=== PATIENT | female | born 1950 | race Caucasian/White ===

== ENCOUNTER 2016-08-25 09:05 | Inpatient (IN) | payer MEDICARE, OTHER ==
--- NOTE | 2016-08-25 09:22 | ED ---
General Adult HPI - General Stated complaint: alter mental status Time Seen by Provider: 08/25/16 09:05 Source: RN notes reviewed - History of Present Illness Initial comments: This is a 66-year-old female who was brought in to us from the adult foster care facility according to EMS the workers at the facility stated she has been altered since Tuesday but today she was a little more altered and was refusing to cooperate even to change her underwear. Patient refuses to take a shower and they decided that she was altered enough that she needed to be evaluated in the emergency department. According to staff she normally alert and oriented person place and day of the week. Today she is not answering any of those questions accurately and does not appear to even understand the questions. There's been no history of any trauma. There's been no history of any fever. No history of any difficulty breathing. No nausea vomiting or diarrhea that they know of. No other history is available this time patient is unable to give me any history and there is no one came with the patient. - Related Data Home Medications Medication Instructions Recorded Confirmed OXcarbazepine [Trileptal] 600 mg PO HS 06/15/15 08/25/16 Docusate [Colace] 100 mg PO HS PRN 02/27/16 08/25/16 Ergocalciferol [Vitamin D2] 50,000 unit PO MO 02/27/16 08/25/16 Loratadine [Claritin] 10 mg PO DAILY 02/27/16 08/25/16 Lurasidone HCl [Latuda] 60 mg PO DAILY 02/27/16 08/25/16 Potassium Chloride [Klor-Con] 20 meq PO DAILY 02/27/16 08/25/16 Simvastatin [Zocor] 40 mg PO HS 02/27/16 08/25/16 Spironolactone [Aldactone] 25 mg PO DAILY 02/27/16 08/25/16 Trihexyphenidyl HCl [Artane] 5 mg PO HS 02/27/16 08/25/16 Ibuprofen [Ibuprofen] 400 mg PO TID 08/25/16 08/25/16 Allergies Allergy/AdvReac Type Severity Reaction Status Date / Time haloperidol [From Haldol] Allergy Unknown Verified 02/27/16 12:43 haloperidol lactate Allergy Unknown Verified 02/27/16 12:43 [From Haldol] Iodinated Contrast Media - Allergy Unknown Verified 02/27/16 12:43 Oral and [Iodinated Contrast Media - IV Dye] piperacillin sodium Allergy Unknown Verified 02/27/16 12:43 [From Zosyn] tazobactam sodium Allergy Unknown Verified 02/27/16 12:43 [From Zosyn] Review of Systems ROS Statement: Those systems with pertinent positive or pertinent negative responses have been documented in the HPI. ROS Other: All systems not noted in ROS Statement are negative. Past Medical History Past Medical History: Heart Failure, CVA/TIA, Dementia, GI Bleed, Hypertension Additional Past Medical History / Comment(s): Edema, Cellulitis History of Any Multi-Drug Resistant Organisms: MRSA Date of last positivie culture/infection: 2008 MDRO Source:: leg Past Surgical History: Appendectomy, Cholecystectomy, Hysterectomy, Orthopedic Surgery, Tonsillectomy Past Anesthesia/Blood Transfusion Reactions: No Reported Reaction Past Psychological History: Anxiety, Bipolar, Depression, Panic Disorder Smoking Status: Never smoker Past Alcohol Use History: None Reported Past Drug Use History: None Reported - Past Family History Mother Family Medical History: Unable to Obtain Father Family Medical History: Unable to Obtain General Exam - General Exam Comments Initial Comments: GENERAL: Patient is well-developed and well-nourished. Patient is nontoxic and well- hydrated and is in no acute distress. ENT: Neck is soft and supple. No significant lymphadenopathy is noted. Oropharynx is clear. Moist mucous membranes. Neck has full range of motion without eliciting any pain. EYES: The sclera were anicteric and conjunctiva were pink and moist. Extraocular movements were intact and pupils were equal round and reactive to light. Eyelids were unremarkable. PULMONARY: Unlabored respirations. Good breath sounds bilaterally. No audible rales rhonchi or wheezing was noted. CARDIOVASCULAR: Patient is tachycardic at 110 beats a minute ABDOMEN: Soft and nontender with normal bowel sounds. No palpable organomegaly was noted. There is no palpable pulsatile mass. SKIN: Skin is clear with no lesions or rashes and otherwise unremarkable. NEUROLOGIC: Patient is alert patient and she is not oriented and she is not answering any questions she does occasionally speaking but not making any sense. MUSCULOSKELETAL: Normal extremities with adequate strength and full range of motion. No lower extremity swelling or edema. No calf tenderness. LYMPHATICS: No significant lymphadenopathy is noted PSYCHIATRIC: Unable to assess secondary to altered mental status Course Vital Signs 08/25/16 08/25/16 09:09 10:36 Temperature 97.1 F L Pulse Rate 108 H 105 H Respiratory 14 18 Rate Blood Pressure 173/101 171/99 O2 Sat by Pulse 97 Oximetry Medical Decision Making - Medical Decision Making EKG shows sinus tachycardia at 103 bpm NH interval is 176 QRS is 78 QT interval 320 QTC is 419. Patient's EKG shows no ST segment elevation or depression or T wave abnormalities are noted Patient's chest x-ray shows no acute abnormality. Patient's computed tomography scan of the brain shows no acute abnormality. Spoke with Dr. Dr. Steele and Dr. Steele wanted the patient admitted for stroke and he would evaluate the patient on the floor. - Lab Data Result diagrams: 08/25/16 09:26 08/25/16 09:26 Lab Results 08/25/16 08/25/16 08/25/16 Range/Units 09:22 09:26 09:26 WBC 11.0 H (3.8-10.6) k/uL RBC 4.34 (3.80-5.40) m/uL Hgb 13.2 (11.4-16.0) gm/dL Hct 39.2 (34.0-46.0) % MCV 90.3 (80.0-100.0) fL MCH 30.4 (25.0-35.0) pg MCHC 33.6 (31.0-37.0) g/dL RDW 13.4 (11.5-15.5) % Plt Count 369 (150-450) k/uL Neutrophils % 73 % Lymphocytes % 20 % Monocytes % 5 % Eosinophils % 1 % Basophils % 0 % Neutrophils # 8.0 H (1.3-7.7) k/uL Lymphocytes # 2.2 (1.0-4.8) k/uL Monocytes # 0.5 (0-1.0) k/uL Eosinophils # 0.1 (0-0.7) k/uL Basophils # 0.0 (0-0.2) k/uL PT (9.0-12.0) sec INR (<1.1) APTT (22.0-30.0) sec Sodium (137-145) mmol/L Potassium (3.5-5.1) mmol/L Chloride (98-107) mmol/L Carbon Dioxide (22-30) mmol/L Anion Gap mmol/L BUN (7-17) mg/dL Creatinine (0.52-1.04) mg/dL Est GFR (MDRD) Af Amer (>60 ml/min/1.73 sqM) Est GFR (MDRD) Non-Af (>60 ml/min/1.73 sqM) Glucose (74-99) mg/dL POC Glucose (mg/dL) (75-99) mg/dL POC Glu Timber Sizer Operator ID Calcium (8.4-10.2) mg/dL Total Bilirubin (0.2-1.3) mg/dL AST (14-36) U/L ALT (9-52) U/L Alkaline Phosphatase (38-126) U/L Total Creatine Kinase 106 (30-135) U/L CK-MB (CK-2) 0.7 (0.0-2.4) ng/mL CK-MB (CK-2) Rel Index 0.7 Troponin I 0.021 (0.000-0.034) ng/mL Total Protein (6.3-8.2) g/dL Albumin (3.5-5.0) g/dL Urine Color Yellow Urine Appearance Clear (Clear) Urine pH 7.0 (5.0-8.0) Ur Specific Lav[place] 1.017 (1.001-1.035) Urine Protein Trace H (Negative) Urine Glucose (UA) Negative (Negative) Urine Ketones Negative (Negative) Urine Blood Negative (Negative) Urine Nitrate Negative (Negative) Urine Bilirubin Negative (Negative) Urine Urobilinogen <2.0 (<2.0) mg/dL Ur Leukocyte Esterase Negative (Negative) Urine Opiates Screen Not Detected (NotDetected) Ur Oxycodone Screen Not Detected (NotDetected) Urine Methadone Screen Not Detected (NotDetected) Ur Propoxyphene Screen Not Detected (NotDetected) Ur Barbiturates Screen Not Detected (NotDetected) U Tricyclic Antidepress Not Detected (NotDetected) Ur Phencyclidine Scrn Not Detected (NotDetected) Ur Amphetamines Screen Not Detected (NotDetected) U Methamphetamines Scrn Not Detected (NotDetected) U Benzodiazepines Scrn Not Detected (NotDetected) Urine Cocaine Screen Not Detected (NotDetected) U Marijuana (THC) Screen Not Detected (NotDetected) 08/25/16 08/25/16 08/25/16 Range/Units 09:26 09:26 09:29 WBC (3.8-10.6) k/uL RBC (3.80-5.40) m/uL Hgb (11.4-16.0) gm/dL Hct (34.0-46.0) % MCV (80.0-100.0) fL MCH (25.0-35.0) pg MCHC (31.0-37.0) g/dL RDW (11.5-15.5) % Plt Count (150-450) k/uL Neutrophils % % Lymphocytes % % Monocytes % % Eosinophils % % Basophils % % Neutrophils # (1.3-7.7) k/uL Lymphocytes # (1.0-4.8) k/uL Monocytes # (0-1.0) k/uL Eosinophils # (0-0.7) k/uL Basophils # (0-0.2) k/uL PT 11.5 (9.0-12.0) sec INR 1.2 (<1.1) APTT 22.5 (22.0-30.0) sec Sodium 149 H (137-145) mmol/L Potassium 4.5 (3.5-5.1) mmol/L Chloride 114 H (98-107) mmol/L Carbon Dioxide 18 L (22-30) mmol/L Anion Gap 17 mmol/L BUN 28 H (7-17) mg/dL Creatinine 1.13 H (0.52-1.04) mg/dL Est GFR (MDRD) Af Amer 58 (>60 ml/min/1.73 sqM) Est GFR (MDRD) Non-Af 48 (>60 ml/min/1.73 sqM) Glucose 115 H (74-99) mg/dL POC Glucose (mg/dL) 125 H (75-99) mg/dL POC Glu Timber Sizer Operator ID Linette Cespedes Calcium 10.2 (8.4-10.2) mg/dL Total Bilirubin 0.4 (0.2-1.3) mg/dL AST 22 (14-36) U/L ALT 31 (9-52) U/L Alkaline Phosphatase 175 H (38-126) U/L Total Creatine Kinase (30-135) U/L CK-MB (CK-2) (0.0-2.4) ng/mL CK-MB (CK-2) Rel Index Troponin I (0.000-0.034) ng/mL Total Protein 7.6 (6.3-8.2) g/dL Albumin 4.4 (3.5-5.0) g/dL Urine Color Urine Appearance (Clear) Urine pH (5.0-8.0) Ur Specific Lavelle (1.001-1.035) Urine Protein (Negative) Urine Glucose (UA) (Negative) Urine Ketones (Negative) Urine Blood (Negative) Urine Nitrate (Negative) Urine Bilirubin (Negative) Urine Urobilinogen (<2.0) mg/dL Ur Leukocyte Esterase (Negative) Urine Opiates Screen (NotDetected) Ur Oxycodone Screen (NotDetected) Urine Methadone Screen (NotDetected) Ur Propoxyphene Screen (NotDetected) Ur Barbiturates Screen (NotDetected) U Tricyclic Antidepress (NotDetected) Ur Phencyclidine Scrn (NotDetected) Ur Amphetamines Screen (NotDetected) U Methamphetamines Scrn (NotDetected) U Benzodiazepines Scrn (NotDetected) Urine Cocaine Screen (NotDetected) U Marijuana (THC) Screen (NotDetected) Disposition Clinical Impression: Altered mental status, CVA (cerebral vascular accident) Disposition: ADMITTED IP TO THIS [facility] Time of Disposition: 11:35
[2016-08-25 09:31] LABS: Glucose,Whole Blood 125 mg/dL (75-99)
[2016-08-25 09:41] LABS: Appearance,Urine Clear (Clear); Bilirubin,Urine Negative (Negative); Glucose,Urine (UA) Negative (Negative); Ketones,Urine Negative (Negative); Leukocyte Esterase,Urine Negative (Negative); Nitrite,Urine Negative (Negative); Protein,Urine Trace (Negative); Specific Gravity,Urine 1.017 (1.001-1.035); UA Billing (MACRO vs. MICRO) CHEM; Urobilinogen,Urine <2.0 mg/dL (<2.0)
--- NOTE | 2016-08-25 10:17 | CT ---
EXAMINATION TYPE: CT brain wo con DATE OF EXAM: 08/25/2016 10:10 AM COMPARISON: 02/27/2016 INDICATION: alter mental changes DLP: 1054.2 mGycm, Automated exposure control for dose reduction was used. CONTRAST: None CT of the brain is performed utilizing 3 mm thick sections through the posterior fossa and 3 mm thick sections through the remaining calvarium. Study is performed within 24 hours of arrival to the hosp ital. No abnormal hyperdensity is present to suggest an acute intracranial hemorrhage. No mass lesion is evident. No acute infarcts are evident. There is an old infarct of the inferior and medial portion of the righ t frontal lobe. This was present on February 2016. Extraocular affect is evident on the lateral ventric le. Some mari-infarct ischemic type changes appear to be present which are chronic. No acute abnormal ity is evident. Ventricles and sulci are appropriate for the patient age. Paranasal sinuses and mastoid air cells within the [id number] are clear. IMPRESSIONS: 1. Old inferior medial right frontal lobe infarct. 2. No acute intracranial abnormality.
[2016-08-25 10:24] LABS: Basophils % (A) 0 %; CH 30.7; CHCM 34.2; Calcium 10.2 mg/dL (8.4-10.2); Eosinophils # (A) 0.1 k/uL (0-0.7); Eosinophils % (A) 1 %; HCT 39.2 % (34.0-46.0); HDW 2.44; HGB 13.2 gm/dL (11.4-16.0); Luc # (Auto) 0.11; Luc % (Auto) 1; Lymphocytes # (A) 2.2 k/uL (1.0-4.8); Lymphocytes % (A) 20 %; MCH 30.4 pg (25.0-35.0); MCHC 33.6 g/dL (31.0-37.0); MCV 90.3 fL (80.0-100.0); Mean Platelet Volume 7.6; Monocytes # (A) 0.5 k/uL (0-1.0); Monocytes % (A) 5 %; Neutrophils % (A) 73 %; Potassium 4.5 mmol/L (3.5-5.1); RBC 4.34 m/uL (3.80-5.40); RDW 13.4 % (11.5-15.5); Total Bilirubin 0.4 mg/dL (0.2-1.3); Total Protein 7.6 g/dL (6.3-8.2); WBC (Perox) 11.01
[2016-08-25 10:28] LABS: INR 1.2 (<1.1); Partial Thromboplastin Time 22.5 sec (22.0-30.0); Prothrombin Time 11.5 sec (9.0-12.0)
--- NOTE | 2016-08-25 10:29 | XR ---
EXAMINATION TYPE: XR chest 2V DATE OF EXAM: 08/25/2016 10:20 AM COMPARISON: Chest x-ray June 15, 2015 HISTORY: Confusion and altered mental status TECHNIQUE: Frontal and lateral views of the chest are obtained. FINDINGS: There is no focal air space opacity, pleural effusion, or pneumothorax seen. The cardiac silhouette size is stable and upper limits of normal. Left ventricular dilatation is suspected on lat eral view. There is multilevel spurring in the spine redemonstrated. IMPRESSION: No acute pulmonary process.
[2016-08-25 10:51] LABS: Creatine Kinase MB 0.7 ng/mL (0.0-2.4); Troponin I 0.021 ng/mL (0.000-0.034)
[2016-08-25] MEDS ORDERED: SODIUM CHLORIDE 0.9% 1,000 ML IV ONE (11:06)
[2016-08-25] MEDS: IBUPROFEN 400 MG TAB PO SCH ×2 (15:35→21:26)
--- NOTE | 2016-08-25 16:19 | US ---
EXAMINATION TYPE: US carotid duplex BILAT DATE OF EXAM: 08/25/2016 2:40 PM COMPARISON: NONE CLINICAL HISTORY: Stenosis, altered mental status. EXAM MEASUREMENTS: RIGHT: Peak Systolic Velocity (PSV) cm/sec ----- Right CCA: 54.7 ----- Right ICA: 61.4 ----- Right ECA: 77.2 ICA/CCA ratio: 1.1 RIGHT: End Diastole cm/sec ----- Right CCA: 16.3 ----- Right ICA: 23.0 ----- Right ECA: 11.5 LEFT: Peak Systolic Velocity (PSV) cm/sec ----- Left CCA: 67.7 ----- Left ICA: 105.6 ----- Left ECA: 66.1 ICA/CCA ratio: 1.6 LEFT: End Diastole cm/sec ----- Left CCA: 22.2 ----- Left ICA: 31.8 ----- Left ECA: 16.2 VERTEBRALS (direction of flow): Right Vertebral: Antegrade Left Vertebral: Antegrade TECHNOLOGIST IMPRESSION: Technically difficult study due to poor patient cooperation, no evident ceasar que or significant velocity increases Grayscale, color Doppler, spectral Doppler imaging performed of the carotid arteries. IMPRESSION: No hemodynamic significant stenosis of the proximal internal carotid arteries bilaterall y by Doppler criteria, and indirect measurement of carotid stenosis
[2016-08-25] MEDS: TRIHEXYPHENIDYL 2 MG TAB PO SCH (20:05)
[2016-08-25] MEDS: OXcarbazepine 300 MG TAB PO SCH (20:05)
[2016-08-25] MEDS: ATORVASTATIN 20 MG TAB PO SCH (20:05)
[2016-08-25] MEDS: ASPIRIN 81 MG CHEW PO SCH (20:12)
[2016-08-25] MEDS ORDERED: DOCUSATE 100 MG CAP PO PRN (21:00)
--- NOTE | 2016-08-25 22:40 | CONS ---
DATE OF CONSULTATION: 08/25/2016. CHIEF COMPLAINT: Altered mental status. HISTORY OF PRESENT ILLNESS: The patient is a pleasant 66-year-old female who is being evaluated by the neurology service per the request of Dr. Steele for altered mental status. The patient resides in a foster care facility and was transferred to [facility] emergency room due to altered mental status. The patient has multiple psychiatric disorders but over the past 2 to 3 days, she has been more confused than usual and had been more combative than usual. In the emergency room, a CT scan of the brain was done, which showed no acute abnormalities. There was evidence of an old right frontal lobe stroke. The patient reports a history of a stroke. In reviewing her home medications, she is not on any antiplatelet medications. A carotid Doppler was done, which showed no hemodynamically significant stenosis. Her comprehensive metabolic profile showed hypernatremia at 149 and renal insufficiency with a BUN of 28 and creatinine of 1.13. Her cardiac enzymes, urinalysis and urine drug screens were normal. Her CBC showed mild leukocytosis at 11.0 and was otherwise normal. At the time of my evaluation, she is resting in her bed and appears to be in no acute distress. She is oriented x3 but has some difficulties with expressing her speech. She denies any lateralizing numbness or weakness. PAST MEDICAL HISTORY: Heart failure, stroke, dementia, hypertension, history of GI bleed, bipolar disorder, panic disorder, depression, anxiety disorder, history of appendectomy, cholecystectomy, hysterectomy, orthopedic surgeries, and tonsillectomy. SOCIAL HISTORY: She denies any tobacco, alcohol or drug use. FAMILY HISTORY: Noncontributory. HOME MEDICATIONS: Reviewed in the chart. ALLERGIES: HALDOL, IV DYE, ZOSYN, IODINE. REVIEW OF SYSTEMS: Per history of present illness and otherwise negative. PHYSICAL EXAM: Vital signs show a temperature of 97.0, pulse 84, respirations 18, blood pressure 160/92. GENERAL APPEARANCE: The patient is a mildly obese female who appears to be in no acute distress. HEENT: Normocephalic, atraumatic, no facial asymmetry is seen. Neck is supple with no masses felt. CARDIOVASCULAR: Regular rate and rhythm. ABDOMEN: Nontender, nondistended. Extremities showed edema in bilateral lower extremities with no clubbing seen. NEUROLOGICAL EXAM: The patient is awake, and oriented x3. Language testing showed expressive aphasia. She follows commands appropriately. No obvious lateralizing weakness is seen, but generalized weakness is noticed with 5-/5 in the upper extremities and 4+/5 in the lower extremities. Sensory exam was normal to light touch in all 4 extremities. No facial asymmetry is noticed on cranial nerve testing. IMPRESSION: 1. Altered mental status, improving. 2. Acute metabolic encephalopathy. 3. Acute renal insufficiency. 4. Dehydration. 5. History of ischemic stroke. 6. Multiple psychiatric disorders. RECOMMENDATIONS: The patient's altered mental status is likely due to her acute renal insufficiency. She has been started on IV hydration. She is oriented x3 at the time of my evaluation. Language testing did show evidence of expressive aphasia, likely due to frontal lobe stroke which is old. Her exact baseline is not known. The patient should be on platelet therapy. I will start her on aspirin 81 mg daily. An EEG has been ordered. I will consult physical therapy to evaluate and treat for her generalized weakness. Psychiatry has been consulted for her multiple psychiatric disorders. Continue the rest of your current work-up and management. I will continue to follow with you. Further recommendations to follow. Thank you for allowing me to participate in the care of your patient. If you have any questions, please feel free to contact me.
--- NOTE | 2016-08-25 23:40 | HP ---
DATE OF ADMISSION: 08/25/2016 PRESENTING COMPLAINT: Decreased responsiveness. HISTORY OF PRESENTING COMPLAINT: This is a 66-year-old patient of Visiting Physician Dr. Andujar whose chronic stable medical conditions include bipolar disorder with psychosis, stroke with some residual left-sided weakness, neurogenic bladder, diverticulosis, venostasis. Per previous documentation, patient also has selective mutism. Patient was brought in today, as she was noted to be talking less. When I try to speak to the patient, she is able to speak a few words and then she howls. She keeps lisping; she keeps sticking out her tongue and runs it over her lips. I do not see any focal symptoms during the interview process. She is not really able to give me much of a history. Review of systems really cannot be done. Patient not able to give much of a history. PAST MEDICAL HISTORY: 1. Bipolar with psychosis. 2. Stroke with some residual left-sided weakness. 3. Hypertension. 4. Neurogenic bladder. 5. Diverticulosis. 6. Irritable bowel syndrome. 7. Hiatal hernia. 8. Venostasis. PAST SURGICAL HISTORY: 1. Adenoidectomy. 2. Appendectomy. 3. Cholecystectomy. 4. Hernia repair. 5. Hysterectomy. 6. Left foot toe with screw. 7. Left foot bunionectomy. 8. Liver biopsy. 9. Right inguinal hernia repair. SOCIAL HISTORY: Resident of [facility]. Uses a walker. No smoking. No alcohol. FAMILY HISTORY: Patient cannot tell. HOME MEDICATIONS: 1. Vitamin D2, 50,000 units p.o. on Mondays. 2. Artane 5 mg p.o. at bedtime. 3. Aldactone 25 mg daily. 4. Zocor 40 mg at bedtime. 5. Potassium 20 mEq daily. 6. Trileptal 600 mg p.o. at bedtime. 7. Latuda 60 mg daily. 8. Claritin 10 mg p.o. daily. 9. Ibuprofen 400 mg p.o. t.i.d. 10. Colace 100 mg p.o. at bedtime. ALLERGIES: 1. HALDOL. 2. IV CONTRAST DYE. 3. ZOSYN. On examination, temperature 97.1, pulse 97, respiration 18, blood pressure 154/107, pulse ox 97% on room air. GENERAL APPEARANCE: Well built; BMI of 34.5. Lying in bed, awake. EYES: Pupils equal. Conjunctivae normal. HEENT: External appearance of nose and ears normal. Oral cavity normal. NECK: JVD not raised. Mass not palpable. RESPIRATORY: Effort normal. LUNGS: Clear. CARDIOVASCULAR: First and second sounds normal. No edema. ABDOMEN: Soft, non-tender. Liver and spleen not palpable. LYMPHATIC: No lymph node palpable in the neck or axillae. PSYCHIATRY: Unable to assess. NEUROLOGICAL: Patient is sticking her tongue out and just moves it across the lips and then seems to occasionally stretch her arms out. Does not lose any consciousness. INVESTIGATIONS: White count 11, hemoglobin 13.2. Sodium 149. BUN 28, creatinine 1.13. ASSESSMENT: 1. Possible tardive dyskinesia; could be a side effect of antipsychotic medications in the setting of dehydration. 2. Hypernatremia from free water deficit, probably from decreased oral intake. Patient's sodium is 149. 3. Metabolic acidosis. Patient's bicarb has dropped. 4. Bipolar disorder with element of psychosis. 5. Essential hypertension. 6. Chronic neurogenic bladder. 7. Irritable bowel syndrome. 8. Hiatal hernia. 9. History of selective mutism. PLAN: Will hydrate the patient. Definitely hold off the Aldactone. Will get a psychiatric opinion. I do not see any real focal symptoms at this point. This appears to be more of a psychiatric issue or side effects thereof. Neuro checks will remain in place. Will get opinion from Psychiatry first and then go from there.
[2016-08-26] MEDS ORDERED: SPIRONOLACTONE 25 MG TAB PO SCH (09:00)
[2016-08-26] MEDS ORDERED: LORATADINE 10 MG TAB PO SCH (09:00)
[2016-08-26] MEDS: ASPIRIN 81 MG CHEW PO SCH (12:09)
[2016-08-26] MEDS: IBUPROFEN 400 MG TAB PO SCH ×3 (12:09→21:54)
[2016-08-26] MEDS: LURASIDONE 40 MG TAB PO SCH (12:09)
[2016-08-26] MEDS: POTASSIUM CHLORIDE ER 20 MEQ TAB.ER PO SCH (12:10)
--- NOTE | 2016-08-26 15:30 | PN ---
DATE OF SERVICE 08/27/2016 PRESENTING COMPLAINT: Decreased responsiveness. INTERVAL HISTORY: This is a patient who presents which could be a side effect of antipsychotic medication and also dehydration. Neurology had seen the patient, no further real work-up. Awaiting input from Psychiatry. Patient dose attempt to speak words and then holds off, getting hydrated. Review of systems very difficult to do. Current medications are noted. On examination, temperature 99.2, pulse 80, respirations 18, blood pressure 155/105, pulse of 98% on room air. GENERAL APPEARANCE: Lying in bed, awake. EYES: Pupils equal, conjunctivae normal. NECK: JVD not raised. Mass not palpable. Respiratory effort normal. Lungs are clear. CARDIOVASCULAR: First and second sounds normal. No edema. ABDOMEN: Soft, nontender. PSYCHIATRY: Patient does say a few words here and there. NEUROLOGICAL: No focal weakness. INVESTIGATIONS: No blood work from today. ASSESSMENT: 1. Possible/questionable tardive dyskinesia, ( ) psychotic medication, setting of dehydration. Will await for the input from Psychiatry. 2. Hypernatremia from free water deficit from decreased oral intake. 3. Metabolic acidosis. 4. Bipolar disorder, element of psychosis. 5. Essential hypertension. 6. Chronic neurogenic bladder. 7. Irritable bowel syndrome. 8. Hiatal hernia. 9. History of selective mutism. 10. Essential hypertension, uncontrolled. PLAN: At this point, will start the patient on Lopressor 25 twice a day. Repeat labs in the morning. Hold off the Aldactone. Give some IV fluids. Also DC the Claritin.
[2016-08-26] MEDS: SODIUM CHLORIDE 0.9% 1,000 ML IV SCH (16:15)
[2016-08-26] MEDS: ENOXAPARIN 40 MG/0.4 ML SYRINGE SQ SCH (17:22)
--- NOTE | 2016-08-26 19:59 | CONS ---
DATE OF CONSULTATION: 08/26/2016 REASON FOR CONSULTATION: Patient has extensive psychiatric history. Please evaluate. As the patient is a very poor historian and confused, most of the history was taken from the medical record. Also, I did contact the [employer] [facility] and I talked with her about patient condition. HISTORY OF PRESENT ILLNESS: The patient is 66-year-old female who has been staying in the same fpc for the last couple of years and she has a guardian. Her name is Catherine. Patient was admitted to the hospital for altered mental status. The patient was seen by neurologist to rule out any stroke, also including EEG. According to fpc staff, the patient has been getting more confused, not talking, more combative than usual for the last couple of days. Even she started to refuse her oral psychotropic medication. She refused to take a shower or let anyone to help her to change her diaper. I discussed her case with the nursing staff here on the medical unit and she told me that the patient has been refusing all her medication. I tried to interview the patient. It seems that she is very confused and she has been having difficulty to express herself. In the emergency room, the CT scan of the brain showed no acute intracranial hemorrhage. It does show there is old right frontal lobe stroke. Also, the carotid Doppler was done which showed no significant stenosis. Her lab workup showed that her sodium is high at 149, BUN 28, creatinine 1.13. Her cardiac enzymes and urinalysis were normal. PAST PSYCHIATRIC HISTORY: There is extensive psychiatric history. Her last admission was in our unit, the mental health unit, and she was on involuntary admission. It was August 29, [address] Lakhwinder Armstrong. She was admitted to the mental unit, as she was experiencing bizarre behavior, walking in the street with bare feet without any winter coat, knocking on the neighbor's door. Prior to 2014, she was also at [facility] in May 2012. Her diagnosis is between schizoaffective disorder versus bipolar disorder, most recent manic. The old records show that the patient was seen at [facility] by Dr. Moreau. She used to be on Abilify Maintena once a month. Her current psychotropic medication is Latuda 60 mg daily and Trileptal 600 twice a day. PAST MEDICAL HISTORY: History of heart failure, stroke, dementia, hypertension, gastroesophageal tract bleeding, status post hysterectomy, appendectomy and cholecystectomy. Also there is history of dementia; however, I could not verify this, as the patient was severely psychotic and selective mute. ALLERGIES: HALDOL, IODINE AND IVP DYE AND ZOSYN. Her home medications includin. Vitamin D2. 2. Artane 5 mg at bedtime. 3. Latuda 60 mg in the morning. 4. Aldactone 25 daily. 5. Zocor 40 mg at bedtime. 6. Potassium 20 mEq. 7. Trileptal 600 mg twice a day. 8. Claritin. 9. Ibuprofen. 10. Colace. SUBSTANCE ABUSE HISTORY: From the record, it seems that the patient did have history of alcohol and marijuana use. BRIEF SOCIAL HISTORY: Patient was once, ended by divorce and she has 3 grownup sons. Currently she has a guardian and she is living in foster home or fpc for the last couple of years. MENTAL STATUS EXAMINATION: Patient is a disheveled, female, overweight. Patient is uncooperative. She has definite expressive aphasia, avoiding eye contact. She did make several statements very bizarre in nature. She is only oriented to person. Speech is very disorganized, a lot of halting and blocking. Patient was not able to participate in complete mental status examination due to her psychotic condition and her cognitive functions are impacted by her psychiatric symptoms. IMPRESSION: 1. Patient had delirium reaction due to increased BUN and creatinine, metabolic. 2. Bipolar disorder, mixed with psychotic features versus schizoaffective disorder. 3. Rule out major neurocognitive disorder with delusion. PLAN: Treat the dehydration and when the patient is medically cleared, patient has to be petitioned and she will be transferred to the mental health unit on involuntary basis to stabilize her medication.
[2016-08-26] MEDS: TRIHEXYPHENIDYL 2 MG TAB PO SCH (21:54)
[2016-08-26] MEDS: OXcarbazepine 300 MG TAB PO SCH (21:54)
[2016-08-26] MEDS: ATORVASTATIN 20 MG TAB PO SCH (21:54)
[2016-08-27] MEDS: SODIUM CHLORIDE 0.9% 1,000 ML IV SCH ×3 (06:17→20:47)
[2016-08-27] MEDS: POTASSIUM CHLORIDE ER 20 MEQ TAB.ER PO SCH (09:43)
[2016-08-27] MEDS: LURASIDONE 40 MG TAB PO SCH (09:43)
[2016-08-27] MEDS: ENOXAPARIN 40 MG/0.4 ML SYRINGE SQ SCH (09:43)
[2016-08-27] MEDS: ASPIRIN 81 MG CHEW PO SCH (09:43)
[2016-08-27] MEDS: IBUPROFEN 400 MG TAB PO SCH ×3 (09:43→20:48)
[2016-08-27] MEDS ORDERED: cloNIDine 0.2 MG/24HR PATCH 1 PATCH PATCH TRANSDERM SCH (16:15)
[2016-08-27] MEDS: OXcarbazepine 300 MG TAB PO SCH (20:47)
[2016-08-27] MEDS: TRIHEXYPHENIDYL 2 MG TAB PO SCH (20:47)
[2016-08-27] MEDS: ATORVASTATIN 20 MG TAB PO SCH (20:47)
[2016-08-27 21:07] VITALS: BP 189/116; PULSE 98; RESP 16; TEMP 98
--- NOTE | 2016-08-27 21:42 | PN ---
CORRECTION: Patient's document dictated on 08/26/2016 at 14:36, transcribed on 08/26/2016 at 15:29, the correct date of service should be 08/26/2016 and not 08/27/2016 as dictated.
--- NOTE | 2016-08-27 21:49 | DS ---
DATE OF ADMISSION: 08/25/2016 DATE OF DISCHARGE: FINAL DIAGNOSIS(ES): 1. Possible acute delirium, multifactorial, present on admission. 2. Hyponatremia from free water deficit from decreased oral intake, present at admission. 3. Metabolic acidosis. 4. Bipolar disorder element of psychosis. 5. Essential hypertension. 6. Chronic neurogenic bladder. 7. Irritable bowel syndrome. 8. Hiatal hernia. 9. History of selective mutism. 10. Essential hypertension, uncontrolled from not taking medication. HOSPITAL COURSE: The patient has a rather extensive psych history, presented with altered mental status. Seen by psychiatry. The patient stopped taking her medications and refusing treatment for blood pressure. Did put the patient on blood pressure patch. Earlier today seen by Dr. Blanc from psychiatry. On examination the patient does talk much and not taking her medications. DISCHARGE MEDICATIONS: 1. Trileptal 600 mg p.o. q.h.s. 2. Vitamin D2, 50,000 units on Tuesday. 3. Latuda 60 mg p.o. daily. 4. Potassium 20 mEq p.o. daily. 5. Zocor 40 mg p.o. q.h.s. 6. Artane 5 mg, 3 q.h.s. 7. Ibuprofen 400 mg p.o. t.i.d. 8. Aspirin 81 mg daily. 9. Note, the patient not taking her medication. DISPOSITION: [facility] at [facility]. The patient has a ( ) petition and certification. Accepting physician: Dr. Blanc psychiatrist, [facility]. On examination. CARDIOVASCULAR: First and seconds normal. Lungs are clear. PSYCH: Patient does not answer much questions.
== END 2016-08-27 21:48 | DRG 91 ==
LOC: EC 09:05 → 6SEL 11:38 → 5MS5E 08-27 02:11
PROVIDERS: ADMIT Hospitalist; ATTEND Hospitalist
DX: G24.01 Drug induced subacute dyskinesia (principal); G93.41 Metabolic encephalopathy; E87.0 Hyperosmolality and hypernatremia; E87.2 Acidosis; F31.60 Bipolar disorder, current episode mixed, unspecified; R47.01 Aphasia; I69.354 Hemiplegia and hemiparesis following cerebral infarction affecting left non-dominant side; E86.0 Dehydration; I50.9 Heart failure, unspecified; I11.9 Hypertensive heart disease without heart failure; F41.9 Anxiety disorder, unspecified; T46.5X6A Underdosing of other antihypertensive drugs, initial encounter; F03.90 Unspecified dementia, unspecified severity, without behavioral disturbance, psychotic disturbance, mood disturbance, and anxiety; N28.9 Disorder of kidney and ureter, unspecified; F41.0 Panic disorder [episodic paroxysmal anxiety]; R41.0 Disorientation, unspecified; R29.702 NIHSS score 2; D72.829 Elevated white blood cell count, unspecified; I87.8 Other specified disorders of veins; R00.0 Tachycardia, unspecified; N31.9 Neuromuscular dysfunction of bladder, unspecified; K57.90 Diverticulosis of intestine, part unspecified, without perforation or abscess without bleeding; K58.9 Irritable bowel syndrome, unspecified; K44.9 Diaphragmatic hernia without obstruction or gangrene; Z88.8 Allergy status to other drugs, medicaments and biological substances; Z86.14 Personal history of Methicillin resistant Staphylococcus aureus infection; Z86.19 Personal history of other infectious and parasitic diseases; Z16.24 Resistance to multiple antibiotics; Z90.710 Acquired absence of both cervix and uterus; Z90.49 Acquired absence of other specified parts of digestive tract; Z87.19 Personal history of other diseases of the digestive system; Z88.1 Allergy status to other antibiotic agents; Z91.041 Radiographic dye allergy status; Z91.128 Patient's intentional underdosing of medication regimen for other reason; Z79.1 Long term (current) use of non-steroidal anti-inflammatories (NSAID); Z79.899 Other long term (current) drug therapy
CPT/HCPCS: 36415; 70450; 71020; 80053; 80306; 81003; 82550; 82553; 84484; 85025; 85610; 85730; 93005; 93880; 96360; 99285

== ENCOUNTER 2016-08-27 21:54 | Inpatient (IN) | payer MEDICARE, MEDICAID ==
[2016-08-27 23:30] VITALS: TEMP 97.6
[2016-08-27] MEDS ORDERED: MAGNESIUM HYDROXIDE 2,400 MG/10 ML CUP PO PRN (23:39)
[2016-08-27] MEDS ORDERED: ACETAMINOPHEN TAB 325 MG TAB PO PRN (23:39)
[2016-08-27] MEDS ORDERED: MAG HYDROX/AL HYDROX/SIMETH 30 ML CUP PO PRN (23:39)
[2016-08-27] MEDS ORDERED: DOCUSATE 100 MG CAP PO PRN (23:49)
[2016-08-27] MEDS ORDERED: LORazepam 1 MG TAB PO PRN (23:50)
[2016-08-27] MEDS ORDERED: LORazepam 2 MG/ML SYRINGE IM PRN (23:51)
[2016-08-28] MEDS ORDERED: WATER FOR INJECTION, STERILE 10 ML IV ONE (08:36)
[2016-08-28] MEDS: ZIPRASIDONE 20 MG VIAL IM PRN (08:38)
[2016-08-28] MEDS ORDERED: POTASSIUM CHLORIDE ER 20 MEQ TAB.ER PO SCH (09:00)
[2016-08-28] MEDS ORDERED: ASPIRIN 81 MG CHEW PO SCH (09:00)
[2016-08-28] MEDS ORDERED: LORATADINE 10 MG TAB PO SCH (09:00)
[2016-08-28] MEDS ORDERED: SPIRONOLACTONE 25 MG TAB PO SCH (09:00)
[2016-08-28] MEDS: LURASIDONE 40 MG TAB PO SCH (09:05)
--- NOTE | 2016-08-28 11:45 | P.HP ---
Psychiatric H&P - . H&P Date: 08/28/16 History & Physical: Allergies Allergy/AdvReac Type Severity Reaction Status Date / Time haloperidol [From Haldol] Allergy Unknown Verified 02/27/16 12:43 haloperidol lactate Allergy Unknown Verified 02/27/16 12:43 [From Haldol] Iodinated Contrast Media - Allergy Unknown Verified 02/27/16 12:43 Oral and [Iodinated Contrast Media - IV Dye] piperacillin sodium Allergy Unknown Verified 02/27/16 12:43 [From Zosyn] tazobactam sodium Allergy Unknown Verified 02/27/16 12:43 [From Zosyn] Vital Signs Temp 97.6 F 08/27/16 23:27 Pulse 141 H 08/28/16 07:12 Resp 20 08/28/16 07:12 BP 140/83 08/28/16 07:12 Pulse Ox Intake & Output 08/27/16 08/28/16 08/28/16 18:59 06:59 18:59 Weight 82 kg 08/28/16 11:28 IDENTIFYING DATA: 66-year-old female patient HPI: Patient admitted to the inpatient psychiatric unit as a transfer from the medical floor. She was admitted to the medical floor per history regarding concerns of altered mental status. She was found to have hypernatremia and there were concerns of dehydration. Petition done by social work staff relaying "patient is disoriented, unable to care for self. She is not able to speak or understand need for mental health treatment. Patient would benefit from inpatient psychiatric treatment." When asked patient what brought her to the hospital she does not really respond appropriately and repeat some things that I say. When asked again she states "I have been on vacation." She goes on to relay during the session "it's been switched around." When asked regarding this she relays "I'm not sure." She also makes reference to "I'm at the wrong end." In reference to meeting with her again tomorrow she states "if you burst my bubble tomorrow." She does not really give any significant history at this time and does not respond to most questions. Per nursing staff she did receive an IM Geodon earlier today. PAST PSYCHIATRIC HISTORY: Per chart history has a history of diagnosis of bipolar disorder with psychosis. Per chart history she doesn't a history of several inpatient psychiatric admissions, it appears the last one was in June 2015. She has been in [facility] treatment in the past. She has been on injectable medication the past. Some previous medications per chart history include Artane, Navane, Abilify including injectable, Trileptal, Restoril, Navane. She is currently on Latuda 60 mg daily and Trileptal 600 mg at bedtime. She is also on Artane 5 mg at bedtime. Patient does not respond when asked about current outpatient treatment. PMH: Per chart history history of osteoarthritis, hypertension, coronary artery disease, congestive heart failure, stroke and obesity. Patient does not respond when asked about medical problems. ALLERGIES: Haldol and Zosyn MEDICATIONS: Tylenol when necessary, Maalox when necessary, Lipitor, Colace when necessary, vitamin D2, Claritin, Ativan when necessary, latuda, milk of magnesia when necessary, Trileptal, k-dur, aldactone, Artane, Geodon when necessary CHEMICAL DEPENDENCY HISTORY: None known, does not respond FAMILY PSYCHIATRIC HISTORY: None known FAMILY CHEMICAL DEPENDENCY HISTORY: not Known at this time SOCIAL HISTORY: She does not respond when asked about living situation. Per history she has been admitted and [facility] home. Per previous psychiatric H&P she has a court appointed legal guardian. Per history she has 3 sons. MENTAL STATUS EXAM: She is seen in the library seated in a wheelchair. She has her eyes closed during much of the exam and has poor eye contact. Regarding her mood she says "it's not a normal day.". When asked about thoughts of harm to self or others she does not respond. Her speech is somewhat minimal. When asked about hallucinations she does not respond. Her thought processes show some disorganization. She does not show any significant level of agitation. Mental status exam shows some limitations due to patient not responding to several questions. Insight is very limited. Judgment is impaired. STRENGTHS/WEAKNESSES: Strengths-she is in a living setting with assistance. Weaknesses-concerns history of difficulties of medication compliance, medical issues INTELLECTUAL FUNCTIONING: Below average IMPRESSIONS: AXIS I : History of bipolar disorder with psychosis versus schizoaffective disorder, bipolar type. Recent delirium/altered mental status AXIS II: Deferred AXIS III: Hypercholesterolemia, history of CVA, CHF, CAD, hypertension, osteoarthritis, hypernatremia, elevated BUN and creatinine AXIS IV: Medical, chronic mental illness AXIS V: 21 PLAN: Patient is admitted to the inpatient psychiatric unit at [facility] on an involuntary basis. Repeat laboratory workup will be done on the patient including electrolytes and kidney functions. She'll be placed on SP 15 minute precautions. We will have medical follow-up. She will be maintained on Latuda and Trileptal as current as well as Artane and we will monitor her compliance. We'll monitor for any medication side effects. We will look into any possible support systems. We will be addressing discharge disposition. We' ll continue to cover this patient for Dr. Starr through the weekend. Estimated length of stay 5-7 days. Prognosis is guarded.
[2016-08-28] MEDS ORDERED: cloNIDine 0.2 MG/24HR PATCH 1 PATCH PATCH TRANSDERM SCH (18:45)
[2016-08-28] MEDS ORDERED: ATORVASTATIN 20 MG TAB PO SCH (21:00)
[2016-08-28] MEDS: OXcarbazepine 300 MG TAB PO SCH (21:26)
[2016-08-28] MEDS: TRIHEXYPHENIDYL 2 MG TAB PO SCH (21:27)
--- NOTE | 2016-08-29 08:12 | CONS ---
DATE OF CONSULTATION: 08/28/2016 REASON FOR CONSULTATION: Medical management requested by Dr. Flores. CONSULTATION: This is a 66-year-old patient who follows with Visiting Physician, Dr. Andujar, whose chronic stable medical conditions include left-sided weakness from a prior stroke, neurogenic bladder, diverticulosis, venostasis. Patient also has selective mutism. Patient was admitted to the medical floor with decreased talking and patient went to the extent of not taking any medication, not eating at all; hence, was transferred to the psychiatry unit. [place] to be ( ) psychosis. The patient is sitting up in a chair watching TV, talking to staff, but not taking any medications and not eating any food. REVIEW OF SYSTEMS: Patient will not give any history. PAST MEDICAL HISTORY: Bipolar with psychosis, stroke with residual left-sided weakness, hypertension, neurogenic bladder, diverticulosis, irritable bowel syndrome, hiatal hernia, venostasis. PAST SURGICAL HISTORY: Adenoidectomy, appendectomy, cholecystectomy, hernia repair, hysterectomy, left foot bunionectomy, liver biopsy, right inguinal hernia repair. SOCIAL HISTORY: Resident of [facility], uses a walker, no smoking or alcohol. FAMILY HISTORY: Patient will not tell. Current medications are reviewed as in the computer chart. ALLERGIES: HALDOL, IV CONTRAST DYE, ZOSYN. On examination, temperature 97.6, pulse 70, respirations 16, blood pressure 167/100, pulse ox 100% on room air. GENERAL APPEARANCE: Sitting up on a chair, resisting some examination. EYES: Pupils equal. Conjunctivae normal. NECK: JVD not raised. Mass not palpable. RESPIRATORY: Effort normal. LUNGS: Clear. CARDIOVASCULAR: First and second sounds normal. No edema. ABDOMEN: Soft, nontender. Liver and spleen not palpable. PSYCHIATRY: Patient keeps talking to staff, does not make much sense. NEUROLOGICAL: Patient is moving all the limbs. Sitting up in a chair. INVESTIGATIONS: Blood work from 08/25/2016 was sodium 149, BUN 28, creatinine 1.13. ASSESSMENT: 1. Bipolar disorder with psychosis worsening. 2. Hypernatremia from free water deficit. Patient not taking anything by mouth. 3. Essential hypertension. 4. Chronic neurogenic bladder. 5. Irritable bowel syndrome. 6. Hiatal hernia. 7. History of selective mutism. PLAN: For now, will discontinue patient's Claritin. Patient is getting Geodon per Psychiatry. Will also hold off the Aldactone for right now as she is not eating and the potassium and give the patient Catapres patch. Thank you Dr. Flores. Will follow.
[2016-08-29 09:51] LABS: Potassium 4.6 mmol/L (3.5-5.1)
[2016-08-29 10:20] VITALS: BP 122/74; PULSE 116; RESP 16
[2016-08-29] MEDS: LURASIDONE 40 MG TAB PO SCH (10:36)
--- NOTE | 2016-08-29 12:18 | P.PN ---
Progress Note - Text Interval history: Patient is seen seated in a wheelchair in the library today. She has breakfast in front of her. She has minimal speech during this interview. Mental status exam: She is fully alert. She has minimal speech during this interview. She says several times during the session "you picked up..." And then she stops talking. She does finish more of the sentence towards the end of the evaluation but it is difficult to understand what she says. She does not answer questions regarding her name, place or date. She does not show any significant agitation. She does not make any reference to thoughts of harm to self or others. Plan: We'll maintain current psychotropic medication regimen. Continue to monitor her ongoing response and monitor for any medication side effects. Dr. Starr to initiate care this patient starting tomorrow.
[2016-08-29] MEDS ORDERED: ZIPRASIDONE 20 MG VIAL IM ONE (18:44)
[2016-08-29] MEDS ORDERED: WATER FOR INJECTION, STERILE 10 ML IV ONE (18:44)
[2016-08-29] MEDS: ZIPRASIDONE 20 MG VIAL IM PRN (18:49)
[2016-08-29] MEDS: TRIHEXYPHENIDYL 2 MG TAB PO SCH (20:09)
[2016-08-29] MEDS: OXcarbazepine 300 MG TAB PO SCH (20:09)
[2016-08-29 22:03] LABS: Glucose,Whole Blood 181 mg/dL (75-99)
--- NOTE | 2016-08-30 12:11 | PN ---
DATE OF SERVICE: 08/29/2016 PRESENTING COMPLAINT: Psychosis. INTERVAL HISTORY: This is a patient who has severe psychosis, hardly eating, drinking and not taking his medications. Did take some medications last night, barely eating. Sitting up in a chair at present with the nurse. Review of systems really patient will not talk. On examination, respirations 14, blood pressure 140/83. GENERAL APPEARANCE: Sitting up in a chair, psychotic. LUNGS: The lungs are clear. CARDIOVASCULAR: First and second heart sounds. ABDOMEN: Soft, nontender. PSYCHIATRY: Patient says don't touch me or I tried to feed the patient, she will not eat any food. INVESTIGATIONS: Sodium 150, BUN 43, creatinine 2.10. ASSESSMENT: 1. Bipolar disorder with severe psychosis, worsening. 2. Hypernatremia from free water deficit, not taking anything by mouth. 3. Acute renal failure from dehydration that is prerenal. 4. Essential hypertension. 5. Chronic neurogenic bladder. 6. Irritable bowel syndrome. 7. Hiatal hernia. PLAN: Patient will need aggressive psychiatric treatment to get her psychosis better so we can improve her oral intake. She could get IV fluids but until we get the patient to take oral intake, there is going to be a problem. I told the nurse to get a hold of the covering psychiatrist and see what other medicines we can give her.
[2016-08-30] MEDS ORDERED: ERGOCALCIFEROL 50,000 UNIT CAP PO SCH (23:41)
--- NOTE | 2016-11-09 09:59 | DS ---
DATE OF ADMISSION: 08/27/2016 DATE OF DISCHARGE: 08/29/2016 BRIEF SUMMARY OF ADMISSION: This is a 66-year-old female patient admitted to the inpatient psychiatric unit as a transfer from the medical floor, where she was admitted regarding concerns of altered mental status. She was found to have hypernatremia and there were concerns of dehydration. She was admitted on a petition by Social Work staff related to the patient being disoriented, unable to care for herself, as well as not understanding need for mental health treatment. COURSE IN THE HOSPITAL: After the initial psychiatric assessment, the impressions were history of bipolar disorder with psychosis versus schizoaffective disorder, bipolar type as well as recent delirium/altered mental status. The patient was placed on SP-15 minute precautions. Medical followup was ordered for consultation. She was maintained on Latuda and Trileptal as well as Artane and her medication compliance was monitored. She was seen in cross-coverage per Dr. Starr. During the initial psychiatric evaluation, she has her eyes closed during much of the exam, and had poor eye contact. She did not respond to questions about thoughts of harm to self or others. Her speech was somewhat minimal. Her thought processes show some disorganization. She did not show any significant level of agitation. On followup exam on 08/29/2016, she was fully alert and had minimal speech during the interview. She did not show any significant agitation. She did not answer questions regarding her name, place or date. She was seen in medical followup. There was concern with her hardly eating or drinking. On 08/30/2016 per nursing notes, the patient was on unresponsive. A-team was called. No blood pressure was able to be obtained. Several attempts to obtain IV was made, which required multiple people and anesthesia was called to start the IV. Patient was then responsive and order was obtained to transfer patient to ICU. Per nurse noting, ICU nurse was able to get blood pressure at 70/40 with some more fluids, patient was becoming more responsive. She was transferred from the psychiatric unit to the ICU for further medical stabilization. DISCHARGE IMPRESSION: History of bipolar disorder with psychosis versus schizoaffective disorder, bipolar type, recent delirium/altered mental status. PLAN: Patient being discharge from the mental health unit to intensive care unit for further medical stabilization. Would anticipate psychiatric consult and follow up on the ICU/medical floor.
== END 2016-08-29 23:20 | disposition short-term general hospital (02) | DRG 885 ==
LOC: 3MHU 21:55
PROVIDERS: ADMIT Psychiatry & Neurology Psychiatry; ATTEND Psychiatry & Neurology Psychiatry
DX: F29 Unspecified psychosis not due to a substance or known physiological condition (principal); N17.9 Acute kidney failure, unspecified; E87.0 Hyperosmolality and hypernatremia; I50.9 Heart failure, unspecified; R47.01 Aphasia; I69.354 Hemiplegia and hemiparesis following cerebral infarction affecting left non-dominant side; F31.9 Bipolar disorder, unspecified; I10 Essential (primary) hypertension; I25.10 Atherosclerotic heart disease of native coronary artery without angina pectoris; N31.9 Neuromuscular dysfunction of bladder, unspecified; E78.00 Pure hypercholesterolemia, unspecified; E86.0 Dehydration; I87.8 Other specified disorders of veins; M19.90 Unspecified osteoarthritis, unspecified site; K57.90 Diverticulosis of intestine, part unspecified, without perforation or abscess without bleeding; K58.9 Irritable bowel syndrome, unspecified; K44.9 Diaphragmatic hernia without obstruction or gangrene; Z88.8 Allergy status to other drugs, medicaments and biological substances; Z88.1 Allergy status to other antibiotic agents; Z91.041 Radiographic dye allergy status; Z90.710 Acquired absence of both cervix and uterus; Z90.49 Acquired absence of other specified parts of digestive tract
CPT/HCPCS: 80048; 80051; 80299; 82565; 84520; 85025; 87324

== ENCOUNTER 2016-08-29 23:39 | Inpatient (IN) | payer MEDICARE, OTHER ==
[~2016-08-29 23:39] MED LIST: SODIUM CHLORIDE 0.9% 2,000 ML IV ONE
[2016-08-30] MEDS ORDERED: ZIPRASIDONE 20 MG VIAL IM PRN (01:15)
[2016-08-30] MEDS ORDERED: LORazepam 1 MG TAB PO PRN (01:15)
[2016-08-30] MEDS ORDERED: MAGNESIUM HYDROXIDE 2,400 MG/10 ML CUP PO PRN (01:15)
[2016-08-30] MEDS ORDERED: MAG HYDROX/AL HYDROX/SIMETH 30 ML CUP PO PRN (01:15)
[2016-08-30] MEDS ORDERED: cloNIDine 0.2 MG/24HR PATCH 1 PATCH PATCH TRANSDERM SCH (01:15)
[2016-08-30] MEDS ORDERED: LORazepam 2 MG/ML SYRINGE IM PRN (01:15)
[2016-08-30] MEDS ORDERED: NALOXONE 0.4 MG/ML 1 ML VIAL IV PRN (01:26)
[2016-08-30] MEDS ORDERED: ACETAMINOPHEN TAB 325 MG TAB PO PRN (01:26)
[2016-08-30] MEDS ORDERED: Magnesium Replacement Protocol 1 EACH MISC MISCELLANE PRN (01:30)
[2016-08-30] MEDS: SODIUM CHLORIDE 0.9% 1,000 ML IV SCH ×2 (01:30→11:42)
[2016-08-30] MEDS ORDERED: Phosphorus Replacement Protoco 1 EACH MISC MISCELLANE PRN (01:30)
[2016-08-30] MEDS ORDERED: Potassium Replacement Protocol 1 EACH MISC MISCELLANE PRN (01:30)
[2016-08-30 02:39] VITALS: BMI 28.3
[2016-08-30 04:51] LABS: Basophils % (A) 0 %; CH 30.1; CHCM 31.4; Eosinophils # (A) 0.1 k/uL (0-0.7); Eosinophils % (A) 1 %; HCT 37.5 % (34.0-46.0); HDW 2.54; HGB 11.7 gm/dL (11.4-16.0); Luc # (Auto) 0.18; Luc % (Auto) 1; Lymphocytes # (A) 1.7 k/uL (1.0-4.8); Lymphocytes % (A) 12 %; Mean Platelet Volume 7.1; Monocytes # (A) 0.6 k/uL (0-1.0); Monocytes % (A) 4 %; Neutrophils # (A) 12.2 k/uL (1.3-7.7); Neutrophils % (A) 82 %; RBC 3.89 m/uL (3.80-5.40); RDW 13.7 % (11.5-15.5); WBC 14.8 k/uL (3.8-10.6); WBC (Perox) 15.11
[2016-08-30 04:52] LABS: MCV 96.5 fL (80.0-100.0)
[2016-08-30 05:02] LABS: Potassium 4.1 mmol/L (3.5-5.1)
[2016-08-30 07:36] LABS: Glucose,Whole Blood 85 mg/dL (75-99)
[2016-08-30] MEDS ORDERED: ERGOCALCIFEROL 50,000 UNIT CAP PO SCH (09:00)
[2016-08-30] MEDS ORDERED: LURASIDONE 40 MG TAB PO SCH ×2 (09:00→13:15)
[2016-08-30] MEDS: PANTOPRAZOLE 40 MG/10 ML VIAL IV SCH (09:18)
[2016-08-30] MEDS: HEPARIN SODIUM,PORCINE 5,000 UNIT/ML 1 ML VIAL SQ SCH ×3 (10:02→23:43)
[2016-08-30 10:32] LABS: Glucose,Whole Blood 163 mg/dL (75-99)
[2016-08-30] MEDS ORDERED: DEXTROSE 5% IN WATER 1,000 ML IV ONE (11:34)
[2016-08-30 11:35] LABS: Appearance,Urine Cloudy (Clear); Bacteria,Urine Many /hpf; Bilirubin,Urine Negative (Negative); Glucose,Urine (UA) Negative (Negative); Ketones,Urine Trace (Negative); Leukocyte Esterase,Urine Moderate (Negative); Nitrite,Urine Positive (Negative); PH, Urine 5.5 (5.0-8.0); Particle Count 29402; Protein,Urine 1+ (Negative); RBC,Urine 14 /hpf (0-5); Specific Gravity,Urine 1.021 (1.001-1.035); UA Billing (MACRO vs. MICRO) MICRO; Urobilinogen,Urine <2.0 mg/dL (<2.0); WBC,Urine 13 /hpf (0-5)
[2016-08-30] MEDS: cloNIDine 0.2 MG/24HR PATCH 1 PATCH PATCH TRANSDERM SCH (11:42)
[2016-08-30] MEDS: CEFUROXIME 250 MG TAB PO SCH ×2 (14:00→20:04)
[2016-08-30] MEDS: LURASIDONE 40 MG TAB PO SCH (17:05)
--- NOTE | 2016-08-30 18:22 | P.CNPUL ---
History of Present Illness Consult date: 08/30/16 Chief complaint: Altered mentation History of present illness: 66-year-old female patient with known history of schizophrenia/bipolar disorder who came in with symptoms of psychosis. Appearance the patient was hardly eating and drinking in and she was not taking any of her medications. She was admitted to the psychiatric unit and following that she was transferred to the intensive care unit above in recommendations of Dr. avila on that the patient was having some intravascular volume depletion and her sodium level was going up. She was apparently a free water deficit. She had developed an acute kidney injury from dehydration/prerenal azotemia. The patient got transferred to the intensive care unit and this morning I switched her to D5 water infusion in regards to her hyponatremia. She is hard to communicate with as the patient is still quite psychotic. No much information Provided from her. She is not in respiratory distress. No fever. No chills. No hemodynamic instability at this point. She is producing adequate amount of urine output. Her labs today showed a sodium of 147, she has an anion gap of 12 with a bicarb level of 17, her renal function is improving creatinine is down to 1.6 Review of Systems ROS unobtainable: due to mental status 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, neurogenic bladder, CHF, cardiomyopathy, lower GI bleed, diverticular disease, IBS, hiatal hernia, esophageal ulcer, poor circulation, venous stasis, bilateral lower leg cellulitis in past, sinus problems, UTIs, back pain, anemia as a teenager History of Any Multi-Drug Resistant Organisms: MRSA Date of last positivie culture/infection: 2008 MDRO Source:: leg Past Surgical History: Adenoidectomy, Appendectomy, Cholecystectomy, Hernia Repair, Hysterectomy, Orthopedic Surgery, Tonsillectomy Additional Past Surgical History / Comment(s): L foot toe with screw, L foot bunionectomy, liver bx, EGD/colonoscopy and benign polypectomy, R inguinal hernia repair, D&C, laparoscopic surgery (?). Past Anesthesia/Blood Transfusion Reactions: No Reported Reaction Past Psychological History: Anxiety, Bipolar, Depression, Panic Disorder, Schizophrenia Additional Psychological History / Comment(s): Pt resides at [facility]. She ambulates with a walker. Smoking Status: Never smoker Past Alcohol Use History: None Reported Past Drug Use History: None Reported - Past Family History Mother Family Medical History: No Reported History Additional Family Medical History / Comment(s): Pt states her mother was healthy. Father Family Medical History: No Reported History Additional Family Medical History / Comment(s): Pt states her father was healthy Medications and Allergies Home Medications Medication Instructions Recorded Confirmed Type OXcarbazepine [Trileptal] 600 mg PO HS 06/15/15 08/30/16 History Ergocalciferol [Vitamin D2 50,000 unit PO MO 02/27/16 08/30/16 History (DRISDOL)] Lurasidone HCl [Latuda] 60 mg PO DAILY 02/27/16 08/30/16 History Potassium Chloride [Klor-Con] 20 meq PO DAILY 02/27/16 08/30/16 History Simvastatin [Zocor] 40 mg PO HS 02/27/16 08/30/16 History Trihexyphenidyl HCl [Artane] 5 mg PO HS 02/27/16 08/30/16 History Ibuprofen 400 mg PO TID 08/25/16 08/30/16 History Allergies Allergy/AdvReac Type Severity Reaction Status Date / Time haloperidol [From Haldol] Allergy Unknown Verified 02/27/16 12:43 haloperidol lactate Allergy Unknown Verified 02/27/16 12:43 [From Haldol] Iodinated Contrast Media - Allergy Unknown Verified 02/27/16 12:43 Oral and [Iodinated Contrast Media - IV Dye] piperacillin sodium Allergy Unknown Verified 02/27/16 12:43 [From Zosyn] tazobactam sodium Allergy Unknown Verified 02/27/16 12:43 [From Zosyn] Physical Exam Vitals: Vital Signs Temp Pulse Resp BP Pulse Ox 08/30/16 17:00 73 16 132/70 99 08/30/16 16:00 97.7 F 80 16 138/63 100 08/30/16 15:00 70 16 124/64 98 08/30/16 14:00 75 17 114/60 99 08/30/16 13:00 74 18 114/65 99 08/30/16 12:00 97.7 F 78 18 119/64 97 08/30/16 11:00 80 22 134/65 100 08/30/16 10:00 79 15 108/60 100 08/30/16 09:00 73 16 134/62 100 08/30/16 08:00 97.7 F 71 16 132/57 100 08/30/16 07:00 84 20 135/67 100 08/30/16 06:00 87 19 124/63 100 08/30/16 05:00 93 33 H 120/63 100 08/30/16 04:00 98.1 F 74 18 116/47 97 08/30/16 03:00 102 H 21 144/65 100 08/30/16 02:00 102 H 19 97/47 100 08/30/16 01:00 67 14 97/47 100 08/30/16 00:00 98.2 F 72 16 134/61 98 08/29/16 23:41 85 42 H 134/61 100 Intake and Output 08/30/16 08/30/16 08/30/16 06:59 14:59 22:59 Intake Total 2500 1475 775 Output Total 383 224 100 Balance 2117 1251 675 Intake: Intake, IV Titration 2500 1325 375 Amount Dextrose 5% in Water 1, 375 375 000 ml @ 125 mls/hr IV . Q8H ONE Rx#:[id number] Sodium Chloride 0.9% 1, 2500 450 000 ml @ 100 mls/hr IV . Q10H MONTEZ Rx#:[id number] Sodium Chloride 0.9% 2, 500 000 ml @ 999 mls/hr IV . Q2H1M ONE Rx#:[id number] Oral 150 100 Tube Feeding 300 Output: Urine 383 224 100 Other: Voiding Method Indwelling Catheter Indwelling Catheter Indwelling Catheter # Bowel Movements 1 Weight 82 kg 77.3 kg Patient Weight 08/31/16 06:59 Weight 77.3 kg The patient appeared well nourished and normally developed. Vital signs as documented. Head exam is unremarkable. No scleral icterus or corneal arcus noted. Neck is without jugular venous distension, thyromegaly, or carotid bruits. Carotid upstrokes are brisk bilaterally. Lungs are clear to auscultation and percussion. Cardiac exam reveals the PMI to be normally sized and situated. Rhythm is regular. First and second heart sounds normal. No murmurs, rubs or gallops. Abdominal exam reveals normal bowel sounds, no masses , no organomegaly and no aortic enlargement. Extremities are nonedematous and both femoral and pedal pulses are normal. Results - Laboratory Findings CBC and BMP: 08/30/16 04:36 08/30/16 04:36 Abnormal lab findings: Abnormal Labs 08/29/16 08/30/16 08/30/16 23:40 04:36 04:36 WBC 14.8 H Neutrophils # 12.2 H Sodium 147 H Chloride 118 H Carbon Dioxide 17 L BUN 48 H Creatinine 1.60 H Glucose 108 H POC Glucose (mg/dL) 163 H Urine Appearance Urine Protein Urine Ketones Urine Blood Urine Nitrate Ur Leukocyte Esterase Urine RBC Urine WBC Urine Bacteria 08/30/16 11:05 WBC Neutrophils # Sodium Chloride Carbon Dioxide BUN Creatinine Glucose POC Glucose (mg/dL) Urine Appearance Cloudy H Urine Protein 1+ H Urine Ketones Trace H Urine Blood Small H Urine Nitrate Positive H Ur Leukocyte Esterase Moderate H Urine RBC 14 H Urine WBC 13 H Urine Bacteria Many H - Diagnostic Findings Chest x-ray: image reviewed Assessment and Plan Plan: Impression 1 altered mental status, essentially psychiatric and the patient was initially admitted to the psych unit. Following that, the patient had a neuro workup including a CAT scan of the brain, EEG and carotid Dopplers of the findings are essentially benign. 2 hyperchloremic hypernatremia with elevation and the BUN/creatinine and intravascular volume depletion, mainly due to decreased oral intake 3 old inferior medial right frontal lobe infarct 4 bipolar disorder with psychosis versus schizoaffective disorder 5 recent delirium with change in mental status 6 coronary artery disease 7 hypertension 8 CHF 9 hyperlipidemia 10 GE reflux Plan Monitor electrolytes. Give the patient D5 water infusion today to 1 25 mL an hour. Monitor urine output. Monitor the sodium and chloride levels. Monitor mental status. Appreciate input from neurology and psychiatry. Rest of the medication were reviewed. No other changes from my standpoint. The patient will be kept in ICU until she is adequately resuscitated. Following that, she may get a clearance to go back to psychiatry.
[2016-08-30] MEDS ORDERED: OXcarbazepine 300 MG TAB PO SCH (21:00)
--- NOTE | 2016-08-30 22:02 | HP ---
DATE OF ADMISSION: 08/29/2016 PRESENTING COMPLAINT: Poor oral intake. HISTORY OF PRESENTING COMPLAINT: This is a 66-year-old patient who follows with Visiting Physician Dr. Andujar whose chronic stable medical conditions include left-sided weakness from prior stroke, neurogenic bladder, diverticulosis, venostasis, selective mutism, psychosis. The patient initially was admitted to the medical service with decreased oral intake from psychosis, not taking any medications, was transferred down to the psych unit, then she refused to eat. Did get some doses of Geodon. Then I was concerned about her getting dehydrated and ordered labs. Patient's sodium came back at 152. Patient is back in renal failure from dehydration. Nursing called me; they are not comfortable managing her on the floor, and she was quite ( ) nursing input; hence I decided to move the patient to ICU for close supervision. Patient is ordered fluid boluses. In the morning actually patient felt a bit better; did actually tolerate some diet, per Nursing. REVIEW OF SYSTEMS: Patient does not give much history. PAST MEDICAL HISTORY: 1. Bipolar with psychosis. 2. Stroke with residual left-sided weakness. 3. Hypertension. 4. Neurogenic bladder. 5. Diverticulosis. 6. Irritable bowel syndrome. 7. Hiatal hernia. 8. Venostasis. PAST SURGICAL HISTORY: 1. Adenoidectomy. 2. Appendectomy. 3. Cholecystectomy. 4. Hernia repair. 5. Hysterectomy. 6. Left foot bunionectomy. 7. Liver biopsy. 8. Right inguinal hernia repair. SOCIAL HISTORY: Lives at [facility]. Uses a walker at baseline. No smoking or alcohol. FAMILY HISTORY: Patient cannot tell. Current medications include: 1. Protonix. 2. Trileptal 600 mg at bedtime. 3. Milk of Magnesia p.r.n. 4. Latuda 40 mg b.i.d. 5. Ativan p.r.n. 6. Vitamin D2 50,000 units on Mondays. 7. Catapres patch 0.2 mg every 7 days. ALLERGIES: 1. HALDOL. 2. IV CONTRAST. 3. ZOSYN. On examination, temperature 97.7, pulse 71, respiration 16, blood pressure 130/57, pulse ox 100% on room air. GENERAL APPEARANCE: Lying in bed, comfortable but vigilant-appearing. EYES: Pupils equal. Conjunctiva normal. HEENT: Oral cavity with dry mucous membrane. NECK: JVD not raised. Mass not palpable. RESPIRATORY: Effort normal. LUNGS: Fair air entry. CARDIOVASCULAR: First and second sounds normal. No edema. ABDOMEN: Soft, non-tender. Liver and spleen not palpable. PSYCHIATRY: When I walked in patient was not talking, then patient started talking about numbers and fidgeting about. NEUROLOGICAL: Pupils equal. No facial droop. Moving all 4 limbs. INVESTIGATIONS: White count 14.8. Patient's labs from yesterday showed a white count of 11, sodium up to 150, BUN 43 and creatinine ( ), up from 28 and 1.13 from 4 days ago. ASSESSMENT: 1. Acute renal failure, prerenal, from poor oral intake. 2. Hypernatremia from free water deficit. 3. Hyperchloremia from same. 4. Bipolar disorder with severe psychosis affecting oral intake. 5. Chronic left-sided weakness from prior stroke. 6. Essential hypertension. 7. Neurogenic bladder. 8. Diverticulosis. 9. Irritable bowel syndrome. 10. Hiatal hernia. PLAN: At this point patient's psych medicines are continued. Dr. Flores was consulted. The patient was given fluid boluses and then fluid will be ( ) 25 mL/hour. Diet to be encouraged. Will repeat labs in the morning. Patient's UA also came back positive. Will put the patient on Ceftin.
[2016-08-31] MEDS ORDERED: amLODIPine 5 MG TAB PO STA (03:45)
[2016-08-31] MEDS: cloNIDine 0.2 MG/24HR PATCH 1 PATCH PATCH TRANSDERM SCH (03:48)
[2016-08-31 04:18] VITALS: TEMP 98.3
[2016-08-31 04:30] LABS: Basophils # (A) 0.1 k/uL (0-0.2); Basophils % (A) 1 %; CH 30.4; CHCM 31.6; Eosinophils # (A) 0.3 k/uL (0-0.7); Eosinophils % (A) 3 %; HDW 2.68; Luc # (Auto) 0.16; Luc % (Auto) 2; Lymphocytes # (A) 1.8 k/uL (1.0-4.8); Lymphocytes % (A) 17 %; MCH 31.5 pg (25.0-35.0); MCHC 32.4 g/dL (31.0-37.0); MCV 97.2 fL (80.0-100.0); Mean Platelet Volume 8.9; Monocytes # (A) 0.4 k/uL (0-1.0); Monocytes % (A) 4 %; Neutrophils % (A) 74 %; RDW 13.5 % (11.5-15.5); WBC 10.8 k/uL (3.8-10.6); WBC (Perox) 10.28
[2016-08-31 04:38] LABS: Anion Gap 9 mmol/L; Blood Urea Nitrogen 21 mg/dL (7-17); Carbon Dioxide 18 mmol/L (22-30); Chloride 114 mmol/L (98-107); Glucose 120 mg/dL (74-99); Magnesium 1.6 mg/dL (1.6-2.3); Non-African American GFR(MDRD) 55 (>60 ml/min/1.73 sqM); Phosphorous 2.5 mg/dL (2.5-4.5); Sodium 141 mmol/L (137-145)
[2016-08-31] MEDS: MAGNESIUM SULFATE-D5W PMX 1 GM in DEXTROSE/WATER 1 100ML.BAG IVPB SCH ×2 (05:37→06:46)
[2016-08-31] MEDS: HEPARIN SODIUM,PORCINE 5,000 UNIT/ML 1 ML VIAL SQ SCH ×2 (08:20→15:46)
[2016-08-31] MEDS: CEFUROXIME 250 MG TAB PO SCH (08:21)
[2016-08-31] MEDS: PANTOPRAZOLE 40 MG/10 ML VIAL IV SCH (08:21)
[2016-08-31] MEDS: LURASIDONE 40 MG TAB PO SCH (08:21)
[2016-08-31] MEDS ORDERED: amLODIPine 5 MG TAB PO SCH (09:00)
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
[2016-08-31 15:43] VITALS: BP 119/88; PULSE 102; RESP 11
--- NOTE | 2016-08-31 16:08 | P.PN ---
Progress Note - Text Patient was seen for psychiatric follow-up ; Patient was able to remember that I saw her yesterday for consultation ,has been compliant with oral medications ,she was eating her lunch with her RN assistance,still labile and easy agitated but easy to redirect Her custodialmanager home improvement "Terence" called to check on patient status but her public guardian :Catherine " refused to give us consent to discuss case with "TERENCE "who is aware of patient basic function level Patient has deferral meeting with her collections attorney tomorrow PLAN: Continue antibiotic for UTI ,I will add low dose of Trileptal in AM ,if medically cleared transfer to Mental health unit for further stabilization
--- NOTE | 2016-08-31 16:46 | P.PN ---
Subjective This is a 66-year-old female patient with known history of schizophrenia/ bipolar disorder who came in with symptoms of psychosis. Apparently the patient was hardly eating and drinking in and she was not taking any of her medications. She was admitted to the psychiatric unit and following that she was transferred to the intensive care unit above in recommendations of Dr. Steele on that the patient was having some intravascular volume depletion and her sodium level was going up. She was apparently a free water deficit. She had developed an acute kidney injury from dehydration/prerenal azotemia. The patient got transferred to the intensive care unit and this morning I switched her to D5 water infusion in regards to her hyponatremia. She is hard to communicate with as the patient is still quite psychotic. No much information Provided from her. She is not in respiratory distress. No fever. No chills. No hemodynamic instability at this point. She is producing adequate amount of urine output. Her labs today showed a sodium of 147, she has an anion gap of 12 with a bicarb level of 17, her renal function is improving creatinine is down to 1.6. The patient is seen again today 08/31/2016 in follow-up. She is awake and alert in no acute distress. She is more responsive and cooperative today. Her sodium has improved following the D5W infusion. Currently at 141. Her renal function has improved. Current creatinine 1.01. She has been initiated on Ceftin for a urinary tract infection and gram-negative bacilli. He is maintaining good O2 saturation in the upper 90s on room air. She's been afebrile. Objective - Vital Signs Vital signs: Vital Signs Temp 98.3 F 08/31/16 04:00 Pulse 102 H 08/31/16 15:00 Resp 11 L 08/31/16 15:44 BP 119/88 08/31/16 15:00 Pulse Ox 98 08/31/16 15:00 Intake & Output 08/30/16 08/31/16 08/31/16 18:59 06:59 18:59 Intake Total 5151 1475 725 Output Total 521 6300 5259 Balance 8252 -779 -4747 Weight 77.3 kg 89.7 kg Intake: Intake, IV Titration 3595 4675 725 Amount Dextrose 5% in Water 1, 875 1375 625 000 ml @ 125 mls/hr IV . Q8H [facility] Rx#:[id number] Magnesium Sulfate-D5w Pmx 100 100 1 gm In Dextrose/Water 1 100ml.bag @ 100 mls/hr IVPB Q1H [facility] Rx#: [id number] Sodium Chloride 0.9% 1, 450 000 ml @ 100 mls/hr IV . Q10H [facility] Rx#:[id number] Sodium Chloride 0.9% 2, 500 000 ml @ 999 mls/hr IV . Q2H1M [facility] Rx#:[id number] Oral 250 Tube Feeding 300 Output: Urine 524 2300 3525 Other: Voiding Method Indwelling Catheter Indwelling Catheter Indwelling Catheter # Voids 1 - Exam The patient appeared well nourished and normally developed. Vital signs as documented. Head exam is unremarkable. No scleral icterus or corneal arcus noted. Neck is without jugular venous distension, thyromegaly, or carotid bruits. Carotid upstrokes are brisk bilaterally. Lungs are clear to auscultation and percussion. Cardiac exam reveals the PMI to be normally sized and situated. Rhythm is regular. First and second heart sounds normal. No murmurs, rubs or gallops. Abdominal exam reveals normal bowel sounds, no masses , no organomegaly and no aortic enlargement. Extremities are nonedematous and both femoral and pedal pulses are normal. - Labs CBC & Chem 7: 08/31/16 04:02 08/31/16 04:02 Labs: Abnormal Lab Results - Last 24 Hours (Table) 08/31/16 08/31/16 Range/Units 04:02 04:02 WBC 10.8 H (3.8-10.6) k/uL Plt Count 139 L (150-450) k/uL Neutrophils # 8.0 H (1.3-7.7) k/uL Chloride 114 H (98-107) mmol/L Carbon Dioxide 18 L (22-30) mmol/L BUN 21 H (7-17) mg/dL Glucose 120 H (74-99) mg/dL Microbiology - Last 24 Hours (Table) 08/30/16 11:05 Urine Culture - Preliminary Urine,Catheterized Gram Neg Bacilli Assessment and Plan Plan: Impression 1 altered mental status, essentially psychiatric and the patient was initially admitted to the psych unit. Following that, the patient had a neuro workup including a CAT scan of the brain, EEG and carotid Dopplers of the findings are essentially benign. 2 hyperchloremic hypernatremia with elevation and the BUN/creatinine and intravascular volume depletion, mainly due to decreased oral intake 3 old inferior medial right frontal lobe infarct 4 bipolar disorder with psychosis versus schizoaffective disorder 5 recent delirium with change in mental status 6 coronary artery disease 7 hypertension 8 CHF 9 hyperlipidemia 10 GE reflux Plan: The patient was seen and evaluated by Dr. Bradford. The patient is stable from the pulmonary and critical care standpoint. She could be transferred to the mental health unit once cleared by psychiatry and medical services. She is being treated for her urinary tract infection. There is no other major medical issues currently.
[2016-08-31] MEDS ORDERED: OXcarbazepine 300 MG TAB PO SCH (21:00)
[2016-09-01] MEDS ORDERED: PANTOPRAZOLE 40 MG TABLET PO SCH (07:30)
--- NOTE | 2016-09-01 21:36 | DS ---
DATE OF ADMISSION: 08/29/2016 DATE OF DISCHARGE: 08/31/2016 FINAL DIAGNOSIS(ES): 1. Acute renal failure, prerenal, from poor oral intake. 2. Hypernatremia from free water deficit. 3. Hyperkalemia from above. 4. Bipolar disorder with severe psychosis affecting oral intake. 5. Possible delirium. 6. Chronic left-sided weakness from prior stroke. 7. Essential hypertension. 8. Neurogenic bladder. 9. Diverticulosis. 10. Irritable bowel syndrome. 11. Hiatal hernia. HOSPITAL COURSE: This patient was transferred from the psych unit. The patient was refusing to take any food or medication. Went into renal failure, BUN and creatinine jumped up to 48 and 1.6. Sodium had gone up to 152. Patient put on IV fluids. Patient's creatinine normalized, sodium did come down to 141. The patient started taking her medications. It is felt patient has significant underlying psychosis. CONSULTATIONS: Dr. Bradford from critical care, Dr. Blanc from psychiatric. The patient ( ) sent back to psychiatry unit for further management. Current medications: 1. Trileptal 600 mg q.h.s. 2. Vitamin D2, 50,000 units p.o. Tuesday. 3. Zocor 40 mg q.h.s. 4. Ibuprofen 400 mg p.o. t.i.d. 5. Aspirin 81 mg daily. 6. Ceftin 250 mg p.o. b.i.d. total of 4 tablets. 7. Ativan 1 mg p.o. q.8 p.r.n. 8. Latuda 40 mg b.i.d. 9. Maalox 30 mL q.4 p.r.n. 10. Milk of magnesia p.r.n. 11. Protonix 40 mg with breakfast. 12. Norvasc 5 mg p.o. daily. 13. Catapres 0.2 mg patch every 7 days. 14. It may be noted that patient's ibuprofen was not being used because of renal failure. Patient is tolerating a diet, taking her medication as per the nursing. DISPOSITION: [address] Blanc. On examination, lungs are clear. CARDIOVASCULAR: First and second seconds normal. Patient still appears to rather psychotic.
== END 2016-08-31 18:11 | DRG 683 ==
LOC: 6ICU 23:39
PROVIDERS: ADMIT Hospitalist; ATTEND Hospitalist
DX: N17.9 Acute kidney failure, unspecified (principal); E87.0 Hyperosmolality and hypernatremia; I42.9 Cardiomyopathy, unspecified; I69.354 Hemiplegia and hemiparesis following cerebral infarction affecting left non-dominant side; N39.0 Urinary tract infection, site not specified; E87.8 Other disorders of electrolyte and fluid balance, not elsewhere classified; F03.90 Unspecified dementia, unspecified severity, without behavioral disturbance, psychotic disturbance, mood disturbance, and anxiety; E78.5 Hyperlipidemia, unspecified; E86.0 Dehydration; E87.5 Hyperkalemia; F41.0 Panic disorder [episodic paroxysmal anxiety]; I10 Essential (primary) hypertension; I25.10 Atherosclerotic heart disease of native coronary artery without angina pectoris; I50.9 Heart failure, unspecified; I87.8 Other specified disorders of veins; K21.9 Gastro-esophageal reflux disease without esophagitis; K44.9 Diaphragmatic hernia without obstruction or gangrene; K57.90 Diverticulosis of intestine, part unspecified, without perforation or abscess without bleeding; K58.9 Irritable bowel syndrome, unspecified; N31.9 Neuromuscular dysfunction of bladder, unspecified; F41.9 Anxiety disorder, unspecified; F94.0 Selective mutism; F31.9 Bipolar disorder, unspecified; F29 Unspecified psychosis not due to a substance or known physiological condition; Z79.899 Other long term (current) drug therapy; Z88.0 Allergy status to penicillin; Z88.8 Allergy status to other drugs, medicaments and biological substances; Z91.041 Radiographic dye allergy status; Z86.14 Personal history of Methicillin resistant Staphylococcus aureus infection
CPT/HCPCS: 80048; 81001; 83735; 84100; 85025; 87077; 87086; 87186

== ENCOUNTER 2016-08-31 17:10 | Inpatient (IN) | payer MEDICARE, MEDICAID ==
[2016-08-31] MEDS ORDERED: ZIPRASIDONE 20 MG VIAL IM PRN (18:02)
[2016-08-31] MEDS ORDERED: ACETAMINOPHEN TAB 325 MG TAB PO PRN (18:02)
[2016-08-31] MEDS ORDERED: MAG HYDROX/AL HYDROX/SIMETH 30 ML CUP PO PRN (18:02)
[2016-08-31] MEDS ORDERED: MAGNESIUM HYDROXIDE 2,400 MG/10 ML CUP PO PRN (18:02)
[2016-08-31] MEDS ORDERED: LORazepam 1 MG TAB PO PRN (18:40)
[2016-08-31] MEDS ORDERED: OXcarbazepine 300 MG TAB PO SCH (21:00)
[2016-08-31] MEDS ORDERED: CEFUROXIME 250 MG TAB PO SCH (21:00)
[2016-08-31] MEDS ORDERED: ATORVASTATIN 20 MG TAB PO SCH (21:00)
[2016-08-31] MEDS ORDERED: IBUPROFEN 400 MG TAB PO SCH (22:00)
[2016-09-01] MEDS ORDERED: PANTOPRAZOLE 40 MG TABLET PO SCH (07:30)
[2016-09-01] MEDS ORDERED: LURASIDONE 40 MG TAB PO SCH ×2 (07:30→17:30)
[2016-09-01] MEDS ORDERED: ZIPRASIDONE 20 MG VIAL IM PRN (07:47)
[2016-09-01] MEDS ORDERED: ACETAMINOPHEN TAB 325 MG TAB PO PRN (07:47)
[2016-09-01] MEDS ORDERED: MAGNESIUM HYDROXIDE 2,400 MG/10 ML CUP PO PRN (07:47)
[2016-09-01] MEDS ORDERED: MAG HYDROX/AL HYDROX/SIMETH 30 ML CUP PO PRN (07:47)
[2016-09-01] MEDS ORDERED: LORazepam 2 MG/ML SYRINGE IM PRN (07:53)
[2016-09-01] MEDS ORDERED: amLODIPine 5 MG TAB PO SCH (09:00)
[2016-09-01] MEDS ORDERED: ASPIRIN 81 MG CHEW PO SCH (09:00)
[2016-09-01] MEDS: CEFUROXIME 250 MG TAB PO SCH ×2 (09:06→20:26)
[2016-09-01] MEDS: ASPIRIN 81 MG CHEW PO SCH (09:06)
[2016-09-01] MEDS: amLODIPine 5 MG TAB PO SCH (09:06)
[2016-09-01] MEDS: IBUPROFEN 400 MG TAB PO SCH ×3 (09:08→20:27)
[2016-09-01] MEDS ORDERED: LORazepam 2 MG/ML SYRINGE IM STA (10:21)
[2016-09-01 11:09] VITALS: BMI 30.7
[2016-09-01 11:58] LABS: Anion Gap 16 mmol/L; Blood Urea Nitrogen 14 mg/dL (7-17); Carbon Dioxide 20 mmol/L (22-30); Chloride 110 mmol/L (98-107); Non-African American GFR(MDRD) 55 (>60 ml/min/1.73 sqM); Potassium 3.7 mmol/L (3.5-5.1); Sodium 146 mmol/L (137-145)
--- NOTE | 2016-09-01 11:59 | HP ---
DATE OF ADMISSION: DATE OF SERVICE: 09/01/2016 Patient is known to me as I saw her in consultation service at least twice over the last week. HISTORY OF PRESENT ILLNESS: Patient is 66, white female who has been living in a care home or [facility] home for the last couple of years. Patient has a guardian, her name is Catherine. She has been refusing drinking or eating, getting easily agitated. Please refer to complete history and physical examination by Dr. Flores. As the patient is selective mute, refusing to answer most of my questions. She was sitting in her recliner, holding a stuffed animal, most of the history has been taken from my previous consultation and from the medical record. Patient was here on the mental health unit just for 48 hours and she was transferred back to the ICU due to poor oral intake and accurate delirious reaction due to urinary tract infection. Patient was started on antibiotic and she was able to take her oral medication when she was in the ICU; however, since she was transferred back to our mental health unit, patient has been very resistant to drink or eat. She was able to take her psychotropic medication last night, but this morning she is very resistant to any intake. According to the care home staff, the patient has been getting more confused and more agitated for a couple of day prior to her first admission, August 25, even she did start being more combative than usual for the last couple of days prior to her first admission. She was refusing to take a shower or let anyone to help her to change her diaper. MEDICAL HISTORY: 1. History of cerebrovascular accident, stroke with left-sided weakness. 2. Hypertension. 3. Neurogenic bladder and irritable bowel syndrome, diverticulosis. 4. Dementia. 5. Recently was diagonal with urinary tract infection and she started antibiotic. The CT of the brain shows that the infarction or the stroke was on the right frontal lobe affecting her speech. Regarding her past psychiatric history, she has extensive psychiatric history with multiple admissions on our mental health unit. Her last admission prior to this weekend, it was August 2014. Since then, she has been seen at [facility] and her current psychotropic medication was includin. Latuda 60 mg daily. 2. Trileptal 600 mg at bedtime. From the old record, it seems that the patient was on Abilify Maintena once a month due to her poor compliance with medication. PREVIOUS DIAGNOSES: Schizoaffective disorder, bipolar type, dementia with delusion and behavior problem. Regarding substance abuse history: There is past history of alcohol and marijuana use. BRIEF SOCIAL HISTORY: Patient was once, ended by divorce and she has 3 grownup sons. Currently, she has a guardian and she has been living [facility] for the last couple of years. MENTAL STATUS EXAMINATION: Patient is disheveled, female, overweight, long dark hair, unkempt, avoiding eye contact. She has expressive aphasia, only oriented to the person. Speech is very disorganized, refusing to answer any other question. Not able to participate in complete mental status examination due to her psychotic condition. Weakness, poor compliance with oral intake, declining in her cognitive function in addition to multiple medical problems. STRENGTHS: Patient has been in the same care home for a couple of years and it seems that the caregiver is very supportive to her. DIAGNOSES: 1. Schizoaffective disorder, manic episode versus major neurocognitive disorder with delusion and behavior disturbance. 2. Urinary tract infection. She started on antibiotics 2 days ago. 3. Poor intake. 4. Multiple medical problems. PLAN: Patient was readmitted to the mental health unit on involuntary basis. I will restart her back on her psychotropic medication, but I increased the Latuda to 120 mg daily. If the patient is noncompliant with oral medication, I will consider to give her long-acting injection. She did okay on Abilify Maintena in the past. Will request a routine followup medically as the patient has multiple medical problems and decrease her oral intake. It might trigger more dehydration and delirious reaction. Patient is meeting her district attorney for deferral meeting today. Will monitor the patient for safety and will order blood work-up on daily basis. Prognosis is very poor.
[2016-09-01 12:04] LABS: Basophils % (A) 0 %; CH 31.1; CHCM 33.6; Eosinophils # (A) 0.1 k/uL (0-0.7); Eosinophils % (A) 1 %; HCT 36.6 % (34.0-46.0); HDW 2.74; HGB 12.2 gm/dL (11.4-16.0); Luc # (Auto) 0.22; Luc % (Auto) 2; Lymphocytes # (A) 2.3 k/uL (1.0-4.8); Lymphocytes % (A) 23 %; MCH 31.1 pg (25.0-35.0); MCHC 33.3 g/dL (31.0-37.0); MCV 93.3 fL (80.0-100.0); Mean Platelet Volume 7.9; Monocytes # (A) 0.6 k/uL (0-1.0); Monocytes % (A) 6 %; Neutrophils # (A) 6.9 k/uL (1.3-7.7); Neutrophils % (A) 67 %; RBC 3.93 m/uL (3.80-5.40); RDW 13.7 % (11.5-15.5); WBC 10.2 k/uL (3.8-10.6); WBC (Perox) 9.68
[2016-09-01] MEDS: LURASIDONE 40 MG TAB PO SCH (16:07)
[2016-09-01] MEDS: ATORVASTATIN 20 MG TAB PO SCH (20:26)
[2016-09-01] MEDS: OXcarbazepine 300 MG TAB PO SCH (20:27)
[2016-09-01] MEDS: LORazepam 1 MG TAB PO PRN (21:14)
--- NOTE | 2016-09-01 22:18 | CONS ---
DATE OF CONSULTATION: 09/01/2016 REASON FOR CONSULTATION: Medical management requested Dr. Jimenez. CONSULTATION: This is a 66-year-old patient who follows with Visiting Physician Dr. Andujar. Patient's chronic stable medical conditions include left-sided weakness from prior stroke, neurogenic bladder, diverticulosis, venostasis, selective mutism, psychosis. Patient has been back and forth from the psych unit and medical unit, not eating, drinking; also not taking her medication sometimes, with acute renal failure, hypernatremia. Patient was given Geodon and then patient started eating and drinking better; started taking her medication, and she was discharged back to the psych unit. Here today patient is sitting in a chair, and actually when I walked in she said, "Dr. Cedric Castro," and she started smiling. She did actually eat better. She received Ativan earlier today and took her medications. REVIEW OF SYSTEMS: Patient is limited in what she can give as a history. PAST MEDICAL HISTORY: 1. Bipolar with psychosis. 2. Stroke with residual left-sided weakness. 3. Hypertension. 4. Neurogenic bladder. 5. Diverticulosis. 6. Irritable bowel syndrome. 7. Hiatal hernia. 8. Venostasis. PAST SURGICAL HISTORY: 1. Adenoidectomy. 2. Appendectomy. 3. Cholecystectomy. 4. Hernia repair. 5. Hysterectomy. 6. Left foot bunionectomy. 7. Liver biopsy. 8. Right inguinal hernia repair. SOCIAL HISTORY: Lives at [facility]. Uses a walker at baseline. No smoking or alcohol. FAMILY HISTORY: She could not tell. ALLERGIES: 1. HALDOL. 2. IV CONTRAST DYE. 3. ZOSYN. Current medications include: 1. Norvasc 5 mg a day. 2. Aspirin 81 mg a day. 3. Lipitor 20 mg at bedtime. 4. Ceftin 250 mg b.i.d. 5. Catapres 0.2 mg patch. 6. Vitamin D2. 7. Ativan 1 mg q.8 p.r.n. 8. Latuda 120 mg daily. 9. Trileptal 600 mg at bedtime. 10. Protonix 40 mg with breakfast. 11. Geodon 20 mg IM b.i.d. p.r.n. On examination, temperature 97.8, pulse 130, respiration 15, blood pressure 140/85, pulse ox 99% on room air. GENERAL APPEARANCE: Sitting up. Much more congenial. Happy, smiling. EYES: Pupils equal. Conjunctivae normal. NECK: JVD not raised. Mass not palpable. RESPIRATORY: Effort normal. LUNGS: Fair air entry. CARDIOVASCULAR: First and second sounds normal. No edema. ABDOMEN: Soft, nontender. Liver and spleen not palpable. PSYCHIATRY: Answering questions a bit more. Not pushing us away. Not refusing. INVESTIGATIONS: White count 10.2, hemoglobin 12.2. Sodium 146, potassium 3.7. BUN and creatinine are normal. ASSESSMENT: 1. Acute renal failure, prerenal, from poor oral intake, now improving. 2. Hypernatremia from free water deficit, improved. 3. Chronic left-sided weakness from prior stroke. 4. Essential hypertension. 5. Neurogenic bladder. 6. Diverticulosis. 7. Irritable bowel syndrome. 8. Hiatal hernia. 9. Schizoaffective disorder, manic episode, versus major neurocognitive disorder with delusion and behavioral disturbance per Psychiatry. PLAN: Continue current medication and treatment plan. Patient is to complete another 24 hours of antibiotics, then will be done. Thank you, Dr. Jimenez.
[2016-09-02] MEDS: ASPIRIN 81 MG CHEW PO SCH (09:11)
[2016-09-02] MEDS: CEFUROXIME 250 MG TAB PO SCH ×2 (09:11→20:29)
[2016-09-02] MEDS: amLODIPine 5 MG TAB PO SCH (09:12)
[2016-09-02] MEDS: IBUPROFEN 400 MG TAB PO SCH ×3 (09:12→20:30)
[2016-09-02] MEDS: PANTOPRAZOLE 40 MG TABLET PO SCH (09:12)
[2016-09-02] MEDS: LORazepam 1 MG TAB PO PRN (09:45)
--- NOTE | 2016-09-02 14:53 | P.PN ---
Progress Note - Text Interval history: The patient was on wheelchair ,eating her breakfast. She reports having some difficulty with sleep "BECAUSE THEY ARE FEEDING ME A LOT". She reports complying with oral medications and her intake is improving. Patient was able to recall that she saw DR MATHIAS this morning for consultation Met with patient ,public guardian ,SW and our Director to discuss patient illness,treatment options and post plan discharge Mental status exam: The patient was alert and cooperative ,today speech is more spontaneous, smiling at times ,denies any suicidal or homicidal ideation, no evidence for psychosis or candida ,concrete thinking ,insight is improving ,no aggressive or combative behavior Plan: The patient will continue on the same medication regime ,I will add Ativan as scheduled. Will consult physical therapy The patient has a court hearing scheduled for Tuesday. She requires continued hospitalization till court We will monitor him for safety and provide reality orientation when possible
[2016-09-02] MEDS: LORazepam 0.5 MG TAB PO SCH ×2 (16:26→20:30)
[2016-09-02] MEDS: LURASIDONE 40 MG TAB PO SCH (16:26)
[2016-09-02] MEDS: ATORVASTATIN 20 MG TAB PO SCH (20:29)
[2016-09-02] MEDS: OXcarbazepine 300 MG TAB PO SCH (20:30)
[2016-09-03] MEDS: PANTOPRAZOLE 40 MG TABLET PO SCH (10:01)
[2016-09-03] MEDS: amLODIPine 5 MG TAB PO SCH (10:01)
[2016-09-03] MEDS: LORazepam 0.5 MG TAB PO SCH ×3 (10:01→21:49)
[2016-09-03] MEDS: CEFUROXIME 250 MG TAB PO SCH ×2 (10:01→21:49)
[2016-09-03] MEDS: IBUPROFEN 400 MG TAB PO SCH ×3 (10:01→21:49)
[2016-09-03] MEDS: ASPIRIN 81 MG CHEW PO SCH (10:01)
--- NOTE | 2016-09-03 12:57 | P.PN ---
Progress Note - Text Interval history: The patient was on wheelchair ,eating her breakfast. Patient is animated ,smiling ,reports feeling tires saying :I THINK MY MEDICATION MAKING ME TIRED", slept 5-6 hours ,minimal participation in groups as she is feeling drowzy Physical therapy consult is pending Discussed in treatment team post discharge plan ,likely after her court hearing VITALS:WNL Mental status exam: The patient was alert and cooperative ,today speech is more spontaneous, smiling at times ,denies any suicidal or homicidal ideation, no evidence for psychosis or candida ,concrete thinking ,insight is improving ,no aggressive or combative behavior Plan: The patient will continue on the same medication regime ,encourage patient to ambulate with the walker. waiting for physical therapy recommendation .The patient has a court hearing scheduled for Tuesday. She requires continued hospitalization till court We will monitor her for safety
[2016-09-03] MEDS: LURASIDONE 80 MG TAB PO SCH (16:30)
[2016-09-03] MEDS: ATORVASTATIN 20 MG TAB PO SCH (21:49)
[2016-09-03] MEDS: OXcarbazepine 300 MG TAB PO SCH (21:49)
[2016-09-04] MEDS: PANTOPRAZOLE 40 MG TABLET PO SCH (08:14)
[2016-09-04] MEDS: CEFUROXIME 250 MG TAB PO SCH ×2 (08:15→20:56)
[2016-09-04] MEDS: ASPIRIN 81 MG CHEW PO SCH (08:15)
[2016-09-04] MEDS: amLODIPine 5 MG TAB PO SCH (08:15)
[2016-09-04] MEDS: IBUPROFEN 400 MG TAB PO SCH ×3 (08:16→22:26)
[2016-09-04] MEDS: LORazepam 0.5 MG TAB PO SCH (08:17)
--- NOTE | 2016-09-04 10:57 | P.PN ---
Progress Note - Text Interval history: The patient was laying in her bed after she had her breakfast ,. she reports feeling tired , fatigued and I Just want to sleep all day ,maybe my medications are strong" ,denies any depressive symptoms,no psychosis PER NURSING STAFF: Patient is compliant with medications ,good oral intake ,no combative behavior , not able to participate in groups as she is sedated and drowzy Mental status exam: The patient was alert and cooperative ,today speech is more spontaneous, smiling at times ,denies any suicidal or homicidal ideation, no evidence for psychosis or candida ,concrete thinking ,insight is improving ,no aggressive or combative behavior Plan: I will discontinue regular Ativan to minimize sedation ,will continue on the rest of medication regime The patient has a court hearing scheduled for Tuesday. She requires continued hospitalization till court We will monitor him for safety and provide reality orientation when possible
[2016-09-04] MEDS: LURASIDONE 80 MG TAB PO SCH (17:25)
[2016-09-04] MEDS: OXcarbazepine 300 MG TAB PO SCH (20:56)
[2016-09-04] MEDS: ATORVASTATIN 20 MG TAB PO SCH (20:56)
[2016-09-05] MEDS: CEFUROXIME 250 MG TAB PO SCH ×2 (07:37→21:46)
[2016-09-05] MEDS: PANTOPRAZOLE 40 MG TABLET PO SCH (07:38)
[2016-09-05] MEDS: ASPIRIN 81 MG CHEW PO SCH (07:38)
[2016-09-05] MEDS: IBUPROFEN 400 MG TAB PO SCH ×3 (07:38→21:46)
[2016-09-05] MEDS: amLODIPine 5 MG TAB PO SCH (07:38)
--- NOTE | 2016-09-05 12:56 | P.PN ---
Progress Note - Text Interval history: The patient was laying in her bed after she had her breakfast ,. she reports feeling tired and "HAD TERRIBLE NIGHT" related to other patients behavior"Yelling and screaming" ,denies any depressive symptoms,no psychosis PER NURSING STAFF: Patient is compliant with medications ,good oral intake ,no combative behavior , able to walk with walker once this morning Mental status exam: The patient was alert and cooperative ,today speech is more spontaneous, smiling at times ,denies any suicidal or homicidal ideation, no evidence for psychosis or candida ,concrete thinking ,insight is improving ,no aggressive or combative behavior Plan: ,will continue same medication regime ,encourage patient to ambulate with her walker The patient has a court hearing scheduled for Tuesday. She requires continued hospitalization till court We will monitor him for safety and provide reality orientation when possible
[2016-09-05] MEDS: LURASIDONE 80 MG TAB PO SCH (15:36)
[2016-09-05] MEDS: ATORVASTATIN 20 MG TAB PO SCH (21:46)
[2016-09-05] MEDS: DOCUSATE 100 MG CAP PO SCH (21:46)
[2016-09-05] MEDS: OXcarbazepine 300 MG TAB PO SCH (21:46)
[2016-09-06] MEDS ORDERED: cloNIDine 0.2 MG/24HR PATCH 1 PATCH PATCH TRANSDERM SCH ×2 (09:00)
[2016-09-06] MEDS ORDERED: ERGOCALCIFEROL 50,000 UNIT CAP PO SCH (09:00)
--- NOTE | 2016-09-06 09:08 | P.PN ---
Progress Note - Text Interval history: The patient was laying in her bed ,,she stated that she had "Bad dream last night ,I was dying ,it is terrifying" ,was given reassurance , she talked about her past education and inability to retain information since she had the stroke, talked about "GOING BACK TO COLLEGE BUT I KNOW IT IS IMPOSSIBLE I AM NOT SMART BEFORE" , denies any depressive symptoms,no psychosis ,less sedated since stopping scheduled Ativan PER NURSING STAFF: Patient is compliant with medications ,good oral intake ,no combative behavior , able to ambulate with walker Mental status exam: The patient was alert and cooperative ,today speech is more spontaneous, smiling at times ,denies any suicidal or homicidal ideation, no evidence for psychosis or candida ,concrete thinking ,insight is improving ,no aggressive or combative behavior Plan: ,will continue same medication regime ,encourage patient to ambulate more with her walker The patient has a court hearing scheduled for Tuesday. She requires continued hospitalization till court We will monitor him for safety and provide reality orientation when possible
[2016-09-06] MEDS: IBUPROFEN 400 MG TAB PO SCH ×4 (09:10→21:19)
[2016-09-06] MEDS: ASPIRIN 81 MG CHEW PO SCH (09:10)
[2016-09-06] MEDS: amLODIPine 5 MG TAB PO SCH (09:10)
[2016-09-06] MEDS: PANTOPRAZOLE 40 MG TABLET PO SCH (09:10)
[2016-09-06] MEDS: DOCUSATE 100 MG CAP PO SCH ×4 (09:11→21:19)
[2016-09-06] MEDS: CEFUROXIME 250 MG TAB PO SCH ×2 (09:11→21:19)
[2016-09-06] MEDS: ERGOCALCIFEROL 50,000 UNIT CAP PO SCH ×2 (12:34→13:54)
[2016-09-06] MEDS: LURASIDONE 80 MG TAB PO SCH (15:43)
[2016-09-06] MEDS: ATORVASTATIN 20 MG TAB PO SCH (21:19)
[2016-09-06] MEDS: OXcarbazepine 300 MG TAB PO SCH (21:19)
[2016-09-07 06:46] VITALS: TEMP 98.5
[2016-09-07] MEDS: IBUPROFEN 400 MG TAB PO SCH (08:59)
[2016-09-07] MEDS: CEFUROXIME 250 MG TAB PO SCH (08:59)
[2016-09-07] MEDS: PANTOPRAZOLE 40 MG TABLET PO SCH (09:01)
[2016-09-07] MEDS: amLODIPine 5 MG TAB PO SCH (09:01)
[2016-09-07] MEDS: ASPIRIN 81 MG CHEW PO SCH (09:01)
[2016-09-07] MEDS: DOCUSATE 100 MG CAP PO SCH ×2 (09:01→09:10)
[2016-09-07 09:11] VITALS: BP 118/78; PULSE 95; RESP 20
--- NOTE | 2016-09-08 08:15 | DS ---
DATE OF ADMISSION: 08/31/2016 DATE OF DISCHARGE: 09/07/2016 Patient was readmitted to the mental health unit on August 31 and discharged on September 07. CONSULT PHYSICIAN: Routine. CONSULTING PROVIDER: Dr. Gregor Steele. CONSULT REASON: Medical management. Do you want consulting provider notified? He already has been notified. DISCHARGE DIAGNOSES: 1. Schizoaffective disorder in early remission with medication. 2. 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 3. Multiple medical problem with recent diagnosis with urinary tract infection. BRIEF SUMMARY OF THE ADMISSION NOTE: Patient was transferred to the mental health unit from the intensive care unit after being treated for urinary tract infection. Please review my initial history and physical examination dictated on September 01 for complete history. SUMMARY OF THE HOSPITAL COURSE: The patient was admitted to the mental health unit on petition and clinical certificate. Patient was very confused, disoriented, delusional, uncooperative with care provided so I did pursue involuntary admission and she was started on regular dose of Ativan as she was selective mute and catatonic 0.5 three times a day around the clock. In addition, I restarted her on Latuda and her Trileptal. I did start the same dose of Trileptal 600 at bedtime. Latuda was increased to 80 mg at bedtime. Patient started getting more cooperative. Compliant with all of the medication. Also compliant with her intake. She has some expressive aphasia, but she is very pleasant and friendly. We had meeting with her public guardian to discuss postdischarge plan. Patient was able to walk with a walker just prior to her discharge and she was able to tolerate medication without having any side effect. MENTAL STATUS EXAMINATION: At the time of the discharge, patient was sitting on her wheelchair very calm, friendly. She gave good eye contact. Hygiene and grooming are much better. Speech is not spontaneous but coherent. Thought process is tangential. She is reporting no homicidal or suicidal ideation, intent or plan. She does not feel hopeless or helpless. She stated that she is missing "the old Kaitlin that she was very functioning prior to her stroke", but she denied any feeling of hopeless or helpless. She denied any psychotic feature. There is no evidence of hypomania or candida. Insight and judgment improved. PLAN: Patient will be discharged today after the court hearing as I did request combined treatment between hospitalization and outpatient treatment. Patient will continue with [facility] for counseling and for medication management. Patient was given one-month supply for Latuda 80 mg at bedtime and Trileptal 600 at bedtime. I did discontinue Ativan at least 2 or 3 days prior to her discharge as she was getting more drowsy and sedated. Patient was able to function better without any benzodiazepine. There is no verbal or physical aggression observed. Patient's condition at the time of the discharge, stable.
== END 2016-09-07 16:17 | disposition home or self-care (01) | DRG 885 ==
LOC: 3MHU 18:22
PROVIDERS: ADMIT Psychiatry & Neurology Psychiatry; ATTEND Psychiatry & Neurology Psychiatry
DX: F25.0 Schizoaffective disorder, bipolar type (principal); N17.9 Acute kidney failure, unspecified; E87.0 Hyperosmolality and hypernatremia; F03.90 Unspecified dementia, unspecified severity, without behavioral disturbance, psychotic disturbance, mood disturbance, and anxiety; I69.354 Hemiplegia and hemiparesis following cerebral infarction affecting left non-dominant side; F03.91 Unspecified dementia, unspecified severity, with behavioral disturbance; F05 Delirium due to known physiological condition; N39.0 Urinary tract infection, site not specified; I69.919 Unspecified symptoms and signs involving cognitive functions following unspecified cerebrovascular disease; F94.0 Selective mutism; I10 Essential (primary) hypertension; K44.9 Diaphragmatic hernia without obstruction or gangrene; K57.90 Diverticulosis of intestine, part unspecified, without perforation or abscess without bleeding; K58.9 Irritable bowel syndrome, unspecified; N31.9 Neuromuscular dysfunction of bladder, unspecified
CPT/HCPCS: 80051; 82565; 84520; 85025

== ENCOUNTER 2016-09-25 08:32 | Emergency (ER) | payer MEDICARE, OTHER ==
[2016-09-25 08:45] VITALS: TEMP 99
[2016-09-25] MEDS ORDERED: SODIUM CHLORIDE 0.9% 1,000 ML IV ONE (08:54)
--- NOTE | 2016-09-25 08:57 | ED ---
General Adult HPI - General Chief complaint: Psychiatric Symptoms Stated complaint: Confusion Time Seen by Provider: 09/25/16 08:46 Source: patient, EMS, RN notes reviewed Mode of arrival: EMS Limitations: altered mental status - History of Present Illness Initial comments: Patient is a pleasant 66-year-old female presenting to the emergency department with concerns for change in mental status. Patient reportedly is not taking her medications. Patient reportedly is not eating or drinking well. Patient is unable to specify any complaints and is a poor historian. Patient does not answer questions appropriately. - Related Data Home Medications Medication Instructions Recorded Confirmed Ergocalciferol [Vitamin D2 50,000 unit PO MO 02/27/16 09/25/16 (DRISDOL)] Simvastatin [Zocor] 40 mg PO HS 02/27/16 09/25/16 Ibuprofen 400 mg PO TID 08/25/16 09/25/16 Previous Rx's Medication Instructions Recorded Aspirin 81 mg PO DAILY chew 08/27/16 Mag Hydrox/Al Hydrox/Simeth 30 ml PO Q4HR PRN #0 cup 08/31/16 [Maalox] Magnesium Hydroxide [Milk of 2,400 mg PO DAILY PRN #0 ml 08/31/16 Magnesia Concentrate] Pantoprazole [Protonix] 40 mg PO AC-BRKFST tablet. 08/31/16 amLODIPine [Norvasc] 5 mg PO DAILY tab 08/31/16 cloNIDine 0.2 MG/24HR PATCH 1 patch TRANSDERM Q7D patch 08/31/16 [Catapres-TTS] Lurasidone [Latuda] 80 mg PO 1700 30 Days 09/07/16 OXcarbazepine [Trileptal] 600 mg PO HS 30 Days 09/07/16 Allergies Allergy/AdvReac Type Severity Reaction Status Date / Time haloperidol [From Haldol] Allergy Unknown Verified 09/25/16 08:44 haloperidol lactate Allergy Unknown Verified 09/25/16 08:44 [From Haldol] Iodinated Contrast Media - Allergy Unknown Verified 09/25/16 08:44 Oral and [Iodinated Contrast Media - IV Dye] piperacillin sodium Allergy Unknown Verified 09/25/16 08:44 [From Zosyn] tazobactam sodium Allergy Unknown Verified 09/25/16 08:44 [From Zosyn] Review of Systems ROS Statement: Those systems with pertinent positive or pertinent negative responses have been documented in the HPI. ROS Other: All systems not noted in ROS Statement are negative. Constitutional: Denies: fever Eyes: Denies: eye pain ENT: Denies: ear pain Respiratory: Denies: cough Cardiovascular: Denies: chest pain Gastrointestinal: Denies: abdominal pain Genitourinary: Denies: dysuria Musculoskeletal: Denies: back pain Skin: Denies: rash Neurological: Denies: weakness Psychiatric: Denies: anxiety 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, neurogenic bladder, CHF, cardiomyopathy, lower GI bleed, diverticular disease, IBS, hiatal hernia, esophageal ulcer, poor circulation, venous stasis, bilateral lower leg cellulitis in past, sinus problems, UTIs, back pain, anemia as a teenager History of Any Multi-Drug Resistant Organisms: MRSA Date of last positivie culture/infection: 2008 MDRO Source:: leg Past Surgical History: Adenoidectomy, Appendectomy, Cholecystectomy, Hernia Repair, Hysterectomy, Orthopedic Surgery, Tonsillectomy Additional Past Surgical History / Comment(s): L foot toe with screw, L foot bunionectomy, liver bx, EGD/colonoscopy and benign polypectomy, R inguinal hernia repair, D&C, laparoscopic surgery (?). Past Anesthesia/Blood Transfusion Reactions: No Reported Reaction Past Psychological History: Anxiety, Bipolar, Depression, Panic Disorder, Schizophrenia Additional Psychological History / Comment(s): Pt resides at [facility]. She ambulates with a walker. Smoking Status: Never smoker Past Alcohol Use History: Unable to Obtain Past Drug Use History: Unable to Obtain - Past Family History Mother Family Medical History: No Reported History Additional Family Medical History / Comment(s): Pt states her mother was healthy. Father Family Medical History: No Reported History Additional Family Medical History / Comment(s): Pt states her father was healthy General Exam Limitations: altered mental status General appearance: alert, in no apparent distress Head exam: Present: atraumatic Eye exam: Present: normal appearance, PERRL ENT exam: Present: normal oropharynx Neck exam: Present: normal inspection Respiratory exam: Present: normal lung sounds bilaterally Cardiovascular Exam: Present: regular rate, normal rhythm GI/Abdominal exam: Present: soft. Absent: distended, tenderness Extremities exam: Present: normal inspection Neurological exam: Present: alert, altered. Absent: motor sensory deficit Expanded Motor strength exam: RUE: 5, LUE: 5, RLE: 5, LLE: 5 Psychiatric exam: Present: normal affect, normal mood Skin exam: Absent: rash Course Vital Signs 09/25/16 09/25/16 09/25/16 08:39 09:54 10:54 Temperature 99.0 F Pulse Rate 96 76 68 Respiratory 18 18 20 Rate Blood Pressure 133/77 135/97 141/82 O2 Sat by Pulse 99 98 98 Oximetry EKG Findings - EKG Comments: EKG Findings:: Normal sinus rhythm at 75. Normal intervals. Left axis. LVH criteria. No acute ST change. Medical Decision Making - Medical Decision Making Patient reevaluated and resting comfortably in bed. Patient is alert and oriented 3. Patient is agreeable to take her medications and drink. Patient was seen by mental health services who recommends discharge and will follow up with patient and help with further care at her residence. - Lab Data Result diagrams: 09/25/16 09:06 09/25/16 09:06 Lab Results 09/25/16 09/25/16 09/25/16 Range/Units 08:50 09:06 09:06 WBC 7.4 (3.8-10.6) k/uL RBC 4.29 (3.80-5.40) m/uL Hgb 13.1 (11.4-16.0) gm/dL Hct 40.0 (34.0-46.0) % MCV 93.2 (80.0-100.0) fL MCH 30.5 (25.0-35.0) pg MCHC 32.7 (31.0-37.0) g/dL RDW 13.6 (11.5-15.5) % Plt Count 266 (150-450) k/uL Neutrophils % 70 % Lymphocytes % 21 % Monocytes % 5 % Eosinophils % 3 % Basophils % 1 % Neutrophils # 5.2 (1.3-7.7) k/uL Lymphocytes # 1.6 (1.0-4.8) k/uL Monocytes # 0.3 (0-1.0) k/uL Eosinophils # 0.2 (0-0.7) k/uL Basophils # 0.0 (0-0.2) k/uL PT 11.2 (9.0-12.0) sec INR 1.1 (<1.1) APTT 22.0 (22.0-30.0) sec Sodium (137-145) mmol/L Potassium (3.5-5.1) mmol/L Chloride (98-107) mmol/L Carbon Dioxide (22-30) mmol/L Anion Gap mmol/L BUN (7-17) mg/dL Creatinine (0.52-1.04) mg/dL Est GFR (MDRD) Af Amer (>60 ml/min/1.73 sqM) Est GFR (MDRD) Non-Af (>60 ml/min/1.73 sqM) Glucose (74-99) mg/dL POC Glucose (mg/dL) (75-99) mg/dL POC Glu State Attorney ID Calcium (8.4-10.2) mg/dL Total Bilirubin (0.2-1.3) mg/dL AST (14-36) U/L ALT (9-52) U/L Alkaline Phosphatase (38-126) U/L Total Creatine Kinase (30-135) U/L CK-MB (CK-2) (0.0-2.4) ng/mL CK-MB (CK-2) Rel Index Troponin I (0.000-0.034) ng/mL Total Protein (6.3-8.2) g/dL Albumin (3.5-5.0) g/dL Urine Color Yellow Urine Appearance Cloudy H (Clear) Urine pH 6.0 (5.0-8.0) Ur Specific [place] 1.023 (1.001-1.035) Urine Protein 1+ H (Negative) Urine Glucose (UA) Negative (Negative) Urine Ketones Trace H (Negative) Urine Blood Negative (Negative) Urine Nitrite Negative (Negative) Urine Bilirubin 1+ H (Negative) Urine Urobilinogen 3.0 (<2.0) mg/dL Ur Leukocyte Esterase Negative (Negative) Urine RBC 3 (0-5) /hpf Urine WBC 4 (0-5) /hpf Ur Squamous Epith Cells 1 (0-4) /hpf Urine Bacteria Rare H (None) /hpf Hyaline Casts 16 H (0-2) /lpf Urine Mucus Many H (None) /hpf Urine Opiates Screen Not Detected (NotDetected) Ur Oxycodone Screen Not Detected (NotDetected) Urine Methadone Screen Not Detected (NotDetected) Ur Propoxyphene Screen Not Detected (NotDetected) Ur Barbiturates Screen Not Detected (NotDetected) U Tricyclic Antidepress Not Detected (NotDetected) Ur Phencyclidine Scrn Not Detected (NotDetected) Ur Amphetamines Screen Not Detected (NotDetected) U Methamphetamines Scrn Not Detected (NotDetected) U Benzodiazepines Scrn Not Detected (NotDetected) Urine Cocaine Screen Not Detected (NotDetected) U Marijuana (THC) Screen Not Detected (NotDetected) Serum Alcohol mg/dL 09/25/16 09/25/16 09/25/16 Range/Units 09:06 09:06 09:15 WBC (3.8-10.6) k/uL RBC (3.80-5.40) m/uL Hgb (11.4-16.0) gm/dL Hct (34.0-46.0) % MCV (80.0-100.0) fL MCH (25.0-35.0) pg MCHC (31.0-37.0) g/dL RDW (11.5-15.5) % Plt Count (150-450) k/uL Neutrophils % % Lymphocytes % % Monocytes % % Eosinophils % % Basophils % % Neutrophils # (1.3-7.7) k/uL Lymphocytes # (1.0-4.8) k/uL Monocytes # (0-1.0) k/uL Eosinophils # (0-0.7) k/uL Basophils # (0-0.2) k/uL PT (9.0-12.0) sec INR (<1.1) APTT (22.0-30.0) sec Sodium 144 (137-145) mmol/L Potassium 4.5 (3.5-5.1) mmol/L Chloride 111 H (98-107) mmol/L Carbon Dioxide 21 L (22-30) mmol/L Anion Gap 12 mmol/L BUN 26 H (7-17) mg/dL Creatinine 1.00 (0.52-1.04) mg/dL Est GFR (MDRD) Af Amer >60 (>60 ml/min/1.73 sqM) Est GFR (MDRD) Non-Af 55 (>60 ml/min/1.73 sqM) Glucose 102 H (74-99) mg/dL POC Glucose (mg/dL) 96 (75-99) mg/dL POC Glu State Attorney ID Gianluca Crystal Calcium 9.7 (8.4-10.2) mg/dL Total Bilirubin 0.5 (0.2-1.3) mg/dL AST 16 (14-36) U/L ALT 30 (9-52) U/L Alkaline Phosphatase 172 H (38-126) U/L Total Creatine Kinase 21 L (30-135) U/L CK-MB (CK-2) <0.2 (0.0-2.4) ng/mL CK-MB (CK-2) Rel Index Troponin I <0.012 (0.000-0.034) ng/mL Total Protein 6.8 (6.3-8.2) g/dL Albumin 3.9 (3.5-5.0) g/dL Urine Color Urine Appearance (Clear) Urine pH (5.0-8.0) Ur Specific [place] (1.001-1.035) Urine Protein (Negative) Urine Glucose (UA) (Negative) Urine Ketones (Negative) Urine Blood (Negative) Urine Nitrite (Negative) Urine Bilirubin (Negative) Urine Urobilinogen (<2.0) mg/dL Ur Leukocyte Esterase (Negative) Urine RBC (0-5) /hpf Urine WBC (0-5) /hpf Ur Squamous Epith Cells (0-4) /hpf Urine Bacteria (None) /hpf Hyaline Casts (0-2) /lpf Urine Mucus (None) /hpf Urine Opiates Screen (NotDetected) Ur Oxycodone Screen (NotDetected) Urine Methadone Screen (NotDetected) Ur Propoxyphene Screen (NotDetected) Ur Barbiturates Screen (NotDetected) U Tricyclic Antidepress (NotDetected) Ur Phencyclidine Scrn (NotDetected) Ur Amphetamines Screen (NotDetected) U Methamphetamines Scrn (NotDetected) U Benzodiazepines Scrn (NotDetected) Urine Cocaine Screen (NotDetected) U Marijuana (THC) Screen (NotDetected) Serum Alcohol <10 mg/dL - Radiology Data Radiology results: image reviewed (Chest x-ray shows no acute process. Computed tomography scan of the brain shows old infarct. No acute process.) Disposition Clinical Impression: Bipolar affective disorder Disposition: HOME SELF-CARE Condition: Stable Instructions: Bipolar Disorder (ED), Altered Mental Status (ED) Additional Instructions: Please follow-up with your doctor in the beginning of the week. Return for not eating, not taking medications, thoughts of harming yourself or others, worsening symptoms or other concerns. Referrals: None,Stated [Primary Care Provider] - 1-2 days Rhea Whyte MD [STAFF PHYSICIAN] - 1-2 days Chidi Flores DO [Doctor of Osteopathic Medicine] - 1-2 days
[2016-09-25 09:16] LABS: Glucose,Whole Blood 96 mg/dL (75-99)
[2016-09-25 09:22] LABS: Appearance,Urine Cloudy (Clear); Bacteria,Urine Rare /hpf; Bilirubin,Urine 1+ (Negative); Glucose,Urine (UA) Negative (Negative); Ketones,Urine Trace (Negative); Leukocyte Esterase,Urine Negative (Negative); Mucus,Urine Many /hpf; Nitrite,Urine Negative (Negative); Particle Count 17014; Protein,Urine 1+ (Negative); RBC,Urine 3 /hpf (0-5); Specific Gravity,Urine 1.023 (1.001-1.035); Squamous Epithelial Cell,Urine 1 /hpf (0-4); UA Billing (MACRO vs. MICRO) MICRO; WBC,Urine 4 /hpf (0-5)
[2016-09-25 09:36] LABS: Basophils % (A) 1 %; CH 30.7; CHCM 33.1; Eosinophils # (A) 0.2 k/uL (0-0.7); Eosinophils % (A) 3 %; HGB 13.1 gm/dL (11.4-16.0); Luc # (Auto) 0.11; Luc % (Auto) 2; Lymphocytes # (A) 1.6 k/uL (1.0-4.8); Lymphocytes % (A) 21 %; MCH 30.5 pg (25.0-35.0); MCHC 32.7 g/dL (31.0-37.0); MCV 93.2 fL (80.0-100.0); Mean Platelet Volume 6.7; Monocytes # (A) 0.3 k/uL (0-1.0); Monocytes % (A) 5 %; Neutrophils # (A) 5.2 k/uL (1.3-7.7); Neutrophils % (A) 70 %; RBC 4.29 m/uL (3.80-5.40); RDW 13.6 % (11.5-15.5); WBC 7.4 k/uL (3.8-10.6); WBC (Perox) 8.02
[2016-09-25 09:44] LABS: INR 1.1 (<1.1); Prothrombin Time 11.2 sec (9.0-12.0)
[2016-09-25 09:48] LABS: ALT 30 U/L (9-52); AST 16 U/L (14-36); Alcohol <10 mg/dL; Alkaline Phosphatase 172 U/L (38-126); Anion Gap 12 mmol/L; Blood Urea Nitrogen 26 mg/dL (7-17); Calcium 9.7 mg/dL (8.4-10.2); Carbon Dioxide 21 mmol/L (22-30); Chloride 111 mmol/L (98-107); Glucose 102 mg/dL (74-99); Non-African American GFR(MDRD) 55 (>60 ml/min/1.73 sqM); Potassium 4.5 mmol/L (3.5-5.1); Sodium 144 mmol/L (137-145); Total Bilirubin 0.5 mg/dL (0.2-1.3); Total Protein 6.8 g/dL (6.3-8.2)
[2016-09-25 09:59] LABS: Creatine Kinase 21 U/L (30-135)
[2016-09-25 10:12] LABS: Creatine Kinase MB <0.2 ng/mL (0.0-2.4); Troponin I <0.012 ng/mL (0.000-0.034)
--- NOTE | 2016-09-25 10:23 | XR ---
EXAMINATION TYPE: XR chest 2V DATE OF EXAM: 09/25/2016 9:44 AM COMPARISON: Chest x-ray August 25, 2016. HISTORY: Altered mental status and weakness. TECHNIQUE: Frontal and lateral views of the chest are obtained. FINDINGS: There is no focal air space opacity, pleural effusion, or pneumothorax seen. The cardiac silhouette size is stable and within normal limits. Left ventricular dilatation is once again suspect ed on lateral view. Multilevel spurring in thoracic spine is redemonstrated. Degenerative changes in both shoulders are again seen. Cholecystectomy clips are noted on lateral view. IMPRESSION: No acute cardiopulmonary process. No significant change from prior.
--- NOTE | 2016-09-25 10:24 | CT ---
EXAMINATION TYPE: CT brain wo con DATE OF EXAM: 09/25/2016 9:38 AM COMPARISON: CT brain August 25, 2016 HISTORY: Confusion CT DLP: 1126.50 mGycm. Automated Exposure Control for Dose Reduction was Utilized. TECHNIQUE: CT scan of the head is performed without contrast. FINDINGS: There is no acute intracranial hemorrhage or midline shift identified. There is mild vent ricular and sulcal prominence redemonstrated. Old area of encephalomalacia medial right frontal lobe is redemonstrated. Hyperostosis frontalis is again seen. The globes are intact and the visualized sin uses are clear. IMPRESSION: No acute intracranial hemorrhage or midline shift is seen. There is mild age-related cer ebral atrophy with old right frontal lobe infarct redemonstrated. No significant change from prior.
[2016-09-25 14:50] VITALS: RESP 18
[2016-09-25 14:51] VITALS: BP 150/86; PULSE 84
== END 2016-09-25 15:37 | disposition home or self-care (01) ==
LOC: EC 08:32
DX: F31.9 Bipolar disorder, unspecified (principal); F03.90 Unspecified dementia, unspecified severity, without behavioral disturbance, psychotic disturbance, mood disturbance, and anxiety; F20.9 Schizophrenia, unspecified; F41.0 Panic disorder [episodic paroxysmal anxiety]; I50.9 Heart failure, unspecified; Z79.899 Other long term (current) drug therapy; Z88.8 Allergy status to other drugs, medicaments and biological substances; Z88.1 Allergy status to other antibiotic agents; Z91.041 Radiographic dye allergy status
CPT/HCPCS: 36415; 70450; 71020; 80053; 80306; 80320; 81001; 82550; 82553; 84484; 85025; 85610; 85730; 93005; 96360; 96361; 99285

== ENCOUNTER 2016-09-30 12:03 | Inpatient (IN) | payer MEDICARE, MEDICAID ==
--- NOTE | 2016-09-30 12:34 | ED ---
Psych HPI - General Chief Complaint: Psychiatric Symptoms Stated Complaint: Mental Health change Time Seen by Provider: 09/30/16 12:03 Source: patient, EMS, RN notes reviewed, old records reviewed Mode of arrival: EMS - History of Present Illness Initial Comments: This is a 66-year-old female with a previous history of psychiatric disorders who is brought in for evaluation for failure to thrive. She barely has been refusing to eat or drink or take her medications for past several days. She was found in bed soaked in her own urine. She did apparently recently have a UTI and did have symptoms similar to this with the urinary tract infection. She voices no complaints herself. There are no reports of trauma fevers chills nausea vomiting sweats or other symptoms MD Complaint: other - Related Data Home Medications Medication Instructions Recorded Confirmed Ergocalciferol [Vitamin D2 50,000 unit PO MO 02/27/16 09/30/16 (DRISDOL)] Simvastatin [Zocor] 40 mg PO DAILY@0800 02/27/16 09/30/16 Ibuprofen 400 mg PO TID-W/MEALS PRN 08/25/16 09/30/16 Loratadine [Claritin] 10 mg PO DAILY 09/25/16 09/30/16 Lurasidone [Latuda] 80 mg PO DAILY@1700 09/25/16 09/30/16 OXcarbazepine [Trileptal] 600 mg PO HS 09/25/16 09/30/16 Potassium Chloride ER [K-Dur 20] 20 meq PO DAILY@0800 09/25/16 09/30/16 Spironolactone [Aldactone] 25 mg PO DAILY 09/25/16 09/30/16 Allergies Allergy/AdvReac Type Severity Reaction Status Date / Time haloperidol [From Haldol] Allergy Unknown Verified 09/30/16 12:20 haloperidol lactate Allergy Unknown Verified 09/30/16 12:20 [From Haldol] Iodinated Contrast Media - Allergy Unknown Verified 09/30/16 12:20 Oral and [Iodinated Contrast Media - IV Dye] piperacillin sodium Allergy Unknown Verified 09/30/16 12:20 [From Zosyn] tazobactam sodium Allergy Unknown Verified 09/30/16 12:20 [From Zosyn] Review of Systems ROS Statement: Those systems with pertinent positive or pertinent negative responses have been documented in the HPI. ROS Other: All systems not noted in ROS Statement are negative. 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, neurogenic bladder, CHF, cardiomyopathy, lower GI bleed, diverticular disease, IBS, hiatal hernia, esophageal ulcer, poor circulation, venous stasis, bilateral lower leg cellulitis in past, sinus problems, UTIs, back pain, anemia as a teenager History of Any Multi-Drug Resistant Organisms: MRSA Date of last positivie culture/infection: 2008 MDRO Source:: leg Past Surgical History: Adenoidectomy, Appendectomy, Cholecystectomy, Hernia Repair, Hysterectomy, Orthopedic Surgery, Tonsillectomy Additional Past Surgical History / Comment(s): L foot toe with screw, L foot bunionectomy, liver bx, EGD/colonoscopy and benign polypectomy, R inguinal hernia repair, D&C, laparoscopic surgery (?). Past Anesthesia/Blood Transfusion Reactions: No Reported Reaction Past Psychological History: Anxiety, Bipolar, Depression, Panic Disorder, Schizophrenia Additional Psychological History / Comment(s): Pt resides at [facility]. She ambulates with a walker. Smoking Status: Never smoker Past Alcohol Use History: Unable to Obtain Past Drug Use History: Unable to Obtain - Past Family History Mother Family Medical History: No Reported History Additional Family Medical History / Comment(s): Pt states her mother was healthy. Father Family Medical History: No Reported History Additional Family Medical History / Comment(s): Pt states her father was healthy General Exam - General Exam Comments Initial Comments: Is a well-developed well-nourished but somewhat lethargic female Limitations: no limitations General appearance: alert, in no apparent distress, lethargic Head exam: Present: atraumatic, normocephalic, normal inspection Eye exam: Present: normal appearance, PERRL, EOMI. Absent: scleral icterus, conjunctival injection, periorbital swelling ENT exam: Present: mucous membranes dry Neck exam: Present: normal inspection. Absent: tenderness, meningismus, lymphadenopathy Respiratory exam: Present: normal lung sounds bilaterally. Absent: respiratory distress, wheezes, rales, rhonchi, stridor Cardiovascular Exam: Present: regular rate, normal rhythm, normal heart sounds. Absent: systolic murmur, diastolic murmur, rubs, gallop, clicks GI/Abdominal exam: Present: soft, normal bowel sounds. Absent: distended, tenderness, guarding, rebound, rigid Extremities exam: Present: normal inspection, full ROM, normal capillary refill. Absent: tenderness, pedal edema, joint swelling, calf tenderness Back exam: Present: normal inspection Neurological exam: Present: alert, oriented X3, CN II-XII intact Psychiatric exam: Present: flat affect Skin exam: Present: warm, dry, intact, normal color. Absent: rash Course Vital Signs 09/30/16 09/30/16 12:16 13:32 Temperature 97.4 F L Pulse Rate 95 90 Respiratory 16 18 Rate Blood Pressure 163/80 141/90 O2 Sat by Pulse 97 98 Oximetry Medical Decision Making - Medical Decision Making The patient was medically cleared and was evaluated by psychiatric service she will be admitted for inpatient treatment - Lab Data Result diagrams: 09/30/16 12:50 09/30/16 12:50 Lab Results 09/30/16 09/30/16 09/30/16 Range/Units 12:50 12:50 12:50 WBC 8.4 (3.8-10.6) k/uL RBC 4.44 (3.80-5.40) m/uL Hgb 13.7 (11.4-16.0) gm/dL Hct 41.1 (34.0-46.0) % MCV 92.6 (80.0-100.0) fL MCH 30.9 (25.0-35.0) pg MCHC 33.4 (31.0-37.0) g/dL RDW 13.6 (11.5-15.5) % Plt Count 260 (150-450) k/uL Neutrophils % 62 % Lymphocytes % 27 % Monocytes % 6 % Eosinophils % 3 % Basophils % 1 % Neutrophils # 5.2 (1.3-7.7) k/uL Lymphocytes # 2.3 (1.0-4.8) k/uL Monocytes # 0.5 (0-1.0) k/uL Eosinophils # 0.2 (0-0.7) k/uL Basophils # 0.0 (0-0.2) k/uL Sodium 144 (137-145) mmol/L Potassium 5.2 H (3.5-5.1) mmol/L Chloride 110 H (98-107) mmol/L Carbon Dioxide 23 (22-30) mmol/L Anion Gap 11 mmol/L BUN 21 H (7-17) mg/dL Creatinine 0.95 (0.52-1.04) mg/dL Est GFR (MDRD) Af Amer >60 (>60 ml/min/1.73 sqM) Est GFR (MDRD) Non-Af 59 (>60 ml/min/1.73 sqM) Glucose 93 (74-99) mg/dL Calcium 10.0 (8.4-10.2) mg/dL Magnesium 1.8 (1.6-2.3) mg/dL Total Bilirubin 0.7 (0.2-1.3) mg/dL AST 22 (14-36) U/L ALT 25 (9-52) U/L Alkaline Phosphatase 177 H (38-126) U/L Total Creatine Kinase 33 (30-135) U/L CK-MB (CK-2) <0.2 (0.0-2.4) ng/mL CK-MB (CK-2) Rel Index Troponin I <0.012 (0.000-0.034) ng/mL Total Protein 7.3 (6.3-8.2) g/dL Albumin 4.2 (3.5-5.0) g/dL Amylase 47 (30-110) U/L Urine Color Urine Appearance (Clear) Urine pH (5.0-8.0) Ur Specific [place] (1.001-1.035) Urine Protein (Negative) Urine Glucose (UA) (Negative) Urine Ketones (Negative) Urine Blood (Negative) Urine Nitrite (Negative) Urine Bilirubin (Negative) Urine Urobilinogen (<2.0) mg/dL Ur Leukocyte Esterase (Negative) Urine Opiates Screen (NotDetected) Ur Oxycodone Screen (NotDetected) Urine Methadone Screen (NotDetected) Ur Propoxyphene Screen (NotDetected) Ur Barbiturates Screen (NotDetected) U Tricyclic Antidepress (NotDetected) Ur Phencyclidine Scrn (NotDetected) Ur Amphetamines Screen (NotDetected) U Methamphetamines Scrn (NotDetected) U Benzodiazepines Scrn (NotDetected) Urine Cocaine Screen (NotDetected) U Marijuana (THC) Screen (NotDetected) Serum Alcohol <10 mg/dL 09/30/16 Range/Units 12:50 WBC (3.8-10.6) k/uL RBC (3.80-5.40) m/uL Hgb (11.4-16.0) gm/dL Hct (34.0-46.0) % MCV (80.0-100.0) fL MCH (25.0-35.0) pg MCHC (31.0-37.0) g/dL RDW (11.5-15.5) % Plt Count (150-450) k/uL Neutrophils % % Lymphocytes % % Monocytes % % Eosinophils % % Basophils % % Neutrophils # (1.3-7.7) k/uL Lymphocytes # (1.0-4.8) k/uL Monocytes # (0-1.0) k/uL Eosinophils # (0-0.7) k/uL Basophils # (0-0.2) k/uL Sodium (137-145) mmol/L Potassium (3.5-5.1) mmol/L Chloride (98-107) mmol/L Carbon Dioxide (22-30) mmol/L Anion Gap mmol/L BUN (7-17) mg/dL Creatinine (0.52-1.04) mg/dL Est GFR (MDRD) Af Amer (>60 ml/min/1.73 sqM) Est GFR (MDRD) Non-Af (>60 ml/min/1.73 sqM) Glucose (74-99) mg/dL Calcium (8.4-10.2) mg/dL Magnesium (1.6-2.3) mg/dL Total Bilirubin (0.2-1.3) mg/dL AST (14-36) U/L ALT (9-52) U/L Alkaline Phosphatase (38-126) U/L Total Creatine Kinase (30-135) U/L CK-MB (CK-2) (0.0-2.4) ng/mL CK-MB (CK-2) Rel Index Troponin I (0.000-0.034) ng/mL Total Protein (6.3-8.2) g/dL Albumin (3.5-5.0) g/dL Amylase (30-110) U/L Urine Color Yellow Urine Appearance Clear (Clear) Urine pH 6.0 (5.0-8.0) Ur Specific [place] 1.019 (1.001-1.035) Urine Protein Trace H (Negative) Urine Glucose (UA) Negative (Negative) Urine Ketones Negative (Negative) Urine Blood Negative (Negative) Urine Nitrite Negative (Negative) Urine Bilirubin Negative (Negative) Urine Urobilinogen <2.0 (<2.0) mg/dL Ur Leukocyte Esterase Negative (Negative) Urine Opiates Screen Not Detected (NotDetected) Ur Oxycodone Screen Not Detected (NotDetected) Urine Methadone Screen Not Detected (NotDetected) Ur Propoxyphene Screen Not Detected (NotDetected) Ur Barbiturates Screen Not Detected (NotDetected) U Tricyclic Antidepress Not Detected (NotDetected) Ur Phencyclidine Scrn Not Detected (NotDetected) Ur Amphetamines Screen Not Detected (NotDetected) U Methamphetamines Scrn Not Detected (NotDetected) U Benzodiazepines Scrn Not Detected (NotDetected) Urine Cocaine Screen Not Detected (NotDetected) U Marijuana (THC) Screen Not Detected (NotDetected) Serum Alcohol mg/dL - EKG Data -: EKG Interpreted by Mt EKG shows normal: sinus rhythm (Sinus rhythm rate of 84 NV interval 146 QRS duration 70 QT/QTC 362/427 evidence of LVH nonspecific ST configuration.) - Radiology Data Radiology results: report reviewed, image reviewed (I did review the x-ray report no acute findings.) Disposition Clinical Impression: Acute psychosis, Dehydration Disposition: TRANSFER TO PSYCH HOSP/UNIT Condition: Stable
[2016-09-30 13:17] LABS: Basophils % (A) 1 %; CH 31.1; CHCM 33.8; Eosinophils # (A) 0.2 k/uL (0-0.7); Eosinophils % (A) 3 %; HCT 41.1 % (34.0-46.0); HDW 2.62; HGB 13.7 gm/dL (11.4-16.0); Luc # (Auto) 0.21; Luc % (Auto) 3; Lymphocytes # (A) 2.3 k/uL (1.0-4.8); Lymphocytes % (A) 27 %; MCH 30.9 pg (25.0-35.0); MCHC 33.4 g/dL (31.0-37.0); MCV 92.6 fL (80.0-100.0); Mean Platelet Volume 7.8; Monocytes # (A) 0.5 k/uL (0-1.0); Monocytes % (A) 6 %; Neutrophils # (A) 5.2 k/uL (1.3-7.7); Neutrophils % (A) 62 %; RBC 4.44 m/uL (3.80-5.40); RDW 13.6 % (11.5-15.5); WBC 8.4 k/uL (3.8-10.6); WBC (Perox) 8.73
[2016-09-30 13:19] LABS: Appearance,Urine Clear (Clear); Bilirubin,Urine Negative (Negative); Glucose,Urine (UA) Negative (Negative); Ketones,Urine Negative (Negative); Leukocyte Esterase,Urine Negative (Negative); Nitrite,Urine Negative (Negative); Protein,Urine Trace (Negative); Specific Gravity,Urine 1.019 (1.001-1.035); UA Billing (MACRO vs. MICRO) CHEM; Urobilinogen,Urine <2.0 mg/dL (<2.0)
[2016-09-30 13:26] LABS: ALT 25 U/L (9-52); AST 22 U/L (14-36); Alcohol <10 mg/dL; Alkaline Phosphatase 177 U/L (38-126); Amylase 47 U/L (30-110); Anion Gap 11 mmol/L; Blood Urea Nitrogen 21 mg/dL (7-17); Carbon Dioxide 23 mmol/L (22-30); Chloride 110 mmol/L (98-107); Glucose 93 mg/dL (74-99); Magnesium 1.8 mg/dL (1.6-2.3); Non-African American GFR(MDRD) 59 (>60 ml/min/1.73 sqM); Sodium 144 mmol/L (137-145); Total Bilirubin 0.7 mg/dL (0.2-1.3); Total Protein 7.3 g/dL (6.3-8.2)
[2016-09-30 13:27] LABS: Potassium 5.2 mmol/L (3.5-5.1)
--- NOTE | 2016-09-30 13:34 | XR ---
EXAMINATION TYPE: XR chest 2V DATE OF EXAM: 09/30/2016 1:29 PM HISTORY: cough. REFERENCE: Previous study dated 09/25/2016. FINDINGS: The heart is mildly enlarged. The lungs are clear. Pleural spaces are clear. 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 IMPRESSION: 1. MILD CARDIOMEGALY. 2. FORESTIER'S DISEASE.
[2016-09-30 13:41] LABS: Creatine Kinase 33 U/L (30-135)
[2016-09-30 13:52] LABS: Creatine Kinase MB <0.2 ng/mL (0.0-2.4); Troponin I <0.012 ng/mL (0.000-0.034)
[2016-09-30] MEDS ORDERED: SODIUM CHLORIDE 0.9% 1,000 ML IV STA (14:03)
[2016-09-30] MEDS ORDERED: ACETAMINOPHEN TAB 325 MG TAB PO PRN (19:44)
[2016-09-30] MEDS ORDERED: MAG HYDROX/AL HYDROX/SIMETH 30 ML CUP PO PRN (19:44)
[2016-09-30] MEDS ORDERED: LORazepam 2 MG/ML SYRINGE IM PRN (19:48)
[2016-09-30] MEDS ORDERED: LORazepam 1 MG TAB PO PRN (19:48)
[2016-09-30] MEDS ORDERED: IBUPROFEN 400 MG TAB PO PRN (19:50)
[2016-09-30] MEDS: OXcarbazepine 300 MG TAB PO SCH (20:50)
[2016-09-30] MEDS: LORATADINE 10 MG TAB PO SCH (20:50)
[2016-10-01] MEDS: LORATADINE 10 MG TAB PO SCH (09:28)
[2016-10-01] MEDS: SPIRONOLACTONE 25 MG TAB PO SCH (09:28)
[2016-10-01] MEDS: ATORVASTATIN 20 MG TAB PO SCH (09:28)
--- NOTE | 2016-10-01 14:32 | HP ---
DATE OF ADMISSION: 09/30/2016 IDENTIFYING DATA: Patient is 66, female who has been living in the same [place] [facility] for the last 5 years. Patient has public guardian. She was recently under my care on August 28 and was discharged after she went to the court on September 07, 2016. Patient is on court order for treatment. Patient stated that she does not know why she is back in inpatient unit, According to her "I have been taking my medication." Patient was able to recall me. She stated, "I think I'm dying. I don't function well. These are not my eyes and they are not my ears." I did review the record from the [facility]. Patient was seen by Dr. Moreau on September 14 at that time he was concerned about her weight loss as she lost 40 pounds over a couple of months and indicated that this weight loss needs to be followed for cancer like diagnosis particularly the possibility of colorectal cancer. When I did ask the patient why she has been hesitant to follow up for diagnostic tests she said, "It doesn't matter. I'm dying." Patient ruminating about her health and her inability to function. She denied any suicidal or homicide ideation. She denied having any pain, discomfort or weakness. She denied that she has been having problem sleeping at night. She described her appetite as "It's good when the food is good." She looked paranoid and suspicious at times with loose association. She was very somatic preoccupied. When I did ask her if she has been eating okay in the [place] [facility], she said, "It depends". Patient then stated, "I don't want to talk to you anymore and she stopped answering most of the questions. Patient looks less psychotic previous admission. PAST PSYCHIATRIC HISTORY: Patient has had several inpatient psychiatric hospitalization and the most recent was under my care in August 28 until September 07. She was discharged on Latuda 80 mg and Trileptal 600 mg at bedtime. Patient was recently seen by Dr. Moreau on September 14 and according to his last note patient did not verbalize any delusional thinking, but he was very concerned about the profound weight loss. Psychotropic medications she tried in the past: Abilify Maintena injection, ( ), Artane, Restoril. PAST MEDICAL HISTORY: Positive for history of CVA and transit ischemic attack, history of hypertension, gastrointestinal bleeding, neurogenic bladder, cardiomyopathy, history of recurrent urinary tract infection, history of esophageal ulcer. PAST SURGICAL HISTORY: Status post appendicectomy, cholecystectomy, hernia repair, orthopedic surgery, hysterectomy. ALLERGIES: HALDOL, ZOSYN AND IV IODINE. Home medications: Vitamin D 2, Zocor 40 mg daily, ibuprofen 400 three times a day p.r.n., Claritin 10 mg daily, Latuda 80 mg, Trileptal 600 at bedtime, Aldactone 25 mg daily, potassium chloride. VITAL SIGNS: Temperature 98.1, pulse 86, respiration 18, blood pressure 131/75. LAB WORK-UP: White blood cells and red blood cells are within normal limits. Sodium normal. Potassium slightly increased at 5.2 and chloride slightly high at 110. BUN is slightly high at 21; however, creatinine is normal. Calcium and magnesium normal. Alkaline phosphatase slightly high, 177. TSH normal. Urinalysis is negative for leukocyte esterase. There are just traces of protein. However, it is negative. Urine drug screen is negative. CHEMICAL DEPENDENCY HISTORY: Unknown. Patient does not respond. FAMILY PSYCHIATRY HISTORY: Not known at this time. SOCIAL HISTORY: Patient is a , female, who has been living in the same [place] [facility] for the last 5 years. She is having a public guardian. She has 3 grownup children. MENTAL STATUS EXAMINATION: Patient was seen in the library. She was sitting in her wheelchair. Regarding her stated mood she said, "I am dying." She avoided eye contact. Patient was very disorganized. She denied having auditory or visual hallucination. She denied any suicidal or homicide ideation. She was alert, oriented to person and place, and time, but she could not tell me the exact date, but she was aware it is September 2016. She has a lot of somatic delusion and she does believe that she is dying. At times she does make some statement very bizarre. There is underlying paranoia, suspicious feeling. Her insight and judgment are limited. STRENGTH AND WEAKNESS: Strengths: Patient has outpatient [facility] supports. Also she is structured setting. Weaknesses: Multiple medical problems in addition to her psychiatric symptoms. DIAGNOSES: 1. Bipolar disorder most recent episode depressed with psychotic features. 2. Multiple medical problems and especially 40 pound weight loss over the last couple of months and also issue of medication compliance. PLAN: Patient was admitted to the inpatient psychiatric unit. She is on court order for treatment. She will be placed on 15 minute precaution. Will order medical consultation especially regarding this significant weight loss. I will maintain her on Latuda and Trileptal and monitor her compliance with medication. Also will monitor any medication side effect. highway maintenance crew worker to contact [facility] to address discharge disposition. Estimated length of stay 5 to 7 days. Prognosis is guarded.
[2016-10-01] MEDS ORDERED: LURASIDONE 80 MG TAB PO SCH (17:00)
[2016-10-01] MEDS: OXcarbazepine 300 MG TAB PO SCH (21:24)
[2016-10-02] MEDS: LORATADINE 10 MG TAB PO SCH (09:46)
[2016-10-02] MEDS: ATORVASTATIN 20 MG TAB PO SCH (09:46)
[2016-10-02] MEDS: SPIRONOLACTONE 25 MG TAB PO SCH (09:46)
--- NOTE | 2016-10-02 13:29 | CONS ---
DATE OF CONSULTATION: 10/02/2016. REASON FOR CONSULTATION: Medical management requested by Dr. Jimenez. [facility] to 4 [facility]; hence, patient work flow was disrupted and delay, hence this patient could not be seen earlier and seen by me this morning. The [facility] patient not really eating or drinking for three or four days and there was also decreased urine output. Patient has multiple admissions to the hospital and the psychiatry unit, has a diagnosis of bipolar disorder, depressed with psychosis. Patient's other chronic stable medical conditions include hypertension, irritable bowel syndrome, selective mutism, hypertension, stroke with some left-sided weakness, diverticulosis, venostasis. Patient really does not talk much, does state my name and when I talked about food, she says Oh don't trick me into having food. The patient really reserved over what she will say. Really difficult to get a history. Sitting up in a wheelchair. Otherwise appears to be comfortable. REVIEW OF SYSTEMS: CONSTITUTIONAL: Tired. HEENT: None. RESPIRATORY: None. CARDIOVASCULAR: None. GASTROINTESTINAL: None. GENITOURINARY: Urinary frequency sometimes. Dermatological: None. HEMATOLOGICAL: None. LYMPHATIC: None. PSYCHIATRY: As above. NEUROLOGICAL: None. Past medical history of bipolar disorder, depressed with psychosis, hypertension, neurogenic bladder, hiatal hernia, irritable bowel syndrome. Selective mutism, hypertension, stroke with left side weakness, diverticulosis, venostasis, congestive heart failure with cardiomyopathy, esophageal ulcer and back pain. PAST SURGICAL HISTORY: Adenoidectomy, appendectomy, cholecystectomy, hernia repair. Hysterectomy, orthopedic surgery, tonsillectomy, left foot toe with screws, left foot bunionectomy, liver biopsy, EGD, colonoscopy, benign polypectomy, right inguinal hernia repair and D&C. SOCIAL HISTORY: The patient lives at [facility]. Uses a walker. No smoking. No alcohol. No history of drug abuse. FAMILY HISTORY: Patient states her mother is healthy. HOME MEDICATIONS: 1. Aldactone 25 mg a day. 2. Zocor 40 mg a day. 3. Potassium 20 meq a day. 4. Trileptal 600 mg q.h.s. 5. Latuda 80 mg daily at 5:00 p.m. 6. Claritin 10 mg a day. 7. Ibuprofen 400 mg p.o. t.i.d. p.r.n. with meals. 8. Vitamin D2, 50,000 units p.o. Tuesday. ALLERGIES TO HALDOL, IV CONTRAST DYE AND ZOSYN. On examination vital signs on presentation: Temperature 97.4, pulse 95 respiration 16, blood pressure 160/80, pulse ox 97% on room air. Repeat blood pressure 130/75. GENERAL APPEARANCE: weight of 80.4 kg, BMI of 20.6, sitting up in a chair, comfortable. EYES: Pupils equal. Conjunctivae normal. HEENT: Oral cavity some dry mucus and some missing teeth. NECK: JVD not raised. Mass not palpable. RESPIRATORY: Effort normal. LUNGS: Fair air entry. CARDIOVASCULAR: First and second sounds normal. No edema. ABDOMEN: Soft, nontender. Liver and spleen not palpable. LYMPHATIC: No lymph node palpable in neck or axillae. PSYCHIATRY: The patient says a few words and not really able to carry on a full conversation. INVESTIGATIONS: White count 8.4, hemoglobin 13.7, platelets of 216. Potassium 5.2. BUN 21, creatinine 0.95. Serum alcohol less than 10. ASSESSMENT: 1. Essential hypertension. 2. Chronic neurogenic bladder. 3. Irritable bowel syndrome. 4. Essential hypertension. 5. Left-sided mild weakness from old stroke. 6. Diverticulosis. 7. Chronic venous stasis. 8. Decreased oral intake, possibly a manifestation of psychosis. 9. Clinically dehydrated. BUN elevated. PLAN: Patient's home medications will be resumed. Patient Claritin will be discontinued. Given decreased oral intake, we will also cut back on Aldactone to 12.5 mg a day. Given patient's no teeth, we will try softer food and some finger foods. Patient does apparently does like shakes. We will try that but at this point, it does seem more of a psychiatry issue why she is not eating. Thank you, Dr. Jimenez.
--- NOTE | 2016-10-02 14:04 | P.PN ---
Subjective Principal diagnosis: Interval history: The patient is found in library on her wheel chair ,evasive , guarded ,paranoia ,reports poor appetite and "I AM NOT MYSELF "when I asked her to elaborate ,she said "I CAN NOT TALK TO YOU ,YOU ARE NOT DR BONILLA",patient is loosing train of thoughts ,lot of somatic delusion Was seen by DR Steele this morning :he decreased Aldactone ,does feel that her decrease in intake due to psychosis Mental status exam: The patient is alert she seated calmly in a wheel-chair Hygiene and grooming are adequate. Speech is non spontaneous ,halting , blocking ,denies any hallucination but seems responding to internal stimuli , denies any suicidal or homicidal ideation , insight is very limited PLAN:increase Latuda ,continue monitor her thought process and her intake Objective - Vital Signs Vital signs: Vital Signs Temp 98.0 F 10/02/16 06:27 Pulse 71 10/02/16 06:27 Resp 18 10/02/16 06:27 BP 162/88 10/02/16 06:27 Pulse Ox 98 10/02/16 06:27 - Labs CBC & Chem 7: 09/30/16 12:50 09/30/16 12:50
[2016-10-02] MEDS ORDERED: LURASIDONE 80 MG TAB PO SCH (21:00)
[2016-10-02] MEDS: LURASIDONE 40 MG TAB PO SCH (21:16)
[2016-10-02] MEDS: OXcarbazepine 300 MG TAB PO SCH (21:17)
[2016-10-03] MEDS: ATORVASTATIN 20 MG TAB PO SCH (09:51)
[2016-10-03] MEDS: SPIRONOLACTONE 25 MG TAB PO SCH (09:51)
--- NOTE | 2016-10-03 15:47 | P.PN ---
Progress Note - Text Interval history: The patient is found in library on her wheel chair ,evasive , guarded ,paranoia ,bizarre delusion "I DO NOT HAVE BODY ,THIS IS NOT MINE", still refusing to eat ,did not eat lunch ,participating in groups but withdrawn and disorganized PER NURSING STAFF:slept 5 hours ,no aggressive behavior Mental status exam: The patient is alert she seated calmly in a wheel-chair , unkept Speech is non spontaneous ,halting ,blocking ,denies any hallucination but seems responding to internal stimuli ,denies any suicidal or homicidal ideation , insight and judgment impaired PLAN:Continue Latuda ,continue monitor her thought process and her intake ,will consult energy crop farmer
[2016-10-03] MEDS: OXcarbazepine 300 MG TAB PO SCH (20:17)
[2016-10-03] MEDS: LURASIDONE 40 MG TAB PO SCH (20:17)
[2016-10-04] MEDS: ATORVASTATIN 20 MG TAB PO SCH (09:59)
[2016-10-04] MEDS: SPIRONOLACTONE 25 MG TAB PO SCH (09:59)
[2016-10-04] MEDS: ERGOCALCIFEROL 50,000 UNIT CAP PO SCH (09:59)
--- NOTE | 2016-10-04 10:09 | P.PN ---
Progress Note - Text Interval history: The patient was laying in her bed ,still paranoia ,suspicious ,guarded saying "WHY YOU ARE ASKING ME ALL THESE QUESTIONS ,I TOLD YOU IT IS NOT ME ,IT IS SOMEONE ELSE BODY" She states she did not feel comfortable eating . Sleep has been stable. ,isolating herself ,minimal interaction with staff,was seen by relocation services specialist yesterday who recommended supplement ,patient refused morning breakfast but had her supplement . Mental status exam: The patient is female she is dressed in hospital gown she has a disheveled appearance. Eye contact is appropriate speech is non spontaneous ,halting and blocking ,focused on paranoid ,somatic and persecutory thinking. She denies any suicidal or homicidal ideation ,denies any hallucination Patient is still resistant to eat her meal ,. Insight and judgment impaired. She demonstrates no verbal or physical aggressiveness. She is oriented to person place and date. Affect remains quite bland. Plan: Will add low dose of Trilafon ,continue Latuda and Trileptal same , monitor her calorie intake ,encourage groups participation and taking care of his ADLs
[2016-10-04] MEDS: LURASIDONE 40 MG TAB PO SCH (19:59)
[2016-10-04] MEDS: OXcarbazepine 300 MG TAB PO SCH (20:00)
[2016-10-05] MEDS: SPIRONOLACTONE 25 MG TAB PO SCH (08:18)
[2016-10-05] MEDS: ATORVASTATIN 20 MG TAB PO SCH (08:18)
[2016-10-05] MEDS ORDERED: PERPHENAZINE 4 MG TAB PO SCH (09:00)
--- NOTE | 2016-10-05 09:40 | P.PN ---
Progress Note - Text Interval history: The patient was laying in her bed ,dressed in hospital gown , she kept saying "I DO NOT FEEL GOOD ",patient has been refusing food ,taking her supplement ,has been laying in bed for last 36 hours ,just up to have her supplement ,patient seems declining physically and mentally VITALS :stable PER NURSING STAFF :patient slept 6 hours ,was incontinent of urine ,compliant with medication ,no participation in milieu Mental status exam: The patient is female she is dressed in hospital gown she has a disheveled appearance. Eye contact is appropriate speech is non spontaneous ,halting and blocking ,refused to elaborate about "Why she is not feeling good",she denies any hallucination ,endorses paranoia and suspicious feeling She denies any suicidal or homicidal ideation ,denies any hallucination Patient is still resistant to eat her meal ,. Insight and judgment impaired. She demonstrates no verbal or physical aggressiveness. . Affect remains quite bland. Plan:1) Discontinue Trileptal to minimize sedation ,discontinue Trilafon ,add low dose of Prozac ,lab.ordered ,monitor her intake and encourage patient to be up and able to take care of her ADL
[2016-10-05 10:03] LABS: Basophils % (A) 1 %; CH 31.2; CHCM 33.8; Eosinophils # (A) 0.2 k/uL (0-0.7); Eosinophils % (A) 3 %; HCT 39.2 % (34.0-46.0); HDW 2.62; Luc # (Auto) 0.18; Luc % (Auto) 3; Lymphocytes % (A) 27 %; MCH 30.6 pg (25.0-35.0); MCV 92.7 fL (80.0-100.0); Mean Platelet Volume 7.7; Monocytes # (A) 0.3 k/uL (0-1.0); Monocytes % (A) 4 %; Neutrophils # (A) 4.7 k/uL (1.3-7.7); Neutrophils % (A) 64 %; RBC 4.23 m/uL (3.80-5.40); RDW 13.5 % (11.5-15.5); WBC 7.4 k/uL (3.8-10.6)
[2016-10-05 10:06] LABS: ALT 20 U/L (9-52); AST 15 U/L (14-36); Alkaline Phosphatase 156 U/L (38-126); Anion Gap 12 mmol/L; Bilirubin, Delta 0.3 mg/dL (0.0-0.2); Blood Urea Nitrogen 24 mg/dL (7-17); Carbon Dioxide 22 mmol/L (22-30); Chloride 110 mmol/L (98-107); Non-African American GFR(MDRD) >60 (>60 ml/min/1.73 sqM); Potassium 4.2 mmol/L (3.5-5.1); Sodium 144 mmol/L (137-145); Total Bilirubin 0.4 mg/dL (0.2-1.3); Total Protein 6.8 g/dL (6.3-8.2)
[2016-10-05] MEDS: LURASIDONE 40 MG TAB PO SCH (21:10)
[2016-10-06] MEDS ORDERED: FLUoxetine HCL 10 MG CAP PO SCH (09:00)
[2016-10-06] MEDS: ATORVASTATIN 20 MG TAB PO SCH (09:25)
[2016-10-06] MEDS: SPIRONOLACTONE 25 MG TAB PO SCH (09:25)
--- NOTE | 2016-10-06 12:40 | P.PN ---
Subjective Interval history: The patient is found in lounge on her wheel chair and did agree to follow-me to office ,she is less guarded ,more cooperative ,stated that she does not like to take Prozac because "I HEARD LOT OF BAD THINGS ABOUT IT",still refusing meals but having her supplement,does require lot of encouragement to get out of her bed and participate in milieu PER NURSING STAFF:RN was able to motivate her to shower this morning and to dress up Patient slept 6 hours last night but was incontinent Discussed in team treatment the possibility of higher level of care placement when she is stable for discharge LABS:I reviewed result :BUN :high ,creat.WNL Mental status exam: The patient is alert she seated calmly in a wheel-chair , grooming and hygiene is better Speech is non spontaneous ,coherent ,limited in productivity,denies any hallucination ,endorses lot of somatic delusion , denies any suicidal or homicidal ideation , insight and judgment impaired PLAN: Discontinue Prozac ,start Lexapro ,continue 120 mg LATUDA HS ,UA as patient has incontinent for last couple of nights,encourage participation in milieu Objective - Vital Signs Vital signs: Vital Signs Temp 98.1 F 10/06/16 04:56 Pulse 89 10/06/16 04:56 Resp 18 10/06/16 04:56 BP 141/86 10/06/16 04:56 Pulse Ox 98 10/02/16 06:27 Intake & Output 10/05/16 10/06/16 10/06/16 18:59 06:59 18:59 Weight 80.5 kg - Labs CBC & Chem 7: 10/05/16 09:22 10/05/16 09:22
[2016-10-06] MEDS: LURASIDONE 40 MG TAB PO SCH (20:29)
[2016-10-07] MEDS: ATORVASTATIN 20 MG TAB PO SCH (09:35)
[2016-10-07] MEDS: ESCITALOPRAM 10 MG TAB PO SCH (09:36)
[2016-10-07] MEDS: SPIRONOLACTONE 25 MG TAB PO SCH (09:36)
--- NOTE | 2016-10-07 14:12 | P.PN ---
Progress Note - Text Interval history: The patient was in library on her wheelchair ,she kept saying "I DO NOT FEEL GOOD ",patient has been refusing food ,taking her supplement , has lot of somatic complains,limited interaction with staff and other patient VITALS :stable PER NURSING STAFF :patient slept 6 hours ,was incontinent of urine ,compliant with medication ,participating in groups with lot of encouragement Mental status exam: The patient is female she is dressed in her clothing Eye contact is appropriate speech is non spontaneous ,halting and blocking ,she denies any hallucination ,endorses paranoia ,somatic delusion and suspicious feeling She denies any suicidal or homicidal ideation ,Patient is still resistant to eat her meal ,. Insight and judgment impaired. She demonstrates no verbal or physical aggressiveness. . Affect remains quite bland. Plan:1) Continue current medication ,UA to rule out UTI ,encourage groups participation
[2016-10-07] MEDS: LURASIDONE 40 MG TAB PO SCH (20:29)
[2016-10-07 23:12] LABS: Appearance,Urine Cloudy (Clear); Bilirubin,Urine Negative (Negative); Glucose,Urine (UA) Negative (Negative); Ketones,Urine Trace (Negative); Leukocyte Esterase,Urine Large (Negative); Mucus,Urine Moderate /hpf; Nitrite,Urine Negative (Negative); Particle Count 7148; Protein,Urine 1+ (Negative); RBC,Urine 4 /hpf (0-5); Specific Gravity,Urine 1.029 (1.001-1.035); Squamous Epithelial Cell,Urine 6 /hpf (0-4); UA Billing (MACRO vs. MICRO) MICRO; WBC,Urine 50 /hpf (0-5)
[2016-10-08] MEDS: ESCITALOPRAM 10 MG TAB PO SCH (09:13)
[2016-10-08] MEDS: ATORVASTATIN 20 MG TAB PO SCH (09:15)
[2016-10-08] MEDS: SPIRONOLACTONE 25 MG TAB PO SCH (09:15)
[2016-10-08 10:26] LABS: Anion Gap 14 mmol/L; Blood Urea Nitrogen 24 mg/dL (7-17); Calcium 9.7 mg/dL (8.4-10.2); Carbon Dioxide 20 mmol/L (22-30); Chloride 108 mmol/L (98-107); Glucose 98 mg/dL (74-99); Non-African American GFR(MDRD) >60 (>60 ml/min/1.73 sqM); Potassium 4.4 mmol/L (3.5-5.1); Sodium 142 mmol/L (137-145)
--- NOTE | 2016-10-08 12:39 | P.PN ---
Subjective Interval history: The patient was in library on her wheelchair ,she is selective mute as she refused to answer most of my questions but was talking with [facility] liaison and RN ,she is refusing to eat ,even today she is refusing her supplement ,has been going to groups but does not participate ,withdrawn and isolating herself LABS:UA :+ UTI ,reconsult medical chief technician PER NURSING STAFF:patient refused her morning medication ,weight has been the same since admission,continue current medications ,encourage participation in milieu Mental status exam: The patient is female she is dressed in hospital gown ,was on her wheelchair in library,avoiding eyes contact ,selective mute , not answering most of question,,. Insight and judgment impaired. She demonstrates no verbal or physical aggressiveness. . Affect remains quite bland. Plan:1)Medical management of her UTI ,monitor her intake and weight Objective - Vital Signs Vital signs: Vital Signs Temp 98.4 F 10/08/16 06:12 Pulse 78 10/08/16 06:12 Resp 16 10/08/16 06:12 BP 134/74 10/08/16 06:12 Pulse Ox 98 10/02/16 06:27 Intake & Output 10/07/16 10/08/16 10/08/16 18:59 06:59 18:59 Intake Total 38 Output Total 100 Balance -62 Weight 80.513 kg Intake: Oral 38 Output: Urine 100 Other: # Voids 1 - Labs CBC & Chem 7: 10/05/16 09:22 10/08/16 09:16 Labs: Abnormal Lab Results - Last 24 Hours (Table) 10/07/16 10/08/16 Range/Units 21:45 09:16 Chloride 108 H (98-107) mmol/L Carbon Dioxide 20 L (22-30) mmol/L BUN 24 H (7-17) mg/dL Urine Appearance Cloudy H (Clear) Urine Protein 1+ H (Negative) Urine Ketones Trace H (Negative) Ur Leukocyte Esterase Large H (Negative) Urine WBC 50 H (0-5) /hpf Ur Squamous Epith Cells 6 H (0-4) /hpf Urine Mucus Moderate H (None) /hpf
[2016-10-08] MEDS: CIPROFLOXACIN HCL 250 MG TAB PO SCH ×2 (20:27→22:48)
[2016-10-08] MEDS: LURASIDONE 40 MG TAB PO SCH ×2 (20:27→22:48)
--- NOTE | 2016-10-09 06:38 | PN ---
DATE OF SERVICE: 10/08/2016 PRESENTING COMPLAINT: This is a patient with strong psychiatric disorder, being followed by Dr. Jimenez in the psych unit was called down to see ( ) UA. INTERVAL HISTORY: This is a patient with schizophrenia, ( ), still not eating. I was called to look at a UA but patient cannot tell me about symptoms ( ) why don't you just go away and leave me alone. REVIEW OF SYSTEMS: Difficult to obtain. Current medications are reviewed and include Lexapro and Latuda. On examination, temperature 98.4, pulse 78, respirations 16, blood pressure 130/74, pulse ox 98% on room air three days ago. GENERAL APPEARANCE: Sitting up in a chair, comfortable. EYES: Pupils equal. Conjunctivae normal. NECK: JVD unable to assess. Mass not palpable. RESPIRATORY: Effort normal. Lungs fair air entry. CARDIOVASCULAR: First and second sounds normal. No edema. ABDOMEN: Soft, nontender. Liver and spleen not palpable. PSYCHIATRY: The said a few words and told me to go away though she allowed me to examine her. INVESTIGATIONS: BUN 24.0, creatinine 0.85. UA positive for leukocyte esterase. ASSESSMENT: 1. Possible urinary tract infection. 2. Essential hypertension. 3. Chronic neurogenic bladder. 4. ( ). 5. Essential hypertension. 6. Diverticulosis. 7. Chronic venous stasis. 8. Decreased oral intake probably manifestation of psychosis. 9. Selective mutism. PLAN: At this point from a medical standpoint, we will give ciprofloxacin, total of 6 doses for UTI and hope the patient gets better from a psychiatric standpoint and she did increase her oral intake.
[2016-10-09] MEDS: SPIRONOLACTONE 25 MG TAB PO SCH (10:03)
[2016-10-09] MEDS: ESCITALOPRAM 10 MG TAB PO SCH (10:03)
[2016-10-09] MEDS: ATORVASTATIN 20 MG TAB PO SCH (10:03)
[2016-10-09] MEDS: CIPROFLOXACIN HCL 250 MG TAB PO SCH ×2 (10:03→20:36)
[2016-10-09] MEDS ORDERED: LORazepam 2 MG/ML SYRINGE IM STA (13:15)
--- NOTE | 2016-10-09 17:28 | P.PN ---
Progress Note - Text SUBJECTIVE: I reviewed the medical record, discussed the treatment and treatment plan with nursing staff and attempted to interview Ms. Cabrera. She was sitting in a wheelchair in the hallway. She made eye contact and acknowledge my presence. However, she refused to speak. She responded to questions by nodding or shaking her head. Nursing reported that she has eaten or drank fluids since yesterday afternoon. She is refusing all psychotropic medications. She is refusing to communicate with nursing. OBJECTIVE: She presented as a pale appearing elderly woman who was sitting comfortably in a wheelchair. She made eye contact and appeared to attend to the interview. She had no distinguishing features or prominent physical abnormalities. She had a flat facial expression. She was alert and oriented to person. She had marked psychomotor retardation but no abnormal involuntary movements. She was selectively mute. Her affect was flat and unreactive. She did not appear to responding to internal stimuli. ASSESSMENT: She has a history of bipolar disorder and presented with signs and symptoms of a depressive episode. 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 PLAN: Inpatient hospitalization due to severity of depression and catatonia. Encourage compliance with prescribed medications, meals and/or fluids. Monitor hydration status. Lorazepam 2 mg IM for treatment catatonia. Encourage participation in therapeutic groups and activities as tolerated. Evaluate clinical status response to treatment daily basis.
[2016-10-09] MEDS: LURASIDONE 40 MG TAB PO SCH (20:36)
--- NOTE | 2016-10-10 08:38 | P.PN ---
Progress Note - Text SUBJECTIVE: I reviewed the medical record and attempted to interview Ms. Cabrera. She was laying in bed and would not get up to the interview. She stated that she feels tired. Her response to my question about problems or concerns was "I don't know you. I don't feel comfortable talking to you." After the 2 mg of lorazepam yesterday she became less withdrawn. Nursing reported that she ate dinner, drank fluids and sat with other patients in the lounge. She took the prescribed Latuda yesterday evening but declined most other medications during the day. OBJECTIVE: She presented as a pale appearing elderly woman who laying out her back in her bed.. She made eye contact and appeared to attend to the interview. She had no distinguishing features or prominent physical abnormalities. She had a flat facial expression. She was alert and oriented to person. She had marked psychomotor retardation but no abnormal involuntary movements. Her speech was not spontaneous and had decreased rate, rhythm and volume. Her affect was flat and unreactive. She did not appear to responding to internal stimuli. ASSESSMENT: The catatonia temporarily soft with the IM dose of lorazepam. She remains profoundly depressed and withdrawn. She continues to refuse post meals and most of her prescribed medications. PLAN: Inpatient hospitalization due to severity of depression and catatonia. Encourage compliance with prescribed medications, meals and/or fluids. Monitor hydration status. Encourage participation in therapeutic groups and activities as tolerated. Evaluate clinical status response to treatment daily basis.
[2016-10-10] MEDS: ESCITALOPRAM 10 MG TAB PO SCH ×2 (09:56→14:57)
[2016-10-10] MEDS: CIPROFLOXACIN HCL 250 MG TAB PO SCH ×3 (09:56→22:26)
[2016-10-10] MEDS: ATORVASTATIN 20 MG TAB PO SCH ×2 (09:56→14:57)
[2016-10-10] MEDS: SPIRONOLACTONE 25 MG TAB PO SCH ×2 (09:57→10:05)
[2016-10-10] MEDS: MAGNESIUM HYDROXIDE 2,400 MG/10 ML CUP PO PRN (09:57)
[2016-10-10] MEDS: LURASIDONE 40 MG TAB PO SCH (22:26)
[2016-10-11] MEDS: ATORVASTATIN 20 MG TAB PO SCH (11:21)
[2016-10-11] MEDS: ERGOCALCIFEROL 50,000 UNIT CAP PO SCH (11:21)
[2016-10-11] MEDS: CIPROFLOXACIN HCL 250 MG TAB PO SCH (11:21)
[2016-10-11] MEDS: SPIRONOLACTONE 25 MG TAB PO SCH (11:22)
[2016-10-11] MEDS: ESCITALOPRAM 10 MG TAB PO SCH (11:22)
--- NOTE | 2016-10-11 13:39 | P.PN ---
Progress Note - Text INTERVAL HISTORY:Patient was on wheel chair in [facility] [place] ,combing her hair.. she reports being tired ,non consistent with oral medication ,she received IM Ativan at 6 AM today as her blood Pressure was high and she refused oral antihypertensive med,patient has been more compliant since she had Ativan ,took her Lexapro ,ate 25% of her breakfast , she became less withdrawn. She did participate in morning groups and sat with other patients in the [facility] [place] Nursing reported that she refused her Latuda last night and most of evening meds VITALS:Temp:99,Pulse :105,Resp:20,BP:135/63 MENTAL STATUS She presented as a pale appearing elderly woman who was sitting on her wheel chair She made eye contact and appeared to attend to the interview. She had no distinguishing features or prominent physical abnormalities. She had a flat facial expression. She was alert and oriented to person. She had marked psychomotor retardation but no abnormal involuntary movements. Her speech was not spontaneous and had decreased rate, rhythm and volume. Her affect was flat and unreactive. She did not appear to responding to internal stimuli. PLAN: Increase Lexapro ,start Ativan as scheduled to target her catatonic behavior ,continue Cipro for UTI ,decrease Latuda to 80 mg HS. Encourage compliance with prescribed medications, meals and/or fluids. Monitor hydration status. Encourage participation in therapeutic groups and activities as tolerated. Evaluate clinical status response to treatment daily basis.
--- NOTE | 2016-10-11 16:31 | XR ---
EXAMINATION TYPE: XR wrist complete LT, XR hand complete LT DATE OF EXAM: 10/11/2016 4:19 PM CLINICAL HISTORY: Pain and swelling. TECHNIQUE: Frontal, lateral and oblique images of the left hand and wrist are obtained. Fourth left wrist was acquired. COMPARISON: None FINDINGS: There is no acute fracture/dislocation evident in the left wrist. Osseous structures are d emineralized. There is narrowing at the radiocarpal joint. There is mild to moderate narrowing and s purring at base of first metacarpal. There is calcification of the triangular fibrocartilage. Mild di ffuse subcutaneous edema or swelling is felt present. Images of left hand show demineralization without acute fracture or dislocation. The joint spaces are preserved. Overlying soft tissue is unremarkable. IMPRESSION: There is no acute fracture or dislocation in the left hand or wrist. Demineralization an d degenerative changes are noted as detailed above.
[2016-10-11] MEDS: LORazepam 0.5 MG TAB PO SCH ×2 (17:04→22:02)
--- NOTE | 2016-10-11 20:22 | US ---
EXAMINATION TYPE: US venous doppler duplex UE LT DATE OF EXAM: 10/11/2016 8:01 PM COMPARISON: NONE CLINICAL HISTORY: L Wrist and Hand swollen, painful, unable to bend. SIDE PERFORMED: Left Left Arm: Negative for DVT IMPRESSION: Normal exam. No evidence of deep venous thrombosis in the left arm.
[2016-10-11] MEDS ORDERED: LORazepam 0.5 MG TAB PO SCH (21:00)
[2016-10-11] MEDS ORDERED: CEPHALEXIN 500 MG CAP PO SCH (22:00)
[2016-10-11] MEDS: LURASIDONE 80 MG TAB PO SCH (22:02)
--- NOTE | 2016-10-12 09:00 | PN ---
I was asked to see the patient because of patient's left wrist swelling and some redness in that area. Although the patient was not ( ) for cellulitis in that area. I obtained an x-ray which showed osteoarthritic changes and patient is unable to flex her fingers, part of which is probably related to her psychiatric issues. Anyways, we will obtain Doppler of that area as well as did not show any DVT or superficial thrombus. The patient is already on ibuprofen, which needs to be continued. The patient also appears to have asymptomatic UTI. The patient already received antibiotics for that. No further ( ) is necessary at this point of time. I do not believe patient will need any antibiotics either. Current medications were reviewed. PHYSICAL EXAMINATION: VITAL SIGNS: Temperature 99.0, pulse of 105, respiratory rate of 20, blood pressure 135/63. Because of elevated heart rate, I ordered an EKG. Will review the EKG later. ASSESSMENT AND PLAN: 1. Left wrist swelling and unable to flex the fingers, probably related to severe osteoarthritis. Patient is already on ibuprofen. Recommend to continue that. No additional medications are necessary at this point of time. Rule out deep venous thrombosis. 2. Tachycardia, probably related to pain. Continue to monitor. Will obtain an EKG. 3. Asymptomatic bacteriuria. Will continue to follow the patient on an as-needed basis only.
--- NOTE | 2016-10-12 10:51 | P.PN ---
Progress Note - Text INTERVAL HISTORY:Patient was laying in bed , she reports being tired and did not eat breakfast ,she reports sleeping problem "WAS NOT RESTFULL SLEEP",, patient is not catatonic as couple of days ago but seems more tired and sedated Reviewed reconsult regarding swollen of left hand :X ray and Doppler :normal MENTAL STATUS She presented as a pale appearing elderly woman who looked lethargic She made eye contact and appeared to attend to the interview. She had no distinguishing features or prominent physical abnormalities. She had a flat facial expression. She was alert and oriented to person. She had marked psychomotor retardation but no abnormal involuntary movements. Her speech was not spontaneous and had decreased rate, rhythm and volume. Her affect was flat and unreactive. She did not appear to responding to internal stimuli. PLAN:Discontinue scheduled Ativan to minimize sedation ,continue Lexapro and Latuda. Encourage participation in therapeutic groups and activities as tolerated. Evaluate clinical status response to treatment daily basis.
[2016-10-12] MEDS: ESCITALOPRAM 20 MG TAB PO SCH (10:54)
[2016-10-12] MEDS: ATORVASTATIN 20 MG TAB PO SCH (10:54)
[2016-10-12] MEDS: SPIRONOLACTONE 25 MG TAB PO SCH (10:55)
[2016-10-12 12:20] LABS: Potassium 3.9 mmol/L (3.5-5.1)
[2016-10-12 12:24] LABS: Basophils % (A) 0 %; CHCM 34.7; Eosinophils # (A) 0.1 k/uL (0-0.7); Eosinophils % (A) 1 %; HCT 34.5 % (34.0-46.0); HDW 2.67; HGB 11.9 gm/dL (11.4-16.0); Luc # (Auto) 0.15; Luc % (Auto) 2; Lymphocytes # (A) 2.2 k/uL (1.0-4.8); Lymphocytes % (A) 22 %; MCH 31.1 pg (25.0-35.0); MCHC 34.6 g/dL (31.0-37.0); MCV 89.9 fL (80.0-100.0); Mean Platelet Volume 7.3; Monocytes # (A) 0.6 k/uL (0-1.0); Monocytes % (A) 5 %; Neutrophils # (A) 7.2 k/uL (1.3-7.7); Neutrophils % (A) 70 %; RBC 3.84 m/uL (3.80-5.40); RDW 13.4 % (11.5-15.5); WBC 10.2 k/uL (3.8-10.6); WBC (Perox) 10.95
[2016-10-12] MEDS: LORazepam 0.5 MG TAB PO SCH (13:00)
[2016-10-12] MEDS: CIPROFLOXACIN HCL 500 MG TAB PO SCH ×3 (13:01→22:03)
[2016-10-12] MEDS: LURASIDONE 80 MG TAB PO SCH (22:03)
[2016-10-13] MEDS ORDERED: LORazepam 1 MG TAB PO STA (08:32)
--- NOTE | 2016-10-13 08:47 | P.PN ---
Subjective INTERVAL HISTORY:Patient was laying in bed and refused to follow me to interview room she reports being tired as she stated that she was up all night ,,patient kept saying "LOT OF THINGS GOING ON",when I asked her to elaborate , she replied "I do not know ,I do not want to talk to you now" PER NURSING STAFF:patient did not eat breakfast or lunch and refused supplement ,had 25% of dinner meal but 100% dinner supplement .Patient took her night medication but refused Cipro We reconsulted general supervisor :she recommended adding appetite stimulant to increase her meal intake to 65% MENTAL STATUS She presented as a pale appearing elderly woman who looked lethargic She is avoiding eyes contact She had no distinguishing features or prominent physical abnormalities. She had a flat facial expression. She was alert and oriented to person. She had marked psychomotor retardation but no abnormal involuntary movements. Her speech was not spontaneous and had decreased rate, rhythm and volume. Her affect was flat and unreactive. She did not appear to responding to internal stimuli. PLAN:Continue Lexapro and Latuda ,add Remeron to imrove her appetite , Encourage participation in therapeutic groups and activities as tolerated. Evaluate clinical status response to treatment daily basis. Objective - Vital Signs Vital signs: Vital Signs Temp 98.7 F 10/13/16 06:44 Pulse 89 10/13/16 06:44 Resp 12 10/13/16 06:44 BP 136/73 10/13/16 06:44 Pulse Ox 98 10/02/16 06:27 Intake & Output 10/12/16 10/13/16 10/13/16 18:59 06:59 18:59 Weight 80.513 kg - Labs CBC & Chem 7: 10/12/16 11:36 10/12/16 11:36 Labs: Abnormal Lab Results - Last 24 Hours (Table) 10/12/16 Range/Units 11:36 BUN 20 H (7-17) mg/dL
[2016-10-13] MEDS: SPIRONOLACTONE 25 MG TAB PO SCH (10:32)
[2016-10-13] MEDS: CIPROFLOXACIN HCL 500 MG TAB PO SCH ×2 (10:32→20:25)
[2016-10-13] MEDS: ESCITALOPRAM 20 MG TAB PO SCH (10:32)
[2016-10-13] MEDS: ATORVASTATIN 20 MG TAB PO SCH (10:33)
[2016-10-13] MEDS: LURASIDONE 80 MG TAB PO SCH (20:25)
[2016-10-13] MEDS: MIRTAZAPINE 15 MG TAB PO SCH (20:26)
[2016-10-14] MEDS: ESCITALOPRAM 20 MG TAB PO SCH (09:06)
[2016-10-14] MEDS: SPIRONOLACTONE 25 MG TAB PO SCH (09:06)
[2016-10-14] MEDS: CIPROFLOXACIN HCL 500 MG TAB PO SCH ×3 (09:06→21:42)
[2016-10-14] MEDS: ATORVASTATIN 20 MG TAB PO SCH (09:07)
[2016-10-14] MEDS: LORazepam 1 MG TAB PO STA ×2 (13:14→13:30)
--- NOTE | 2016-10-14 13:30 | P.PN ---
Progress Note - Text INTERVAL HISTORY:Patient was on wheel chair in library . she reports that she was able to sleep better with Remeron ,still refusing meals ,had 25% of dinner , compliant with oral medications and supplement ,did not eat her breakfast this AM ,participating in some groups but minimal interaction ,today patient was less catatonic ,she reports feeling helpless ,no interest in any activities , passive suicidal ideation "I do not care about anything", no motivation in treatment or taking active role to get better WEIGHT ON 10/13 :79.197 KG Today Vitals:stable MENTAL STATUS She presented as a pale appearing elderly woman who was sitting on her wheel chair She made eye contact and appeared to attend to the interview. She had no distinguishing features or prominent physical abnormalities. She had a flat facial expression. She was alert and oriented to person. She had marked psychomotor retardation but no abnormal involuntary movements. Her speech was not spontaneous and had decreased rate, rhythm and volume. Her affect was flat and unreactive. She did not appear to responding to internal stimuli. PLAN: Continue current medications:Lexapro ,Latuda and Remeron ,Ativan PRN Encourage participation in therapeutic groups and activities as tolerated. Evaluate clinical status response to treatment daily basis.
[2016-10-14] MEDS: LURASIDONE 80 MG TAB PO SCH ×2 (20:33→21:43)
[2016-10-14] MEDS: MIRTAZAPINE 15 MG TAB PO SCH ×2 (20:33→21:43)
[2016-10-15] MEDS: SPIRONOLACTONE 25 MG TAB PO SCH (09:43)
[2016-10-15] MEDS: ESCITALOPRAM 20 MG TAB PO SCH (09:43)
[2016-10-15] MEDS: CIPROFLOXACIN HCL 500 MG TAB PO SCH ×2 (09:43→21:40)
[2016-10-15] MEDS: ATORVASTATIN 20 MG TAB PO SCH (09:43)
--- NOTE | 2016-10-15 10:58 | P.PN ---
Progress Note - Text INTERVAL HISTORY:Patient was on wheel chair in library . ,less catatonic as she received 1mg Ativan at 9 AM ,she stated that she is feeling "The same ,not doing well ",refused to elaborate about this,was ,compliant with morning oral medications and supplement but refused last night night medication and refused dinner including her supplement,participating in some groups but minimal interaction , ,no interest in any activities ,isolating herself ,no interaction with staff or other patients, no motivation in treatment or taking active role to get better WEIGHT ON 10/13 :79.197 KG Today Vitals:stable MENTAL STATUS She presented as a pale appearing elderly woman who was sitting on her wheel chair . She is wearing her own clothing She is avoiding eyes contact but appeared to attend to the interview. She had no distinguishing features or prominent physical abnormalities. She was alert and oriented to person. She had marked psychomotor retardation but no abnormal involuntary movements. Her speech was not spontaneous and had decreased rate, rhythm and volume. Her affect was flat and unreactive. She did not appear to responding to internal stimuli. PLAN: Change Ativan to shedule dose to decrease catatonia ,continue Cipro for UTI Continue current medications:Lexapro ,Latuda and Remeron , Encourage participation in therapeutic groups and activities as tolerated. Evaluate clinical status response to treatment daily basis.
[2016-10-15] MEDS: LORazepam 0.5 MG TAB PO SCH ×2 (16:41→21:46)
[2016-10-15] MEDS: MIRTAZAPINE 15 MG TAB PO SCH (21:40)
[2016-10-15] MEDS: LURASIDONE 80 MG TAB PO SCH (21:40)
[2016-10-16] MEDS: ATORVASTATIN 20 MG TAB PO SCH (09:37)
[2016-10-16] MEDS: SPIRONOLACTONE 25 MG TAB PO SCH (09:37)
[2016-10-16] MEDS: CIPROFLOXACIN HCL 500 MG TAB PO SCH ×2 (09:37→21:38)
[2016-10-16] MEDS: ESCITALOPRAM 20 MG TAB PO SCH (09:38)
[2016-10-16] MEDS: LORazepam 0.5 MG TAB PO SCH ×3 (09:39→21:38)
--- NOTE | 2016-10-16 18:45 | P.PN ---
Progress Note - Text Date of service: 10/16/2016 Chief complaint: "I'm not doing well today" Subjective: The patient has been seeing today as follow-up, chart reviewed, case discussed with the treatment team. The patient was not fully cooperative with assessment , very superficial answering questions, guarded and evasive. "I don't know you, I don't want to talk to". The patient states she still feels depressed but denies suicidal thoughts. She denies paranoid ideation but was very guarded. The patient denies any auditory or visual hallucinations. She reports it has poor sleep but refused to have any adjustment of her medication. "I don't want you to change anything" Review of other systems: Patient denies any physical symptoms besides what has been mentioned above. No problems was presenting no chest pain reported today. Objective: Vitals has been reviewed. Mental status examination; Appearance: The patient appears older than his stated age, partially disheveled , was no specific features. Gait/posture: Patient was in a wheelchair, Normal arm was swinging: No abnormal movements. Attitude and behavior: Not engaged, not cooperative, poor eye contact. Motor activity: Decreased psychomotor activity Speech: Soft low tone, not pressured Mood: Depressed Affect: Blunted Thought form: Guarded, paranoid but coherent. Thought content: Paranoid, denies suicidal thoughts, denies homicidal thoughts, denies intentions or plans. Perception: Denies any auditory or visual hallucinations Attention: No impairment. Patient was able to repeat serial 7. Orientation: Patient patient was fully oriented to time place person and situation. Insight: Patient has limited insight about his psychiatric disorder. Judgment: Patient has limited judgment about his psychiatric treatment. Assessment: Bipolar disorder type I most recent episode depression, with psychotic features Plan: Continue current management. Continue encouraging patient for more engagement in treatment.
[2016-10-16] MEDS: MIRTAZAPINE 15 MG TAB PO SCH (21:38)
[2016-10-16] MEDS: LURASIDONE 80 MG TAB PO SCH (21:38)
[2016-10-17] MEDS: ATORVASTATIN 20 MG TAB PO SCH (09:48)
[2016-10-17] MEDS: SPIRONOLACTONE 25 MG TAB PO SCH (09:48)
[2016-10-17] MEDS: CIPROFLOXACIN HCL 500 MG TAB PO SCH ×2 (09:48→20:44)
[2016-10-17] MEDS: LORazepam 0.5 MG TAB PO SCH ×3 (09:48→20:44)
[2016-10-17] MEDS: ESCITALOPRAM 20 MG TAB PO SCH (09:48)
--- NOTE | 2016-10-17 16:21 | P.PN ---
Progress Note - Text Date of service: 10/17/2016 Chief complaint: "I'm not doing well today" Subjective: The patient has been seen today as follow-up, chart reviewed, case discussed with the treatment team. The patient was more cooperative today. Even she denies any delusions, but she presented paranoid and guarded. Patient continued to refuse any adjustment of her medication even she reports today still has sleeping problem. Patient continued to feel depressed but denies suicidal thoughts. The patient denies any auditory or visual hallucinations. Patient denies any manic symptoms, denies suicidal or homicidal ideation, intention or plan. "You cannot help me, I don't know you" Review of other systems: Patient denies any physical symptoms besides what has been mentioned above. No breathing problems, no chest pain reported today. Objective: Vitals has been reviewed. Mental status examination; Appearance: The patient appears older than his stated age, partially disheveled , was no specific features. Gait/posture: Patient was in a wheelchair, Normal arm was swinging: No abnormal movements. Attitude and behavior: Not engaged, not cooperative, poor eye contact. Motor activity: Decreased psychomotor activity Speech: Soft low tone, not pressured Mood: Depressed Affect: Blunted Thought form: Guarded, paranoid but coherent. Thought content: Paranoid, denies suicidal thoughts, denies homicidal thoughts, denies intentions or plans. Perception: Denies any auditory or visual hallucinations Attention: No impairment. Patient was able to repeat serial 7. Orientation: Patient patient was fully oriented to time place person and situation. Insight: Patient has limited insight about his psychiatric disorder. Judgment: Patient has limited judgment about his psychiatric treatment. Assessment: Bipolar disorder type I most recent episode depression, with psychotic features Plan: Continue current management. Continue Lexapro 20 mg daily for depression Continued Latuda as a mood stabilizer and for psychotic symptoms Continue Ativan for catatonic symptoms Continue Remeron at bedtime for depression and insomnia Continue encouraging patient for more engagement in treatment.
[2016-10-17] MEDS: LURASIDONE 80 MG TAB PO SCH (20:44)
[2016-10-17] MEDS: MIRTAZAPINE 15 MG TAB PO SCH (20:44)
[2016-10-18] MEDS: LORazepam 0.5 MG TAB PO SCH ×3 (10:11→22:12)
[2016-10-18] MEDS: ERGOCALCIFEROL 50,000 UNIT CAP PO SCH (10:11)
[2016-10-18] MEDS: ATORVASTATIN 20 MG TAB PO SCH (10:12)
[2016-10-18] MEDS: CIPROFLOXACIN HCL 500 MG TAB PO SCH ×2 (10:12→22:04)
[2016-10-18] MEDS: ESCITALOPRAM 20 MG TAB PO SCH (10:12)
[2016-10-18] MEDS: SPIRONOLACTONE 25 MG TAB PO SCH (10:24)
--- NOTE | 2016-10-18 15:10 | P.PN ---
Progress Note - Text SUBJECTIVE: I reviewed the medical record, attempted to interview Ms. Cabrera and discussed her treatment and treatment plan during team meeting. She would not get out of bed for the interview. She gave single word answers to questions. When I asked her if she had "given up" she replied "I don't not talk about about it" and asked me to leave the room. OBJECTIVE: She presented as a thin, pale-appearing 66-year-old female who is laying comfortably in bed. She made intermittent eye contact. She appeared to attend to the exam. She had no distinguishing features or prominent physical abnormalities. She had a flat facial expression. She had marked psychomotor retardation. Her speech was not spontaneous. Her affect was depressed and unreactive. She did not answer questions about suicidality or homicidality. She would not answer questions about hopelessness, helplessness or worthlessness. She did not express phobias, ideas reference or paranoid ideation. Her thinking appeared concrete. She did not appear to be responding to internal stimuli. She needs close nursing supervision to attend to her ADLs and to eat her meals. She has been eating about 50% of most meals. ASSESSMENT: She is an elderly woman who has history of bipolar disorder. She presented with symptoms of depression and episodes of catatonia that he responded to at the prosecutor of lorazepam. She continues to have prominent symptoms of depression and appears hopeless and helpless. PLAN: Continue inpatient hospitalization due to the severity of the depression. Continue Lexapro 20 mg daily, lorazepam 0.5 mg 3 times a day, Latuda 80 mg at bedtime and Remeron 15 mg at bedtime. Continue medications for her chronic medical illnesses including Lipitor 20 mg daily, Aldactone 12.5 mg daily and Motrin 40 mg by mouth 3 times a day with meals when necessary per pain. Consider augmentation with lithium or a referral for ECT. Continue close supervision of compliance with meals and ADLs. Continue suicide precautions with 15 minute checks. Encourage participation in therapeutic groups and activities as tolerated. Evaluate clinical status response to treatment on a daily basis.
[2016-10-18] MEDS: MIRTAZAPINE 15 MG TAB PO SCH (22:04)
[2016-10-18] MEDS: LURASIDONE 80 MG TAB PO SCH (22:04)
[2016-10-19] MEDS: ATORVASTATIN 20 MG TAB PO SCH (09:44)
[2016-10-19] MEDS: SPIRONOLACTONE 25 MG TAB PO SCH (09:44)
[2016-10-19] MEDS: CIPROFLOXACIN HCL 500 MG TAB PO SCH ×2 (09:44→22:07)
[2016-10-19] MEDS: ESCITALOPRAM 20 MG TAB PO SCH (09:45)
[2016-10-19] MEDS: LORazepam 0.5 MG TAB PO SCH ×3 (09:46→22:07)
--- NOTE | 2016-10-19 15:29 | P.PN ---
Progress Note - Text SUBJECTIVE: I reviewed the medical record, attempted to interview Ms. Cabrera and discussed her treatment and treatment plan during team meeting. She told me that she did not want to speak with me because she doesn't know me. I asked her why she didn't eat yesterday and she told me she doesn't have an appetite. OBJECTIVE: She presented as a thin, pale-appearing 66-year-old female who is laying comfortably in bed. She made intermittent eye contact. She appeared to attend to the exam. She had no distinguishing features or prominent physical abnormalities. She had a flat facial expression. She had marked psychomotor retardation. Her speech was not spontaneous. Her affect was depressed and unreactive. She did not answer questions about suicidality or homicidality. She would not answer questions about hopelessness, helplessness or worthlessness. She did not express phobias, ideas reference or paranoid ideation. Her thinking appeared concrete. She did not appear to be responding to internal stimuli. She needs close nursing supervision to attend to her ADLs and to eat her meals. She did not eat yesterday but drank her Ensure. ASSESSMENT: She is an elderly woman who has history of bipolar disorder. She presented with symptoms of depression and episodes of catatonia that he responded to at the prosecutor of lorazepam. She continues to have prominent symptoms of depression and appears hopeless and helpless. PLAN: Continue inpatient hospitalization due to the severity of the depression. Continue Lexapro 20 mg daily, lorazepam 0.5 mg 3 times a day, Latuda 80 mg at bedtime and Remeron 15 mg at bedtime. Begin a trial of lithium 3 mg by mouth twice a day and titrated according to clinical response and tolerance. Continue medications for her chronic medical illnesses including Lipitor 20 mg daily, Aldactone 12.5 mg daily and Motrin 40 mg by mouth 3 times a day with meals when necessary per pain. Consider a referral for ECT. Continue close supervision of compliance with meals and ADLs. Continue suicide precautions with 15 minute checks. Encourage participation in therapeutic groups and activities as tolerated. Evaluate clinical status response to treatment on a daily basis.
[2016-10-19] MEDS: MIRTAZAPINE 15 MG TAB PO SCH (22:07)
[2016-10-19] MEDS: LITHIUM CARBONATE 300 MG CAP PO SCH (22:07)
[2016-10-19] MEDS: LURASIDONE 80 MG TAB PO SCH (22:07)
[2016-10-20] MEDS: CIPROFLOXACIN HCL 500 MG TAB PO SCH ×2 (08:48→21:18)
[2016-10-20] MEDS: ATORVASTATIN 20 MG TAB PO SCH (08:48)
[2016-10-20] MEDS: LITHIUM CARBONATE 300 MG CAP PO SCH ×2 (09:46→21:18)
[2016-10-20] MEDS: LORazepam 0.5 MG TAB PO SCH ×3 (09:46→21:18)
[2016-10-20] MEDS: SPIRONOLACTONE 25 MG TAB PO SCH (09:47)
[2016-10-20] MEDS: ESCITALOPRAM 20 MG TAB PO SCH (09:47)
--- NOTE | 2016-10-20 14:41 | P.PN ---
Progress Note - Text SUBJECTIVE: I reviewed the medical record, attempted to interview Ms. Cabrera and discussed her treatment and treatment plan during team meeting. I approached her in her room. She is laying comfortably in bed. She responded to questions with single word answers. I broached the subject of ECT and she replied "I will not have shock treatments." When I expressed concern about her not eating meals she applied "I'm not hungry." OBJECTIVE: She presented as a thin, pale-appearing 66-year-old female who was minimally cooperative with the interview. She made eye contact and appeared to attend to the exam. She had no distinguishing features or prominent physical abnormalities. She had a flat facial expression. She had marked psychomotor retardation. Her speech was not spontaneous. Her affect was depressed and unreactive. She did not answer questions about suicidality or homicidality. She would not answer questions about hopelessness, helplessness or worthlessness. She did not express phobias, ideas reference or paranoid ideation. Her thinking appeared concrete. She did not appear to be responding to internal stimuli. She needs close nursing supervision to attend to her ADLs and to eat her meals. She ate all of her breakfasts and lunches today. She refused the at bedtime snack. ASSESSMENT: She is an elderly woman who has history of bipolar disorder. She continues to have prominent symptoms of depression and appears hopeless and helpless. PLAN: Continue inpatient hospitalization due to the severity of the depression. Continue Lexapro 20 mg daily, lorazepam 0.5 mg 3 times a day, Latuda 80 mg at bedtime and Remeron 15 mg at bedtime. Continue lithium 3 mg by mouth twice a day and titrated according to clinical response and tolerance. [place] level . Continue discuss ECT. Continue medications for her chronic medical illnesses including Lipitor 20 mg daily, Aldactone 12.5 mg daily and Motrin 40 mg by mouth 3 times a day with meals when necessary per pain. Continue close supervision of compliance with meals and ADLs. Continue suicide precautions with 15 minute checks. Encourage participation in therapeutic groups and activities as tolerated. Evaluate clinical status response to treatment on a daily basis.
[2016-10-20] MEDS: MIRTAZAPINE 15 MG TAB PO SCH (21:18)
[2016-10-20] MEDS: LURASIDONE 80 MG TAB PO SCH (21:18)
[2016-10-21] MEDS: CIPROFLOXACIN HCL 500 MG TAB PO SCH ×2 (09:32→20:25)
[2016-10-21] MEDS: SPIRONOLACTONE 25 MG TAB PO SCH (09:32)
[2016-10-21] MEDS: ESCITALOPRAM 20 MG TAB PO SCH (09:32)
[2016-10-21] MEDS: LITHIUM CARBONATE 300 MG CAP PO SCH ×2 (09:32→20:25)
[2016-10-21] MEDS: ATORVASTATIN 20 MG TAB PO SCH (09:32)
[2016-10-21] MEDS: LORazepam 0.5 MG TAB PO SCH ×3 (09:32→20:25)
--- NOTE | 2016-10-21 12:25 | P.PN ---
Progress Note - Text SUBJECTIVE: I reviewed the medical record, attempted to interview Ms. Cabrera and discussed her treatment and treatment plan during team meeting. She was sitting in the day room after having attended the morning group therapy. In response to my question about how she was feeling she replied "I'm here." When I told her that I am happy to see her smiling she replied "I am not." She did not dismiss me until we talked about her diet. I expressed concern that she is not eating all of her meals. She replied that she is drinking the Ensure. After I replied that Ensure is not a substitute for meals she asked me to leave. OBJECTIVE: She presented as a thin, pale-appearing 66-year-old female who was minimally cooperative with the interview. She made eye contact and appeared to attend to the exam. She had no distinguishing features or prominent physical abnormalities. She had a flat facial expression. She had marked psychomotor retardation. Her speech was not spontaneous. Her affect was depressed but she appeared to have some emotional reactivity. She did not answer questions about suicidality or homicidality. She would not answer questions about hopelessness , helplessness or worthlessness. She did not express phobias, ideas reference or paranoid ideation. Her thinking appeared concrete. She did not appear to be responding to internal stimuli. She needs close nursing supervision to attend to her ADLs and to eat her meals. She ate breakfasts and lunch yesterday but refused at bedtime She refused the at bedtime snack. She needed maximum assistance by staff for breakfast yesterday and today. ASSESSMENT: She is an elderly woman who has history of bipolar disorder. She continues to have prominent symptoms of depression and appears hopeless and helpless. PLAN: Continue inpatient hospitalization due to the severity of the depression. Continue Lexapro 20 mg daily, lorazepam 0.5 mg 3 times a day, Latuda 80 mg at bedtime and Remeron 15 mg at bedtime. Continue lithium 3 mg by mouth twice a day and titrated according to clinical response and tolerance. [place] level . Continue to discuss ECT. Continue medications for her chronic medical illnesses including Lipitor 20 mg daily, Aldactone 12.5 mg daily and Motrin 40 mg by mouth 3 times a day with meals when necessary per pain. Continue close supervision of compliance with meals and ADLs. Continue suicide precautions with 15 minute checks. Encourage participation in therapeutic groups and activities as tolerated. Evaluate clinical status response to treatment on a daily basis.
[2016-10-21] MEDS: MIRTAZAPINE 15 MG TAB PO SCH (20:25)
[2016-10-21] MEDS: LURASIDONE 80 MG TAB PO SCH (20:25)
[2016-10-22] MEDS: ATORVASTATIN 20 MG TAB PO SCH (09:22)
[2016-10-22] MEDS: CIPROFLOXACIN HCL 500 MG TAB PO SCH ×2 (09:22→21:24)
[2016-10-22] MEDS: ESCITALOPRAM 20 MG TAB PO SCH (09:23)
[2016-10-22] MEDS: LITHIUM CARBONATE 300 MG CAP PO SCH ×2 (09:23→21:24)
[2016-10-22] MEDS: LORazepam 0.5 MG TAB PO SCH ×3 (09:23→21:25)
[2016-10-22] MEDS: SPIRONOLACTONE 25 MG TAB PO SCH (09:38)
--- NOTE | 2016-10-22 12:23 | P.PN ---
Progress Note - Text SUBJECTIVE: I reviewed the medical record, attempted to interview Ms. Cabrera and discussed her treatment and treatment plan during team meeting. She was laying comfortably in bed. She would not get up for the interview. She complained of feeling tired. She is not eating because she does not have an appetite. She again refused to consent to ECT. OBJECTIVE: She presented as a thin, pale-appearing 66-year-old female who was minimally cooperative with the interview. She made eye contact and appeared to attend to the exam. She had no distinguishing features or prominent physical abnormalities. She had a flat facial expression. She had marked psychomotor retardation. Her speech was not spontaneous. Her affect was depressed and not reactive. She did not answer questions about suicidality or homicidality. She would not answer questions about hopelessness, helplessness or worthlessness. She did not express phobias, ideas reference or paranoid ideation. Her thinking appeared concrete. She did not appear to be responding to internal stimuli. She needs close nursing supervision to attend to her ADLs and to eat her meals. She ate breakfasts and then her yesterday but refused the at bedtime snack. She needed maximum assistance by staff for breakfast yesterday and today. ASSESSMENT: She is an elderly woman who has history of bipolar disorder. She continues to have prominent symptoms of depression and appears hopeless and helpless. PLAN: Continue inpatient hospitalization due to the severity of the depression. Continue Lexapro 20 mg daily, lorazepam 0.5 mg 3 times a day, Latuda 80 mg at bedtime. Increase Remeron 30 mg at bedtime. Continue lithium 3 mg by mouth twice a day and titrated according to clinical response and tolerance. [place] level 10/24/16. Continue to discuss ECT. Continue medications for her chronic medical illnesses including Lipitor 20 mg daily, Aldactone 12.5 mg daily and Motrin 40 mg by mouth 3 times a day with meals when necessary per pain. Continue close supervision of compliance with meals and ADLs. Continue suicide precautions with 15 minute checks. Encourage participation in therapeutic groups and activities as tolerated. Evaluate clinical status response to treatment on a daily basis.
[2016-10-22] MEDS: MIRTAZAPINE 15 MG TAB PO SCH (21:24)
[2016-10-22] MEDS: LURASIDONE 80 MG TAB PO SCH (21:24)
[2016-10-23] MEDS: CIPROFLOXACIN HCL 500 MG TAB PO SCH ×2 (09:30→20:33)
[2016-10-23] MEDS: ATORVASTATIN 20 MG TAB PO SCH (09:30)
[2016-10-23] MEDS: SPIRONOLACTONE 25 MG TAB PO SCH (09:31)
[2016-10-23] MEDS: LORazepam 0.5 MG TAB PO SCH ×3 (09:32→20:33)
[2016-10-23] MEDS: LITHIUM CARBONATE 300 MG CAP PO SCH ×2 (09:34→20:33)
[2016-10-23] MEDS: ESCITALOPRAM 20 MG TAB PO SCH (09:34)
[2016-10-23] MEDS: MIRTAZAPINE 15 MG TAB PO SCH (20:33)
[2016-10-23] MEDS: LURASIDONE 80 MG TAB PO SCH (20:33)
--- NOTE | 2016-10-23 22:01 | P.PN ---
Progress Note - Text Interval history: Patient seen in cross coverage today for Dr. Starr. She is found in her room lying in bed. She reports that she feels tired. She seems to relay that she didn't sleep well last night and relays that she's not eating that well. Mental status exam: Patient is found in her room lying in bed she does awaken and relays that she feels tired. She does not show any agitation. Her answers are minimal. Her affect is restricted. She does not verbalize any thoughts of harm to self or others. Plan: Patient will be maintained on current medication regimen. We'll continue to monitor for any medication side effects and monitor her mood and for any agitation. We'll continue to cover this patient for Dr. Starr through the weekend.
[2016-10-24] MEDS: ESCITALOPRAM 20 MG TAB PO SCH (08:59)
[2016-10-24] MEDS: ATORVASTATIN 20 MG TAB PO SCH (08:59)
[2016-10-24] MEDS: CIPROFLOXACIN HCL 500 MG TAB PO SCH ×3 (08:59→20:42)
[2016-10-24] MEDS: LORazepam 0.5 MG TAB PO SCH ×3 (08:59→20:42)
[2016-10-24] MEDS: SPIRONOLACTONE 25 MG TAB PO SCH (08:59)
[2016-10-24] MEDS: LITHIUM CARBONATE 300 MG CAP PO SCH ×2 (08:59→20:41)
--- NOTE | 2016-10-24 16:15 | P.PN ---
Progress Note - Text Interval history: Patient is seen in cross coverage today for Dr. Starr. She reports that she feels tired. She seems to relay that she didn't sleep that well last night. She says she doesn't have much of an appetite. She does not voice any adverse psychotropic medication side effects. Mental status exam: She is alert and cooperative with the interview. She is found in her room lying in bed. She describes her mood is all right. She complains of feeling tired. She denies any thoughts of harm to self or others. She does not verbalize any hallucinations. She does not show any agitation. Her answers are somewhat brief. Plan: We'll maintain current psychotropic medication regimen. Monitor for any medication side effects and monitor her ongoing response. She is encouraged regarding eating. Dr. Starr to resume her care starting tomorrow.
[2016-10-24] MEDS: LURASIDONE 80 MG TAB PO SCH (20:41)
[2016-10-24] MEDS: MIRTAZAPINE 15 MG TAB PO SCH (20:41)
[2016-10-25] MEDS: ESCITALOPRAM 20 MG TAB PO SCH (09:47)
[2016-10-25] MEDS: ATORVASTATIN 20 MG TAB PO SCH (09:47)
[2016-10-25] MEDS: ERGOCALCIFEROL 50,000 UNIT CAP PO SCH (09:48)
[2016-10-25] MEDS: SPIRONOLACTONE 25 MG TAB PO SCH ×2 (09:48)
[2016-10-25] MEDS: LITHIUM CARBONATE 300 MG CAP PO SCH ×2 (09:48→20:28)
[2016-10-25] MEDS: LORazepam 0.5 MG TAB PO SCH ×3 (09:48→20:27)
[2016-10-25] MEDS: CIPROFLOXACIN HCL 500 MG TAB PO SCH ×2 (09:49→20:27)
--- NOTE | 2016-10-25 14:44 | P.PN ---
Progress Note - Text SUBJECTIVE: I reviewed the medical record, attempted to interview Ms. Cabrera and discussed her treatment and treatment plan during team meeting. She is laying comfortably in bed. Her answers to questions were brief often one or 2 words. She admitted to feeling helpless about her future but denied feeling persistently depressed. She would not answer questions about her ability to enjoy herself. She denied problems sleeping. OBJECTIVE: She presented as a thin, pale-appearing 66-year-old female who was minimally cooperative with the interview. She made eye contact and appeared to attend to the exam. She had no distinguishing features or prominent physical abnormalities. She had a blunted but bright expression. She had marked psychomotor retardation. Her speech was not spontaneous. Her affect was blunted but bright and she appeared to smile. She would not answer questions about thoughts of suicide or wishes. She would not answer questions about hopelessness, helplessness or worthlessness. She did not express phobias , ideas reference or paranoid ideation. Her thinking appeared concrete. She did not appear to be responding to internal stimuli. Li level from 10/24/2016 was 0.9 She needs close nursing supervision to attend to her ADLs and to eat her meals. She ate breakfasts and then her yesterday but refused the at bedtime snack. She continues to need maximum assistance by staff for breakfast yesterday and today. ASSESSMENT: She e appears less depressed but is still withdrawn PLAN: Continue inpatient hospitalization due to the severity of the depression. Continue Lexapro 20 mg daily, lorazepam 0.5 mg 3 times a day, Latuda 80 mg at bedtim, Remeron 30 mg at bedtime and lithium 3 mg by mouth twice a day. Continue to discuss ECT. Continue medications for her chronic medical illnesses including Lipitor 20 mg daily, Aldactone 12.5 mg daily and Motrin 40 mg by mouth 3 times a day with meals when necessary per pain. Continue close supervision of compliance with meals and ADLs. Continue suicide precautions with 15 minute checks. Encourage participation in therapeutic groups and activities as tolerated. Evaluate clinical status response to treatment on a daily basis.
[2016-10-25] MEDS: MIRTAZAPINE 15 MG TAB PO SCH (20:27)
[2016-10-25] MEDS: LURASIDONE 80 MG TAB PO SCH (20:27)
[2016-10-26] MEDS: ATORVASTATIN 20 MG TAB PO SCH (09:39)
[2016-10-26] MEDS: LORazepam 0.5 MG TAB PO SCH ×3 (09:39→21:19)
[2016-10-26] MEDS: CIPROFLOXACIN HCL 500 MG TAB PO SCH ×2 (09:40→21:17)
[2016-10-26] MEDS: ESCITALOPRAM 20 MG TAB PO SCH (09:40)
[2016-10-26] MEDS: SPIRONOLACTONE 25 MG TAB PO SCH (09:41)
[2016-10-26] MEDS: LITHIUM CARBONATE 300 MG CAP PO SCH ×2 (09:41→21:17)
[2016-10-26] MEDS: MAGNESIUM HYDROXIDE 2,400 MG/10 ML CUP PO PRN (13:20)
--- NOTE | 2016-10-26 13:33 | P.PN ---
Progress Note - Text SUBJECTIVE: I reviewed the medical record, interviewed Ms. Cabrera and discussed her treatment and treatment plan during team meeting. She was laying comfortably in bed. She was minimally cooperative with the interview. When I asked about her concerns she replied that she does not wish to talk about them. OBJECTIVE: She presented as a thin, pale-appearing 66-year-old female who was minimally cooperative with the interview. She made eye contact and appeared to attend to the exam. She had no distinguishing features or prominent physical abnormalities. She had a blunted facial expression. She had marked psychomotor retardation. Her speech was not spontaneous. Her affect was blunted. She did not respond to questions about suicidal thoughts or wishes. She did not express phobias, ideas reference or paranoid ideation. Her thinking appeared concrete. She did not appear to be responding to internal stimuli. She intended use needs close nursing supervision to attend to her ADLs and to eat her meals. She did not eat breakfast and ate 50% of dinner. She continues to need maximum assistance by staff for meals. ASSESSMENT: She appears less depressed but is still withdrawn and not caring for her ADLs or eating without close supervision PLAN: Continue inpatient hospitalization due to the severity of the depression. Continue Lexapro 20 mg daily, lorazepam 0.5 mg 3 times a day, Latuda 80 mg at bedtim, Remeron 30 mg at bedtime and lithium 3 mg by mouth twice a day. Continue to discuss ECT. Continue medications for her chronic medical illnesses including Lipitor 20 mg daily, Aldactone 12.5 mg daily and Motrin 40 mg by mouth 3 times a day with meals when necessary per pain. Continue close supervision of compliance with meals and ADLs. Discharge to an appropriate residential home. Continue suicide precautions with 15 minute checks. Encourage participation in therapeutic groups and activities as tolerated. Evaluate clinical status response to treatment on a daily basis.
[2016-10-26 14:55] VITALS: BMI 28.4
[2016-10-26] MEDS: MIRTAZAPINE 15 MG TAB PO SCH (21:17)
[2016-10-26] MEDS: LURASIDONE 80 MG TAB PO SCH (21:17)
[2016-10-27] MEDS: LORazepam 0.5 MG TAB PO SCH ×3 (09:09→21:04)
[2016-10-27] MEDS: ATORVASTATIN 20 MG TAB PO SCH (09:09)
[2016-10-27] MEDS: SPIRONOLACTONE 25 MG TAB PO SCH (09:09)
[2016-10-27] MEDS: LITHIUM CARBONATE 300 MG CAP PO SCH ×2 (09:09→20:49)
[2016-10-27] MEDS: ESCITALOPRAM 20 MG TAB PO SCH (09:09)
[2016-10-27] MEDS: MAGNESIUM HYDROXIDE 2,400 MG/10 ML CUP PO PRN (10:50)
--- NOTE | 2016-10-27 13:24 | P.PN ---
Progress Note - Text SUBJECTIVE: I reviewed the medical record, interviewed Ms. Cabrera and discussed her treatment and treatment plan during team meeting. As during prior interviews she was minimally cooperative with the interview. She alleged her only concern was "digestive problems" but refused to discuss the topic. She answered most questions with single words such as "yes" or "no". She continues to refuse to consider ECT. OBJECTIVE: She presented as a thin, pale-appearing 66-year-old female who was minimally cooperative with the interview. She made eye contact and appeared to attend to the exam. She had no distinguishing features or prominent physical abnormalities. She had a blunted facial expression. She had marked psychomotor retardation. Her speech was not spontaneous. Her affect was blunted. She did not respond to questions about suicidal thoughts or wishes. She did not express phobias, ideas reference or paranoid ideation. Her thinking appeared concrete. She did not appear to be responding to internal stimuli. She continues to need close nursing supervision to attend to her ADLs and to eat her meals. She did not eat breakfast, lunch or her at bedtime snack yesterday. She ate 75% of dinner. She drank the nutritional supplement for breakfast and lunch. ASSESSMENT: She appears less depressed but is still withdrawn and not caring for her ADLs or eating. PLAN: Continue inpatient hospitalization due to the severity of the depression. Continue Lexapro 20 mg daily, lorazepam 0.5 mg 3 times a day, Latuda 80 mg at bedtim, Remeron 30 mg at bedtime and lithium 3 mg by mouth twice a day. Continue to discuss ECT. Continue medications for her chronic medical illnesses including Lipitor 20 mg daily, Aldactone 12.5 mg daily and Motrin 40 mg by mouth 3 times a day with meals when necessary per pain. Continue close supervision of compliance with meals and ADLs. Discharge to an appropriate residential home. Continue suicide precautions with 15 minute checks. Encourage participation in therapeutic groups and activities as tolerated. Evaluate clinical status response to treatment on a daily basis.
[2016-10-27] MEDS: MAGNESIUM HYDROXIDE 2,400 MG/10 ML CUP PO SCH (15:52)
[2016-10-27] MEDS: LURASIDONE 80 MG TAB PO SCH (20:49)
[2016-10-27] MEDS: MIRTAZAPINE 15 MG TAB PO SCH (20:49)
[2016-10-28] MEDS: SPIRONOLACTONE 25 MG TAB PO SCH (09:19)
[2016-10-28] MEDS: LORazepam 0.5 MG TAB PO SCH ×3 (09:20→22:09)
[2016-10-28] MEDS: ATORVASTATIN 20 MG TAB PO SCH (09:20)
[2016-10-28] MEDS: ESCITALOPRAM 20 MG TAB PO SCH (09:20)
[2016-10-28] MEDS: LITHIUM CARBONATE 300 MG CAP PO SCH (09:24)
--- NOTE | 2016-10-28 13:53 | P.PN ---
Progress Note - Text SUBJECTIVE: I reviewed the medical record, interviewed Ms. Cabrera and discussed her treatment and treatment plan during team meeting. She refused to take lithium today. She let she had taken lithium in the past and it "does not work ". She does not remember our discussion about lithium or that her outpatient psychiatrist, Dr. Moreau, recommended lithium. She denied other problems or concerns. As during prior encounters she would not get out of bed and answer questions with short sentences her single words. OBJECTIVE: She presented as a thin, pale-appearing 66-year-old female who was minimally cooperative with the interview. She made eye contact and appeared to attend to the exam. She had no distinguishing features or prominent physical abnormalities. She had a blunted facial expression. She had marked psychomotor retardation. Her speech was not spontaneous. Her affect was blunted. She did not respond to questions about suicidal thoughts or wishes. She did not express phobias, ideas reference or paranoid ideation. Her thinking appeared concrete. She did not appear to be responding to internal stimuli. She continues to need close nursing supervision to attend to her ADLs and to eat her meals. She did not eat breakfast, lunch and 25 percent of dinner. She drank all of the nutritional supplement. Her weight yesterday was 82.1 kg ASSESSMENT: She has withdrawn, obstinate and not caring for her ADLs or eating. Her weight has been stable on a range of 80-82 kg PLAN: Continue inpatient hospitalization until we find appropriate placement. Continue Lexapro 20 mg daily, lorazepam 0.5 mg 3 times a day, Latuda 80 mg at bedtim, Remeron 30 mg at bedtime . Discontinue lithium. Continue medications for her chronic medical illnesses including Lipitor 20 mg daily, Aldactone 12.5 mg daily and Motrin 40 mg by mouth 3 times a day with meals when necessary per pain. Continue close supervision of compliance with meals and ADLs. Discharge to an appropriate residential home. Continue suicide precautions with 15 minute checks. Encourage participation in therapeutic groups and activities as tolerated. Evaluate clinical status response to treatment on a daily basis.
[2016-10-28] MEDS: LURASIDONE 80 MG TAB PO SCH (22:09)
[2016-10-28] MEDS: MIRTAZAPINE 15 MG TAB PO SCH (22:11)
[2016-10-29] MEDS: ATORVASTATIN 20 MG TAB PO SCH (10:00)
[2016-10-29] MEDS: ESCITALOPRAM 20 MG TAB PO SCH (10:00)
[2016-10-29] MEDS: LORazepam 0.5 MG TAB PO SCH ×3 (10:00→21:51)
[2016-10-29] MEDS: SPIRONOLACTONE 25 MG TAB PO SCH (10:00)
--- NOTE | 2016-10-29 13:37 | P.PN ---
Progress Note - Text SUBJECTIVE: I reviewed the medical record, interviewed Ms. Cabrera and discussed her treatment and treatment plan during team meeting. She was pleasant on approach but as in prior encounters provided little information. Her answers were brief. When I asked her to elaborate on her responses she gave such replies as "I don't want to talk about it", "I'm tired" or "I don't know you." OBJECTIVE: She presented as a thin, pale-appearing 66-year-old female who was minimally cooperative with the interview. She made eye contact and appeared to attend to the exam. She had no distinguishing features or prominent physical abnormalities. She had a blunted facial expression. She had marked psychomotor retardation. Her speech was not spontaneous. Her affect was blunted. She did not respond to questions about suicidal thoughts or wishes. She did not express phobias, ideas reference or paranoid ideation. Her thinking appeared concrete. She did not appear to be responding to internal stimuli. She continues to need close nursing supervision to attend to her ADLs and to eat her meals. She did not eat breakfast yesterday. She ate 25% of her lunch and 75% of her dinner. She drank the nutritional supplement for breakfast and lunch. ASSESSMENT: She has withdrawn, obstinate and not caring for her ADLs or eating. Her weight has been stable on a range of 80-82 kg PLAN: Continue inpatient hospitalization until we find appropriate placement. Continue Lexapro 20 mg daily, lorazepam 0.5 mg 3 times a day, Latuda 80 mg at bedtim, Remeron 30 mg at bedtime. Continue medications for her chronic medical illnesses including Lipitor 20 mg daily, Aldactone 12.5 mg daily and Motrin 40 mg by mouth 3 times a day with meals when necessary per pain. Continue close supervision of compliance with meals and ADLs. Continue suicide precautions with 15 minute checks. Encourage participation in therapeutic groups and activities as tolerated. Evaluate clinical status response to treatment on a daily basis.
[2016-10-29] MEDS: MIRTAZAPINE 15 MG TAB PO SCH (21:51)
[2016-10-29] MEDS: LURASIDONE 80 MG TAB PO SCH (21:53)
[2016-10-30] MEDS: SPIRONOLACTONE 25 MG TAB PO SCH (10:00)
[2016-10-30] MEDS: ATORVASTATIN 20 MG TAB PO SCH (10:00)
[2016-10-30] MEDS: ESCITALOPRAM 20 MG TAB PO SCH (10:00)
[2016-10-30] MEDS: LORazepam 0.5 MG TAB PO SCH ×3 (10:00→22:05)
[2016-10-30] MEDS: MAGNESIUM HYDROXIDE 2,400 MG/10 ML CUP PO SCH (16:09)
[2016-10-30] MEDS: LURASIDONE 80 MG TAB PO SCH (22:05)
[2016-10-30] MEDS: DOCUSATE 100 MG CAP PO SCH (22:05)
[2016-10-30] MEDS: MIRTAZAPINE 15 MG TAB PO SCH (22:05)
[2016-10-31] MEDS: ATORVASTATIN 20 MG TAB PO SCH (09:16)
[2016-10-31] MEDS: SPIRONOLACTONE 25 MG TAB PO SCH (09:16)
[2016-10-31] MEDS: DOCUSATE 100 MG CAP PO SCH ×2 (09:16→21:18)
[2016-10-31] MEDS: ESCITALOPRAM 20 MG TAB PO SCH (09:18)
[2016-10-31] MEDS: LORazepam 0.5 MG TAB PO SCH ×3 (09:18→21:18)
--- NOTE | 2016-10-31 10:22 | PN ---
DATE OF SERVICE: 10/30/2016 CHIEF COMPLAINT: The patient was admitted due to failure to thrive. She was refusing to eat and drink or take medications. She had been doing this for several days. She was found in bed soaked in her own urine. She had symptoms of urinary tract infection. INTERVAL HISTORY: Patient has been doing fair. She feels that she has been making some progress. She reports that she does not sleep well at night, though she acknowledges she naps on and off in the day. She is inconsistent with attending groups and misses more groups than she makes. She did attend group today, though she did not make too much effort to participate. She says that her mood has been fair. She has periods where she can be quite withdrawn and will just stay in her bed and avoid any contact with others. She has not had change in her general health. She appears to tolerate her psychotropic medications. She did not have any complaints today regarding her medications. Last evening her blood pressure was low and she was lethargic. Her Ativan and Remeron were held, though she received her Latuda. MENTAL STATUS: Patient gave fair eye contact. Psychomotor activity was slow. Speech was monotone. She answered questions appropriately. Her thoughts were clear. She was not spontaneous or interactive. Her affect was blunted. Her mood was quiet. She had a pleasant manner. She did not appear to be distressed. ASSESSMENT: I will continue the current diagnosis and treatment plan. We will continue to make efforts to engage the patient in individual and group therapeutic activities. We will continue psychotropic medications the same including Lexapro 20 mg a day, Latuda 80 mg a day, Remeron 30 mg a day and Ativan 0.5 mg 3 times a day. I reviewed potential side effects with the patient. We will continue to focus on stabilization and discharge planning.
[2016-10-31] MEDS: MIRTAZAPINE 15 MG TAB PO SCH (21:15)
[2016-10-31] MEDS: LURASIDONE 80 MG TAB PO SCH (21:17)
[2016-11-01 06:16] VITALS: RESP 16
--- NOTE | 2016-11-01 06:50 | PN ---
DATE OF SERVICE: 10/31/2016 CHIEF COMPLAINT: The patient was admitted due to failure to thrive. She was refusing to eat and drink or take medications. She had been doing this for several days. She was found in bed soaked in her own the urine. She had symptoms of urinary tract infection. INTERVAL HISTORY: Patient continues to do about the same. She does not attend groups. She is quite avoidant. She spends most of her time in bed. She will come out for meals. She does not interact with others. She slept well last night. She denies any problems or complaints. She has not had change in her general health. She tolerates her psychotropic medications. MENTAL STATUS: Patient was in her room lying down. She gave fair eye contact. Psychomotor activity was slow. Speech was monotone. She answered questions with one-word responses. She was not spontaneous or interactive. Her affect was flat. Her mood withdrawn. It was difficult to say if she was distressed. ASSESSMENT: I will continue the current diagnosis and treatment plan. Patient has not shown much change or improvement given that her psychotropic medications are fairly complicated with the combination of medicine she is on. I will defer changes in medicine to Dr. Starr. I will repeat a CBC and basic chem profile. I will order thyroid profile. We will continue to focus on stabilization.
[2016-11-01] MEDS: SPIRONOLACTONE 25 MG TAB PO SCH (08:43)
[2016-11-01] MEDS: ESCITALOPRAM 20 MG TAB PO SCH (08:44)
[2016-11-01] MEDS: DOCUSATE 100 MG CAP PO SCH ×2 (08:44→20:21)
[2016-11-01] MEDS: ATORVASTATIN 20 MG TAB PO SCH (08:44)
[2016-11-01] MEDS: LORazepam 0.5 MG TAB PO SCH ×3 (08:44→20:21)
[2016-11-01] MEDS: ERGOCALCIFEROL 50,000 UNIT CAP PO SCH (08:44)
[2016-11-01 10:36] LABS: Anion Gap 10 mmol/L; Blood Urea Nitrogen 18 mg/dL (7-17); Calcium 9.4 mg/dL (8.4-10.2); Carbon Dioxide 22 mmol/L (22-30); Chloride 109 mmol/L (98-107); Glucose 84 mg/dL (74-99); Non-African American GFR(MDRD) 50 (>60 ml/min/1.73 sqM); Potassium 4.7 mmol/L (3.5-5.1); Sodium 141 mmol/L (137-145)
[2016-11-01 10:50] LABS: Basophils # (A) 0.1 k/uL (0-0.2); Basophils % (A) 1 %; CH 30.8; Eosinophils # (A) 0.4 k/uL (0-0.7); Eosinophils % (A) 5 %; HDW 2.94; HGB 12.9 gm/dL (11.4-16.0); Luc # (Auto) 0.15; Luc % (Auto) 2; Lymphocytes # (A) 2.1 k/uL (1.0-4.8); Lymphocytes % (A) 26 %; MCV 91.4 fL (80.0-100.0); Mean Platelet Volume 7.1; Monocytes # (A) 0.4 k/uL (0-1.0); Monocytes % (A) 5 %; Neutrophils # (A) 4.9 k/uL (1.3-7.7); Neutrophils % (A) 62 %; RBC 4.05 m/uL (3.80-5.40); RDW 13.4 % (11.5-15.5); WBC (Perox) 8.41
--- NOTE | 2016-11-01 13:57 | P.PN ---
Progress Note - Text SUBJECTIVE: I reviewed the medical record, interviewed Ms. Cabrera and discussed her treatment and treatment plan during team meeting. She was pleasant on approach but as in prior encounters provided little information. Her answers were brief. She denied current problems or concerns. OBJECTIVE: She presented as a thin, pale-appearing 66-year-old female who was minimally cooperative with the interview. She made eye contact and appeared to attend to the exam. She had no distinguishing features or prominent physical abnormalities. She had a blunted facial expression. She had marked psychomotor retardation. Her speech was not spontaneous. Her affect was blunted. She did not respond to questions about suicidal thoughts or wishes. She did not express phobias, ideas reference or paranoid ideation. Her thinking appeared concrete. She did not appear to be responding to internal stimuli. She ate 100% of breakfast, 75% of lunch and 75% of dinner yesterday. A weight yesterday was 83.461 kg ASSESSMENT: She has withdrawn, obstinate and not caring for her ADLs or eating. She continues to need close nursing supervision to attend to her ADLs and to eat her meals. PLAN: Continue inpatient hospitalization until we find appropriate placement. Continue Lexapro 20 mg daily, lorazepam 0.5 mg 3 times a day, Latuda 80 mg at bedtim, Remeron 30 mg at bedtime. Continue medications for her chronic medical illnesses including Lipitor 20 mg daily, Aldactone 12.5 mg daily and Motrin 40 mg by mouth 3 times a day with meals when necessary per pain. Continue close supervision of compliance with meals and ADLs. Continue suicide precautions with 15 minute checks. Encourage participation in therapeutic groups and activities as tolerated. Evaluate clinical status response to treatment on a daily basis.
[2016-11-01] MEDS: MIRTAZAPINE 15 MG TAB PO SCH (20:21)
[2016-11-01] MEDS: LURASIDONE 80 MG TAB PO SCH (20:21)
[2016-11-01] MEDS: LACTULOSE 20 GM/30 ML CUP PO SCH (21:02)
[2016-11-02 06:39] VITALS: BP 112/77; PULSE 85; TEMP 99.1
[2016-11-02] MEDS: ATORVASTATIN 20 MG TAB PO SCH (09:47)
[2016-11-02] MEDS: DOCUSATE 100 MG CAP PO SCH (09:47)
[2016-11-02] MEDS: LACTULOSE 20 GM/30 ML CUP PO SCH ×2 (09:47→10:38)
[2016-11-02] MEDS: SPIRONOLACTONE 25 MG TAB PO SCH (09:49)
[2016-11-02] MEDS: LORazepam 0.5 MG TAB PO SCH (09:50)
[2016-11-02] MEDS: ESCITALOPRAM 20 MG TAB PO SCH (09:50)
--- NOTE | 2016-11-02 14:36 | P.DS ---
Providers Date of admission: 09/30/16 16:58 Attending physician: Driss Starr MD Consults: 10/01/16 10:18 Consult Physician Routine Consulting Provider: Gregor Steele Consult Reason/Comments: H&P Do you want consulting provider notified?: Already Contacted 10/08/16 02:41 Consult Physician Routine Consulting Provider: Gregor Steele Consult Reason/Comments: Abnormal UA, decreased oral intake Do you want consulting provider notified?: Yes, Notify in am Primary care physician: Stated None - Discharge Diagnosis(es) (1) Bipolar I disorder, most recent episode depressed with mood-congruent psychotic features Current Visit: Yes Status: Chronic Priority: High (2) Dehydration Current Visit: Yes Status: Acute Priority: Low (3) 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 She presented to unit involuntarily with a history of a 40 pound weight loss unrelated to an underlying medical condition. She was paranoid, suspicious and displayed loose associations. Please see full history dated 09/30/2016. We admitted her to the psychiatric unit initially under the care of Dr. Hernandez. We provided a biopsychosocial assessment. The hospice consultant completed the initial physical exam and medical history. The hospice consultant diagnosed essential hypertension, chronic neurogenic bladder, irritable bowel syndrome, left sided weakness secondary to a CVA, diverticulosis, chronic venous stasis, decreased oral intake and clinical dehydration. The hospice consultant recommended decreasing Aldactone to 12.5 mg per day. We continued most her outpatient medications including Latuda 80 mg at bedtime, Motrin 400 mg by mouth 3 times a day when necessary for pain, vitamin D 2-5000 units every 7 days and Lipitor 20 mg daily. She had periods of unresponsiveness consistent with an affective catatonia that responded to IM lorazepam. Because of the severity of her affective symptoms, failure to thrive and catatonic-like symptoms recommended ECT. We explained the indication and treatment but she would not give consent. We eventually prescribed lorazepam 0.5 mg 3 times a day for the catatonic symptoms. We prescribed mirtazapine 30 mg at bedtime with limited change in her depressive symptoms. She appeared less depressed with the addition of Lexapro 20 mg per day. We attempted to augment her antidepressant response with lithium 6 mg per day. Her overall mood appeared to improve then she refused to continue with lithium. She was unreasonable and alleged she would not take the medication because "lithium does not work." She required almost constant nursing supervision for her to complete her ADLs and to eat meals. She gained 3 kg during his hospital stay. She participated minimally in therapeutic groups and activities. She was isolative and obstinate during the hospital stay. Because of her overall poor functioning and failure to thrive we have recommended and [facility] concurred for placement in a specialized [facility] home. At the time of discharge she was compliant with prescribed medications and maybe eating between 50-75% of her meals. Patient Condition at Discharge: Stable Plan - Discharge Summary New Discharge Prescriptions: Docusate [Colace] 100 mg PO BID 30 Days Ergocalciferol [Vitamin D2 (DRISDOL)] 50,000 unit PO Q7D 30 Days Escitalopram [Lexapro] 20 mg PO DAILY 30 Days LORazepam [Ativan] 0.5 mg PO TID 30 Days Lactulose [Cephulac] 30 gm PO BID 30 Days Lurasidone [Latuda] 80 mg PO HS 30 Days Mirtazapine [Remeron] 30 mg PO HS 30 Days Simvastatin [Zocor] 40 mg PO DAILY@0800 30 Days Spironolactone [Aldactone] 12.5 mg PO DAILY 30 Days Discharge Medication List Ibuprofen 400 mg PO TID-W/MEALS PRN 08/25/16 [History] Docusate [Colace] 100 mg PO BID 30 Days 11/02/16 [Rx] Ergocalciferol [Vitamin D2 (DRISDOL)] 50,000 unit PO Q7D 30 Days 11/02/16 [Rx] Escitalopram [Lexapro] 20 mg PO DAILY 30 Days 11/02/16 [Rx] LORazepam [Ativan] 0.5 mg PO TID 30 Days 11/02/16 [Rx] Lactulose [Cephulac] 30 gm PO BID 30 Days 11/02/16 [Rx] Lurasidone [Latuda] 80 mg PO HS 30 Days 11/02/16 [Rx] Mirtazapine [Remeron] 30 mg PO HS 30 Days 11/02/16 [Rx] Simvastatin [Zocor] 40 mg PO DAILY@0800 30 Days 11/02/16 [Rx] Spironolactone [Aldactone] 12.5 mg PO DAILY 30 Days 11/02/16 [Rx] Follow up Appointment(s)/Referral(s): [facility] [Outside] - 11/03/16 1:30 pm (w/ Rog[facility]io Fuentes at [facility]) None,Stated [Primary Care Provider] - 1 Week Patient Instructions/Handouts: Depression (DC), Brief Psychotic Disorder (DC) Activity/Diet/Wound Care/Special Instructions: Take medications as prescribed. Notify the crisis line or your care provider if symptoms worsen. Crisis line no. . Regular diet. Activity as tolerated. Discharge Disposition: HOME SELF-CARE
== END 2016-11-02 14:40 | disposition home or self-care (01) | DRG 885 ==
LOC: EC 12:03 → 3MHU 16:58
PROVIDERS: ADMIT Psychiatry & Neurology Psychiatry; ATTEND Psychiatry & Neurology Psychiatry
DX: F31.5 Bipolar disorder, current episode depressed, severe, with psychotic features (principal); I11.0 Hypertensive heart disease with heart failure; F03.90 Unspecified dementia, unspecified severity, without behavioral disturbance, psychotic disturbance, mood disturbance, and anxiety; I50.9 Heart failure, unspecified; I42.9 Cardiomyopathy, unspecified; R45.851 Suicidal ideations; I69.354 Hemiplegia and hemiparesis following cerebral infarction affecting left non-dominant side; N39.0 Urinary tract infection, site not specified; F23 Brief psychotic disorder; N31.9 Neuromuscular dysfunction of bladder, unspecified; E86.0 Dehydration; R62.7 Adult failure to thrive; F94.0 Selective mutism; F41.9 Anxiety disorder, unspecified; F41.0 Panic disorder [episodic paroxysmal anxiety]; I69.319 Unspecified symptoms and signs involving cognitive functions following cerebral infarction; R00.0 Tachycardia, unspecified; M54.9 Dorsalgia, unspecified; R82.71 Bacteriuria; M19.032 Primary osteoarthritis, left wrist; R22.32 Localized swelling, mass and lump, left upper limb; G47.00 Insomnia, unspecified; R32 Unspecified urinary incontinence; K58.9 Irritable bowel syndrome, unspecified; K44.9 Diaphragmatic hernia without obstruction or gangrene; I87.8 Other specified disorders of veins; K08.109 Complete loss of teeth, unspecified cause, unspecified class; K57.90 Diverticulosis of intestine, part unspecified, without perforation or abscess without bleeding; R63.4 Abnormal weight loss; Z68.20 Body mass index [BMI] 20.0-20.9, adult; Z91.14 Patient's other noncompliance with medication regimen; Z91.19 Patient's noncompliance with other medical treatment and regimen; Z90.710 Acquired absence of both cervix and uterus; Z79.899 Other long term (current) drug therapy; Z87.440 Personal history of urinary (tract) infections; Z87.19 Personal history of other diseases of the digestive system; Z71.3 Dietary counseling and surveillance; Z88.8 Allergy status to other drugs, medicaments and biological substances; Z86.19 Personal history of other infectious and parasitic diseases; Z86.010 Personal history of colon polyps; Z88.1 Allergy status to other antibiotic agents; Z91.041 Radiographic dye allergy status; Z79.1 Long term (current) use of non-steroidal anti-inflammatories (NSAID); Z90.49 Acquired absence of other specified parts of digestive tract; Z86.14 Personal history of Methicillin resistant Staphylococcus aureus infection
CPT/HCPCS: 36415; 71020; 80048; 80051; 80053; 80076; 80178; 80183; 80306; 80320; 81001; 81003; 82150; 82550; 82553; 82565; 83735; 84439; 84443; 84481; 84484; 84520; 85025; 93005; 96360; 96361; 99285

== ENCOUNTER 2016-12-04 16:12 | Emergency (ER) | payer MEDICAID, MEDICARE ==
[2016-12-04 16:35] VITALS: RESP 18
--- NOTE | 2016-12-04 17:19 | XR ---
EXAMINATION TYPE: XR chest 2V DATE OF EXAM: 12/04/2016 COMPARISON: Prior chest x-ray 30 September 2016 HISTORY: Chest pain TECHNIQUE: Frontal and lateral views of the chest are obtained. FINDINGS: There is no focal air space opacity, pleural effusion, or pneumothorax seen. There are ov erlying cardiac leads. The cardiac silhouette size is within normal limits, rotation may accentuate t he appearance.. The osseous structures are intact. IMPRESSION: No acute cardiopulmonary process.
--- NOTE | 2016-12-04 17:55 | ED ---
General Adult HPI - General Chief complaint: Chest Pain Stated complaint: Chest Pain Time Seen by Provider: 12/04/16 16:24 Source: patient, EMS, RN notes reviewed, old records reviewed Mode of arrival: EMS Limitations: no limitations - History of Present Illness Initial comments: Chief complaint and history of present illness this is a 66-year-old female who reports while in her living quarters she had a discomfort to her left chest that lasted less than 2 seconds. No associated radiation. There was no associated sweats or nausea. She was sent here for evaluation. - Related Data Home Medications Medication Instructions Recorded Confirmed Acetaminophen Tab [Tylenol Tab] 325 mg PO TID PRN 12/04/16 12/04/16 Docusate [Colace] 200 mg PO DAILY 12/04/16 12/04/16 Ergocalciferol [Vitamin D2 50,000 unit PO MO 12/04/16 12/04/16 (DRISDOL)] Ibuprofen [Motrin] 400 mg PO TID PRN 12/04/16 12/04/16 LORazepam [Ativan] 0.5 mg PO DAILY PRN 12/04/16 12/04/16 LORazepam [Ativan] 0.5 mg PO TID@0800,1200,1600 12/04/16 12/04/16 Simvastatin [Zocor] 40 mg PO HS 12/04/16 12/04/16 Previous Rx's Medication Instructions Recorded Lurasidone [Latuda] 80 mg PO HS 30 Days 11/02/16 Allergies Allergy/AdvReac Type Severity Reaction Status Date / Time haloperidol [From Haldol] Allergy Unknown Verified 12/04/16 19:07 Iodinated Contrast Media - Allergy Unknown Verified 12/04/16 19:07 Oral and [Iodinated Contrast Media - IV Dye] piperacillin sodium Allergy Unknown Verified 12/04/16 19:07 [From Zosyn] tazobactam sodium Allergy Unknown Verified 12/04/16 19:07 [From Zosyn] Review of Systems ROS Statement: Those systems with pertinent positive or pertinent negative responses have been documented in the HPI. review of systems no complaint of headache or chest pain at this time no GI/ problems. Patient does have a long history of psychiatric problems.all systems are reviewed Past medical problems CHF TIA dementia GI bleed hypertension. The patient's surgeries include tonsils, adenoids, appendix, cholecystectomy, hernia repair, hysterectomy, orthopedic surgery including left foot toe. Family history noncontributory. Patient has ALLERGIES as listed on the chart. Currently nonsmoker nondrinking. ROS Other: All systems not noted in ROS Statement are negative. 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, neurogenic bladder, CHF, cardiomyopathy, lower GI bleed, diverticular disease, IBS, hiatal hernia, esophageal ulcer, poor circulation, venous stasis, bilateral lower leg cellulitis in past, sinus problems, UTIs, back pain, anemia as a teenager History of Any Multi-Drug Resistant Organisms: MRSA Date of last positivie culture/infection: 2008 MDRO Source:: leg Past Surgical History: Adenoidectomy, Appendectomy, Cholecystectomy, Hernia Repair, Hysterectomy, Orthopedic Surgery, Tonsillectomy Additional Past Surgical History / Comment(s): L foot toe with screw, L foot bunionectomy, liver bx, EGD/colonoscopy and benign polypectomy, R inguinal hernia repair, D&C, laparoscopic surgery (?). Past Anesthesia/Blood Transfusion Reactions: No Reported Reaction Past Psychological History: Anxiety, Bipolar, Depression, Panic Disorder, Schizophrenia Additional Psychological History / Comment(s): Pt resides at [facility]. She ambulates with a walker. Smoking Status: Never smoker Past Alcohol Use History: Unable to Obtain Past Drug Use History: Unable to Obtain - Past Family History Mother Family Medical History: No Reported History Additional Family Medical History / Comment(s): Pt states her mother was healthy. Father Family Medical History: No Reported History Additional Family Medical History / Comment(s): Pt states her father was healthy General Exam Limitations: no limitations Course Vital Signs 12/04/16 12/04/16 16:24 20:07 Temperature 98.4 F Pulse Rate 77 85 Respiratory 18 18 Rate Blood Pressure 140/75 160/83 O2 Sat by Pulse 100 Oximetry EKG Findings - EKG Comments: EKG Findings:: EKG was done and reviewed at 1715 showing normal sinus rhythm with probable left ventricular hypertrophy. No acute ST elevation no ectopy no ischemic changes. Rate was 82. Pulse 168 QRS [address] Paige Medical Decision Making - Medical Decision Making medical decision making; patient's white count 7.7 hemoglobin 10 hematocrit 31 with a BUN of 21 creatinine 0.8 GFR greater than 60. Glucose 82. INR 1.2, potassium 4.6.Upon and less than 0.012. Chest x-ray was done and reviewed by radiologist his impression is there is no focal airspace opacity, pleural effusion, or pneumothorax seen. There are overlying cardiac leads. Cardiac silhouette size is within normal limits. Rotation accentuated the appearance. The osseous structures are intact. Impression no acute cardiopulmonary process. As read by Dr. Moran patient has not had any recurrent discomfort. An initial event was less than 12 seconds long. The patient will be discharged back to her facility where she has good care and she likes to environment. - Lab Data Result diagrams: 12/04/16 19:33 12/04/16 19:33 Lab Results 12/04/16 12/04/16 12/04/16 Range/Units 19:33 19:33 19:33 WBC 7.7 (3.8-10.6) k/uL RBC 3.47 L (3.80-5.40) m/uL Hgb 10.7 L (11.4-16.0) gm/dL Hct 31.5 L (34.0-46.0) % MCV 90.7 (80.0-100.0) fL MCH 30.9 (25.0-35.0) pg MCHC 34.1 (31.0-37.0) g/dL RDW 13.0 (11.5-15.5) % Plt Count 257 (150-450) k/uL Neutrophils % 57 % Lymphocytes % 27 % Monocytes % 7 % Eosinophils % 4 % Basophils % 0 % Neutrophils # 4.4 (1.3-7.7) k/uL Lymphocytes # 2.1 (1.0-4.8) k/uL Monocytes # 0.5 (0-1.0) k/uL Eosinophils # 0.3 (0-0.7) k/uL Basophils # 0.0 (0-0.2) k/uL PT 11.7 (9.0-12.0) sec INR 1.2 (<1.1) Sodium 140 (137-145) mmol/L Potassium 4.6 (3.5-5.1) mmol/L Chloride 111 H (98-107) mmol/L Carbon Dioxide 21 L (22-30) mmol/L Anion Gap 8 mmol/L BUN 21 H (7-17) mg/dL Creatinine 0.80 (0.52-1.04) mg/dL Est GFR (MDRD) Af Amer >60 (>60 ml/min/1.73 sqM) Est GFR (MDRD) Non-Af >60 (>60 ml/min/1.73 sqM) Glucose 82 (74-99) mg/dL Calcium 9.1 (8.4-10.2) mg/dL Total Bilirubin 0.5 (0.2-1.3) mg/dL AST 20 (14-36) U/L ALT 23 (9-52) U/L Alkaline Phosphatase 126 (38-126) U/L Total Creatine Kinase (30-135) U/L CK-MB (CK-2) (0.0-2.4) ng/mL CK-MB (CK-2) Rel Index Troponin I (0.000-0.034) ng/mL Total Protein 6.4 (6.3-8.2) g/dL Albumin 3.5 (3.5-5.0) g/dL 12/04/16 Range/Units 19:33 WBC (3.8-10.6) k/uL RBC (3.80-5.40) m/uL Hgb (11.4-16.0) gm/dL Hct (34.0-46.0) % MCV (80.0-100.0) fL MCH (25.0-35.0) pg MCHC (31.0-37.0) g/dL RDW (11.5-15.5) % Plt Count (150-450) k/uL Neutrophils % % Lymphocytes % % Monocytes % % Eosinophils % % Basophils % % Neutrophils # (1.3-7.7) k/uL Lymphocytes # (1.0-4.8) k/uL Monocytes # (0-1.0) k/uL Eosinophils # (0-0.7) k/uL Basophils # (0-0.2) k/uL PT (9.0-12.0) sec INR (<1.1) Sodium (137-145) mmol/L Potassium (3.5-5.1) mmol/L Chloride (98-107) mmol/L Carbon Dioxide (22-30) mmol/L Anion Gap mmol/L BUN (7-17) mg/dL Creatinine (0.52-1.04) mg/dL Est GFR (MDRD) Af Amer (>60 ml/min/1.73 sqM) Est GFR (MDRD) Non-Af (>60 ml/min/1.73 sqM) Glucose (74-99) mg/dL Calcium (8.4-10.2) mg/dL Total Bilirubin (0.2-1.3) mg/dL AST (14-36) U/L ALT (9-52) U/L Alkaline Phosphatase (38-126) U/L Total Creatine Kinase 84 (30-135) U/L CK-MB (CK-2) 0.7 (0.0-2.4) ng/mL CK-MB (CK-2) Rel Index 0.8 Troponin I <0.012 (0.000-0.034) ng/mL Total Protein (6.3-8.2) g/dL Albumin (3.5-5.0) g/dL Disposition Clinical Impression: Chest pain, atypical Disposition: HOME SELF-CARE Condition: Fair Instructions: Costochondritis (ED) Additional Instructions: follow-up with family physician. Use Tylenol for pain. Referrals: None,Stated [Primary Care Provider] - 1-2 days Time of Disposition: 20:41
[2016-12-04 19:44] LABS: Basophils % (A) 0 %; CH 30.9; CHCM 34.2; Eosinophils # (A) 0.3 k/uL (0-0.7); Eosinophils % (A) 4 %; HCT 31.5 % (34.0-46.0); HDW 2.65; HGB 10.7 gm/dL (11.4-16.0); Luc # (Auto) 0.27; Luc % (Auto) 4; Lymphocytes # (A) 2.1 k/uL (1.0-4.8); Lymphocytes % (A) 27 %; MCH 30.9 pg (25.0-35.0); MCHC 34.1 g/dL (31.0-37.0); MCV 90.7 fL (80.0-100.0); Mean Platelet Volume 6.7; Monocytes # (A) 0.5 k/uL (0-1.0); Monocytes % (A) 7 %; Neutrophils # (A) 4.4 k/uL (1.3-7.7); Neutrophils % (A) 57 %; RBC 3.47 m/uL (3.80-5.40); WBC 7.7 k/uL (3.8-10.6); WBC (Perox) 7.93
[2016-12-04 19:54] LABS: Anion Gap 8 mmol/L; Calcium 9.1 mg/dL (8.4-10.2); Carbon Dioxide 21 mmol/L (22-30); Chloride 111 mmol/L (98-107); Glucose 82 mg/dL (74-99); Non-African American GFR(MDRD) >60 (>60 ml/min/1.73 sqM); Sodium 140 mmol/L (137-145); Total Bilirubin 0.5 mg/dL (0.2-1.3); Total Protein 6.4 g/dL (6.3-8.2)
[2016-12-04 19:55] LABS: ALT 23 U/L (9-52); AST 20 U/L (14-36); Alkaline Phosphatase 126 U/L (38-126); Blood Urea Nitrogen 21 mg/dL (7-17); Potassium 4.6 mmol/L (3.5-5.1)
[2016-12-04 19:56] LABS: INR 1.2 (<1.1); Prothrombin Time 11.7 sec (9.0-12.0)
[2016-12-04 20:11] LABS: Creatine Kinase 84 U/L (30-135)
[2016-12-04 20:25] LABS: Creatine Kinase MB 0.7 ng/mL (0.0-2.4); Troponin I <0.012 ng/mL (0.000-0.034)
[2016-12-04 22:27] VITALS: BP 177/93; PULSE 84; TEMP 97.2
== END 2016-12-04 22:27 | disposition home or self-care (01) ==
LOC: EC 16:12
DX: R07.89 Other chest pain (principal); I11.0 Hypertensive heart disease with heart failure; I50.9 Heart failure, unspecified; F03.90 Unspecified dementia, unspecified severity, without behavioral disturbance, psychotic disturbance, mood disturbance, and anxiety; F31.9 Bipolar disorder, unspecified; F41.9 Anxiety disorder, unspecified; F20.9 Schizophrenia, unspecified; F41.0 Panic disorder [episodic paroxysmal anxiety]; Z86.73 Personal history of transient ischemic attack (TIA), and cerebral infarction without residual deficits; Z79.899 Other long term (current) drug therapy; Z91.041 Radiographic dye allergy status; Z88.1 Allergy status to other antibiotic agents; Z88.8 Allergy status to other drugs, medicaments and biological substances
CPT/HCPCS: 36415; 71020; 80053; 82550; 82553; 84484; 85025; 85610; 93005; 99285

== ENCOUNTER 2016-12-07 14:21 | Inpatient (IN) | payer MEDICARE, OTHER ==
[2016-12-07] MEDS ORDERED: SODIUM CHLORIDE 0.9% 1,000 ML IV STA (14:41)
[2016-12-07] MEDS ORDERED: KETOROLAC 30 MG/ML 1 ML VIAL IVP STA (14:42)
[2016-12-07] MEDS ORDERED: LORazepam 2 MG/ML SYRINGE IV STA (14:42)
[2016-12-07] MEDS ORDERED: IV VANCOMYCIN PER PHARMACY 1 EACH MISC MISCELLANE PRN (14:43)
[2016-12-07] MEDS ORDERED: VANCOMYCIN 1,750 MG in SODIUM CHLORIDE 0.9% 250 ML IVPB STA (14:46)
--- NOTE | 2016-12-07 14:49 | ED ---
General Adult HPI - General Chief complaint: Psychiatric Symptoms Stated complaint: Pain All Over Time Seen by Provider: 12/07/16 14:32 Source: patient Mode of arrival: EMS Limitations: no limitations - History of Present Illness Initial comments: This 66-year-old white female presents complaining of pain throughout her entire body essentially from head to toe. She also complains of some swelling/ edema, and erythema to her bilateral lower extremities. It is difficult for her to quantify the time. At this has been occurring. She isn't sure if she's had any fevers. She does have a strong history of psychiatric problems and apparently has had some decline in this to certain extent. She is unable to give any straight answers and seems to have a significant flight of ideas. History is very limited due to her psychiatric condition. She does present via EMS and is requesting to her 3 mg of Ativan intravenously. No other complaints or modifying factors. - Related Data Home Medications Medication Instructions Recorded Confirmed Acetaminophen Tab [Tylenol Tab] 325 mg PO TID PRN 12/04/16 12/07/16 Docusate [Colace] 200 mg PO HS@2100 12/04/16 12/07/16 Ergocalciferol [Vitamin D2 50,000 unit PO MO 12/04/16 12/07/16 (DRISDOL)] Ibuprofen [Motrin] 400 mg PO TID PRN 12/04/16 12/07/16 LORazepam [Ativan] 0.5 mg PO DAILY PRN 12/04/16 12/07/16 LORazepam [Ativan] 0.5 mg PO TID@0800,1200,1600 12/04/16 12/07/16 Simvastatin [Zocor] 40 mg PO HS@2100 12/04/16 12/07/16 Lurasidone [Latuda] 80 mg PO HS@2100 12/07/16 12/07/16 Allergies Allergy/AdvReac Type Severity Reaction Status Date / Time haloperidol [From Haldol] Allergy Unknown Verified 12/07/16 14:35 Iodinated Contrast Media - Allergy Unknown Verified 12/07/16 14:35 Oral and [Iodinated Contrast Media - IV Dye] Iodine and Iodide Containing Allergy Unknown Verified 12/07/16 14:35 Produc piperacillin sodium Allergy Unknown Verified 12/07/16 14:35 [From Zosyn] tazobactam sodium Allergy Unknown Verified 12/07/16 14:35 [From Zosyn] venom-honey bee Allergy Unknown Verified 12/07/16 14:35 Review of Systems ROS Statement: Those systems with pertinent positive or pertinent negative responses have been documented in the HPI. ROS Other: All systems not noted in ROS Statement are negative. 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, neurogenic bladder, CHF, cardiomyopathy, lower GI bleed, diverticular disease, IBS, hiatal hernia, esophageal ulcer, poor circulation, venous stasis, bilateral lower leg cellulitis in past, sinus problems, UTIs, back pain, anemia as a teenager History of Any Multi-Drug Resistant Organisms: MRSA Date of last positivie culture/infection: 2008 MDRO Source:: leg Past Surgical History: Adenoidectomy, Appendectomy, Cholecystectomy, Hernia Repair, Hysterectomy, Orthopedic Surgery, Tonsillectomy Additional Past Surgical History / Comment(s): L foot toe with screw, L foot bunionectomy, liver bx, EGD/colonoscopy and benign polypectomy, R inguinal hernia repair, D&C, laparoscopic surgery (?). Past Anesthesia/Blood Transfusion Reactions: No Reported Reaction Past Psychological History: Anxiety, Bipolar, Depression, Panic Disorder, Schizophrenia Additional Psychological History / Comment(s): Pt resides at [facility]. She ambulates with a walker. Smoking Status: Never smoker Past Alcohol Use History: Unable to Obtain Past Drug Use History: Unable to Obtain - Past Family History Mother Family Medical History: No Reported History Additional Family Medical History / Comment(s): Pt states her mother was healthy. Father Family Medical History: No Reported History Additional Family Medical History / Comment(s): Pt states her father was healthy General Exam - General Exam Comments Initial Comments: GENERAL: The patient is well nourished and well hydrated. VITAL SIGNS: Heart rate, blood pressure, respiratory rate reviewed as recorded in nurse's notes. EYES: Pupils are round and reactive. Extraocular movements are intact. No conjunctival / lid redness or swelling. ENT: No external evidence of injury, swelling, or ecchymosis. Airway is patent. Throat is clear. NECK: Nontender. No swelling or evidence of injury. No subcutaneous emphysema. Trachea is midline. No thyroid mass. HEART: Regular rate and rhythm. Good peripheral pulses. LUNGS/CHEST: Breath sounds clear and equal bilaterally. No rales, rhonchi, or wheezes. No ecchymosis, subcutaneous emphysema, or tenderness. ABDOMEN: Abdomen soft without tenderness. No palpable masses or organomegaly. No peritoneal signs. No abdominal wall swelling or ecchymosis. EXTREMITIES: No extremity tenderness. Normal muscle tone and function. No thoracolumbar tenderness. NEUROLOGIC: Sensation is grossly intact. Cranial nerve exam reveals face is symmetrical, tongue is midline, speech is clear. SKIN: There is bilateral lower extremity erythema and moderate edema noted. No induration or masses noted. PSYCHIATRIC: Alert but has significant flight of ideas. She seems manic at times. Limitations: no limitations Course Vital Signs 12/07/16 14:23 Temperature 96.8 F L Pulse Rate 96 Respiratory 18 Rate Blood Pressure 149/82 O2 Sat by Pulse 100 Oximetry Medical Decision Making - Medical Decision Making The patient was seen and examined. All diagnostics were reviewed. An EKG was done and shows a normal sinus rhythm at a rate of 92. No acute ST-T wave changes are identified other than some T-wave inversions in lead 3. The PA interval is 170, QRS duration is 74, and QTC intervals 447. An IV is started and she receives Toradol as well as 1 mg of Ativan. The patient is sleeping on recheck and in no apparent distress. The laboratories reviewed and overall is fairly unremarkable. It does appear that she has bilateral lower extremity cellulitis and would benefit from inpatient treatment. He also is felt that she does have a degree of amarilis and may need evaluation in this regard as well. The case is discussed with Dr. Vega and he is agreeable to admission. - Lab Data Result diagrams: 12/07/16 14:45 12/07/16 14:45 Lab Results 12/07/16 12/07/16 12/07/16 Range/Units 14:45 14:45 14:45 WBC 6.7 (3.8-10.6) k/uL RBC 3.50 L (3.80-5.40) m/uL Hgb 10.7 L (11.4-16.0) gm/dL Hct 31.6 L (34.0-46.0) % MCV 90.1 (80.0-100.0) fL MCH 30.7 (25.0-35.0) pg MCHC 34.0 (31.0-37.0) g/dL RDW 13.0 (11.5-15.5) % Plt Count 90 L D (150-450) k/uL Neutrophils % 59 % Lymphocytes % 32 % Monocytes % 5 % Eosinophils % 3 % Basophils % 0 % Neutrophils # 3.9 (1.3-7.7) k/uL Lymphocytes # 2.1 (1.0-4.8) k/uL Monocytes # 0.4 (0-1.0) k/uL Eosinophils # 0.2 (0-0.7) k/uL Basophils # 0.0 (0-0.2) k/uL PT (9.0-12.0) sec INR (<1.1) APTT (22.0-30.0) sec Sodium 143 (137-145) mmol/L Potassium 4.2 (3.5-5.1) mmol/L Chloride 110 H (98-107) mmol/L Carbon Dioxide 23 (22-30) mmol/L Anion Gap 10 mmol/L BUN 22 H (7-17) mg/dL Creatinine 0.90 (0.52-1.04) mg/dL Est GFR (MDRD) Af Amer >60 (>60 ml/min/1.73 sqM) Est GFR (MDRD) Non-Af >60 (>60 ml/min/1.73 sqM) Glucose 96 (74-99) mg/dL Calcium 9.4 (8.4-10.2) mg/dL Total Bilirubin 0.4 (0.2-1.3) mg/dL AST 17 (14-36) U/L ALT 18 (9-52) U/L Alkaline Phosphatase 124 (38-126) U/L Total Creatine Kinase 93 (30-135) U/L CK-MB (CK-2) 0.5 (0.0-2.4) ng/mL CK-MB (CK-2) Rel Index 0.5 Troponin I <0.012 (0.000-0.034) ng/mL NT-Pro-B Natriuret Pep pg/mL Total Protein 6.5 (6.3-8.2) g/dL Albumin 3.7 (3.5-5.0) g/dL Salicylates <1.0 mg/dL Acetaminophen <10.0 ug/mL 12/07/16 12/07/16 Range/Units 14:45 15:49 WBC (3.8-10.6) k/uL RBC (3.80-5.40) m/uL Hgb (11.4-16.0) gm/dL Hct (34.0-46.0) % MCV (80.0-100.0) fL MCH (25.0-35.0) pg MCHC (31.0-37.0) g/dL RDW (11.5-15.5) % Plt Count (150-450) k/uL Neutrophils % % Lymphocytes % % Monocytes % % Eosinophils % % Basophils % % Neutrophils # (1.3-7.7) k/uL Lymphocytes # (1.0-4.8) k/uL Monocytes # (0-1.0) k/uL Eosinophils # (0-0.7) k/uL Basophils # (0-0.2) k/uL PT 11.3 (9.0-12.0) sec INR 1.1 (<1.1) APTT 23.5 (22.0-30.0) sec Sodium (137-145) mmol/L Potassium (3.5-5.1) mmol/L Chloride (98-107) mmol/L Carbon Dioxide (22-30) mmol/L Anion Gap mmol/L BUN (7-17) mg/dL Creatinine (0.52-1.04) mg/dL Est GFR (MDRD) Af Amer (>60 ml/min/1.73 sqM) Est GFR (MDRD) Non-Af (>60 ml/min/1.73 sqM) Glucose (74-99) mg/dL Calcium (8.4-10.2) mg/dL Total Bilirubin (0.2-1.3) mg/dL AST (14-36) U/L ALT (9-52) U/L Alkaline Phosphatase (38-126) U/L Total Creatine Kinase (30-135) U/L CK-MB (CK-2) (0.0-2.4) ng/mL CK-MB (CK-2) Rel Index Troponin I (0.000-0.034) ng/mL NT-Pro-B Natriuret Pep 390 pg/mL Total Protein (6.3-8.2) g/dL Albumin (3.5-5.0) g/dL Salicylates mg/dL Acetaminophen ug/mL Disposition Clinical Impression: Bipolar disorder, Bilateral lower leg cellulitis, Amarilis, Chronic pain Disposition: ADMITTED IP TO THIS [facility] Condition: Fair Referrals: None,Stated [REFERRING] - 1-2 days Time of Disposition: 16:43 Decision Date: 12/07/16 Decision Time: 16:43
[2016-12-07 15:21] LABS: Basophils % (A) 0 %; CH 30.6; CHCM 34.2; Eosinophils # (A) 0.2 k/uL (0-0.7); Eosinophils % (A) 3 %; HCT 31.6 % (34.0-46.0); HDW 2.75; HGB 10.7 gm/dL (11.4-16.0); Luc # (Auto) 0.09; Luc % (Auto) 1; Lymphocytes # (A) 2.1 k/uL (1.0-4.8); Lymphocytes % (A) 32 %; MCH 30.7 pg (25.0-35.0); MCV 90.1 fL (80.0-100.0); Mean Platelet Volume 8.4; Monocytes # (A) 0.4 k/uL (0-1.0); Monocytes % (A) 5 %; Neutrophils # (A) 3.9 k/uL (1.3-7.7); Neutrophils % (A) 59 %; WBC 6.7 k/uL (3.8-10.6); WBC (Perox) 7.16
[2016-12-07 15:23] LABS: ALT 18 U/L (9-52); AST 17 U/L (14-36); Acetaminophen <10.0 ug/mL; Alkaline Phosphatase 124 U/L (38-126); Anion Gap 10 mmol/L; Blood Urea Nitrogen 22 mg/dL (7-17); Calcium 9.4 mg/dL (8.4-10.2); Carbon Dioxide 23 mmol/L (22-30); Chloride 110 mmol/L (98-107); Glucose 96 mg/dL (74-99); Non-African American GFR(MDRD) >60 (>60 ml/min/1.73 sqM); Potassium 4.2 mmol/L (3.5-5.1); Salicylate <1.0 mg/dL; Sodium 143 mmol/L (137-145); Total Bilirubin 0.4 mg/dL (0.2-1.3); Total Protein 6.5 g/dL (6.3-8.2)
[2016-12-07 15:32] LABS: Creatine Kinase 93 U/L (30-135)
[2016-12-07 15:45] LABS: Creatine Kinase MB 0.5 ng/mL (0.0-2.4); Troponin I <0.012 ng/mL (0.000-0.034)
[2016-12-07 16:14] LABS: INR 1.1 (<1.1); Partial Thromboplastin Time 23.5 sec (22.0-30.0); Prothrombin Time 11.3 sec (9.0-12.0)
[2016-12-07] MEDS ORDERED: ONDANSETRON 4 MG/2 ML VIAL IVP PRN (16:45)
[2016-12-07] MEDS ORDERED: IBUPROFEN 400 MG TAB PO PRN (16:45)
[2016-12-07] MEDS ORDERED: Acetaminophen-Codeine 300-30mg TAB PO PRN (16:45)
[2016-12-07] MEDS ORDERED: ceFAZolin 1,000 MG in DEXTROSE/WATER 1 50ML.BAG IVPB STA (16:45)
[2016-12-07] MEDS ORDERED: NALOXONE 0.4 MG/ML 1 ML VIAL IV PRN (16:45)
[2016-12-07] MEDS ORDERED: LORazepam 0.5 MG TAB PO PRN (16:49)
[2016-12-07] MEDS: KETOROLAC 30 MG/ML 1 ML VIAL IVP SCH ×2 (17:59→23:42)
--- NOTE | 2016-12-07 19:24 | US ---
EXAMINATION TYPE: US venous doppler duplex LE BI DATE OF EXAM: 12/07/2016 7:13 PM COMPARISON: Prior in PACS CLINICAL HISTORY: BL leg cellulitis looking for DVT. SIDE PERFORMED: Bilateral TECHNIQUE: The lower extremity deep venous system is examined utilizing real time linear array sonog cm with graded compression, doppler sonography and color-flow sonography. VESSELS IMAGED: External Iliac Vein (EIV) Common Femoral Vein Deep Femoral Vein Greater Saphenous Vein * Femoral Vein Popliteal Vein Small Saphenous Vein * Proximal Calf Veins (* superficial vessels) Right Leg: Negative for DVT Probable mcmanus's cyst visualized measuring 3.3 x 1.5 x 2.2 cm Left Leg: Negative for DVT Probable mcmanus's cyst visualized measuring 6.3 x 1.3 x 3.3 cm IMPRESSION: 1. Bilateral lower extremity negative for deep venous thrombosis. 2. Bilateral popliteal cysts.
[2016-12-07] MEDS: ATORVASTATIN 20 MG TAB PO SCH (20:49)
[2016-12-07] MEDS: DOCUSATE 100 MG CAP PO SCH (20:49)
[2016-12-07] MEDS: LURASIDONE 80 MG TAB PO SCH (20:49)
--- NOTE | 2016-12-07 22:12 | HP ---
DATE OF ADMISSION: Patient is a poor historian because of her ongoing acute psychosis and patient has history of schizophrenia complaining of pain everywhere. Patient denied any fever, chills. Patient denied any nausea or vomiting. Patient on examination was found to have cellulitis of the bilateral lower extremities more so in the right lower extremity, localize of temperature, edema and redness mostly circumferentially, midway in the right leg. A little bit of redness in the left side as well. Patient has flight of ideas and tangentiality. The patient has acute psychosis for which psychiatry was consulted. Review of systems unable to obtain due to her clinical condition. Patient is a very poor historian due to above-mentioned reasons. Home medications include: 1. Acetaminophen. 2. Docusate. 3. Cholecalciferol. 4. Ibuprofen. 5. Lorazepam. 6. Latuda. 7. Simvastatin. The patient apparently highly noncompliant with her medications. ALLERGIES: MULTIPLE ALLERGIES. PLEASE REFER TO THE CHART. REVIEW OF SYSTEMS: As mentioned above. PAST MEDICAL HISTORY: CVA, TIA, GI bleed, hypertension, paranoid schizophrenia, adenoidectomy, appendectomy, cholecystectomy, hernia repair in the past. SOCIAL HISTORY: Denied any smoking, alcohol abuse and drug abuse, I am unable to obtain that history. FAMILY HISTORY: Significant for no significant family history at least no significant family medical history in the family. PHYSICAL EXAMINATION: VITAL SIGNS: Temperature 98.1, pulse of 81, respiratory rate of 18, blood pressure 161/91. Saturating at 98% on room air. GENERAL: The patient is alert and oriented x3, not in any acute distress. Well developed, well nourished. HEENT: Pupils are round and equally reacting to light. EOMI. No scleral icterus. No conjunctival pallor. Normocephalic, atraumatic. No pharyngeal erythema. No thyromegaly. CARDIOVASCULAR: S1 and S2 present. No murmurs, rubs, or gallops. PULMONARY: Chest is clear to auscultation, no wheezing or crackles. ABDOMEN: Soft, nontender, nondistended, normoactive bowel sounds. No palpable organomegaly. MUSCULOSKELETAL: No joint swelling or deformity. EXTREMITIES: No cyanosis, clubbing, or pedal edema. NEUROLOGICAL: Gross neurological examination did not reveal any focal deficits. SKIN: As described in HPI. LABORATORY DATA: CBC, CMP significant for low platelet count appears to have chronic thrombocytopenia, etiology is unknown. ASSESSMENT AND PLAN: 1. Swelling of the right lower limb. Patient may have cellulitis. Patient may have cellulitis of the left lower limb as well and patient will be continued on vancomycin. Cefazolin will be discontinued and we will monitor and we will also obtain Doppler of the bilateral lower extremity to rule out any DVT. 2. Active psychosis and paranoid schizophrenia. Patient will be started on Latuda and further management as per psychiatric. 3. Hyperlipidemia. Continue with simvastatin. 4. Thrombocytopenia etiology is unknown. Patient will be continued on IV fluids.
[2016-12-08] MEDS: VANCOMYCIN 1,500 MG in SODIUM CHLORIDE 0.9% 250 ML IVPB SCH ×2 (05:51→21:23)
[2016-12-08] MEDS: KETOROLAC 30 MG/ML 1 ML VIAL IVP SCH ×3 (05:51→17:19)
[2016-12-08 06:14] LABS: Appearance,Urine Clear (Clear); Bilirubin,Urine Negative (Negative); Glucose,Urine (UA) Negative (Negative); Ketones,Urine Negative (Negative); Leukocyte Esterase,Urine Negative (Negative); Nitrite,Urine Negative (Negative); PH, Urine 6.5 (5.0-8.0); Protein,Urine Negative (Negative); Specific Gravity,Urine 1.006 (1.001-1.035); UA Billing (MACRO vs. MICRO) CHEM; Urobilinogen,Urine <2.0 mg/dL (<2.0)
[2016-12-08] MEDS: LORazepam 0.5 MG TAB PO SCH ×3 (08:26→15:33)
[2016-12-08] MEDS ORDERED: PANTOPRAZOLE 40 MG/10 ML VIAL IV SCH (09:00)
[2016-12-08 09:07] LABS: Anion Gap 7 mmol/L; Blood Urea Nitrogen 19 mg/dL (7-17); Calcium 9.2 mg/dL (8.4-10.2); Carbon Dioxide 24 mmol/L (22-30); Chloride 109 mmol/L (98-107); Glucose 85 mg/dL (74-99); Non-African American GFR(MDRD) >60 (>60 ml/min/1.73 sqM); Potassium 4.4 mmol/L (3.5-5.1); Sodium 140 mmol/L (137-145)
--- NOTE | 2016-12-08 09:08 | P.CN ---
Psychiatric Consult - . Consult date: 12/08/16 Consult:: IDENTIFYING DATA: Ms. Cabrera is a 66-year-old female who has a history of a bipolar disorder. [facility] with [facility] of pain and she was admitted to medicine service with diagnosis of bilateral leg cellulitis. HISTORY OF PRESENT ILLNESS: She is well known to psychiatry service from her multiple admissions. She was last discharged on 11/02/2016 with the diagnoses of bipolar disorder depressed with psychotic features. This was an extended hospitalization lasting over 30 days due to the severity of her depressive symptoms. She required almost constant nursing supervision for her to complete her ADLs, drink fluids and eat meals. We discharged her to a specialized [facility] home because of her overall poor functioning and failure to thrive. Her presentation today was almost diametrically opposite to that from her last psychiatric hospitalization. She was bright, talkative and cheerful. She talked about how much she enjoys the [facility] home. She made several unusual statements such as she speaks "multiple languages" and requested that we change the notice on her nursing board to indicate that she is bilingual in Wolof and Sicilian. She understood her need for medical treatment and did not complain of pain. She appeared to understand the relevant information about her medical illness i.e. that she has infection of her legs and requires treatment with antibiotics. She agrees with the physician recommended that she requires treatment with antibiotic. She denied feeling depressed or having thoughts of or suicide. She denied anxiety. She denied psychotic symptoms such as auditory or visual hallucinations, ideas reference, thought insertion, thought broadcasting or thought control. PAST PSYCHIATRIC HISTORY: She has had at least 10 admissions to our psychiatric unit in addition to admissions and other psychiatric facilities. She has a well -established diagnosis of bipolar disorder. She is active with [facility]. Her psychotropic medications at her last discharge included lorazepam 0.5 mg 3 times a day, Latuda 80 mg at bedtime, Remeron 30 mg at bedtime and Lexapro 20 mg daily. SUBSTANCE USE HISTORY: She does not have a history of a substance use disorder. FAMILY PSYCHIATRIC/SUBSTANCE USE HISTORY: Unknown. SOCIAL HISTORY: She was born and raised in an intact family. Her parents are . She graduated from high school. She . She has 3 adult children. She has a public guardian due to the severity and persistence of her mental illness. She receives Social Security disability. She was living at the [facility]. MENTAL STATUS EXAM: She presented as a 66-year-old female who was casually groomed. She is laying comfortably in her hospital bed. She made eye contact and attended the interview. She had no distinguishing features. Her lower legs are erythematous and warm. She greeted me with a broad smile. She had a bright affect. She showed no abnormality of psychomotor activity. Speech was spontaneous and slightly pressured with slight increase in rate and rhythm. Her affect was elevated but appropriate. She did not express suicidal ideation or wishes. She did not express depressive cognitions such as hopelessness, helplessness or worthlessness. She did not express ideas reference or paranoid ideation. She expressed overvalued ideas such as that she is "brilliant" and is able to speak multiple languages. She did not express paranoid delusional beliefs. She did not demonstrate clang associations , perseveration, neologisms or blocking. She denied hallucinations and did not appear to be responding to internal stimuli. IMPRESSIONS: She is a 66-year-old female with a well-established diagnosis of bipolar disorder. She presented to the [facility] with bilateral lower leg cellulitis and complaints of pain. Her presentation is much different to that when she was on the psychiatric unit in October 2016. She has clear signs and symptoms of hypomania including pressured speech, elevated mood, flight of ideas and grandiosity. She understands the need for medical treatment and agrees with the doctor's recommendations. DIAGNOSIS: Bipolar disorder current episode hypomanic PLAN: There is no dictation for psychiatric hospitalization at this time. Continue Latuda 80 mg daily. There is no indication to resume the antidepressant medications. If her hypomania transitions to candida she would need treatment with a dementia medication such as Depakote or lithium. We'll follow. 12/08/16 08:43
[2016-12-08] MEDS: ENOXAPARIN 40 MG/0.4 ML SYRINGE SQ SCH (09:19)
[2016-12-08] MEDS: DOCUSATE 100 MG CAP PO SCH (21:23)
[2016-12-08] MEDS: LURASIDONE 80 MG TAB PO SCH (21:23)
[2016-12-08] MEDS: ATORVASTATIN 20 MG TAB PO SCH (21:23)
--- NOTE | 2016-12-08 23:15 | PN ---
DATE OF SERVICE: 12/08/2016 PRESENTING COMPLAINT: Pain all over. INTERVAL HISTORY: This is a patient who presented with complaints of pain, particularly to her bilateral lower extremities. Patient does have cellulitis to the bilateral lower extremities, more so on the right than on the left. There is local temperature, edema and redness, mostly circumferentially, to the mid calf of the right leg. There is some redness to the left as well. Patient has ongoing psychoses and schizophrenia, so obtaining information from this patient is very difficult. She has flight of ideas and tangentiality. Psychiatry is following the patient. REVIEW OF SYSTEMS: Unable to obtain secondary to her current clinical condition. PHYSICAL EXAMINATION: VITAL SIGNS: Temperature 96.9, pulse 74, respirations 16, blood pressure 135/89, oxygen saturation 100% on room air. GENERAL APPEARANCE: Patient is pretty happy-appearing. Two nurse aides are assisting the patient at this current time. No acute distress. She is directing people as to what to do, not really following directions from providers. EYES: Pupils equal. Conjunctivae normal. NECK: JVD not raised. Mass not palpable. Lung sounds diminished bilaterally. Clear to the upper lobes. RESPIRATORY: Effort normal. CARDIOVASCULAR: First and second sounds noted. Trace edema to bilateral lower extremities, particularly to the bilateral calves, where redness is noted. ABDOMEN: Soft, nontender. Bowel sounds x4. Liver and spleen not palpable. PSYCHIATRY: Alert and oriented x2 to 3. Mood and affect are psychotic. SKIN: Bilateral lower extremities from about mid calf to the ankle are reddened, blistered, tender to palpation, and this occurs on both equally in the same areas. INVESTIGATIONS: No abnormal labs to report. Venous Doppler study performed negative for DVT. Psychiatry will continue to follow patient. ASSESSMENT: 1. Cellulitis of the left and right lower extremities. Vancomycin will be continued. 2. Active psychosis and paranoid schizophrenia. 3. Hyperlipidemia. 4. Thrombocytopenia. PLAN: Lower extremity Doppler reveals no DVT for the patient. Patient will be continued on IV antibiotics. Daily labs will continue to be drawn. Patient's active psychosis and paranoid schizophrenia will be followed by Psychiatry and her current medication regimen will be continued and/or adjusted as per their management. For hyperlipidemia, will continue with simvastatin. Will continue to follow closely. Patient was seen and examined by nurse practitioner Gloria Bearden, and all elements of the case were discussed with attending, Dr. Steele.
[2016-12-09] MEDS: KETOROLAC 30 MG/ML 1 ML VIAL IVP SCH ×3 (00:45→11:22)
[2016-12-09] MEDS ORDERED: PANTOPRAZOLE 40 MG TABLET PO SCH (07:30)
[2016-12-09] MEDS: LORazepam 0.5 MG TAB PO SCH ×3 (07:45→15:58)
[2016-12-09] MEDS: ENOXAPARIN 40 MG/0.4 ML SYRINGE SQ SCH (07:45)
[2016-12-09 09:31] LABS: Anion Gap 10 mmol/L; Blood Urea Nitrogen 24 mg/dL (7-17); Calcium 9.7 mg/dL (8.4-10.2); Carbon Dioxide 23 mmol/L (22-30); Chloride 105 mmol/L (98-107); Glucose 84 mg/dL (74-99); Non-African American GFR(MDRD) >60 (>60 ml/min/1.73 sqM); Potassium 4.5 mmol/L (3.5-5.1); Sodium 138 mmol/L (137-145)
--- NOTE | 2016-12-09 11:18 | PN ---
DATE OF SERVICE: 12/08/2016 ATTENDING NOTE: This patient seen and examined by me on 12/08/2016. I reviewed the note of my nurse practitioner, Ms. Bearden. Discussed additional findings as below. This patient presented with bilateral lower extremity cellulitis with some edema. Patient is really having flight of ideas, ( ) although she is able to recognize me. On examination, the lower extremity redness just above both the ankles with some tenderness, slight edema is present. Patient is afebrile. ASSESSMENT: 1. Acute bilateral lower extremity cellulitis below the knee above the ankle. 2. Essential hypertension. 3. Chronic neurogenic bladder. 4. Irritable bowel syndrome. 5. Diverticulosis, chronic. 6. Chronic venous stasis. 7. Bipolar disorder with the current episode hypomanic. PLAN: At this time will follow with psychiatric recommendations. Patient will be continued on vancomycin. We will also use Silvadene cream with Kerlix and Fredrick wraps and follow.
[2016-12-09] MEDS: VANCOMYCIN 1,500 MG in SODIUM CHLORIDE 0.9% 250 ML IVPB SCH (13:35)
[2016-12-09 15:15] VITALS: BP 138/89; PULSE 87; RESP 16; TEMP 97.3
[2016-12-10] MEDS ORDERED: VANCOMYCIN TROUGH DUE 1 EACH MISC MISCELLANE ONE (05:00)
--- NOTE | 2016-12-10 09:32 | DS ---
DATE OF ADMISSION: 12/07/2016 DATE OF DISCHARGE: 12/09/2016 FINAL DIAGNOSES: 1. Acute bilateral lower extremity cellulitis below the knee above the ankle, present on admission. 2. Essential hypertension. 3. Chronic neurogenic bladder. 4. Irritable bowel syndrome, chronic. 5. Chronic diverticulosis. 6. Chronic venous stasis lower extremity, bilateral. 7. Bipolar disorder with current episode of hypomania. CONSULTATION: Dr. Starr from psychiatry. HOSPITAL COURSE: This patient presented with cellulitis of both lower extremities. Given Silvadene cream and IV vancomycin. Doing better. Patient up and about in the hallway. Somewhat hypomanic. Dr. Starr said to continue the patient on Latuda. On exam, lungs are clear. CARDIOVASCULAR: First and second sounds normal. Patient is rather cheerful and singing and has been cleared by Dr. Starr to go home. DISCHARGE MEDICATIONS: 1. Tylenol 325 p.o. t.i.d. p.r.n. 2. Colace 200 mg p.o. q.h.s. 3. Vitamin D2, 50,000 units subcu p.o. on Tuesday. 4. Motrin 400 mg p.o. t.i.d. p.r.n. 5. Ativan 0.5 p.o. daily p.r.n. 6. Ativan 0.5 p.o. t.i.d. 7. Zocor 40 mg q.h.s. 8. Latuda 80 mg p.o. q.h.s. 9. Clindamycin 150 mg p.o. q.6 , 20 tablets. 10. Silvadene cream topical b.i.d. with Kerlix and Fredrick wraps twice a day. Follow up with Dr. Andujar in one week. Follow up with psychiatry/Dr. Starr in one week ( ) patient who follows up. Discharge planning more than 35 minutes.
[2016-12-13] MEDS ORDERED: ERGOCALCIFEROL 50,000 UNIT CAP PO SCH (12:00)
== END 2016-12-09 17:31 | disposition home or self-care (01) | DRG 603 ==
LOC: EC 14:21 → 4MS4W 16:45
PROVIDERS: ADMIT Hospitalist; ATTEND Hospitalist
DX: L03.115 Cellulitis of right lower limb (principal); D69.6 Thrombocytopenia, unspecified; F31.0 Bipolar disorder, current episode hypomanic; E78.5 Hyperlipidemia, unspecified; L03.116 Cellulitis of left lower limb; I10 Essential (primary) hypertension; N31.9 Neuromuscular dysfunction of bladder, unspecified; K58.9 Irritable bowel syndrome, unspecified; I87.8 Other specified disorders of veins; K57.90 Diverticulosis of intestine, part unspecified, without perforation or abscess without bleeding; Z90.49 Acquired absence of other specified parts of digestive tract; Z86.73 Personal history of transient ischemic attack (TIA), and cerebral infarction without residual deficits; Z91.14 Patient's other noncompliance with medication regimen; Z79.899 Other long term (current) drug therapy
CPT/HCPCS: 36415; 71020; 80048; 80053; 80306; 81003; 82075; 82550; 82553; 83520; 83880; 84484; 85025; 85610; 85730; 87040; 93005; 93970; 96365; 96366; 96375; 99285

== ENCOUNTER 2016-12-27 21:49 | Emergency (ER) | payer MEDICARE, OTHER ==
[2016-12-27] MEDS ORDERED: KETOROLAC 30 MG/ML 1 ML VIAL IM STA (23:04)
--- NOTE | 2016-12-27 23:11 | ED ---
Back Pain HPI - General Chief Complaint: Back Pain/Injury Stated Complaint: Back Pain Time Seen by Provider: 12/27/16 22:10 Source: patient, RN notes reviewed Limitations: no limitations - History of Present Illness Initial Comments: patient is a 66-year-old female presents emergency room for evaluation of back pain. Patient states she has a history of chronic back pain. Patient states back pain flared up a few days ago. Patient states taking extra strength Tylenol with no relief of symptoms. Patient states his back pain feels similar to her normal flareups. Patient states the pain starts from her lower back and radiates up to her neck. Patient denies paresthesias. Patient denies saddle anesthesia. Patient denies fecal or urinary incontinence. Patient does states she's having swelling and redness of her bilateral legs. Patient states she is already being treated for cellulitis and is currently on Lasix. Patient states she has appointment with her primary care provider for follow-up regarding this next week. Patient states her main concern states her back pain. Patient states Toradol usually helps her back pain and should like to be discharged home. Patient denies fevers or chills. Patient denies chest pain or shortness of breath. Patient denies nausea or vomiting. Patient denies headache or dizziness. - Related Data Home Medications Medication Instructions Recorded Confirmed Acetaminophen Tab [Tylenol] 650 mg PO TID PRN 12/04/16 12/27/16 Docusate [Colace] 200 mg PO HS@209912/04/16 12/27/16 Ergocalciferol [Vitamin D2 50,000 unit PO MO 12/04/16 12/27/16 (DRISDOL)] LORazepam [Ativan] 0.5 mg PO DAILY PRN 12/04/16 12/27/16 LORazepam [Ativan] 0.5 mg PO TID@0800,1200,1600 12/04/16 12/27/16 Simvastatin [Zocor] 40 mg PO HS@209912/04/16 12/27/16 Lurasidone [Latuda] 80 mg PO HS@209912/07/16 12/27/16 Furosemide [Lasix] 20 mg PO QAM@0800 12/27/16 12/27/16 LORazepam [Ativan] 1 mg PO HS 12/27/16 12/27/16 Lurasidone HCl [Latuda] 20 mg PO HS@2100 12/27/16 12/27/16 OXcarbazepine [Trileptal] 300 mg PO BID@0800,2100 12/27/16 12/27/16 Previous Rx's Medication Instructions Recorded Ketorolac [Toradol] 10 mg PO Q6HR PRN 3 Days 12/27/16 Allergies Allergy/AdvReac Type Severity Reaction Status Date / Time haloperidol [From Haldol] Allergy Unknown Verified 12/27/16 21:54 Iodinated Contrast Media - Allergy Unknown Verified 12/27/16 21:54 Oral and [Iodinated Contrast Media - IV Dye] Iodine and Iodide Containing Allergy Unknown Verified 12/27/16 21:54 Produc piperacillin sodium Allergy Unknown Verified 12/27/16 21:54 [From Zosyn] tazobactam sodium Allergy Unknown Verified 12/27/16 21:54 [From Zosyn] venom-honey bee Allergy Unknown Verified 12/27/16 21:54 Review of Systems ROS Statement: Those systems with pertinent positive or pertinent negative responses have been documented in the HPI. ROS Other: All systems not noted in ROS Statement are negative. 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, neurogenic bladder, CHF, cardiomyopathy, lower GI bleed, diverticular disease, IBS, hiatal hernia, esophageal ulcer, poor circulation, venous stasis, bilateral lower leg cellulitis in past, sinus problems, UTIs, back pain, anemia as a teenager History of Any Multi-Drug Resistant Organisms: MRSA Date of last positivie culture/infection: 2008 MDRO Source:: leg Past Surgical History: Adenoidectomy, Appendectomy, Cholecystectomy, Hernia Repair, Hysterectomy, Orthopedic Surgery, Tonsillectomy Additional Past Surgical History / Comment(s): L foot toe with screw, L foot bunionectomy, liver bx, EGD/colonoscopy and benign polypectomy, R inguinal hernia repair, D&C, laparoscopic surgery (?). Past Anesthesia/Blood Transfusion Reactions: No Reported Reaction Past Psychological History: Anxiety, Bipolar, Depression, Panic Disorder, Schizophrenia Smoking Status: Never smoker - Past Family History Sister(s) Family Medical History: Diabetes Mellitus Mother Family Medical History: Diabetes Mellitus Additional Family Medical History / Comment(s): Pt states her mother was healthy. Father Family Medical History: No Reported History Additional Family Medical History / Comment(s): Pt states her father was healthy General Exam - General Exam Comments Initial Comments: sitting in exam room, no acute distress. Limitations: no limitations General appearance: alert, in no apparent distress Head exam: Present: atraumatic, normocephalic, normal inspection Eye exam: Present: normal appearance ENT exam: Present: normal exam Neck exam: Present: normal inspection Respiratory exam: Present: normal lung sounds bilaterally. Absent: respiratory distress Cardiovascular Exam: Present: regular rate, normal rhythm, normal heart sounds Extremities exam: Present: pedal edema (bilateral) Back exam: Present: normal inspection Neurological exam: Present: alert, oriented X3, CN II-XII intact, normal gait Psychiatric exam: Present: normal affect, normal mood Skin exam: Present: warm, dry, intact, normal color Course Vital Signs 12/27/16 12/27/16 21:54 23:22 Temperature 99.1 F 98.2 F Pulse Rate 104 H 80 Respiratory 17 16 Rate Blood Pressure 129/68 122/70 O2 Sat by Pulse 98 97 Oximetry Medical Decision Making - Medical Decision Making patient is a 66-year-old female presents to the emergency room for evaluation of acute on chronic low back pain. Patient requests Toradol for her pain would like to be discharged home. Patient declined any further evaluation regarding bilateral leg edema and cellulitis. Patient states she is already on antibiotics and is on Lasix for the edema. Patient states she's following up with her primary care provider in a few days regarding this issue. Patient states that her symptoms have improved since taking antibiotics. Patient denies any worsening symptoms. Patient has no neuro deficits from back pain. Patient states she understands everything that was discussed with her. Return parameters discussed. Case discussed with Dr. Dumont. Disposition Clinical Impression: Acute exacerbation of chronic low back pain Disposition: HOME SELF-CARE Condition: Good Instructions: Chronic Back Pain (ED) Additional Instructions: Take medications as needed. Please follow up with primary care provider in 1-2 days. If any new symptom arises or symptoms worsen, return to ER as soon as possible. Prescriptions: Ketorolac [Toradol] 10 mg PO Q6HR PRN 3 Days PRN Reason: Pain Referrals: None,Stated [Primary Care Provider] - 1-2 days Time of Disposition: 23:09
[2016-12-27 23:23] VITALS: BP 122/70; PULSE 80; RESP 16; TEMP 98.2
== END 2016-12-27 23:22 | disposition home or self-care (01) ==
LOC: EC 21:49
DX: G89.29 Other chronic pain (principal); M54.5 Low back pain; M54.2 Cervicalgia; R60.0 Localized edema; I11.0 Hypertensive heart disease with heart failure; F41.9 Anxiety disorder, unspecified; F20.9 Schizophrenia, unspecified; F31.9 Bipolar disorder, unspecified; Z79.899 Other long term (current) drug therapy; Z88.0 Allergy status to penicillin; Z88.8 Allergy status to other drugs, medicaments and biological substances; Z91.030 Bee allergy status; Z91.041 Radiographic dye allergy status; Z91.09 Other allergy status, other than to drugs and biological substances; Z87.19 Personal history of other diseases of the digestive system
CPT/HCPCS: 99283; 96372; J1885

== ENCOUNTER 2017-01-01 15:36 | Emergency (ER) | payer MEDICARE, OTHER ==
[2017-01-01 15:53] VITALS: BP 181/79; PULSE 100; RESP 18; TEMP 97.7
--- NOTE | 2017-01-01 16:43 | ED ---
Burn/Smoke HPI - General Chief complaint: Burn/Smoke Inhalation Stated complaint: swollen finger Time Seen by Provider: 01/01/17 15:56 Source: patient, family Mode of arrival: wheelchair Limitations: physical limitation - History of Present Illness Initial comments: 66-year-old female presents to ER with right second digit swelling and pain. Patient states she touched a hot egg when she thinks maybe she burned her tip of her finger. Patient states overnight he got very tender and swollen. Patient states it's and she is in a lot of pain. She has not had any openings or drainage from the area. She did try to soak in warm water. Patient states her tetanus is up-to-date. She was just treated for cellulitis of her lower legs with clindamycin as well. - Related Data Home Medications Medication Instructions Recorded Confirmed Acetaminophen Tab [Tylenol] 650 mg PO TID PRN 12/04/16 01/01/17 Docusate [Colace] 200 mg PO HS@209912/04/16 01/01/17 Ergocalciferol [Vitamin D2 50,000 unit PO MO 12/04/16 01/01/17 (DRISDOL)] LORazepam [Ativan] 0.5 mg PO DAILY PRN 12/04/16 01/01/17 LORazepam [Ativan] 0.5 mg PO TID@0800,1200,1600 12/04/16 01/01/17 Simvastatin [Zocor] 40 mg PO HS@209912/04/16 01/01/17 Lurasidone [Latuda] 80 mg PO HS@209912/07/16 01/01/17 Furosemide [Lasix] 20 mg PO QAM@0800 12/27/16 01/01/17 LORazepam [Ativan] 1 mg PO HS 12/27/16 01/01/17 Lurasidone HCl [Latuda] 20 mg PO HS@209912/27/16 01/01/17 OXcarbazepine [Trileptal] 300 mg PO BID@0800,2100 12/27/16 01/01/17 Meloxicam [Mobic] 15 mg PO DAILY 01/01/17 01/01/17 Previous Rx's Medication Instructions Recorded Ketorolac [Toradol] 10 mg PO Q6HR PRN 3 Days 12/27/16 Sulfamethox-Tmp 800-160Mg [Bactrim 1 tab PO Q12HR #20 tab 01/01/17 DS 800-160 mg] Allergies Allergy/AdvReac Type Severity Reaction Status Date / Time haloperidol [From Haldol] Allergy Unknown Verified 01/01/17 15:53 Iodinated Contrast Media - Allergy Unknown Verified 01/01/17 15:53 Oral and [Iodinated Contrast Media - IV Dye] Iodine and Iodide Containing Allergy Unknown Verified 01/01/17 15:53 Produc piperacillin sodium Allergy Unknown Verified 01/01/17 15:53 [From Zosyn] tazobactam sodium Allergy Unknown Verified 01/01/17 15:53 [From Zosyn] venom-honey bee Allergy Unknown Verified 01/01/17 15:53 Review of Systems ROS Statement: Those systems with pertinent positive or pertinent negative responses have been documented in the HPI. ROS Other: All systems not noted in ROS Statement are negative. 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, neurogenic bladder, CHF, cardiomyopathy, lower GI bleed, diverticular disease, IBS, hiatal hernia, esophageal ulcer, poor circulation, venous stasis, bilateral lower leg cellulitis in past, sinus problems, UTIs, back pain, anemia as a teenager History of Any Multi-Drug Resistant Organisms: MRSA Date of last positivie culture/infection: 2008 MDRO Source:: leg Past Surgical History: Adenoidectomy, Appendectomy, Cholecystectomy, Hernia Repair, Hysterectomy, Orthopedic Surgery, Tonsillectomy Additional Past Surgical History / Comment(s): L foot toe with screw, L foot bunionectomy, liver bx, EGD/colonoscopy and benign polypectomy, R inguinal hernia repair, D&C, laparoscopic surgery (?). Past Anesthesia/Blood Transfusion Reactions: No Reported Reaction Past Psychological History: Anxiety, Bipolar, Depression, Panic Disorder, Schizophrenia Smoking Status: Never smoker - Past Family History Sister(s) Family Medical History: Diabetes Mellitus Mother Family Medical History: Diabetes Mellitus Additional Family Medical History / Comment(s): Pt states her mother was healthy. Father Family Medical History: No Reported History Additional Family Medical History / Comment(s): Pt states her father was healthy General Exam Limitations: physical limitation General appearance: alert, in no apparent distress Head exam: Present: atraumatic, normocephalic, normal inspection Neurological exam: Present: alert, oriented X3, CN II-XII intact Psychiatric exam: Present: normal affect, normal mood Skin exam: Present: dry, intact, normal color (Erythematous right second digit very tender to palpation at the distal end.). Absent: rash Course Vital Signs 01/01/17 15:50 Temperature 97.7 F Pulse Rate 100 Respiratory 18 Rate Blood Pressure 181/79 O2 Sat by Pulse 100 Oximetry Procedures - Incision & Drainage Site: other (right 2nd digit) I&D Cleaning Method: Betadine I&D Drainage Obtained: Pus, Blood, Serous Culture Obtained?: Yes Medical Decision Making - Medical Decision Making Patient take medications as prescribed patient use warm soaks. Patient to follow-up with family doctor for recheck or return sooner if any problems. Disposition Clinical Impression: Paronychia Disposition: HOME SELF-CARE Condition: Good Instructions: Paronychia (ED) Prescriptions: Sulfamethox-Tmp 800-160Mg [Bactrim DS 800-160 mg] 1 tab PO Q12HR #20 tab Referrals: None,Stated [Primary Care Provider] - 1-2 days Teagan Santos MD [STAFF PHYSICIAN] - 1-2 days Time of Disposition: 16:42
--- NOTE | 2017-01-04 05:53 | CDI ---
Documentation Clarification OP Dear Jemal LOUIE MD, Please do addendum for Incision drianed instrument for procedure of I&D.Only drianed material is mentioned. Thank you, Ashley certified medical coder. if you have any questions please contact coding Manger at [phone]. [facility]
== END 2017-01-01 16:47 | disposition home or self-care (01) ==
LOC: EC 15:36
DX: L03.011 Cellulitis of right finger (principal); I11.0 Hypertensive heart disease with heart failure; I50.9 Heart failure, unspecified; F03.90 Unspecified dementia, unspecified severity, without behavioral disturbance, psychotic disturbance, mood disturbance, and anxiety; F31.9 Bipolar disorder, unspecified; F41.0 Panic disorder [episodic paroxysmal anxiety]; F20.9 Schizophrenia, unspecified; Z86.14 Personal history of Methicillin resistant Staphylococcus aureus infection; Z91.041 Radiographic dye allergy status; Z88.8 Allergy status to other drugs, medicaments and biological substances; Z91.030 Bee allergy status; Z79.1 Long term (current) use of non-steroidal anti-inflammatories (NSAID); Z79.899 Other long term (current) drug therapy
CPT/HCPCS: 10060; 87070; 87077; 87186; 87205; 99283

== ENCOUNTER 2017-01-04 10:45 | Emergency (ER) | payer MEDICARE, OTHER ==
--- NOTE | 2017-01-04 11:24 | ED ---
Recheck HPI - General Chief Complaint: Recheck/Abnormal Lab/Rx Stated Complaint: skin abcess Time Seen by Provider: 01/04/17 11:01 Source: patient, RN notes reviewed Mode of arrival: ambulatory Limitations: physical limitation - History of Present Illness Initial Comments: Patient is 66-year-old female presents to the emergency room for evaluation of right third digit infection. Patient states she was here a few days ago for a paronychia. Patient states that it was drained and she was sent home with antibiotics. Patient states that her finger has gotten increasingly swollen. Patient states she looked like she has pus on the top and bottom of her finger now. Patient states she can't touch her finger without pain. Patient states she has taking her antibiotics as directed. Patient states she was told today that her cultures resulted back positive for MRSA. Patient denies fevers or chills. - Related Data Home Medications Medication Instructions Recorded Confirmed Acetaminophen Tab [Tylenol] 650 mg PO TID PRN 12/04/16 01/04/17 Docusate [Colace] 200 mg PO HS@209912/04/16 01/04/17 Ergocalciferol [Vitamin D2 50,000 unit PO MO 12/04/16 01/04/17 (DRISDOL)] LORazepam [Ativan] 0.5 mg PO DAILY PRN 12/04/16 01/04/17 LORazepam [Ativan] 0.5 mg PO TID@0800,1200,1600 12/04/16 01/04/17 Simvastatin [Zocor] 40 mg PO HS@209912/04/16 01/04/17 Lurasidone [Latuda] 80 mg PO HS@209912/07/16 01/04/17 LORazepam [Ativan] 1 mg PO HS 12/27/16 01/04/17 Lurasidone HCl [Latuda] 20 mg PO HS@209912/27/16 01/04/17 OXcarbazepine [Trileptal] 300 mg PO BID@0800,209912/27/16 01/04/17 Meloxicam [Mobic] 15 mg PO DAILY 01/01/17 01/04/17 Furosemide [Lasix] 40 mg PO DAILY 01/04/17 01/04/17 Potassium Chloride [Klor-Con 10] 10 meq PO DAILY 01/04/17 01/04/17 Previous Rx's Medication Instructions Recorded Sulfamethox-Tmp 800-160Mg [Bactrim 1 tab PO Q12HR #20 tab 01/01/17 DS 800-160 mg] HYDROcodone/APAP 5-325MG [[place] 1 tab PO Q6HR PRN #12 tab 01/04/17 5-325] Sulfamethox-Tmp 800-160Mg [Bactrim 2 each PO Q12HR #56 tab 01/04/17 Ds] Allergies Allergy/AdvReac Type Severity Reaction Status Date / Time haloperidol [From Haldol] Allergy Unknown Verified 01/04/17 11:27 Iodinated Contrast Media - Allergy Unknown Verified 01/04/17 11:27 Oral and [Iodinated Contrast Media - IV Dye] Iodine and Iodide Containing Allergy Unknown Verified 01/04/17 11:27 Produc piperacillin sodium Allergy Unknown Verified 01/04/17 11:27 [From Zosyn] tazobactam sodium Allergy Unknown Verified 01/04/17 11:27 [From Zosyn] venom-honey bee Allergy Unknown Verified 01/04/17 11:27 Review of Systems ROS Statement: Those systems with pertinent positive or pertinent negative responses have been documented in the HPI. ROS Other: All systems not noted in ROS Statement are negative. 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, neurogenic bladder, CHF, cardiomyopathy, lower GI bleed, diverticular disease, IBS, hiatal hernia, esophageal ulcer, poor circulation, venous stasis, bilateral lower leg cellulitis in past, sinus problems, UTIs, back pain, anemia as a teenager History of Any Multi-Drug Resistant Organisms: MRSA Date of last positivie culture/infection: 01/01/17 MDRO Source:: finger Past Surgical History: Adenoidectomy, Appendectomy, Cholecystectomy, Hernia Repair, Hysterectomy, Orthopedic Surgery, Tonsillectomy Additional Past Surgical History / Comment(s): L foot toe with screw, L foot bunionectomy, liver bx, EGD/colonoscopy and benign polypectomy, R inguinal hernia repair, D&C, laparoscopic surgery (?). Past Anesthesia/Blood Transfusion Reactions: No Reported Reaction Past Psychological History: Anxiety, Bipolar, Depression, Panic Disorder, Schizophrenia Smoking Status: Never smoker Past Alcohol Use History: None Reported Past Drug Use History: None Reported - Past Family History Sister(s) Family Medical History: Diabetes Mellitus Mother Family Medical History: Diabetes Mellitus Additional Family Medical History / Comment(s): Pt states her mother was healthy. Father Family Medical History: No Reported History Additional Family Medical History / Comment(s): Pt states her father was healthy General Exam - General Exam Comments Initial Comments: Sitting in exam room, no acute distress. Limitations: physical limitation General appearance: alert, in no apparent distress Head exam: Present: atraumatic, normocephalic, normal inspection Eye exam: Present: normal appearance ENT exam: Present: normal exam Neck exam: Present: normal inspection Respiratory exam: Absent: respiratory distress Right Hand Wrist exam: Present: tenderness (third finger), swelling (third finger), erythema (third finger), other (Puss formation over nail bed and over the digital pulp with surrounding swelling and erythema.) Neuro motor exam: Present: wrist extension intact, thumb opposition intact Vascular: Present: radial pulse (2+), ulnar pulse (2+) Back exam: Present: normal inspection Neurological exam: Present: alert, oriented X3, CN II-XII intact Psychiatric exam: Present: normal affect, normal mood Skin exam: Present: warm, dry Course Vital Signs 01/04/17 10:48 Temperature 98.1 F Pulse Rate 100 Respiratory 20 Rate Blood Pressure 132/64 O2 Sat by Pulse 98 Oximetry Procedures - Incision & Drainage Consent Obtained: verbal consent Site: other (right third finger, paronychia and felon) Size (cm): 1 Anesthetic Used: lidocaine 1% Amount (mLs): 8 I&D Cleaning Method: Betadine Sterile Field Used?: No Scalpel Used: #11 I&D Drainage Obtained: Blood Culture Obtained?: No Patient Tolerated Procedure: well, no complications - Nerve Block Consent Obtained: verbal consent Local Anesthetic Used: Lidocaine 1% Amount of anesthesia used: 8 Side: right Nerve Blocks: digital (right third digit) Procedure Successful: Yes Patient Tolerated Procedure: well, no complications Medical Decision Making - Medical Decision Making Patient is 66-year-old female presents to the emergency room for evaluation of right third digit infection. Patient was originally here on 01/01/17 for infected paronychia. Patient had the area incised and drained. Patient states symptoms are worse so she returned. Patient has plus formation along the nailbed along with digital pulp abscess formation. Paronychia was incised and drained with an 11 blade. Digital pulp abscess was also incised and drained with an 11 blade. Patient's finger was soaked in antibacterial soap and water afterwards for 15 minutes. Patient's prescription switched to 2 tabs of Bactrim twice a day from 1 tablet Bactrim twice a day. Patient was also sent home with pain medications. Advised patient and caregiver the importance of following up with primary care provider in 24 hours for reevaluation of the finger. Advised the patient to return for any increased swelling or pain. Patient states she understands everything that was discussed with her. Return parameters discussed. Case discussed with Dr. Forte. Disposition Clinical Impression: Paronychia of finger, Felon of finger Disposition: HOME SELF-CARE Condition: Good Instructions: Paronychia (ED) Additional Instructions: Soak finger in warm water with antibacterial soap, 3 times a day for 15 minutes at a time. Take antibiotics as directed. Please follow up with primary care provider in 1-2 days for reevaluation. If any new symptom arises or symptoms worsen, return to ER as soon as possible. Prescriptions: HYDROcodone/APAP 5-325MG [[place] 5-325] 1 tab PO Q6HR PRN #12 tab PRN Reason: Pain Sulfamethox-Tmp 800-160Mg [Bactrim Ds] 2 each PO Q12HR #56 tab Referrals: None,Stated [Primary Care Provider] - 1-2 days Time of Disposition: 11:55
[2017-01-04] MEDS ORDERED: SULFAMETHOX-TMP 800-160MG 1 EACH TAB PO STA (11:57)
[2017-01-04] MEDS ORDERED: HYDROcodone/APAP 5-325MG 1 EACH TAB PO STA (12:11)
[2017-01-04 12:25] VITALS: BP 131/73; PULSE 85; RESP 18; TEMP 97.9
== END 2017-01-04 12:43 | disposition home or self-care (01) ==
LOC: EC 10:45
DX: L03.011 Cellulitis of right finger (principal); I50.9 Heart failure, unspecified; F31.9 Bipolar disorder, unspecified; F41.9 Anxiety disorder, unspecified; Z86.73 Personal history of transient ischemic attack (TIA), and cerebral infarction without residual deficits; Z86.14 Personal history of Methicillin resistant Staphylococcus aureus infection; Z79.1 Long term (current) use of non-steroidal anti-inflammatories (NSAID); Z79.899 Other long term (current) drug therapy; Z88.1 Allergy status to other antibiotic agents; Z88.8 Allergy status to other drugs, medicaments and biological substances; Z91.030 Bee allergy status; Z91.041 Radiographic dye allergy status
CPT/HCPCS: 10060; 99282

== ENCOUNTER 2017-01-29 01:34 | Emergency (ER) | payer MEDICARE, OTHER ==
[2017-01-29 01:54] VITALS: RESP 18; TEMP 98.5
[2017-01-29] MEDS ORDERED: KETOROLAC 60 MG/2 ML VIAL IM STA (03:15)
--- NOTE | 2017-01-29 03:15 | ED ---
General Adult HPI - General Chief complaint: Extremity Problem,Nontraumatic Time Seen by Provider: 01/29/17 03:03 Source: EMS, RN notes reviewed Mode of arrival: EMS Limitations: no limitations - History of Present Illness Initial comments: 66-year-old female presents emergency room chief complaint of chronic back pain. Patient states she suffers from chronic back pain and she takes Tylenol and Motrin at home for the pain. Patient states that a reasonable she moves her legs she has pain. Patient states she's going physical therapy for this. Patient states that her legs sometimes have a odd sensation that will come and go. Patient states she can feel you touch her legs and it causes her discomfort. Patient states that she wants her caregiver to give her 2 500 mg of Tylenol every 4 hours and she will not and this upsets her. Patient denies any loss of bowel or bladder function with this. Patient states that she feels as if she needs something more for her pain at home and she wants her pain addressed. Patient states that she can move her legs just causes her discomfort so she's saying that they are numb and she is not able to move them. Patient denies any recent fever, chills, shortness of breath, chest pain, abdominal pain, nausea vomiting, numbness or tingling, dysuria or hematuria, constipation or diarrhea, headaches or visual changes, or any other current symptoms. - Related Data Home Medications Medication Instructions Recorded Confirmed Acetaminophen Tab [Tylenol] 650 mg PO TID PRN 12/04/16 01/04/17 Docusate [Colace] 200 mg PO HS@209912/04/16 01/04/17 Ergocalciferol [Vitamin D2 50,000 unit PO MO 12/04/16 01/04/17 (DRISDOL)] LORazepam [Ativan] 0.5 mg PO DAILY PRN 12/04/16 01/04/17 LORazepam [Ativan] 0.5 mg PO TID@0800,1200,1600 12/04/16 01/04/17 Simvastatin [Zocor] 40 mg PO HS@209912/04/16 01/04/17 Lurasidone [Latuda] 80 mg PO HS@209912/07/16 01/04/17 LORazepam [Ativan] 1 mg PO HS 12/27/16 01/04/17 Lurasidone HCl [Latuda] 20 mg PO HS@2100 12/27/16 01/04/17 OXcarbazepine [Trileptal] 300 mg PO BID@0800,2100 12/27/16 01/04/17 Meloxicam [Mobic] 15 mg PO DAILY 01/01/17 01/04/17 Furosemide [Lasix] 40 mg PO DAILY 01/04/17 01/04/17 Potassium Chloride [Klor-Con 10] 10 meq PO DAILY 01/04/17 01/04/17 Previous Rx's Medication Instructions Recorded Sulfamethox-Tmp 800-160Mg [Bactrim 1 tab PO Q12HR #20 tab 01/01/17 DS 800-160 mg] HYDROcodone/APAP 5-325MG [Wallace 1 tab PO Q6HR PRN #12 tab 01/04/17 5-325] Sulfamethox-Tmp 800-160Mg [Bactrim 2 each PO Q12HR #56 tab 01/04/17 Ds] Allergies Allergy/AdvReac Type Severity Reaction Status Date / Time haloperidol [From Haldol] Allergy Unknown Verified 01/29/17 01:54 Iodinated Contrast- Oral and Allergy Unknown Verified 01/29/17 01:54 IV Dye [Iodinated Contrast Media - IV Dye] Iodine and Iodide Containing Allergy Unknown Verified 01/29/17 01:54 Produc piperacillin sodium Allergy Unknown Verified 01/29/17 01:54 [From Zosyn] tazobactam sodium Allergy Unknown Verified 01/29/17 01:54 [From Zosyn] venom-honey bee Allergy Unknown Verified 01/29/17 01:54 Review of Systems ROS Statement: Those systems with pertinent positive or pertinent negative responses have been documented in the HPI. ROS Other: All systems not noted in ROS Statement are negative. 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, neurogenic bladder, CHF, cardiomyopathy, lower GI bleed, diverticular disease, IBS, hiatal hernia, esophageal ulcer, poor circulation, venous stasis, bilateral lower leg cellulitis in past, sinus problems, UTIs, back pain, anemia as a teenager History of Any Multi-Drug Resistant Organisms: MRSA Date of last positivie culture/infection: 01/01/17 MDRO Source:: finger Past Surgical History: Adenoidectomy, Appendectomy, Cholecystectomy, Hernia Repair, Hysterectomy, Orthopedic Surgery, Tonsillectomy Additional Past Surgical History / Comment(s): L foot toe with screw, L foot bunionectomy, liver bx, EGD/colonoscopy and benign polypectomy, R inguinal hernia repair, D&C, laparoscopic surgery (?). Past Anesthesia/Blood Transfusion Reactions: No Reported Reaction Past Psychological History: Anxiety, Bipolar, Depression, Panic Disorder, Schizophrenia Smoking Status: Never smoker Past Alcohol Use History: None Reported Past Drug Use History: None Reported - Past Family History Sister(s) Family Medical History: Diabetes Mellitus Mother Family Medical History: Diabetes Mellitus Additional Family Medical History / Comment(s): Pt states her mother was healthy. Father Family Medical History: No Reported History Additional Family Medical History / Comment(s): Pt states her father was healthy General Exam Limitations: no limitations General appearance: alert, in no apparent distress Head exam: Present: atraumatic, normocephalic, normal inspection ENT exam: Present: normal exam, mucous membranes moist Neck exam: Present: normal inspection. Absent: tenderness, meningismus, lymphadenopathy Respiratory exam: Present: normal lung sounds bilaterally. Absent: respiratory distress, wheezes, rales, rhonchi, stridor Cardiovascular Exam: Present: regular rate, normal rhythm, normal heart sounds. Absent: systolic murmur, diastolic murmur, rubs, gallop, clicks Extremities exam: Present: normal inspection, full ROM, normal capillary refill. Absent: tenderness, pedal edema, joint swelling, calf tenderness Back exam: Present: normal inspection Neurological exam: Present: alert, oriented X3 Psychiatric exam: Present: normal affect, normal mood Skin exam: Present: warm, dry, intact, normal color. Absent: rash Course Vital Signs 01/29/17 01/29/17 01:44 03:29 Temperature 98.5 F Pulse Rate 76 100 Respiratory 18 18 Rate Blood Pressure 137/65 142/63 O2 Sat by Pulse 100 100 Oximetry - Reevaluation(s) Reevaluation #1: 01/29/17 03:40 Patient was able to transfer to bedside commode and returned to bed. Medical Decision Making - Medical Decision Making 66-year-old female presents for her chronic back pain. Patient is able to move the legs in the room and this is witnessed. Patient has no sensation deficits. At this time we did give the patient medication for back pain. We discussed that she needs follow-up with her doctor we discussed return parameters all questions. We discussed that she cannot take it thousand milligrams of Tylenol every 4 hours and will hurt her liver. Patient stated that she understood and she is this plan. All questions have been answered at this time. Disposition Clinical Impression: Chronic back pain Disposition: HOME SELF-CARE Condition: Stable Instructions: Chronic Back Pain (ED) Additional Instructions: Please use medication as discussed. Please follow up with family doctor if symptoms have not improved over the next two days. Please return to the emergency room if your symptoms increase or worsen or for any other concerns. Referrals: Washington Jose DO [Primary Care Provider] - 1-2 days Time of Disposition: 03:40
[2017-01-29 03:30] VITALS: BP 142/63; PULSE 100
== END 2017-01-29 04:16 | disposition home or self-care (01) ==
LOC: EC 01:34
DX: G89.29 Other chronic pain (principal); M54.9 Dorsalgia, unspecified; I11.0 Hypertensive heart disease with heart failure; I50.9 Heart failure, unspecified; F41.9 Anxiety disorder, unspecified; F31.9 Bipolar disorder, unspecified; Z86.14 Personal history of Methicillin resistant Staphylococcus aureus infection; Z86.73 Personal history of transient ischemic attack (TIA), and cerebral infarction without residual deficits; Z79.899 Other long term (current) drug therapy; Z79.1 Long term (current) use of non-steroidal anti-inflammatories (NSAID); Z88.1 Allergy status to other antibiotic agents; Z88.8 Allergy status to other drugs, medicaments and biological substances; Z91.030 Bee allergy status; Z91.041 Radiographic dye allergy status
CPT/HCPCS: 99283; 96372; J1885

== ENCOUNTER 2017-02-01 12:25 | Emergency (ER) | payer MEDICARE, OTHER ==
--- NOTE | 2017-02-01 13:04 | ED ---
General Adult HPI - General Chief complaint: Extremity Problem,Nontraumatic Stated complaint: Toe Pain Time Seen by Provider: 02/01/17 12:55 Source: patient, RN notes reviewed Mode of arrival: ambulatory Limitations: physical limitation - History of Present Illness Initial comments: 66-year-old female presents to the emergency department with a chief complaint of left big toe pain. Patient states that she had a screw placed her toe in the past due to a deformity from her stroke. Patient states that over the last day she's noticed some swelling there is radiation of her toes so she was concerned. Patient denies any fever chills with this. Patient states she doesn 't remember hitting her toe or any trauma to the toe. Patient denies any cough cold or runny nose. Pain is moderate worse to wearing shoes. Worse to walking. No radiation. Patient was concerned due to her toe injury so she thought that she should be evaluated.Patient denies any recent fever, chills, shortness of breath, chest pain, back pain, abdominal pain, nausea vomiting, numbness or tingling, dysuria or hematuria, constipation or diarrhea, headaches or visual changes, or any other current symptoms. - Related Data Home Medications Medication Instructions Recorded Confirmed Acetaminophen Tab [Tylenol] 650 mg PO TID PRN 12/04/16 01/04/17 Docusate [Colace] 200 mg PO HS@209912/04/16 01/04/17 Ergocalciferol [Vitamin D2 50,000 unit PO MO 12/04/16 01/04/17 (DRISDOL)] LORazepam [Ativan] 0.5 mg PO DAILY PRN 12/04/16 01/04/17 LORazepam [Ativan] 0.5 mg PO TID@0800,1200,1600 12/04/16 01/04/17 Simvastatin [Zocor] 40 mg PO HS@209912/04/16 01/04/17 Lurasidone [Latuda] 80 mg PO HS@209912/07/16 01/04/17 LORazepam [Ativan] 1 mg PO HS 12/27/16 01/04/17 Lurasidone HCl [Latuda] 20 mg PO HS@209912/27/16 01/04/17 OXcarbazepine [Trileptal] 300 mg PO BID@0800,209912/27/16 01/04/17 Meloxicam [Mobic] 15 mg PO DAILY 01/01/17 01/04/17 Furosemide [Lasix] 40 mg PO DAILY 01/04/17 01/04/17 Potassium Chloride [Klor-Con 10] 10 meq PO DAILY 01/04/17 01/04/17 Previous Rx's Medication Instructions Recorded Sulfamethox-Tmp 800-160Mg [Bactrim 1 tab PO Q12HR #20 tab 01/01/17 DS 800-160 mg] HYDROcodone/APAP 5-325MG [[place]ois 1 tab PO Q6HR PRN #12 tab 01/04/17 5-325] Sulfamethox-Tmp 800-160Mg [Bactrim 2 each PO Q12HR #56 tab 01/04/17 Ds] Allergies Allergy/AdvReac Type Severity Reaction Status Date / Time haloperidol [From Haldol] Allergy Unknown Verified 02/01/17 12:53 Iodinated Contrast- Oral and Allergy Unknown Verified 02/01/17 12:53 IV Dye [Iodinated Contrast Media - IV Dye] Iodine and Iodide Containing Allergy Unknown Verified 02/01/17 12:53 Produc piperacillin sodium Allergy Unknown Verified 02/01/17 12:53 [From Zosyn] tazobactam sodium Allergy Unknown Verified 02/01/17 12:53 [From Zosyn] venom-honey bee Allergy Unknown Verified 02/01/17 12:53 Review of Systems ROS Statement: Those systems with pertinent positive or pertinent negative responses have been documented in the HPI. ROS Other: All systems not noted in ROS Statement are negative. 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, neurogenic bladder, CHF, cardiomyopathy, lower GI bleed, diverticular disease, IBS, hiatal hernia, esophageal ulcer, poor circulation, venous stasis, bilateral lower leg cellulitis in past, sinus problems, UTIs, back pain, anemia as a teenager History of Any Multi-Drug Resistant Organisms: MRSA Date of last positivie culture/infection: 01/01/17 MDRO Source:: finger Past Surgical History: Adenoidectomy, Appendectomy, Cholecystectomy, Hernia Repair, Hysterectomy, Orthopedic Surgery, Tonsillectomy Additional Past Surgical History / Comment(s): L foot toe with screw, L foot bunionectomy, liver bx, EGD/colonoscopy and benign polypectomy, R inguinal hernia repair, D&C, laparoscopic surgery (?). Past Anesthesia/Blood Transfusion Reactions: No Reported Reaction Past Psychological History: Anxiety, Bipolar, Depression, Panic Disorder, Schizophrenia Smoking Status: Never smoker Past Alcohol Use History: None Reported Past Drug Use History: None Reported - Past Family History Sister(s) Family Medical History: Diabetes Mellitus Mother Family Medical History: Diabetes Mellitus Additional Family Medical History / Comment(s): Pt states her mother was healthy. Father Family Medical History: No Reported History Additional Family Medical History / Comment(s): Pt states her father was healthy General Exam - General Exam Comments Initial Comments: General: The patient is awake and alert, in no distress, and does not appear acutely ill. Neck: The neck is supple, there is no tenderness . Cardiovascular: There is a regular rate and rhythm. No murmur, rub or gallop is appreciated. Respiratory: Lungs are clear to auscultation, respirations are non-labored, breath sounds are equal. No wheezes, stridor, rales, or rhonchi. Musculoskeletal: Sensation intact with 2+ pulses throughout the left lower side. Full range of motion of the left ankle. Patient has full range motion left foot and all digits there is appeared be an angulation outward left great toe that does appear to be chronic with a callus going to the toe. She does have diffuse tenderness to palpation of the left great toe. Neurological: CN II-XII intact, There are no obvious motor or sensory deficits. Coordination appears grossly intact. Speech is normal. Skin: Skin is warm and dry and no rashes or lesions are noted. Psychiatric: Normal mood and affect. Limitations: physical limitation Course Vital Signs 02/01/17 12:51 Temperature 97.7 F Pulse Rate 80 Respiratory 15 Rate Blood Pressure 140/70 O2 Sat by Pulse 98 Oximetry Medical Decision Making - Medical Decision Making 66-year-old female presents for left toe pain. At this time patient's x-ray is reviewed. 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 She was given a discomfort home. We did discuss continuing her pain medication at home. Patient states that she understood and she is negative plan. She will be discharged. - Radiology Data Radiology results: report reviewed, image reviewed Disposition Clinical Impression: Toe pain, left Disposition: HOME SELF-CARE Condition: Stable Instructions: Arthralgia (ED) Additional Instructions: Please use medication as discussed. Please follow up with family doctor if symptoms have not improved over the next two days. Please return to the emergency room if your symptoms increase or worsen or for any other concerns. 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
--- NOTE | 2017-02-01 13:39 | XR ---
First digit left foot HISTORY: Pain 3 views of the first digit of the left foot No comparisons Patient is status post fusion of the interphalangeal joint of the first digit of the left foot. Bone mineralization is reduced. There is soft tissue swelling present. Degenerative changes, hallux valgus deformity present at the metatarsophalangeal joint. IMPRESSION: Postop changes and osteopenia, additional findings above
[2017-02-01 13:56] VITALS: BP 138/72; PULSE 65; RESP 16; TEMP 98
== END 2017-02-01 13:50 | disposition home or self-care (01) ==
LOC: EC 12:25
DX: M79.675 Pain in left toe(s) (principal); M79.89 Other specified soft tissue disorders; I50.9 Heart failure, unspecified; F41.9 Anxiety disorder, unspecified; F20.9 Schizophrenia, unspecified; F31.9 Bipolar disorder, unspecified; Z79.1 Long term (current) use of non-steroidal anti-inflammatories (NSAID); Z79.899 Other long term (current) drug therapy; Z88.0 Allergy status to penicillin; Z88.8 Allergy status to other drugs, medicaments and biological substances; Z91.030 Bee allergy status; Z91.041 Radiographic dye allergy status; Z87.39 Personal history of other diseases of the musculoskeletal system and connective tissue; Z98.890 Other specified postprocedural states
CPT/HCPCS: 99283

== ENCOUNTER 2017-03-10 10:27 | Emergency (ER) | payer MEDICARE, OTHER ==
[2017-03-10 11:04] VITALS: TEMP 97.3
--- NOTE | 2017-03-10 12:29 | XR ---
EXAMINATION TYPE: XR Hip RT and AP Pelvis DATE OF EXAM: 03/10/2017 COMPARISON: NONE HISTORY: Pain TECHNIQUE: A single AP view of the pelvis is obtained. Two views of the right hip are obtained. FINDINGS: Hypertrophic changes involving the iliac crests are noted and there is arthropathy of the hips with f indings suggestive of femoral acetabular impingement. Osteitis pubis condensans noted. Degenerative c hange of the spine. A deformity of the subcapital region of the right femoral neck suspicious for fracture. Additionally appears be a lucency through the acetabulum Two views of right hip show a deformity of the subcapital region of the right femoral neck suspicious for fracture. Additionally appears be a lucency through the acetabulum. IMPRESSION: 1. Findings suspicious for subcapital fracture of the hip with possible fracture involving the anteri or column of the acetabulum. Recommend CT scan of the right hip for confirmation.
--- NOTE | 2017-03-10 12:32 | ED ---
Fall HPI - General Source: patient Mode of arrival: wheelchair <Jennifer Shepherd - Last Filed: 03/11/17 13:16> <Jemal Hernadez - Last Filed: 03/13/17 06:04> - General Chief Complaint: Fall Stated Complaint: fall Time Seen by Provider: 03/10/17 11:11 - History of Present Illness Initial Comments: This is a 66-year-old female well-known to the emergency Department chief complaint of right hip pain. Patient reports that she was walking, tripped and fell on her bottom 2 days ago. Patient reports that she's been able to walk since then but it has been increasingly painful. Patient came here for an x- ray to ensure there is no fracture. Denies any difficulty with urination or bowel movements. Denies a specific back pain. Patient reports that she continue to have a bruise over her bottom. Patient denies any difficulty with walking. (Jennifer Shepherd) - Related Data Home Medications Medication Instructions Recorded Confirmed Acetaminophen Tab [Tylenol] 650 mg PO TID PRN 12/04/16 03/10/17 Docusate [Colace] 200 mg PO HS@209912/04/16 03/10/17 Ergocalciferol [Vitamin D2 50,000 unit PO MO 12/04/16 03/10/17 (DRISDOL)] LORazepam [Ativan] 0.5 mg PO BID@0800,1300 12/04/16 03/10/17 LORazepam [Ativan] 0.5 mg PO DAILY PRN 12/04/16 03/10/17 Simvastatin [Zocor] 40 mg PO HS@209912/04/16 03/10/17 Lurasidone [Latuda] 80 mg PO HS@209912/07/16 03/10/17 LORazepam [Ativan] 1 mg PO HS 12/27/16 03/10/17 Lurasidone HCl [Latuda] 20 mg PO HS@209912/27/16 03/10/17 OXcarbazepine [Trileptal] 300 mg PO BID@0800,2100 12/27/16 03/10/17 Meloxicam [Mobic] 15 mg PO DAILY 01/01/17 03/10/17 Furosemide [Lasix] 40 mg PO DAILY 01/04/17 03/10/17 Potassium Chloride [Klor-Con 10] 10 meq PO DAILY 01/04/17 03/10/17 Allergies Allergy/AdvReac Type Severity Reaction Status Date / Time haloperidol [From Haldol] Allergy Unknown Verified 03/10/17 11:25 Iodinated Contrast- Oral and Allergy Unknown Verified 03/10/17 11:25 IV Dye [Iodinated Contrast Media - IV Dye] Iodine and Iodide Containing Allergy Unknown Verified 03/10/17 11:25 Produc piperacillin sodium Allergy Unknown Verified 03/10/17 11:25 [From Zosyn] tazobactam sodium Allergy Unknown Verified 03/10/17 11:25 [From Zosyn] venom-honey bee Allergy Unknown Verified 03/10/17 11:25 Review of Systems ROS Other: All systems not noted in ROS Statement are negative. <Jennifer Shehperd - Last Filed: 03/11/17 13:16> ROS Other: All systems not noted in ROS Statement are negative. <Jemal Hernadez - Last Filed: 03/13/17 06:04> ROS Statement: Those systems with pertinent positive or pertinent negative responses have been documented in the HPI. 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, neurogenic bladder, CHF, cardiomyopathy, lower GI bleed, diverticular disease, IBS, hiatal hernia, esophageal ulcer, poor circulation, venous stasis, bilateral lower leg cellulitis in past, sinus problems, UTIs, back pain, anemia as a teenager History of Any Multi-Drug Resistant Organisms: MRSA Date of last positivie culture/infection: 01/01/17 MDRO Source:: finger Past Surgical History: Adenoidectomy, Appendectomy, Cholecystectomy, Hernia Repair, Hysterectomy, Orthopedic Surgery, Tonsillectomy Additional Past Surgical History / Comment(s): L foot toe with screw, L foot bunionectomy, liver bx, EGD/colonoscopy and benign polypectomy, R inguinal hernia repair, D&C, laparoscopic surgery (?). Past Anesthesia/Blood Transfusion Reactions: No Reported Reaction Past Psychological History: Anxiety, Bipolar, Depression, Panic Disorder, Schizophrenia Smoking Status: Never smoker Past Alcohol Use History: None Reported Past Drug Use History: None Reported - Past Family History Sister(s) Family Medical History: Diabetes Mellitus Mother Family Medical History: Diabetes Mellitus Additional Family Medical History / Comment(s): Pt states her mother was healthy. Father Family Medical History: No Reported History Additional Family Medical History / Comment(s): Pt states her father was healthy <Jennifer Shepherd - Last Filed: 03/11/17 13:16> General Exam Limitations: no limitations General appearance: alert, in no apparent distress Head exam: Present: atraumatic, normocephalic, normal inspection Eye exam: Present: normal appearance, PERRL, EOMI. Absent: scleral icterus, conjunctival injection, periorbital swelling ENT exam: Present: normal exam, mucous membranes moist Neck exam: Present: normal inspection. Absent: tenderness, meningismus, lymphadenopathy Respiratory exam: Present: normal lung sounds bilaterally. Absent: respiratory distress, wheezes, rales, rhonchi, stridor Cardiovascular Exam: Present: regular rate, normal rhythm, normal heart sounds. Absent: systolic murmur, diastolic murmur, rubs, gallop, clicks GI/Abdominal exam: Present: soft, normal bowel sounds. Absent: distended, tenderness, guarding, rebound, rigid Extremities exam: Present: normal inspection, full ROM, normal capillary refill. Absent: tenderness, pedal edema, joint swelling, calf tenderness Right Hip exam: Present: normal inspection, full ROM (Patient is full range of motion of the hip. Patient reports her some mild tenderness over the lateral aspect of the hip the IT band.) Upper Leg exam: Present: normal inspection, full ROM Knee exam: Present: normal inspection, full ROM Lower Leg exam: Present: normal inspection, full ROM Neurovascular tendon exam: Present: no vascular compromise Gait: observed and normal Back exam: Present: normal inspection Neurological exam: Present: alert, oriented X3, CN II-XII intact Psychiatric exam: Present: normal affect, normal mood Skin exam: Present: warm, dry, intact, normal color. Absent: rash <Jennifer Shepherd - Last Filed: 03/11/17 13:16> <Jemal Hernadez - Last Filed: 03/13/17 06:04> - General Exam Comments Initial Comments: Well-appearing 66-year-old female. No acute distress. (Jennifer Shepherd) Medical Decision Making - Radiology Data Radiology results: report reviewed <Jennifer Shepherd - Last Filed: 03/11/17 13:16> <Jemal Hernadez - Last Filed: 03/13/17 06:04> - Medical Decision Making 66-year-old female chief complaint of a fall 2 days ago and some right hip pain. Patient is ambulatory in the emergency department and walking around and having no difficulty with walking. She has full range of motion of the hip. Patient received a hip x-ray there is questionable subcapital fracture or acetabular fracture. Recommended a computed tomography scan. Computed tomography scan was performed. There is questionable of constipation over L labral ligament or could possibly be a minimally displaced lip of the acetabulum fracture. Discussed case with Dr. Matthews. He also examined the patient. Patient wants to go home at this time and is in the hallway trying to get discharge. Patient with the results and could be the calcified ligament or questionable fracture. Patient poor she still wants to go home. Patient be given a referral for orthopedic. She is ambulatory and can walk and has full range of motion of the hip. Dr. HERNADEZ agrees with discharge. Return parameters were discussed. (Jennifer Shepherd) 66 yo female with acute right hip pain. Patient is able Toradol without difficulty. No gait abnormalities. CT results are discussed with the patient. She is agreeable with outpatient orthopedic follow-up. (Jemal Hernadez) - Radiology Data Chest x-ray shows no acute cardiopulmonary process. Possible left diaphragmatic hernia appears to be similar to prior. CT of the HIP shows no evidence of subcu capitulum fracture. Degenerative change. Ossific fragment adjacent to the anterior superior acetabulum may represent a calcified labral fragment or minimally displaced fracture of the lip of the acetabulum. X-ray of the hip shows suspicious for a subcapital fracture of the hip with possible fracture involving the anterior, the acetabulum. Recommended computed tomography scan for further right hip confirmation. This is Dr. moreno.. ( Jennifer Shepherd) Disposition Time of Disposition: 14:45 <Jennifer Shepherd - Last Filed: 03/11/17 13:16> <Jemal Hernadez - Last Filed: 03/13/17 06:04> Clinical Impression: Right hip pain Disposition: HOME SELF-CARE Condition: Good Instructions: Fall Prevention for Older Adults (ED) Additional Instructions: Patient is to take motrin and tyenol as prescribed. Return to emergency department if any alarming signs or symptoms occur. Referrals: None,Stated [Primary Care Provider] - 1-2 days Artem Fernández DO [Doctor of Osteopathic Medicine] - 1-2 days
--- NOTE | 2017-03-10 13:10 | CT ---
EXAMINATION TYPE: CT hip RT wo con DATE OF EXAM: 03/10/2017 COMPARISON: Plain radiographs of earlier today. HISTORY: Patient complains of right hip pain after falling and landing on the right hip. CT DLP: 559.4 mGycm Automated exposure control for dose reduction was used. FINDINGS: Soft tissues are unremarkable. There is no subcapsular intertrochanteric fracture of the ri ght hip. There is moderate degenerative change within the hip joint. There is a slightly irregular, o ssific fragment adjacent to the anterosuperior labrum. This may represent a calcified labral fragment . I could not exclude a minimally displaced acetabular fracture. There is hypertrophic changes in the symphysis pubis. IMPRESSION: 1. NO EVIDENCE OF A SUBCAPITAL FRACTURE. 2. DEGENERATIVE CHANGE. 3. OSSIFIC FRAGMENT ADJACENT TO THE ANTERIOR SUPERIOR ACETABULUM MAY REPRESENT A CALCIFIED LABRAL FRA GMENT OR A MINIMALLY DISPLACED FRACTURE OF THE LIP OF THE ACETABULUM.
[2017-03-10 13:45] VITALS: BP 153/72; PULSE 75; RESP 18
--- NOTE | 2017-03-10 13:59 | XR ---
EXAMINATION TYPE: XR chest 2V DATE OF EXAM: 03/10/2017 COMPARISON: NONE HISTORY: Fall with history of congestive heart failure. Chest pain. TECHNIQUE: Frontal and lateral views of the chest are obtained. FINDINGS: There is no focal air space opacity, pleural effusion, or pneumothorax seen. The cardiac silhouette size is within normal limits. The osseous structures are intact. Changes of the thoracic spine are noted. Thickening of the left hemidiaphragm is noted with abutting loop of splenic flexure . Possible small diaphragmatic hernia appears similar to the prior exam and spans 3.4 cm. IMPRESSION: 1. No acute cardiopulmonary process. 2. Possible left diaphragmatic hernia appears similar to the prior.
== END 2017-03-10 14:56 | disposition home or self-care (01) ==
LOC: EC 10:27
DX: M25.551 Pain in right hip (principal); I11.0 Hypertensive heart disease with heart failure; I50.9 Heart failure, unspecified; F03.90 Unspecified dementia, unspecified severity, without behavioral disturbance, psychotic disturbance, mood disturbance, and anxiety; Z86.73 Personal history of transient ischemic attack (TIA), and cerebral infarction without residual deficits; F31.9 Bipolar disorder, unspecified; F41.0 Panic disorder [episodic paroxysmal anxiety]; F20.9 Schizophrenia, unspecified; F41.9 Anxiety disorder, unspecified; Z79.1 Long term (current) use of non-steroidal anti-inflammatories (NSAID); Z79.899 Other long term (current) drug therapy; Z91.041 Radiographic dye allergy status; Z88.8 Allergy status to other drugs, medicaments and biological substances; Z91.030 Bee allergy status; W01.0XXA Fall on same level from slipping, tripping and stumbling without subsequent striking against object, initial encounter
CPT/HCPCS: 71020; 73502; 99283

== ENCOUNTER 2017-03-23 14:31 | Emergency (ER) | payer MEDICARE, OTHER ==
[2017-03-23 14:40] VITALS: BP 141/95; PULSE 82; RESP 18; TEMP 98.6
[2017-03-23] MEDS ORDERED: ORPHENADRINE 30 MG/ML 2 ML VIAL IM STA (14:49)
[2017-03-23] MEDS ORDERED: KETOROLAC 60 MG/2 ML VIAL IM STA (14:49)
--- NOTE | 2017-03-23 14:53 | ED ---
General Adult HPI - General Chief complaint: Neck Pain/Injury Stated complaint: Neck Pain Time Seen by Provider: 03/23/17 14:41 Source: patient, RN notes reviewed Mode of arrival: ambulatory Limitations: no limitations - History of Present Illness Initial comments: 66-year-old female presents for flareup of her chronic neck and back pain. She had a fall and injured her right hip a few weeks ago so they stopped her physical therapy and she states now that she feels very tight in her neck and back area much like her typical pain. She's been using Tylenol without improvement. She scheduled to return to physical therapy on Tuesday but she is hoping that something that we can give her to help her get better at this time. Patient a loss by bladder function nausea. Patient denies anything new falls traumas or injuries.Patient denies any recent fever, chills, shortness of breath , chest pain,abdominal pain, nausea vomiting, numbness or tingling, dysuria or hematuria, constipation or diarrhea, headaches or visual changes, or any other current symptoms. - Related Data Home Medications Medication Instructions Recorded Confirmed Acetaminophen Tab [Tylenol] 650 mg PO TID PRN 12/04/16 03/10/17 Docusate [Colace] 200 mg PO HS@209912/04/16 03/10/17 Ergocalciferol [Vitamin D2 50,000 unit PO MO 12/04/16 03/10/17 (DRISDOL)] LORazepam [Ativan] 0.5 mg PO BID@0800,1300 12/04/16 03/10/17 LORazepam [Ativan] 0.5 mg PO DAILY PRN 12/04/16 03/10/17 Simvastatin [Zocor] 40 mg PO HS@209912/04/16 03/10/17 Lurasidone [Latuda] 80 mg PO HS@209912/07/16 03/10/17 LORazepam [Ativan] 1 mg PO HS 12/27/16 03/10/17 Lurasidone HCl [Latuda] 20 mg PO HS@209912/27/16 03/10/17 OXcarbazepine [Trileptal] 300 mg PO BID@0800,2100 12/27/16 03/10/17 Meloxicam [Mobic] 15 mg PO DAILY 01/01/17 03/10/17 Furosemide [Lasix] 40 mg PO DAILY 01/04/17 03/10/17 Potassium Chloride [Klor-Con 10] 10 meq PO DAILY 01/04/17 03/10/17 Previous Rx's Medication Instructions Recorded Methocarbamol [Robaxin] 750 mg PO QID #6 tab 03/23/17 Allergies Allergy/AdvReac Type Severity Reaction Status Date / Time haloperidol [From Haldol] Allergy Unknown Verified 03/23/17 14:40 Iodinated Contrast- Oral and Allergy Unknown Verified 03/23/17 14:40 IV Dye [Iodinated Contrast Media - IV Dye] Iodine and Iodide Containing Allergy Unknown Verified 03/23/17 14:40 Produc piperacillin sodium Allergy Unknown Verified 03/23/17 14:40 [From Zosyn] tazobactam sodium Allergy Unknown Verified 03/23/17 14:40 [From Zosyn] venom-honey bee Allergy Unknown Verified 03/23/17 14:40 Review of Systems ROS Statement: Those systems with pertinent positive or pertinent negative responses have been documented in the HPI. ROS Other: All systems not noted in ROS Statement are negative. 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, neurogenic bladder, CHF, cardiomyopathy, lower GI bleed, diverticular disease, IBS, hiatal hernia, esophageal ulcer, poor circulation, venous stasis, bilateral lower leg cellulitis in past, sinus problems, UTIs, back pain, anemia as a teenager History of Any Multi-Drug Resistant Organisms: MRSA Date of last positivie culture/infection: 01/01/17 MDRO Source:: finger Past Surgical History: Adenoidectomy, Appendectomy, Cholecystectomy, Hernia Repair, Hysterectomy, Orthopedic Surgery, Tonsillectomy Additional Past Surgical History / Comment(s): L foot toe with screw, L foot bunionectomy, liver bx, EGD/colonoscopy and benign polypectomy, R inguinal hernia repair, D&C, laparoscopic surgery (?). Past Anesthesia/Blood Transfusion Reactions: No Reported Reaction Past Psychological History: Anxiety, Bipolar, Depression, Panic Disorder, Schizophrenia Smoking Status: Never smoker Past Alcohol Use History: None Reported Past Drug Use History: None Reported - Past Family History Sister(s) Family Medical History: Diabetes Mellitus Mother Family Medical History: Diabetes Mellitus Additional Family Medical History / Comment(s): Pt states her mother was healthy. Father Family Medical History: No Reported History Additional Family Medical History / Comment(s): Pt states her father was healthy General Exam Limitations: no limitations General appearance: alert, in no apparent distress Eye exam: Present: normal appearance, PERRL, EOMI. Absent: scleral icterus, conjunctival injection, periorbital swelling ENT exam: Present: normal exam, mucous membranes moist Neck exam: Present: normal inspection, tenderness (Minimally diffuse tenderness) , full ROM. Absent: meningismus, lymphadenopathy Respiratory exam: Present: normal lung sounds bilaterally. Absent: respiratory distress, wheezes, rales, rhonchi, stridor Cardiovascular Exam: Present: regular rate, normal rhythm, normal heart sounds. Absent: systolic murmur, diastolic murmur, rubs, gallop, clicks Extremities exam: Present: normal inspection, full ROM, normal capillary refill. Absent: tenderness, pedal edema, joint swelling, calf tenderness Back exam: Present: normal inspection, full ROM, tenderness (Minimally diffuse) Neurological exam: Present: alert, oriented X3, CN II-XII intact Psychiatric exam: Present: normal affect, normal mood Skin exam: Present: warm, dry, intact, normal color. Absent: rash Course Vital Signs 03/23/17 14:37 Temperature 98.6 F Pulse Rate 82 Respiratory 18 Rate Blood Pressure 141/95 O2 Sat by Pulse 99 Oximetry Medical Decision Making - Medical Decision Making 66-year-old female presents emergency Department with a chief complaint of chronic neck and back pain flareup. At this time patient was given Toradol and Norflex and will give her prescription for muscle axes to home. We discussed continued. PT. We discussed return for hours outpatient family's questions. They state Jose plan. They'll be discharged. Disposition Clinical Impression: Chronic pain Disposition: HOME SELF-CARE Condition: Stable Instructions: Chronic Pain (ED) Additional Instructions: Please use medication as discussed. Please follow up with family doctor if symptoms have not improved over the next two days. Please return to the emergency room if your symptoms increase or worsen or for any other concerns. Prescriptions: Methocarbamol [Robaxin] 750 mg PO QID #6 tab Referrals: Washington Jose DO [Primary Care Provider] - 1-2 days Time of Disposition: 14:52
== END 2017-03-23 15:16 | disposition home or self-care (01) ==
LOC: EC 14:31
DX: G89.29 Other chronic pain (principal); M54.2 Cervicalgia; M54.9 Dorsalgia, unspecified; R11.0 Nausea; I11.0 Hypertensive heart disease with heart failure; I50.9 Heart failure, unspecified; F41.9 Anxiety disorder, unspecified; F31.9 Bipolar disorder, unspecified; F20.9 Schizophrenia, unspecified; Z79.1 Long term (current) use of non-steroidal anti-inflammatories (NSAID); Z79.899 Other long term (current) drug therapy; Z88.0 Allergy status to penicillin; Z88.8 Allergy status to other drugs, medicaments and biological substances; Z91.030 Bee allergy status; Z91.041 Radiographic dye allergy status; Z91.048 Other nonmedicinal substance allergy status
CPT/HCPCS: 99283; 96372 ×2; J2360; J1885

== ENCOUNTER 2017-07-27 05:30 | Emergency (ER) | payer MEDICARE, OTHER ==
[2017-07-27 05:45] VITALS: BP 161/84; PULSE 88; RESP 17; TEMP 97.4
[2017-07-27] MEDS ORDERED: KETOROLAC 60 MG/2 ML VIAL IM STA (05:50)
--- NOTE | 2017-07-27 05:54 | ED ---
General Adult HPI - General Chief complaint: Back Pain/Injury Stated complaint: Back pain Time Seen by Provider: 07/27/17 05:34 Source: patient, EMS, RN notes reviewed Mode of arrival: EMS Limitations: physical limitation - History of Present Illness Initial comments: Patient is a pleasant 67-year-old female presenting to the emergency department for chronic back pain. Patient states she has had back pain and back problems for years. Patient states she has had multiple evaluations for this. Patient states symptoms have increased the past 3 days or so. Discomfort does increase with movement. Discomfort is the entire back. Patient states usually when she gets this she goes to the hospital for a Toradol injection area patient does request Toradol injection as well as a prescription for the next 3 days. No fever. No weakness. No tendons retention of bowel or bladder. - Related Data Home Medications Medication Instructions Recorded Confirmed Acetaminophen Tab [Tylenol] 650 mg PO TID PRN 12/04/16 03/10/17 Docusate [Colace] 200 mg PO HS@2100 12/04/16 03/10/17 Ergocalciferol [Vitamin D2 50,000 unit PO MO 12/04/16 03/10/17 (DRISDOL)] LORazepam [Ativan] 0.5 mg PO BID@0800,1300 12/04/16 03/10/17 LORazepam [Ativan] 0.5 mg PO DAILY PRN 12/04/16 03/10/17 Simvastatin [Zocor] 40 mg PO HS@2100 12/04/16 03/10/17 Lurasidone [Latuda] 80 mg PO HS@2100 12/07/16 03/10/17 LORazepam [Ativan] 1 mg PO HS 12/27/16 03/10/17 Lurasidone HCl [Latuda] 20 mg PO HS@2100 12/27/16 03/10/17 OXcarbazepine [Trileptal] 300 mg PO BID@0800,2100 12/27/16 03/10/17 Meloxicam [Mobic] 15 mg PO DAILY 01/01/17 03/10/17 Furosemide [Lasix] 40 mg PO DAILY 01/04/17 03/10/17 Potassium Chloride [Klor-Con 10] 10 meq PO DAILY 01/04/17 03/10/17 Previous Rx's Medication Instructions Recorded Methocarbamol [Robaxin] 750 mg PO QID #6 tab 03/23/17 Ketorolac [Toradol] 10 mg PO Q6HR PRN #12 tab 07/27/17 Allergies Allergy/AdvReac Type Severity Reaction Status Date / Time haloperidol [From Haldol] Allergy Unknown Verified 03/23/17 14:40 Iodinated Contrast- Oral and Allergy Unknown Verified 03/23/17 14:40 IV Dye [Iodinated Contrast Media - IV Dye] Iodine and Iodide Containing Allergy Unknown Verified 03/23/17 14:40 Produc piperacillin sodium Allergy Unknown Verified 03/23/17 14:40 [From Zosyn] tazobactam sodium Allergy Unknown Verified 03/23/17 14:40 [From Zosyn] venom-honey bee Allergy Unknown Verified 03/23/17 14:40 Review of Systems ROS Statement: Those systems with pertinent positive or pertinent negative responses have been documented in the HPI. ROS Other: All systems not noted in ROS Statement are negative. Constitutional: Denies: fever Eyes: Denies: eye pain ENT: Denies: ear pain Respiratory: Denies: cough Cardiovascular: Denies: chest pain Endocrine: Denies: fatigue Gastrointestinal: Denies: abdominal pain Genitourinary: Denies: dysuria Musculoskeletal: Reports: back pain Skin: Denies: rash Neurological: Denies: weakness 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, neurogenic bladder, CHF, cardiomyopathy, lower GI bleed, diverticular disease, IBS, hiatal hernia, esophageal ulcer, poor circulation, venous stasis, bilateral lower leg cellulitis in past, sinus problems, UTIs, back pain, anemia as a teenager History of Any Multi-Drug Resistant Organisms: MRSA Date of last positivie culture/infection: 01/01/17 MDRO Source:: finger Past Surgical History: Adenoidectomy, Appendectomy, Cholecystectomy, Hernia Repair, Hysterectomy, Orthopedic Surgery, Tonsillectomy Additional Past Surgical History / Comment(s): L foot toe with screw, L foot bunionectomy, liver bx, EGD/colonoscopy and benign polypectomy, R inguinal hernia repair, D&C, laparoscopic surgery (?). Past Anesthesia/Blood Transfusion Reactions: No Reported Reaction Past Psychological History: Anxiety, Bipolar, Depression, Panic Disorder, Schizophrenia Smoking Status: Never smoker Past Alcohol Use History: None Reported Past Drug Use History: None Reported - Past Family History Sister(s) Family Medical History: Diabetes Mellitus Mother Family Medical History: Diabetes Mellitus Additional Family Medical History / Comment(s): Pt states her mother was healthy. Father Family Medical History: No Reported History Additional Family Medical History / Comment(s): Pt states her father was healthy General Exam Limitations: physical limitation General appearance: alert, in no apparent distress Head exam: Present: atraumatic Neck exam: Present: normal inspection Respiratory exam: Present: normal lung sounds bilaterally Cardiovascular Exam: Present: regular rate, normal rhythm GI/Abdominal exam: Present: soft. Absent: distended, tenderness, pulsatile mass Extremities exam: Present: normal inspection Back exam: Present: tenderness (Tenderness of the lower thoracic spine and lumbar region.) Neurological exam: Present: alert. Absent: motor sensory deficit Psychiatric exam: Present: normal affect, normal mood Skin exam: Present: normal color Course Vital Signs 07/27/17 05:42 Temperature 97.4 F L Pulse Rate 88 Respiratory 17 Rate Blood Pressure 161/84 O2 Sat by Pulse 100 Oximetry EKG Findings - EKG Comments: EKG Findings:: Normal sinus rhythm 84. CA 166. QRS 82. QT 368. QTC 434. Left axis. Normal QRS. No acute ST change. Disposition Clinical Impression: Chronic back pain Disposition: HOME SELF-CARE Condition: Stable Instructions: Chronic Back Pain (ED) Additional Instructions: Please follow-up to in the next day or 2 for recheck. Return for weakness, loss of control of bowel or bladder, worsening symptoms or other concerns. Prescriptions: Ketorolac [Toradol] 10 mg PO Q6HR PRN #12 tab PRN Reason: Pain Referrals: Errol Andujar MD [Primary Care Provider] - 1-2 days Time of Disposition: 05:54
== END 2017-07-27 06:26 | disposition home or self-care (01) ==
LOC: EC 05:30
DX: M54.6 Pain in thoracic spine (principal); M54.5 Low back pain; G89.29 Other chronic pain; I11.0 Hypertensive heart disease with heart failure; I50.9 Heart failure, unspecified; F31.9 Bipolar disorder, unspecified; F20.9 Schizophrenia, unspecified; F41.9 Anxiety disorder, unspecified; Z86.14 Personal history of Methicillin resistant Staphylococcus aureus infection; Z88.8 Allergy status to other drugs, medicaments and biological substances; Z91.041 Radiographic dye allergy status; Z91.030 Bee allergy status; Z88.0 Allergy status to penicillin; Z91.048 Other nonmedicinal substance allergy status; Z79.1 Long term (current) use of non-steroidal anti-inflammatories (NSAID); Z79.899 Other long term (current) drug therapy
CPT/HCPCS: 93005; 99283; 96372; J1885

== ENCOUNTER → 2017-08-12 | Outpatient (CLI) | payer MEDICARE, OTHER ==
[~2017-08-12] MED LIST changes: +REGADENOSON 0.4 MG/5 ML SYRINGE IV ONE; -SODIUM CHLORIDE 0.9% 2,000 ML IV ONE
--- NOTE | 2017-08-12 13:03 | EST ---
EXERCISE STRESS DATE OF SERVICE: 08/12/2017 AGE: 67 SEX: Female HT: 5'7" WT: PROTOCOL: LEXISCAN CARDIOLITE STAGE: DURATION OF EXERCISE: HEART RATE REST: 88 BLOOD PRESSURE REST: 132/80 MAXIMUM HEART RATE ACHIEVED: 100 MAXIMUM BLOOD PRESSURE: 181/71 85% MPHR: 130 100% MPHR: 153 METS: INDICATIONS: Chest pain. CLINICAL INFORMATION: STRESS DATA: Pretesting physical examination showed a heart rate of 88, pressure is 132/80 mmHg. Baseline EKG showed sinus rhythm. 0.4 mg of Lexiscan was given to the patient over 15 seconds per protocol. Max heart rate was 100 beats per minute and maximum pressure was 181/71 mmHg. Clinically, the patient was asymptomatic and the EKG did not show any significant ST or T-wave abnormalities consistent with ischemia. CONCLUSION: 1. Nondiagnostic electrocardiogram stress testing in response to Lexiscan. 2. Please follow up on the Cardiolite portion on separate report from radiology department. MMODL / IJN: [id number] /
--- NOTE | 2017-08-12 14:18 | NM ---
EXAMINATION TYPE: NM stress lexiscan cardiolite DATE OF EXAM: 08/12/2017 COMPARISON: NONE HISTORY: TECHNIQUE: After the intravenous administration of 10.8 mCi Tc 99m Sestamibi - Cardiolite resting SP ECT images acquired 75 minutes post injection. The patient received 0.4mg Lexiscan, 27.4 mCi Tc 99m Sestamibi - Stress images obtained [address] injection FINDINGS: Review of stress and rest SPECT images demonstrates decreased radiopharmaceutical uptake along the in ferolateral left ventricular myocardium towards the cardiac apex on stress and rest images more so on rest images than stress images. Gated analysis shows apical paradoxical wall motion with an estimate d left ventricular ejection fraction of 60 %. IMPRESSION: No scintigraphic evidence for reversible ischemia. Abnormal decreased uptake towards the cardiac apex as described could possibly represent old infarct. Suggest echocardiography for possible paradoxical wall motion.
== END | disposition home or self-care (01) ==
LOC: RADNMMAIN 08:41
PROVIDERS: ATTEND Nurse Practitioner
DX: R07.9 Chest pain, unspecified (principal)
CPT/HCPCS: 93017; 78452; A9500; J2785

== ENCOUNTER 2017-08-25 23:23 | Emergency (ER) | payer MEDICARE, OTHER ==
[2017-08-25] MEDS ORDERED: ONDANSETRON 4 MG/2 ML VIAL IVP STA (23:45)
--- NOTE | 2017-08-25 23:50 | ED ---
Nausea/Vomiting/Diarrhea HPI - General Chief complaint: Nausea/Vomiting/Diarrhea Stated complaint: Nause/Vomiting Time Seen by Provider: 08/25/17 23:28 Source: patient, EMS Mode of arrival: EMS Limitations: no limitations - History of Present Illness Initial comments: 67-year-old female patient presented to the emergency department today for evaluation of vomiting. Patient states that she started having emesis around 4: 00 this afternoon. Patient underwent a vaginal wall repair and a hernia repair on the and august respectively and was discharged 2 days ago from [facility] in [place]. Patient states that her pain and nausea were under control at time of discharge. States she's been doing well over the last 24 hours however today started having vomiting. Patient states that her vomiting is a dark green in color. She denies any blood. She states that her abdominal muscles feel sore from vomiting however she denies any abdominal pain. She states that she has been having loose stools however she is taking milk of magnesia and Colace for stool softener. States that she has been unable to eat or drink anything after 4:00. She denies any fevers, chills , chest pain, or shortness of breath. Patient denies any recent rash, back pain , numbness, tingling, dizziness, weakness, hematuria, dysuria, urinary urgency, urinary frequency, headache, visual changes, or any other complaints. - Related Data Home Medications Medication Instructions Recorded Confirmed Acetaminophen Tab [Tylenol] 650 mg PO TID PRN 12/04/16 08/25/17 Docusate [Colace] 200 mg PO HS@209912/04/16 08/25/17 LORazepam [Ativan] 0.5 mg PO BID@0800,1300 12/04/16 08/25/17 LORazepam [Ativan] 0.5 mg PO DAILY PRN 12/04/16 08/25/17 Simvastatin [Zocor] 40 mg PO HS@209912/04/16 08/25/17 Lurasidone [Latuda] 80 mg PO HS@209912/07/16 08/25/17 LORazepam [Ativan] 1 mg PO HS 12/27/16 08/25/17 Lurasidone HCl [Latuda] 20 mg PO HS@209912/27/16 08/25/17 OXcarbazepine [Trileptal] 300 mg PO BID@0800,2100 12/27/16 08/25/17 Meloxicam [Mobic] 15 mg PO DAILY 01/01/17 08/25/17 Furosemide [Lasix] 40 mg PO DAILY 01/04/17 08/25/17 Potassium Chloride [Klor-Con 10] 10 meq PO DAILY 01/04/17 08/25/17 Ibuprofen [Motrin] 800 mg PO TID PRN 08/25/17 08/25/17 Lisinopril [Zestril] 20 mg PO DAILY 08/25/17 08/25/17 Previous Rx's Medication Instructions Recorded Methocarbamol [Robaxin] 750 mg PO QID #6 tab 03/23/17 Allergies Allergy/AdvReac Type Severity Reaction Status Date / Time haloperidol [From Haldol] Allergy Unknown Verified 08/25/17 23:49 Iodinated Contrast- Oral and Allergy Unknown Verified 08/25/17 23:49 IV Dye [Iodinated Contrast Media - IV Dye] Iodine and Iodide Containing Allergy Unknown Verified 08/25/17 23:49 Produc piperacillin sodium Allergy Unknown Verified 08/25/17 23:49 [From Zosyn] tazobactam sodium Allergy Unknown Verified 08/25/17 23:49 [From Zosyn] venom-honey bee Allergy Unknown Verified 08/25/17 23:49 Review of Systems ROS Statement: Those systems with pertinent positive or pertinent negative responses have been documented in the HPI. ROS Other: All systems not noted in ROS Statement are negative. 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, neurogenic bladder, CHF, cardiomyopathy, lower GI bleed, diverticular disease, IBS, hiatal hernia, esophageal ulcer, poor circulation, venous stasis, bilateral lower leg cellulitis in past, sinus problems, UTIs, back pain, anemia as a teenager History of Any Multi-Drug Resistant Organisms: MRSA Date of last positivie culture/infection: 01/01/17 MDRO Source:: finger Past Surgical History: Adenoidectomy, Appendectomy, Cholecystectomy, Hernia Repair, Hysterectomy, Orthopedic Surgery, Tonsillectomy Additional Past Surgical History / Comment(s): L foot toe with screw, L foot bunionectomy, liver bx, EGD/colonoscopy and benign polypectomy, R inguinal hernia repair, D&C, laparoscopic surgery (?). Past Anesthesia/Blood Transfusion Reactions: No Reported Reaction Past Psychological History: Anxiety, Bipolar, Depression, Panic Disorder, Schizophrenia Smoking Status: Never smoker Past Alcohol Use History: None Reported Past Drug Use History: None Reported - Past Family History Sister(s) Family Medical History: Diabetes Mellitus Mother Family Medical History: Diabetes Mellitus Additional Family Medical History / Comment(s): Pt states her mother was healthy. Father Family Medical History: No Reported History Additional Family Medical History / Comment(s): Pt states her father was healthy General Exam Limitations: no limitations General appearance: alert, in no apparent distress, other (This is a well- developed, well-nourished adult female patient in no acute distress. Vital signs upon presentation are temperature 98.9F, pulse 110, respirations 22, blood pressure 168/88, pulse ox 95% on room air.) Eye exam: Present: normal appearance, PERRL, EOMI. Absent: scleral icterus, conjunctival injection, periorbital swelling ENT exam: Present: normal exam, normal oropharynx, mucous membranes moist Respiratory exam: Present: normal lung sounds bilaterally. Absent: respiratory distress, wheezes, rales, rhonchi, stridor Cardiovascular Exam: Present: normal rhythm, tachycardia, normal heart sounds. Absent: systolic murmur, diastolic murmur, rubs, gallop, clicks GI/Abdominal exam: Present: soft, tenderness (Mild generalized tenderness, incisional), normal bowel sounds, other (Large midline abdominal incision is well approximated. There is some surrounding erythema. Patient also has laparoscopic incisions to the right and left of this incision, there is mild surrounding erythema to those as well. No evidence of drainage. No evidence of dehiscence.). Absent: distended, guarding, rebound, rigid Neurological exam: Present: alert, oriented X3, CN II-XII intact Psychiatric exam: Present: normal affect, normal mood Skin exam: Present: warm, dry, intact, normal color. Absent: rash Course Vital Signs 08/25/17 08/26/17 08/26/17 23:42 01:52 03:02 Temperature 98.9 F 97.6 F 99.0 F Pulse Rate 110 H 109 H 104 H Respiratory 22 20 20 Rate Blood Pressure 168/88 160/98 173/107 O2 Sat by Pulse 95 94 L 99 Oximetry Medical Decision Making - Medical Decision Making 67-year-old female patient presented to the emergency department today for complaints of vomiting since 4 PM. Physical examination did reveal a well approximated mid line abdominal incision. There are smaller surrounding laparoscopic incisions also well approximated. There was some mild erythema surrounding the incisions. Labs reviewed and did reveal a mildly elevated white blood cell count at 11.4, hemoglobin of 11, neutrophil count is 9.69, chloride 95, carbon dioxide 36, alk phos 148. Urinalysis did show cloudy appearance with 1+ protein, trace blood, large leukocyte esterase, 53 white blood cells, 6 squamous epithelial cells, and rare mucous. We did send this for culture. Patient did have a KUB x-ray performed which showed large amount of air in the stomach indicating possible gastroparesis. Did perform CT of the abdomen and pelvis due to patient's recent surgery and did show a mechanical small bowel obstruction, transition point is not clearly identified. I did discuss findings with the patient. She did recently have surgery at [facility] in [place], we will transfer her back there. I did speak to Dr. Carpio who is accepting as an ER to ER transfer. - Lab Data Result diagrams: 08/26/17 00:18 08/26/17 00:18 Lab Results 08/26/17 08/26/17 08/26/17 Range/Units 00:18 00:18 02:16 WBC 11.4 H (3.8-10.6) k/uL RBC 3.74 L (3.80-5.40) m/uL Hgb 11.0 L (11.4-16.0) gm/dL Hct 33.8 L (34.0-46.0) % MCV 90.5 (80.0-100.0) fL MCH 29.4 (25.0-35.0) pg MCHC 32.5 (31.0-37.0) g/dL RDW 14.3 (11.5-15.5) % Plt Count 418 (150-450) k/uL Neutrophils % (Manual) 85 % Lymphocytes % (Manual) 9 % Monocytes % (Manual) 6 % Neutrophils # (Manual) 9.69 H (1.3-7.7) k/uL Lymphocytes # (Manual) 1.03 (1.0-4.8) k/uL Monocytes # (Manual) 0.68 (0-1.0) k/uL Nucleated RBCs 0 (0-0) /100 WBC Manual Slide Review Performed Sodium 139 (137-145) mmol/L Potassium 3.9 (3.5-5.1) mmol/L Chloride 95 L (98-107) mmol/L Carbon Dioxide 36 H (22-30) mmol/L Anion Gap 8 mmol/L BUN 17 (7-17) mg/dL Creatinine 0.90 (0.52-1.04) mg/dL Est GFR (MDRD) Af Amer >60 (>60 ml/min/1.73 sqM) Est GFR (MDRD) Non-Af >60 (>60 ml/min/1.73 sqM) Glucose 125 H (74-99) mg/dL Calcium 9.0 (8.4-10.2) mg/dL Total Bilirubin 0.5 (0.2-1.3) mg/dL AST 27 (14-36) U/L ALT 31 (9-52) U/L Alkaline Phosphatase 148 H (38-126) U/L Total Protein 6.1 L (6.3-8.2) g/dL Albumin 3.3 L (3.5-5.0) g/dL Amylase 40 (30-110) U/L Lipase 124 (23-300) U/L Urine Color Yellow Urine Appearance Cloudy H (Clear) Urine pH 7.5 (5.0-8.0) Ur Specific [place] 1.028 (1.001-1.035) Urine Protein 1+ H (Negative) Urine Glucose (UA) Negative (Negative) Urine Ketones Negative (Negative) Urine Blood Trace H (Negative) Urine Nitrite Negative (Negative) Urine Bilirubin Negative (Negative) Urine Urobilinogen <2.0 (<2.0) mg/dL Ur Leukocyte Esterase Large H (Negative) Urine RBC 5 (0-5) /hpf Urine WBC 53 H (0-5) /hpf Ur Squamous Epith Cells 6 H (0-4) /hpf Hyaline Casts 1 (0-2) /lpf Urine Mucus Rare H (None) /hpf - Radiology Data Radiology results: report reviewed, image reviewed Two-view x-ray shows a distended air filled stomach. No sign of free air. Are clips from cholecystectomy. There is no evidence of a mass. There are no pathologic calcifications over the kidneys. Impression by Dr. Gavin shows distended stomach could relate to some gastroparesis. No free air. This appears new compared to old exam. CT of the abdomen and pelvis with contrast was obtained, report was reviewed in its entirety. Impression by Dr. Gavin shows subcutaneous fluid over the lower anterior abdomen consistent with postoperative seroma or hematoma in this patient with recent hernia surgery. Dilated stomach and proximal small bowel consistent with proximal small bowel mechanical obstruction. Transition point is not definitely seen. There could be adhesions at the anterior abdominal wall. Disposition Clinical Impression: Small bowel obstruction Disposition: OTHER INSTITUTION NOT DEFINED Condition: Serious Referrals: None,Stated [Primary Care Provider] - 1-2 days - Out of Hospital Transfer - Req. Specs Out of Hospital Transfer - Requested Specifics: Other Emergency Center ( [facility])
[2017-08-26 00:36] LABS: HCT 33.8 % (34.0-46.0); MCH 29.4 pg (25.0-35.0); MCHC 32.5 g/dL (31.0-37.0); MCV 90.5 fL (80.0-100.0); Mean Platelet Volume 6.7; Platelet Count 418 k/uL (150-450); RBC 3.74 m/uL (3.80-5.40); RDW 14.3 % (11.5-15.5); WBC 11.4 k/uL (3.8-10.6)
[2017-08-26 00:40] LABS: ALT 31 U/L (9-52); AST 27 U/L (14-36); Albumin 3.3 g/dL (3.5-5.0); Alkaline Phosphatase 148 U/L (38-126); Amylase 40 U/L (30-110); Anion Gap 8 mmol/L; Blood Urea Nitrogen 17 mg/dL (7-17); Carbon Dioxide 36 mmol/L (22-30); Chloride 95 mmol/L (98-107); Glucose 125 mg/dL (74-99); Lipase 124 U/L (23-300); Potassium 3.9 mmol/L (3.5-5.1); Sodium 139 mmol/L (137-145); Total Bilirubin 0.5 mg/dL (0.2-1.3); Total Protein 6.1 g/dL (6.3-8.2)
--- NOTE | 2017-08-26 00:50 | XR ---
EXAMINATION TYPE: XR KUB DATE OF EXAM: 08/26/2017 COMPARISON: 10/11/2010 HISTORY: Abdominal pain TECHNIQUE: 2 views FINDINGS: There is distended air-filled stomach. There is no sign of free air. There are clips from c holecystectomy. There is no evidence of a mass. There are no pathologic calcifications over the kidne ys. IMPRESSION: Distended stomach could relate to some gastroparesis. No free air. This appears new leroy red to old exam.
[2017-08-26 01:15] LABS: Lymphocytes # (M) 1.03 k/uL (1.0-4.8); Monocytes # (M) 0.68 k/uL (0-1.0); Neutrophils # (M) 9.69 k/uL (1.3-7.7); Neutrophils % (M) 85 %; Nucleated Red Blood Cells 0 /100 WBC (0-0); Total Cells Counted 100
[2017-08-26] MEDS ORDERED: methylPREDNISolone SOD SUCCI 125 MG/2 ML VIAL IV STA (01:17)
[2017-08-26] MEDS ORDERED: diphenhydrAMINE 50 MG/ML 1 ML VIAL IVP STA (01:17)
[2017-08-26] MEDS ORDERED: RX INFO: IV CONTRAST WAS GIVEN 1 EACH MISC MISCELLANE PRN (01:17)
[2017-08-26] MEDS ORDERED: FAMOTIDINE 20 MG/2 ML VIAL IV STA (01:17)
[2017-08-26 01:52] VITALS: RESP 20
--- NOTE | 2017-08-26 02:35 | CT ---
EXAMINATION TYPE: CT abdomen pelvis w con DATE OF EXAM: 08/26/2017 COMPARISON: NONE HISTORY: abd pain CT DLP: 4234.60 mGycm Automated exposure control for dose reduction was used. TECHNIQUE: Helical acquisition of images was performed from the lung bases through the pelvis. CONTRAST: Performed without Oral Contrast and with IV Contrast, patient injected with 100 mL of Omnipaque 300. FINDINGS: There is some mild patchy atelectasis at the lung bases. There is no pleural effusion. Heart appears enlarged. Liver shows no focal defect. There are clips from cholecystectomy. Spleen appears normal. There is no pancreatic mass. Bile ducts are not dilated. There is a dilated fluid-filled stomach. There are multiple proximal loops of small bowel that are di lated up to 4.5 cm with fluid. There is no sign of free air. There is subcutaneous anterior abdominal fluid in the lower abdomen. This measures 10 x 4 cm. There is mild free fluid in the pelvis. Bladder distends smoothly. The large bowel is not dilated. Transition point is not definitely identified. Kidneys show satisfactory contrast opacification. There is no hydronephrosis. There is no retroperito tr adenopathy. There are some spondylotic changes in the lumbar spine. I see no bony destructive process. IMPRESSION: SUBCUTANEOUS FLUID OVER THE LOWER ANTERIOR ABDOMEN CONSISTENT WITH POSTOPERATIVE SEROMA OR HEMATOMA I N THIS PATIENT WITH RECENT HERNIA SURGERY. DILATED STOMACH AND PROXIMAL SMALL BOWEL CONSISTENT WITH PROXIMAL SMALL BOWEL MECHANICAL OBSTRUCTION. TRANSITION POINT IS NOT DEFINITELY SEEN. THERE COULD BE ADHESIONS AT THE ANTERIOR ABDOMINAL WALL. MILD ASCITES.
[2017-08-26 02:55] LABS: Appearance,Urine Cloudy (Clear); Bilirubin,Urine Negative (Negative); Blood,Urine Trace (Negative); Color,Urine Yellow; Glucose,Urine (UA) Negative (Negative); Hyaline Casts,Urine 1 /lpf (0-2); Ketones,Urine Negative (Negative); Leukocyte Esterase,Urine Large (Negative); Mucus,Urine Rare /hpf; Nitrite,Urine Negative (Negative); PH, Urine 7.5 (5.0-8.0); Protein,Urine 1+ (Negative); RBC,Urine 5 /hpf (0-5); Specific Gravity,Urine 1.028 (1.001-1.035); Squamous Epithelial Cell,Urine 6 /hpf (0-4); Urobilinogen,Urine <2.0 mg/dL (<2.0); WBC,Urine 53 /hpf (0-5)
[2017-08-26 03:03] VITALS: PULSE 104
[2017-08-26] MEDS ORDERED: SODIUM CHLORIDE 0.9% 1,000 ML IV ONE (03:28)
[2017-08-26 03:37] VITALS: BP 175/90; TEMP 99.4
== END 2017-08-26 04:02 | disposition other institution (70) ==
LOC: EC 23:23
DX: K56.699 Other intestinal obstruction unspecified as to partial versus complete obstruction (principal); D72.829 Elevated white blood cell count, unspecified; I11.0 Hypertensive heart disease with heart failure; I50.9 Heart failure, unspecified; K58.9 Irritable bowel syndrome, unspecified; F20.9 Schizophrenia, unspecified; F31.9 Bipolar disorder, unspecified; F41.0 Panic disorder [episodic paroxysmal anxiety]; F41.9 Anxiety disorder, unspecified; F03.90 Unspecified dementia, unspecified severity, without behavioral disturbance, psychotic disturbance, mood disturbance, and anxiety; Z86.14 Personal history of Methicillin resistant Staphylococcus aureus infection; Z86.73 Personal history of transient ischemic attack (TIA), and cerebral infarction without residual deficits; Z79.1 Long term (current) use of non-steroidal anti-inflammatories (NSAID); Z91.041 Radiographic dye allergy status; Z91.030 Bee allergy status; Z88.8 Allergy status to other drugs, medicaments and biological substances; Z88.0 Allergy status to penicillin; Z90.49 Acquired absence of other specified parts of digestive tract; Z90.710 Acquired absence of both cervix and uterus
CPT/HCPCS: 36415; 80053; 82150; 83690; 85025; 81001; 87040; 74018; 74177; 99285; 96374; 96375 ×3; 96361; J1200; J2930; J2405; Q9967

== ENCOUNTER 2017-09-13 18:41 | Emergency (ER) | payer MEDICARE, OTHER ==
[2017-09-13 19:45] LABS: Basophils % (A) 0 %; Eosinophils # (A) 0.5 k/uL (0-0.7); Eosinophils % (A) 5 %; HCT 31.9 % (34.0-46.0); HGB 10.7 gm/dL (11.4-16.0); Lymphocytes # (A) 2.5 k/uL (1.0-4.8); Lymphocytes % (A) 26 %; MCH 30.6 pg (25.0-35.0); MCHC 33.5 g/dL (31.0-37.0); MCV 91.3 fL (80.0-100.0); Mean Platelet Volume 7.1; Monocytes # (A) 0.7 k/uL (0-1.0); Monocytes % (A) 7 %; Neutrophils # (A) 5.9 k/uL (1.3-7.7); Neutrophils % (A) 60 %; Platelet Count 294 k/uL (150-450); RBC 3.49 m/uL (3.80-5.40); RDW 14.4 % (11.5-15.5); WBC 9.8 k/uL (3.8-10.6)
[2017-09-13 19:54] LABS: Albumin 3.7 g/dL (3.5-5.0); Calcium 8.9 mg/dL (8.4-10.2); Potassium 4.3 mmol/L (3.5-5.1); Total Bilirubin 0.3 mg/dL (0.2-1.3); Total Protein 6.7 g/dL (6.3-8.2)
[2017-09-13 19:58] LABS: Prothrombin Time 10.2 sec (9.0-12.0)
[2017-09-13 20:00] LABS: Creatine Kinase 51 U/L (30-135)
[2017-09-13 20:02] LABS: Partial Thromboplastin Time 21.2 sec (22.0-30.0)
[2017-09-13 20:11] LABS: Creatine Kinase MB 0.7 ng/mL (0.0-2.4); Troponin I <0.012 ng/mL (0.000-0.034)
[2017-09-13] MEDS ORDERED: RX INFO: IV CONTRAST WAS GIVEN 1 EACH MISC MISCELLANE PRN (20:48)
[2017-09-13] MEDS ORDERED: methylPREDNISolone SOD SUCCI 125 MG/2 ML VIAL IV STA (20:48)
[2017-09-13] MEDS ORDERED: diphenhydrAMINE 50 MG/ML 1 ML VIAL IVP STA (20:48)
[2017-09-13] MEDS ORDERED: FAMOTIDINE 20 MG/2 ML VIAL IV STA (20:48)
[2017-09-13] MEDS ORDERED: ACETAMINOPHEN TAB 500 MG TAB PO STA (21:00)
--- NOTE | 2017-09-13 21:05 | ED ---
SOB HPI - General Chief Complaint: Shortness of Breath Stated Complaint: lung pain Time Seen by Provider: 09/13/17 20:10 Source: patient, RN notes reviewed Mode of arrival: wheelchair Limitations: no limitations - History of Present Illness Initial Comments: This a 67-year-old female presents emergency Department chief complaint shortness of breath. Patient states that she started and some discomfort in her left rib that started last day or so. She states that she's been diagnosed with pleurisy in the past and feels very similar. Patient did admit that she had surgery twice within the last month for bladder sling and small bowel perforation. Patient states that she has intermittent discomfort of her ribs and it's worse with deep inspiration but she has no current pain at rest. Denies any headache, dizziness, chills - Related Data Home Medications Medication Instructions Recorded Confirmed Docusate [Colace] 200 mg PO BID@0800,2100 12/04/16 09/13/17 LORazepam [Ativan] 0.5 mg PO BID@0800,1600 12/04/16 09/13/17 Lurasidone [Latuda] 80 mg PO HS@209912/07/16 09/13/17 LORazepam [Ativan] 1 mg PO HS 12/27/16 09/13/17 Lurasidone HCl [Latuda] 20 mg PO HS@209912/27/16 09/13/17 Furosemide [Lasix] 40 mg PO DAILY@79901/04/17 09/13/17 Potassium Chloride [Klor-Con 10] 10 meq PO DAILY@79901/04/17 09/13/17 Ibuprofen [Motrin] 800 mg PO TID PRN 08/25/17 09/13/17 Acetaminophen Tab [Tylenol Tab] 500 - 1,000 mg PO Q6H PRN 09/13/17 09/13/17 Atorvastatin [Lipitor] 20 mg PO HS@209909/13/17 09/13/17 Cholecalciferol (Vitamin D3) 2,000 unit PO DAILY@79909/13/17 09/13/17 [Vitamin D3] Cyanocobalamin (Vitamin B-12) 1,000 mcg PO DAILY@0809/13/17 09/13/17 [Vitamin B-12] Ferrous Sulfate [Feosol] 325 mg PO DAILY@79909/13/1718 Lisinopril [Prinivil] 10 mg PO DAILY@0800 09/13/17 09/13/17 Loratadine-Pseudoeph 10-240 mg 1 each PO DAILY@0800 09/13/17 09/13/17 [Claritin-D 24 Hr] Methocarbamol [Robaxin] 750 mg PO QID@08,12,16,21 09/13/17 09/13/17 Ondansetron [Zofran] 4 mg PO TID@0800,1200,1700 09/13/17 09/13/17 Pantoprazole Sodium [Protonix] 40 mg PO DAILY@0800 09/13/17 09/13/17 Allergies Allergy/AdvReac Type Severity Reaction Status Date / Time haloperidol [From Haldol] Allergy Unknown Verified 09/13/17 20:49 Iodinated Contrast- Oral and Allergy Unknown Verified 09/13/17 20:49 IV Dye [Iodinated Contrast Media - IV Dye] Iodine and Iodide Containing Allergy Unknown Verified 09/13/17 20:49 Produc piperacillin sodium Allergy Unknown Verified 09/13/17 20:49 [From Zosyn] tazobactam sodium Allergy Unknown Verified 09/13/17 20:49 [From Zosyn] venom-honey bee Allergy Unknown Verified 09/13/17 20:49 Review of Systems ROS Statement: Those systems with pertinent positive or pertinent negative responses have been documented in the HPI. ROS Other: All systems not noted in ROS Statement are negative. 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, neurogenic bladder, CHF, cardiomyopathy, lower GI bleed, diverticular disease, IBS, hiatal hernia, esophageal ulcer, poor circulation, venous stasis, bilateral lower leg cellulitis in past, sinus problems, UTIs, back pain, anemia as a teenager History of Any Multi-Drug Resistant Organisms: MRSA Date of last positivie culture/infection: 01/01/17 MDRO Source:: finger Past Surgical History: Adenoidectomy, Appendectomy, Cholecystectomy, Hernia Repair, Hysterectomy, Orthopedic Surgery, Tonsillectomy Additional Past Surgical History / Comment(s): L foot toe with screw, L foot bunionectomy, liver bx, EGD/colonoscopy and benign polypectomy, R inguinal hernia repair, D&C, laparoscopic surgery (?). Past Anesthesia/Blood Transfusion Reactions: No Reported Reaction Past Psychological History: Anxiety, Bipolar, Depression, Panic Disorder, Schizophrenia Smoking Status: Never smoker Past Alcohol Use History: None Reported Past Drug Use History: None Reported - Past Family History Sister(s) Family Medical History: Diabetes Mellitus Mother Family Medical History: Diabetes Mellitus Additional Family Medical History / Comment(s): Pt states her mother was healthy. Father Family Medical History: No Reported History Additional Family Medical History / Comment(s): Pt states her father was healthy General Exam Limitations: no limitations General appearance: alert, in no apparent distress Head exam: Present: atraumatic, normocephalic, normal inspection Eye exam: Present: normal appearance, PERRL, EOMI. Absent: scleral icterus, conjunctival injection, periorbital swelling Neck exam: Present: normal inspection, full ROM. Absent: tenderness, meningismus, lymphadenopathy Respiratory exam: Present: normal lung sounds bilaterally. Absent: respiratory distress, wheezes, rales, rhonchi, stridor, chest wall tenderness Cardiovascular Exam: Present: normal rhythm, tachycardia, normal heart sounds. Absent: systolic murmur, diastolic murmur, rubs, gallop, clicks GI/Abdominal exam: Present: soft, normal bowel sounds. Absent: distended, tenderness, guarding, rebound, rigid Course Vital Signs 09/13/17 19:07 Temperature 98.0 F Pulse Rate 111 H Respiratory 20 Rate Blood Pressure 136/66 O2 Sat by Pulse 97 Oximetry - Reevaluation(s) Reevaluation #1: 09/13/17 23:00 Patient was updated on CT results and lab work. We discussed that she needs on some of her lower shunted some pressure she does not have a DVT secondary to elevated d-dimer and recent surgery. Reevaluation #2: 09/13/17 23:00 Bilateral venous duplex of bilateral lower shunted were ordered patient refused when on some tach entered the room she was explain the importance of ultrasound to rule out DVT she still refuses. Medical Decision Making - Medical Decision Making 67-year-old female presented emergency department for pleuritic chest pain. This is intermittent only when she takes deep breath she has no exertional shortness of breath and worsening chest pain. Patient was high-risk for PE CT was ordered and negative. Patient EKG is unremarkable, lab work normal for her baseline. Patient had ultrasound ordered for lower extremities though she refuses she was explained the importance of this test throughout DVT. She states that she does not want this and understands. Patient will be discharged at this time. Return parameters were discussed. - Lab Data Result diagrams: 09/13/17 19:31 09/13/17 19:31 Lab Results 09/13/17 09/13/17 09/13/17 Range/Units 19:31 19:31 19:31 WBC 9.8 (3.8-10.6) k/uL RBC 3.49 L (3.80-5.40) m/uL Hgb 10.7 L (11.4-16.0) gm/dL Hct 31.9 L (34.0-46.0) % MCV 91.3 (80.0-100.0) fL MCH 30.6 (25.0-35.0) pg MCHC 33.5 (31.0-37.0) g/dL RDW 14.4 (11.5-15.5) % Plt Count 294 (150-450) k/uL Neutrophils % 60 % Lymphocytes % 26 % Monocytes % 7 % Eosinophils % 5 % Basophils % 0 % Neutrophils # 5.9 (1.3-7.7) k/uL Lymphocytes # 2.5 (1.0-4.8) k/uL Monocytes # 0.7 (0-1.0) k/uL Eosinophils # 0.5 (0-0.7) k/uL Basophils # 0.0 (0-0.2) k/uL PT (9.0-12.0) sec INR (<1.2) APTT (22.0-30.0) sec D-Dimer (<0.60) mg/L FEU Sodium 137 (137-145) mmol/L Potassium 4.3 (3.5-5.1) mmol/L Chloride 104 (98-107) mmol/L Carbon Dioxide 23 (22-30) mmol/L Anion Gap 10 mmol/L BUN 24 H (7-17) mg/dL Creatinine 1.18 H (0.52-1.04) mg/dL Est GFR (CKD-EPI)AfAm 55 (>60 ml/min/1.73 sqM) Est GFR (CKD-EPI)NonAf 48 (>60 ml/min/1.73 sqM) Glucose 110 H (74-99) mg/dL Calcium 8.9 (8.4-10.2) mg/dL Total Bilirubin 0.3 (0.2-1.3) mg/dL AST 14 (14-36) U/L ALT 28 (9-52) U/L Alkaline Phosphatase 186 H (38-126) U/L Total Creatine Kinase 51 (30-135) U/L CK-MB (CK-2) 0.7 (0.0-2.4) ng/mL CK-MB (CK-2) Rel Index 1.4 Troponin I <0.012 (0.000-0.034) ng/mL Total Protein 6.7 (6.3-8.2) g/dL Albumin 3.7 (3.5-5.0) g/dL 09/13/17 09/13/17 Range/Units 19:31 19:31 WBC (3.8-10.6) k/uL RBC (3.80-5.40) m/uL Hgb (11.4-16.0) gm/dL Hct (34.0-46.0) % MCV (80.0-100.0) fL MCH (25.0-35.0) pg MCHC (31.0-37.0) g/dL RDW (11.5-15.5) % Plt Count (150-450) k/uL Neutrophils % % Lymphocytes % % Monocytes % % Eosinophils % % Basophils % % Neutrophils # (1.3-7.7) k/uL Lymphocytes # (1.0-4.8) k/uL Monocytes # (0-1.0) k/uL Eosinophils # (0-0.7) k/uL Basophils # (0-0.2) k/uL PT 10.2 (9.0-12.0) sec INR 1.0 (<1.2) APTT 21.2 L (22.0-30.0) sec D-Dimer 2.44 H (<0.60) mg/L FEU Sodium (137-145) mmol/L Potassium (3.5-5.1) mmol/L Chloride (98-107) mmol/L Carbon Dioxide (22-30) mmol/L Anion Gap mmol/L BUN (7-17) mg/dL Creatinine (0.52-1.04) mg/dL Est GFR (CKD-EPI)AfAm (>60 ml/min/1.73 sqM) Est GFR (CKD-EPI)NonAf (>60 ml/min/1.73 sqM) Glucose (74-99) mg/dL Calcium (8.4-10.2) mg/dL Total Bilirubin (0.2-1.3) mg/dL AST (14-36) U/L ALT (9-52) U/L Alkaline Phosphatase (38-126) U/L Total Creatine Kinase (30-135) U/L CK-MB (CK-2) (0.0-2.4) ng/mL CK-MB (CK-2) Rel Index Troponin I (0.000-0.034) ng/mL Total Protein (6.3-8.2) g/dL Albumin (3.5-5.0) g/dL Disposition Clinical Impression: Pleurisy Disposition: HOME SELF-CARE Condition: Stable Instructions: Pleurisy (ED) Additional Instructions: Please return to the Emergency Department if symptoms worsen or any other concerns. Referrals: Errol Andujar MD [Primary Care Provider] - 1-2 days Time of Disposition: 23:02
--- NOTE | 2017-09-13 21:18 | XR ---
EXAMINATION: XR chest 2V DATE AND TIME: 09/13/2017 8:24 PM ORDERING PROVIDER: Adrian Paige CLINICAL INDICATION: difficulty breathing TECHNIQUE: PA and lateral COMPARISON: 03/10/2017 DESCRIPTION: The lungs are clear. The pleural spaces are negative. The cardiac silhouette is not enlarged. The skeletal structures are intact without focal findings. The soft tissues are unremarkable. IMPRESSION: NO ACUTE PROCESS.
--- NOTE | 2017-09-13 22:24 | CT ---
EXAMINATION TYPE: CT angio chest with contrast and with 3-D rendering DATE OF EXAM: 09/13/2017 10:14 PM COMPARISON: 06/15/2013 HISTORY: Dyspnea with elevated d-dimer CT DLP: 521.10 mGycm Automated exposure control for dose reduction was used. CONTRAST: CTA scan of the thorax is performed with IV Contrast, patient injected with 60 mL of [place] que 320, pulmonary embolism protocol. Multiple 3-D renderings were obtained.. FINDINGS: LUNGS AND PLEURA: The lungs are grossly clear, there is no concerning parenchymal mass or nodule iden tified. There is no pleural effusion or pneumothorax seen. The tracheobronchial tree is patent. MEDIASTINUM: There is moderate enhancement of the pulmonary arterial system without CT evidence for p ulmonary embolism. There are no greater than 1 cm hilar or mediastinal lymph nodes. There is mild ca rdiomegaly. No pericardial effusion is seen. OTHER: No additional significant abnormality is seen. IMPRESSION: NO ACUTE PROCESS.
[2017-09-13] MEDS ORDERED: IBUPROFEN 800 MG TAB PO STA (23:49)
[2017-09-14 00:01] VITALS: BP 159/96; PULSE 100; RESP 18; TEMP 98.4
== END 2017-09-13 23:50 | disposition home or self-care (01) ==
LOC: EC 18:41
DX: R09.1 Pleurisy (principal); I11.0 Hypertensive heart disease with heart failure; I50.9 Heart failure, unspecified; F03.90 Unspecified dementia, unspecified severity, without behavioral disturbance, psychotic disturbance, mood disturbance, and anxiety; K58.9 Irritable bowel syndrome, unspecified; F31.9 Bipolar disorder, unspecified; F41.0 Panic disorder [episodic paroxysmal anxiety]; F20.9 Schizophrenia, unspecified; Z86.14 Personal history of Methicillin resistant Staphylococcus aureus infection; Z79.899 Other long term (current) drug therapy; Z88.8 Allergy status to other drugs, medicaments and biological substances; Z91.041 Radiographic dye allergy status; Z91.030 Bee allergy status; Z88.0 Allergy status to penicillin
CPT/HCPCS: 36415; 93005; 85379; 80053; 82550; 82553; 84484; 85025; 85610; 85730; 71046; 71275; 99285; 96374; 96375 ×2; J1200; J2930; Q9967

== ENCOUNTER 2017-09-23 19:48 | Emergency (ER) | payer MEDICARE, OTHER ==
[2017-09-23 20:08] VITALS: RESP 18
--- NOTE | 2017-09-23 20:57 | ED ---
Abdominal Pain HPI - General Chief Complaint: Abdominal Pain Stated Complaint: Constipated Time Seen by Provider: 09/23/17 20:17 Source: patient, RN notes reviewed, old records reviewed Mode of arrival: wheelchair Limitations: no limitations - History of Present Illness Initial Comments: This is a 67 year old female wiht CC of constipation. Patient reports she has had abdominal surgery one month ago, and since then she has been maintained on laxatives. She states cari she feels like she is impacted and has not had a bowel movment in 3 days. She denies any vomiting. - Related Data Home Medications Medication Instructions Recorded Confirmed LORazepam [Ativan] 0.5 mg PO BID@0800,1600 12/04/16 09/23/17 Furosemide [Lasix] 40 mg PO DAILY@0800 01/04/17 09/23/17 Potassium Chloride [Klor-Con 10] 10 meq PO DAILY@0800 01/04/17 09/23/17 Acetaminophen Tab [Tylenol Tab] 500 - 1,000 mg PO Q6H PRN 09/13/17 09/23/17 Cholecalciferol (Vitamin D3) 2,000 unit PO DAILY@0800 09/13/17 09/23/17 [Vitamin D3] Cyanocobalamin (Vitamin B-12) 1,000 mcg PO DAILY@0800 09/13/17 09/23/17 [Vitamin B-12] Ferrous Sulfate [Feosol] 325 mg PO DAILY@0800 09/13/17 09/23/17 Lisinopril [Prinivil] 10 mg PO DAILY@0800 09/13/17 09/23/17 Loratadine-Pseudoeph 10-240 mg 1 tab PO DAILY@0800 09/13/17 09/23/17 [Claritin-D 24 Hr] Methocarbamol [Robaxin] 750 mg PO QID@08,12,16,21 09/13/17 09/23/17 Ondansetron [Zofran] 4 mg PO TID@0800,1200,1700 09/13/17 09/23/17 Pantoprazole Sodium [Protonix] 40 mg PO DAILY@0800 09/13/17 09/23/17 Previous Rx's Medication Instructions Recorded Cephalexin [Keflex] 500 mg PO Q6HR #40 cap 09/24/17 Allergies Allergy/AdvReac Type Severity Reaction Status Date / Time haloperidol [From Haldol] Allergy Unknown Verified 09/23/17 20:14 Iodinated Contrast- Oral and Allergy Unknown Verified 09/23/17 20:14 IV Dye [Iodinated Contrast Media - IV Dye] Iodine and Iodide Containing Allergy Unknown Verified 09/23/17 20:14 Produc piperacillin sodium Allergy Unknown Verified 09/23/17 20:14 [From Zosyn] tazobactam sodium Allergy Unknown Verified 09/23/17 20:14 [From Zosyn] venom-honey bee Allergy Unknown Verified 09/23/17 20:14 Review of Systems ROS Statement: Those systems with pertinent positive or pertinent negative responses have been documented in the HPI. ROS Other: All systems not noted in ROS Statement are negative. 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, neurogenic bladder, CHF, cardiomyopathy, lower GI bleed, diverticular disease, IBS, hiatal hernia, esophageal ulcer, poor circulation, venous stasis, bilateral lower leg cellulitis in past, sinus problems, UTIs, back pain, anemia History of Any Multi-Drug Resistant Organisms: MRSA Date of last positivie culture/infection: 01/01/17 MDRO Source:: finger Past Surgical History: Adenoidectomy, Appendectomy, Cholecystectomy, Hernia Repair, Hysterectomy, Orthopedic Surgery, Tonsillectomy Additional Past Surgical History / Comment(s): L foot toe with screw, L foot bunionectomy, liver bx, EGD/colonoscopy and benign polypectomy, R inguinal hernia repair, D&C, laparoscopic surgery (?). abdominal surgery Past Anesthesia/Blood Transfusion Reactions: No Reported Reaction Past Psychological History: Anxiety, Bipolar, Depression, Panic Disorder, Schizophrenia Smoking Status: Never smoker Past Alcohol Use History: None Reported Past Drug Use History: None Reported - Past Family History Sister(s) Family Medical History: Diabetes Mellitus Mother Family Medical History: Diabetes Mellitus Additional Family Medical History / Comment(s): Pt states her mother was healthy. Father Family Medical History: No Reported History Additional Family Medical History / Comment(s): Pt states her father was healthy General Exam - General Exam Comments Initial Comments: This is a 67-year-old female. No distress. Limitations: no limitations General appearance: alert, in no apparent distress Head exam: Present: atraumatic, normocephalic, normal inspection Eye exam: Present: normal appearance, PERRL, EOMI. Absent: scleral icterus, conjunctival injection, periorbital swelling ENT exam: Present: normal exam, mucous membranes moist Neck exam: Present: normal inspection. Absent: tenderness, meningismus, lymphadenopathy Respiratory exam: Present: normal lung sounds bilaterally. Absent: respiratory distress, wheezes, rales, rhonchi, stridor Cardiovascular Exam: Present: regular rate, normal rhythm, normal heart sounds. Absent: systolic murmur, diastolic murmur, rubs, gallop, clicks GI/Abdominal exam: Present: soft, normal bowel sounds, other (Treatment incision site from previous surgery.). Absent: distended, tenderness, guarding , rebound, rigid Extremities exam: Present: normal inspection, full ROM, normal capillary refill. Absent: tenderness, pedal edema, joint swelling, calf tenderness Back exam: Present: normal inspection Neurological exam: Present: alert, oriented X3, CN II-XII intact Psychiatric exam: Present: normal affect, normal mood Skin exam: Present: warm, dry, intact, normal color. Absent: rash Course Vital Signs 09/23/17 09/23/17 20:03 22:34 Temperature 98.5 F 98.9 F Pulse Rate 98 106 H Respiratory 18 18 Rate Blood Pressure 129/61 129/59 O2 Sat by Pulse 100 97 Oximetry Medical Decision Making - Medical Decision Making This patient is a 67 year old female with CC of constipation and impaction. Patient was given kub, shows lower abdominal stool burden. Patient was given a milk and mollasses enema, and patient had a large BM afterward. Patient reports she feels better. Will be discharged. Follow up instructions completed. - Radiology Data Radiology results: report reviewed Excessive pancolonic stool noted. Disposition Clinical Impression: Constipation Disposition: HOME SELF-CARE Condition: Good Instructions: Constipation (ED) Additional Instructions: Increase her fluid intake. Take your home medications. Make sure the ear having a lot of fibrous foods, also recommended doing her typical regimen for her bowel habits as well as may be heading prune juice and apple juice in another supplements. Referrals: None,Stated [Primary Care Provider] - 1-2 days Time of Disposition: 22:12
--- NOTE | 2017-09-23 21:12 | XR ---
EXAMINATION TYPE: XR KUB - 2V DATE OF EXAM: 09/23/2017 COMPARISON: 08/26/2017 HISTORY: Constipation pain TECHNIQUE: 2 upright views of the abdomen and pelvis FINDINGS: The bowel gas pattern is normal. No pneumoperitoneum. Excessive stool is seen throughout th e colon. Skeletal structures are negative for acute findings. The visualized lung bases and pleural spaces and cardiac silhouette are unremarkable. IMPRESSION: Excessive pancolonic stool noted. No other findings.
[2017-09-23 22:36] VITALS: BP 129/59; PULSE 106; TEMP 98.9
== END 2017-09-23 22:34 | disposition home or self-care (01) ==
LOC: EC 19:48
DX: K59.00 Constipation, unspecified (principal); I11.0 Hypertensive heart disease with heart failure; I50.9 Heart failure, unspecified; Z79.899 Other long term (current) drug therapy; Z88.0 Allergy status to penicillin; Z88.8 Allergy status to other drugs, medicaments and biological substances; Z91.030 Bee allergy status; Z91.041 Radiographic dye allergy status; Z86.14 Personal history of Methicillin resistant Staphylococcus aureus infection; Z87.19 Personal history of other diseases of the digestive system; Z87.39 Personal history of other diseases of the musculoskeletal system and connective tissue; Z90.49 Acquired absence of other specified parts of digestive tract
CPT/HCPCS: 74018; 99284

== ENCOUNTER 2017-09-24 20:01 | Emergency (ER) | payer MEDICARE, OTHER ==
[2017-09-24 20:31] VITALS: RESP 16
--- NOTE | 2017-09-24 21:16 | ED ---
General Adult HPI - General Chief complaint: Fall Stated complaint: Fall Time Seen by Provider: 09/24/17 20:14 Source: patient, EMS, RN notes reviewed Mode of arrival: EMS Limitations: physical limitation - History of Present Illness Initial comments: 67-year-old female presents for treatment and fall. She tripped on the steps landing onto her nose. She states didn't hit her head. She states that she was able to walk after the accident. There was no loss of consciousness. He denies any nausea or vomiting with this. She denies a headache. She states that her tetanus is up-to-date. She denies any other symptoms at this time. There is no lightheadedness or dizziness before the accident. It was a simple trip and fall.Patient denies any recent fever, chills, shortness of breath, chest pain, back pain, abdominal pain, nausea vomiting, numbness or tingling, dysuria or hematuria, constipation or diarrhea, headaches or visual changes, or any other current symptoms. - Related Data Home Medications Medication Instructions Recorded Confirmed LORazepam [Ativan] 0.5 mg PO BID@0800,1600 12/04/16 09/23/17 Furosemide [Lasix] 40 mg PO DAILY@0800 01/04/17 09/23/17 Potassium Chloride [Klor-Con 10] 10 meq PO DAILY@0800 01/04/17 09/23/17 Acetaminophen Tab [Tylenol Tab] 500 - 1,000 mg PO Q6H PRN 09/13/17 09/23/17 Cholecalciferol (Vitamin D3) 2,000 unit PO DAILY@0800 09/13/17 09/23/17 [Vitamin D3] Cyanocobalamin (Vitamin B-12) 1,000 mcg PO DAILY@0800 09/13/17 09/23/17 [Vitamin B-12] Ferrous Sulfate [Feosol] 325 mg PO DAILY@0800 09/13/17 09/23/17 Lisinopril [Prinivil] 10 mg PO DAILY@0800 09/13/17 09/23/17 Loratadine-Pseudoeph 10-240 mg 1 tab PO DAILY@0800 09/13/17 09/23/17 [Claritin-D 24 Hr] Methocarbamol [Robaxin] 750 mg PO QID@08,12,16,21 09/13/17 09/23/17 Ondansetron [Zofran] 4 mg PO TID@0800,1200,1700 09/13/17 09/23/17 Pantoprazole Sodium [Protonix] 40 mg PO DAILY@0800 09/13/17 09/23/17 Previous Rx's Medication Instructions Recorded Cephalexin [Keflex] 500 mg PO Q6HR #40 cap 09/24/17 Allergies Allergy/AdvReac Type Severity Reaction Status Date / Time haloperidol [From Haldol] Allergy Unknown Verified 09/23/17 20:14 Iodinated Contrast- Oral and Allergy Unknown Verified 09/23/17 20:14 IV Dye [Iodinated Contrast Media - IV Dye] Iodine and Iodide Containing Allergy Unknown Verified 09/23/17 20:14 Produc piperacillin sodium Allergy Unknown Verified 09/23/17 20:14 [From Zosyn] tazobactam sodium Allergy Unknown Verified 09/23/17 20:14 [From Zosyn] venom-honey bee Allergy Unknown Verified 09/23/17 20:14 Review of Systems ROS Statement: Those systems with pertinent positive or pertinent negative responses have been documented in the HPI. ROS Other: All systems not noted in ROS Statement are negative. 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, neurogenic bladder, CHF, cardiomyopathy, lower GI bleed, diverticular disease, IBS, hiatal hernia, esophageal ulcer, poor circulation, venous stasis, bilateral lower leg cellulitis in past, sinus problems, UTIs, back pain, anemia History of Any Multi-Drug Resistant Organisms: MRSA Date of last positivie culture/infection: 01/01/17 MDRO Source:: finger Past Surgical History: Adenoidectomy, Appendectomy, Cholecystectomy, Hernia Repair, Hysterectomy, Orthopedic Surgery, Tonsillectomy Additional Past Surgical History / Comment(s): L foot toe with screw, L foot bunionectomy, liver bx, EGD/colonoscopy and benign polypectomy, R inguinal hernia repair, D&C, laparoscopic surgery (?). abdominal surgery, surgery to repain prolapsed vagina, repair of perforation in small intestine. Past Anesthesia/Blood Transfusion Reactions: No Reported Reaction Past Psychological History: Anxiety, Bipolar, Depression, Panic Disorder, Schizophrenia Smoking Status: Never smoker Past Alcohol Use History: None Reported Past Drug Use History: None Reported - Past Family History Sister(s) Family Medical History: Diabetes Mellitus Mother Family Medical History: Diabetes Mellitus Additional Family Medical History / Comment(s): Pt states her mother was healthy. Father Family Medical History: No Reported History Additional Family Medical History / Comment(s): Pt states her father was healthy General Exam Limitations: physical limitation General appearance: alert, in no apparent distress Head exam: Present: other (No hematoma. Patient has small abrasion noted to the bridge of nose with associated swelling.) Eye exam: Present: normal appearance, PERRL, EOMI. Absent: scleral icterus, conjunctival injection, periorbital swelling ENT exam: Present: normal exam, mucous membranes moist Neck exam: Present: normal inspection. Absent: tenderness, meningismus, lymphadenopathy Respiratory exam: Present: normal lung sounds bilaterally. Absent: respiratory distress, wheezes, rales, rhonchi, stridor Cardiovascular Exam: Present: regular rate, normal rhythm, normal heart sounds. Absent: systolic murmur, diastolic murmur, rubs, gallop, clicks GI/Abdominal exam: Present: soft, normal bowel sounds. Absent: distended, tenderness, guarding, rebound, rigid Extremities exam: Present: normal inspection, full ROM, normal capillary refill. Absent: tenderness, pedal edema, joint swelling, calf tenderness Back exam: Present: normal inspection Neurological exam: Present: alert, oriented X3, CN II-XII intact, reflexes normal. Absent: motor sensory deficit Psychiatric exam: Present: normal affect, normal mood Skin exam: Present: warm, dry, normal color. Absent: intact (Small abrasion to bridge of nose), rash Course Vital Signs 09/24/17 20:24 Temperature 98.5 F Pulse Rate 106 H Respiratory 16 Rate Blood Pressure 142/71 O2 Sat by Pulse 100 Oximetry Medical Decision Making - Medical Decision Making 67-year-old female presents to the emergency department with a chief complaint of trip and fall. At this time patient's CAT scan is reviewed and does show nasal bone fracture. We discussed care we discussed follow-up we discussed return parameters all questions. Patient stated that she understood and she is agreement plan. All questions have been answered. She will be discharged. - Radiology Data Radiology results: report reviewed, image reviewed Disposition Clinical Impression: Fall, Facial abrasion, Nasal contusion, Minor head injury, Nasal bone fracture Disposition: HOME SELF-CARE Condition: Stable Instructions: Fall Prevention for Older Adults (ED), Abrasion (ED), Nasal Fracture (ED) Additional Instructions: Please use medication as discussed. Please follow up with family doctor if symptoms have not improved over the next two days. Please return to the emergency room if your symptoms increase or worsen or for any other concerns. Prescriptions: Cephalexin [Keflex] 500 mg PO Q6HR #40 cap Referrals: Rhea Whyte MD [STAFF PHYSICIAN] - 1-2 days Jemal Alberts DO [Doctor of Osteopathic Medicine] - 1-2 days Time of Disposition: 21:40
--- NOTE | 2017-09-24 21:34 | CT ---
EXAMINATION TYPE: CT facial bones wo con DATE OF EXAM: 09/24/2017 COMPARISON: NONE HISTORY: Fall today. Injury to nose. CT DLP: 581.4 mGycm Automated exposure control for dose reduction was used. TECHNIQUE: CT scan of the sinuses is performed without contrast, axial images are obtained, coronal r eformatted images are also reviewed. FINDINGS: There is an acute complete comminuted minimally displaced the left fracture of the nasal carmen ne. There is soft tissue swelling noted at this location. Minimal nasal septal deviation to the right is noted. There is some thickening of the sinuses noted in the sphenoid sinus. The mandible mandibul ar condyles appear unremarkable. The patient is a dentulous. The orbits appear intact. Visualized cer vical spine demonstrates mild degenerative changes. No acute fractures or subluxation is identified. The central airway appears patent. Mastoid air cells are well aerated. IMPRESSION: Acute complete comminuted minimally displaced to the left nasal bone fracture.
--- NOTE | 2017-09-24 21:38 | CT ---
EXAMINATION TYPE: CT brain amira lopez DATE OF EXAM: 09/24/2017 COMPARISON: NONE HISTORY: Fall today. Injury to nose. CT DLP: 1470.1 mGycm Automated exposure control for dose reduction was used. TECHNIQUE: CT scan of the head and cervical spine are performed without contrast. FINDINGS: There is no acute hemorrhage or major vessel territorial infarct. There is an old insult to the medial aspect of the right frontal lobe along the falx. There is no mass, mass effect, or midlin e shift. There are no abnormal intra or extra-axial fluid collections. Some thickening is noted in th e sphenoid sinus. Calvarium is otherwise unremarkable. Mastoid air cells are well aerated. Evaluation cervical spine reveals reversal of normal cervical lordosis. There is extensive osteophyte formation both anteriorly and posteriorly. There is a normal relationship to the anterior arch of C1 and the dens process. Minimal calcified pannus posterior to the dens process is noted. There is exte nsive facet hypertrophy as well as endplate spurring which contributes to moderate to severe bilatera l neural foraminal narrowing at several levels. There is at least mild central canal stenosis noted a t the level C5-6 and C6-7. Prevertebral soft tissue spaces are within normal limits. IMPRESSION: Degenerative changes are noted in the cervical spine without acute abnormality. No change in appearan ce of the brain.
[2017-09-24 22:07] VITALS: BP 132/68; PULSE 88; TEMP 98.6
== END 2017-09-24 22:07 | disposition home or self-care (01) ==
LOC: EC 20:01
DX: S02.2XXA Fracture of nasal bones, initial encounter for closed fracture (principal); I11.0 Hypertensive heart disease with heart failure; I50.9 Heart failure, unspecified; D64.9 Anemia, unspecified; F41.9 Anxiety disorder, unspecified; Z86.14 Personal history of Methicillin resistant Staphylococcus aureus infection; Z86.73 Personal history of transient ischemic attack (TIA), and cerebral infarction without residual deficits; Z79.899 Other long term (current) drug therapy; Z88.8 Allergy status to other drugs, medicaments and biological substances; Z91.041 Radiographic dye allergy status; Z91.048 Other nonmedicinal substance allergy status; Z88.1 Allergy status to other antibiotic agents; Z91.030 Bee allergy status; W01.10XA Fall on same level from slipping, tripping and stumbling with subsequent striking against unspecified object, initial encounter
CPT/HCPCS: 70450; 70486; 72125; 99284

== ENCOUNTER 2017-10-08 20:55 | Emergency (ER) | payer MEDICARE, OTHER ==
[2017-10-08 21:38] LABS: Basophils % (A) 1 %; Eosinophils # (A) 0.3 k/uL (0-0.7); Eosinophils % (A) 4 %; HCT 31.4 % (34.0-46.0); HGB 10.6 gm/dL (11.4-16.0); Lymphocytes # (A) 2.4 k/uL (1.0-4.8); Lymphocytes % (A) 26 %; MCH 30.2 pg (25.0-35.0); MCHC 33.7 g/dL (31.0-37.0); MCV 89.5 fL (80.0-100.0); Mean Platelet Volume 6.9; Monocytes # (A) 0.5 k/uL (0-1.0); Monocytes % (A) 6 %; Neutrophils # (A) 5.7 k/uL (1.3-7.7); Neutrophils % (A) 62 %; Platelet Count 321 k/uL (150-450); RBC 3.51 m/uL (3.80-5.40); RDW 13.2 % (11.5-15.5); WBC 9.2 k/uL (3.8-10.6)
--- NOTE | 2017-10-08 21:44 | ED ---
General Adult HPI - General Chief complaint: Arrhythmia/Palpitations Stated complaint: Palpitations Time Seen by Provider: 10/08/17 21:22 Source: patient, RN notes reviewed, old records reviewed Mode of arrival: ambulatory Limitations: no limitations - History of Present Illness Initial comments: 67-year-old female presents for palpitations. States she was working around the house, began feeling better heart was racing, this was associated with some mild dyspnea. Patient does have history of congestive heart failure. No history of arrhythmia. No history of coronary artery disease. No history DVT or PE. Patient denies any calf tenderness. She does have some mild lower extremity swelling which she states is chronic. Denies chest pain. Denies tightness. Denies any abdominal pain nausea vomiting or diaphoresis. - Related Data Home Medications Medication Instructions Recorded Confirmed LORazepam [Ativan] 0.5 mg PO BID@0800,1600 12/04/16 09/23/17 Furosemide [Lasix] 40 mg PO DAILY@0800 01/04/17 09/23/17 Potassium Chloride [Klor-Con 10] 10 meq PO DAILY@0800 01/04/17 09/23/17 Acetaminophen Tab [Tylenol Tab] 500 - 1,000 mg PO Q6H PRN 09/13/17 09/23/17 Cholecalciferol (Vitamin D3) 2,000 unit PO DAILY@0800 09/13/17 09/23/17 [Vitamin D3] Cyanocobalamin (Vitamin B-12) 1,000 mcg PO DAILY@0800 09/13/17 09/23/17 [Vitamin B-12] Ferrous Sulfate [Feosol] 325 mg PO DAILY@0800 09/13/17 09/23/17 Lisinopril [Prinivil] 10 mg PO DAILY@0800 09/13/17 09/23/17 Loratadine-Pseudoeph 10-240 mg 1 tab PO DAILY@0800 09/13/17 09/23/17 [Claritin-D 24 Hr] Methocarbamol [Robaxin] 750 mg PO QID@08,12,16,21 09/13/17 09/23/17 Ondansetron [Zofran] 4 mg PO TID@0800,1200,1700 09/13/17 09/23/17 Pantoprazole Sodium [Protonix] 40 mg PO DAILY@0800 09/13/17 09/23/17 Previous Rx's Medication Instructions Recorded Cephalexin [Keflex] 500 mg PO Q6HR #40 cap 09/24/17 Allergies Allergy/AdvReac Type Severity Reaction Status Date / Time haloperidol [From Haldol] Allergy Unknown Verified 10/08/17 21:00 Iodinated Contrast- Oral and Allergy Unknown Verified 10/08/17 21:00 IV Dye [Iodinated Contrast Media - IV Dye] Iodine and Iodide Containing Allergy Unknown Verified 10/08/17 21:00 Produc piperacillin sodium Allergy Unknown Verified 10/08/17 21:00 [From Zosyn] tazobactam sodium Allergy Unknown Verified 10/08/17 21:00 [From Zosyn] venom-honey bee Allergy Unknown Verified 10/08/17 21:00 Review of Systems ROS Statement: Those systems with pertinent positive or pertinent negative responses have been documented in the HPI. ROS Other: All systems not noted in ROS Statement are negative. 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, neurogenic bladder, CHF, cardiomyopathy, lower GI bleed, diverticular disease, IBS, hiatal hernia, esophageal ulcer, poor circulation, venous stasis, bilateral lower leg cellulitis in past, sinus problems, UTIs, back pain, anemia History of Any Multi-Drug Resistant Organisms: MRSA Date of last positivie culture/infection: 01/01/17 MDRO Source:: finger Past Surgical History: Joint Replacement, Orthopedic Surgery Additional Past Surgical History / Comment(s): L foot toe with screw, L foot bunionectomy, liver bx, EGD/colonoscopy and benign polypectomy, R inguinal hernia repair, D&C, laparoscopic surgery (?). abdominal surgery, surgery to repain prolapsed vagina, repair of perforation in small intestine. Past Anesthesia/Blood Transfusion Reactions: No Reported Reaction Past Psychological History: Anxiety, Bipolar, Depression, Panic Disorder, Schizophrenia Smoking Status: Never smoker Past Alcohol Use History: None Reported Past Drug Use History: None Reported - Past Family History Sister(s) Family Medical History: Diabetes Mellitus Mother Family Medical History: Diabetes Mellitus Additional Family Medical History / Comment(s): Pt states her mother was healthy. Father Family Medical History: No Reported History Additional Family Medical History / Comment(s): Pt states her father was healthy General Exam Limitations: no limitations General appearance: alert, in no apparent distress Head exam: Present: atraumatic, normocephalic Eye exam: Present: normal appearance, PERRL, EOMI Neck exam: Present: normal inspection Respiratory exam: Present: normal lung sounds bilaterally. Absent: respiratory distress Cardiovascular Exam: Present: regular rate, normal rhythm, normal heart sounds GI/Abdominal exam: Present: soft. Absent: distended, tenderness Extremities exam: Present: normal capillary refill, pedal edema, other ( Bilateral erythema) Back exam: Present: normal inspection Neurological exam: Present: alert, oriented X3, CN II-XII intact. Absent: motor sensory deficit Psychiatric exam: Present: normal affect, normal mood Skin exam: Present: warm, dry, intact. Absent: cyanosis, diaphoretic Course Vital Signs 10/08/17 20:57 Temperature 97.9 F Pulse Rate 112 H Respiratory 22 Rate Blood Pressure 124/65 O2 Sat by Pulse 100 Oximetry EKG Findings - EKG Comments: EKG Findings:: EKG: Sinus tachycardia, rate of 108, CO interval 160, QRS duration 82, QTC 442, no ST segment elevation or depression Medical Decision Making - Medical Decision Making 67 yo female presenting with palpitations. Patient does have some mild tachycardia, no arrhythmia on EKG laboratory studies reveal normal white blood cell count, stable hemoglobin, normal electrolytes, creatinine 1.28 troponin negative, chest x-ray negative for focal airspace disease or acute process. Patient's heart rate improves with no treatment, oxygen saturation remains 99% on room air. Blood pressure stable. On reevaluation patient states her palpitations are resolved. No dyspnea. She is eager for discharge. She will follow-up with her primary care physician. - Lab Data Result diagrams: 10/08/17 21:25 10/08/17 21:25 Lab Results 10/08/17 10/08/17 10/08/17 Range/Units 21:25 21:25 21:25 WBC 9.2 (3.8-10.6) k/uL RBC 3.51 L (3.80-5.40) m/uL Hgb 10.6 L (11.4-16.0) gm/dL Hct 31.4 L (34.0-46.0) % MCV 89.5 (80.0-100.0) fL MCH 30.2 (25.0-35.0) pg MCHC 33.7 (31.0-37.0) g/dL RDW 13.2 (11.5-15.5) % Plt Count 321 (150-450) k/uL Neutrophils % 62 % Lymphocytes % 26 % Monocytes % 6 % Eosinophils % 4 % Basophils % 1 % Neutrophils # 5.7 (1.3-7.7) k/uL Lymphocytes # 2.4 (1.0-4.8) k/uL Monocytes # 0.5 (0-1.0) k/uL Eosinophils # 0.3 (0-0.7) k/uL Basophils # 0.0 (0-0.2) k/uL PT (9.0-12.0) sec INR (<1.2) APTT (22.0-30.0) sec Sodium 141 (137-145) mmol/L Potassium 4.2 (3.5-5.1) mmol/L Chloride 103 (98-107) mmol/L Carbon Dioxide 24 (22-30) mmol/L Anion Gap 14 mmol/L BUN 24 H (7-17) mg/dL Creatinine 1.28 H (0.52-1.04) mg/dL Est GFR (CKD-EPI)AfAm 50 (>60 ml/min/1.73 sqM) Est GFR (CKD-EPI)NonAf 44 (>60 ml/min/1.73 sqM) Glucose 121 H (74-99) mg/dL Calcium 9.2 (8.4-10.2) mg/dL Magnesium 1.7 (1.6-2.3) mg/dL Total Bilirubin 0.2 (0.2-1.3) mg/dL AST 14 (14-36) U/L ALT 21 (9-52) U/L Alkaline Phosphatase 234 H (38-126) U/L Total Creatine Kinase 59 (30-135) U/L CK-MB (CK-2) 0.7 (0.0-2.4) ng/mL CK-MB (CK-2) Rel Index 1.2 Troponin I <0.012 (0.000-0.034) ng/mL Total Protein 6.9 (6.3-8.2) g/dL Albumin 3.7 (3.5-5.0) g/dL 10/08/17 Range/Units 21:25 WBC (3.8-10.6) k/uL RBC (3.80-5.40) m/uL Hgb (11.4-16.0) gm/dL Hct (34.0-46.0) % MCV (80.0-100.0) fL MCH (25.0-35.0) pg MCHC (31.0-37.0) g/dL RDW (11.5-15.5) % Plt Count (150-450) k/uL Neutrophils % % Lymphocytes % % Monocytes % % Eosinophils % % Basophils % % Neutrophils # (1.3-7.7) k/uL Lymphocytes # (1.0-4.8) k/uL Monocytes # (0-1.0) k/uL Eosinophils # (0-0.7) k/uL Basophils # (0-0.2) k/uL PT 9.9 (9.0-12.0) sec INR 1.0 (<1.2) APTT 22.0 (22.0-30.0) sec Sodium (137-145) mmol/L Potassium (3.5-5.1) mmol/L Chloride (98-107) mmol/L Carbon Dioxide (22-30) mmol/L Anion Gap mmol/L BUN (7-17) mg/dL Creatinine (0.52-1.04) mg/dL Est GFR (CKD-EPI)AfAm (>60 ml/min/1.73 sqM) Est GFR (CKD-EPI)NonAf (>60 ml/min/1.73 sqM) Glucose (74-99) mg/dL Calcium (8.4-10.2) mg/dL Magnesium (1.6-2.3) mg/dL Total Bilirubin (0.2-1.3) mg/dL AST (14-36) U/L ALT (9-52) U/L Alkaline Phosphatase (38-126) U/L Total Creatine Kinase (30-135) U/L CK-MB (CK-2) (0.0-2.4) ng/mL CK-MB (CK-2) Rel Index Troponin I (0.000-0.034) ng/mL Total Protein (6.3-8.2) g/dL Albumin (3.5-5.0) g/dL Disposition Clinical Impression: Heart palpitations Disposition: HOME SELF-CARE Condition: Fair Instructions: Palpitations (ED) Additional Instructions: Please follow up with primary care physician. Referrals: None,Stated [Primary Care Provider] - 1-2 days Time of Disposition: 22:36
[2017-10-08 21:46] LABS: Prothrombin Time 9.9 sec (9.0-12.0)
--- NOTE | 2017-10-08 21:58 | XR ---
EXAMINATION TYPE: XR chest 2V DATE OF EXAM: 10/08/2017 COMPARISON: 09/13/2017 HISTORY: Palpitations and chest pain TECHNIQUE: Frontal and lateral views of the chest are obtained. FINDINGS: There is no heart failure nor confluent pneumonic infiltrate. Thoracic aorta shows mild at heromatous change. There are no hilar masses. There is mild spurring in the thoracic spine. I see no pleural effusion. IMPRESSION: No active cardiopulmonary disease. No change compared to last exam.
[2017-10-08 21:59] LABS: Albumin 3.7 g/dL (3.5-5.0); Calcium 9.2 mg/dL (8.4-10.2); Creatine Kinase 59 U/L (30-135); Magnesium 1.7 mg/dL (1.6-2.3); Potassium 4.2 mmol/L (3.5-5.1); Total Bilirubin 0.2 mg/dL (0.2-1.3); Total Protein 6.9 g/dL (6.3-8.2)
[2017-10-08 22:11] LABS: Creatine Kinase MB 0.7 ng/mL (0.0-2.4); Troponin I <0.012 ng/mL (0.000-0.034)
[2017-10-08 22:42] VITALS: BP 120/60; PULSE 94; RESP 17; TEMP 98
== END 2017-10-08 22:44 | disposition home or self-care (01) ==
LOC: EC 20:55
DX: R00.2 Palpitations (principal); R00.0 Tachycardia, unspecified; I11.0 Hypertensive heart disease with heart failure; I50.9 Heart failure, unspecified; F03.90 Unspecified dementia, unspecified severity, without behavioral disturbance, psychotic disturbance, mood disturbance, and anxiety; F41.9 Anxiety disorder, unspecified; F31.9 Bipolar disorder, unspecified; F20.9 Schizophrenia, unspecified; D64.9 Anemia, unspecified; Z86.14 Personal history of Methicillin resistant Staphylococcus aureus infection; Z86.73 Personal history of transient ischemic attack (TIA), and cerebral infarction without residual deficits; Z88.1 Allergy status to other antibiotic agents; Z88.8 Allergy status to other drugs, medicaments and biological substances; Z91.030 Bee allergy status; Z91.041 Radiographic dye allergy status; Z91.048 Other nonmedicinal substance allergy status; Z79.899 Other long term (current) drug therapy
CPT/HCPCS: 36415; 71046; 80053; 82550; 82553; 83735; 84484; 85025; 85610; 85730; 93005; 99285

== ENCOUNTER 2017-11-21 04:51 | Emergency (ER) | payer MEDICARE, OTHER ==
[2017-11-21] MEDS ORDERED: KETOROLAC 30 MG/ML 1 ML VIAL IM STA (04:53)
--- NOTE | 2017-11-21 04:56 | ED ---
General Adult HPI - General Stated complaint: back pain Time Seen by Provider: 11/21/17 04:53 Source: patient, EMS, RN notes reviewed, old records reviewed - History of Present Illness Initial comments: 67-year-old female with chronic back pain. Patient only takes Tylenol for her lumbar back pain. She states that every so often she does require a Toradol shot to improve her pain. She denies any weakness in lower extremities. She does report some shooting pain which is typical. Denies fever or chills. She currently has bilateral lower extremity cellulitis which is currently on antibiotics for. Denies any bowel or bladder issues. Denies chest pain shortness breath, denies nausea vomiting or diarrhea. - Related Data Home Medications Medication Instructions Recorded Confirmed LORazepam [Ativan] 0.5 mg PO BID@0800,1600 12/04/16 10/20/17 Furosemide [Lasix] 40 mg PO DAILY@0800 01/04/17 10/20/17 Potassium Chloride [Klor-Con 10] 10 meq PO DAILY@0800 01/04/17 10/20/17 Acetaminophen Tab [Tylenol Tab] 500 - 1,000 mg PO Q6H PRN 09/13/17 10/20/17 Cholecalciferol (Vitamin D3) 2,000 unit PO DAILY@0800 09/13/17 10/20/17 [Vitamin D3] Cyanocobalamin (Vitamin B-12) 1,000 mcg PO DAILY@0800 09/13/17 10/20/17 [Vitamin B-12] Ferrous Sulfate [Feosol] 325 mg PO DAILY@0800 09/13/17 10/20/17 Lisinopril [Prinivil] 10 mg PO DAILY@0800 09/13/17 10/20/17 Loratadine-Pseudoeph 10-240 mg 1 tab PO DAILY@0800 09/13/17 10/20/17 [Claritin-D 24 Hr] Methocarbamol [Robaxin] 750 mg PO QID@08,12,16,21 09/13/17 10/20/17 Ondansetron [Zofran] 4 mg PO TID@0800,1200,1700 09/13/17 10/20/17 Pantoprazole Sodium [Protonix] 40 mg PO DAILY@0800 09/13/17 10/20/17 Previous Rx's Medication Instructions Recorded Cephalexin [Keflex] 500 mg PO Q6HR #40 cap 09/24/17 Allergies Allergy/AdvReac Type Severity Reaction Status Date / Time haloperidol [From Haldol] Allergy Unknown Verified 10/20/17 23:14 Iodinated Contrast- Oral and Allergy Unknown Verified 10/20/17 23:14 IV Dye [Iodinated Contrast Media - IV Dye] Iodine and Iodide Containing Allergy Unknown Verified 10/20/17 23:14 Produc piperacillin sodium Allergy Unknown Verified 10/20/17 23:14 [From Zosyn] tazobactam sodium Allergy Unknown Verified 10/20/17 23:14 [From Zosyn] venom-honey bee Allergy Unknown Verified 10/20/17 23:14 Review of Systems ROS Statement: Those systems with pertinent positive or pertinent negative responses have been documented in the HPI. ROS Other: All systems not noted in ROS Statement are negative. 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, neurogenic bladder, CHF, cardiomyopathy, lower GI bleed, diverticular disease, IBS, hiatal hernia, esophageal ulcer, poor circulation, venous stasis, bilateral lower leg cellulitis in past, sinus problems, UTIs, back pain, anemia History of Any Multi-Drug Resistant Organisms: MRSA Date of last positivie culture/infection: 01/01/17 MDRO Source:: finger Past Surgical History: Joint Replacement, Orthopedic Surgery Additional Past Surgical History / Comment(s): L foot toe with screw, L foot bunionectomy, liver bx, EGD/colonoscopy and benign polypectomy, R inguinal hernia repair, D&C, laparoscopic surgery (?). abdominal surgery, surgery to repain prolapsed vagina, repair of perforation in small intestine. Past Anesthesia/Blood Transfusion Reactions: No Reported Reaction Past Psychological History: Anxiety, Bipolar, Depression, Panic Disorder, Schizophrenia Smoking Status: Never smoker Past Alcohol Use History: None Reported Past Drug Use History: None Reported - Past Family History Sister(s) Family Medical History: Diabetes Mellitus Mother Family Medical History: Diabetes Mellitus Additional Family Medical History / Comment(s): Pt states her mother was healthy. Father Family Medical History: No Reported History Additional Family Medical History / Comment(s): Pt states her father was healthy General Exam General appearance: alert, in no apparent distress Head exam: Present: atraumatic, normocephalic Eye exam: Present: normal appearance, PERRL, EOMI ENT exam: Present: normal exam Neck exam: Present: normal inspection. Absent: tenderness, meningismus Respiratory exam: Present: normal lung sounds bilaterally. Absent: respiratory distress Cardiovascular Exam: Present: regular rate, normal rhythm GI/Abdominal exam: Present: soft. Absent: distended, tenderness Extremities exam: Present: full ROM, normal capillary refill, other (Venous stasis versus bilateral cellulitis) Back exam: Present: tenderness, paraspinal tenderness (Left paraspinal) Neurological exam: Present: alert, oriented X3, CN II-XII intact, normal gait. Absent: motor sensory deficit Psychiatric exam: Present: normal affect, normal mood Skin exam: Present: warm, dry, intact. Absent: cyanosis, diaphoretic Course Vital Signs 11/21/17 04:54 Temperature 98.7 F Pulse Rate 99 Respiratory 16 Rate Blood Pressure 147/75 O2 Sat by Pulse 100 Oximetry Medical Decision Making - Medical Decision Making 67-year-old female presenting with chief complaint of back pain. Patient's neurologic exam is known focal. She is ambulatory in the emergency department. She states her pain is typical of her chronic back pain and requests Toradol injection. She is given this injection. Patient has no other complaints. She will be discharged home with outpatient follow-up. Disposition Clinical Impression: Chronic back pain Disposition: HOME SELF-CARE Condition: Good Is patient prescribed a controlled substance at d/c from ED?: No Referrals: None,Stated [Primary Care Provider] - 1-2 days Time of Disposition: 04:56
[2017-11-21 05:07] VITALS: BP 147/75; PULSE 99; RESP 16; TEMP 98.7
== END 2017-11-21 05:20 | disposition home or self-care (01) ==
LOC: EC 04:51
DX: M54.9 Dorsalgia, unspecified (principal); G89.29 Other chronic pain; I11.0 Hypertensive heart disease with heart failure; I50.9 Heart failure, unspecified; D64.9 Anemia, unspecified; K22.10 Ulcer of esophagus without bleeding; F41.9 Anxiety disorder, unspecified; Z86.14 Personal history of Methicillin resistant Staphylococcus aureus infection; Z86.73 Personal history of transient ischemic attack (TIA), and cerebral infarction without residual deficits; Z88.1 Allergy status to other antibiotic agents; Z88.8 Allergy status to other drugs, medicaments and biological substances; Z91.030 Bee allergy status; Z91.041 Radiographic dye allergy status; Z91.048 Other nonmedicinal substance allergy status; Z79.899 Other long term (current) drug therapy
CPT/HCPCS: 99284; 96372; J1885

== ENCOUNTER → 2017-12-14 | Outpatient (CLI) | payer MEDICARE, OTHER ==
--- NOTE | 2017-12-14 16:18 | MR ---
EXAMINATION TYPE: MR lumbar spine wo con DATE OF EXAM: 12/14/2017 COMPARISON: NONE HISTORY: Radiculopathy, lumbar region CONTRAST: 0 mL intravenous . TECHNIQUE: Multiplanar, multisequence images of the lumbar spine were acquired. FINDINGS: Cord terminates at T12-L1 level. L5-S1: No significant disc bulge or disc herniation. No spinal canal stenosis. No foraminal stenosi s. Facet hypertrophy is present. L4-L5: No significant disc bulge or disc herniation. No spinal canal stenosis. No foraminal stenosi s. Facet hypertrophy has mild posterior lateral thecal sac compression L3-L4: No significant disc bulge or disc herniation. No spinal canal stenosis. No foraminal stenosi s. Facet hypertrophy is posterior lateral thecal sac compression with some lateral canal narrowing. T his appears greater on the right than the left posterior lateral thecal sac. L2-L3: There is a left paracentral moderate-sized disc herniation. Correlate with left L3 radicular s ymptoms. No AP spinal canal stenosis present. The left foramen at the spinal canal orifice may be n arrowed. Left foraminal stenosis is present to moderate degree. Right foraminal stenosis appears miguel re secondary to facet hypertrophy. L1-L2: There is a small central focal protrusion. Some minimal subligamentous disc herniation may be present with minimal anterior thecal sac impression. No AP spinal canal stenosis present. Neural fora men are patent. No spinal canal stenosis. No foraminal stenosis. T12-L1: No significant disc bulge or disc herniation. No spinal canal stenosis. No foraminal stenos is. IMPRESSION: 1. Multilevel facet hypertrophy appears greatest at the L3-4 level with some posterior lateral thecal sac compression and mild lateral canal narrowing. 2. Moderate left paracentral disc herniation L2-L3. Correlate with left L3 radicular symptoms. There may be narrowing at the orifice of the left foramen with moderate foraminal narrowing otherwise. Miguel re right foraminal stenosis appears to be present secondary to facet hypertrophy.
== END | disposition home or self-care (01) ==
LOC: RADMRIMAIN 08:06
PROVIDERS: ATTEND Psychiatry & Neurology Neurology
DX: M48.061 Spinal stenosis, lumbar region without neurogenic claudication (principal); M99.73 Connective tissue and disc stenosis of intervertebral foramina of lumbar region; M51.16 Intervertebral disc disorders with radiculopathy, lumbar region; G95.29 Other cord compression; M53.86 Other specified dorsopathies, lumbar region
CPT/HCPCS: 72148

== ENCOUNTER 2017-12-17 11:07 | Emergency (ER) | payer MEDICARE, OTHER ==
[2017-12-17 12:02] VITALS: RESP 18; TEMP 98.1
--- NOTE | 2017-12-17 12:52 | ED ---
General Adult HPI - General Source: patient, RN notes reviewed Mode of arrival: ambulatory Limitations: no limitations <Oniel Penn - Last Filed: 12/17/17 14:30> <Jemal Campbell - Last Filed: 12/21/17 01:14> - General Chief complaint: Shortness of Breath Stated complaint: swelling in legs; hands and feet Time Seen by Provider: 12/17/17 12:37 - History of Present Illness Initial comments: Patient 67-year-old female significant past medical history for CHF, presented emergency room today with a chief complaint of swelling to her legs and hands bilaterally. She states that she has had some swelling over the last few weeks but noticed that it got worse the last 3 or 4 days. She does admit that she does take Lasix 40 mg daily. She states she used to be on 60mg and feels that she should be on 60 mg. Patient does admit to feeling somewhat short of breath 2 days ago when she was walking out to her mailbox. Patient denies any other complaints or symptoms at this time. Patient denies any recent fever, chills, chest pain, back pain, abdominal pain, nausea or vomiting, numbness or tingling , dysuria or hematuria, constipation or diarrhea, headaches or visual changes, or any other complaints. (Oniel Penn) - Related Data Home Medications Medication Instructions Recorded Confirmed LORazepam [Ativan] 0.5 mg PO BID@0800,1600 12/04/16 10/20/17 Furosemide [Lasix] 40 mg PO DAILY@0800 01/04/17 10/20/17 Potassium Chloride [Klor-Con 10] 10 meq PO DAILY@0800 01/04/17 10/20/17 Acetaminophen Tab [Tylenol Tab] 500 - 1,000 mg PO Q6H PRN 09/13/17 10/20/17 Cholecalciferol (Vitamin D3) 2,000 unit PO DAILY@0800 09/13/17 10/20/17 [Vitamin D3] Cyanocobalamin (Vitamin B-12) 1,000 mcg PO DAILY@0800 09/13/17 10/20/17 [Vitamin B-12] Ferrous Sulfate [Feosol] 325 mg PO DAILY@0800 09/13/17 10/20/17 Lisinopril [Prinivil] 10 mg PO DAILY@0800 09/13/17 10/20/17 Loratadine-Pseudoeph 10-240 mg 1 tab PO DAILY@0800 09/13/17 10/20/17 [Claritin-D 24 Hr] Methocarbamol [Robaxin] 750 mg PO QID@08,12,16,21 09/13/17 10/20/17 Ondansetron [Zofran] 4 mg PO TID@0800,1200,1700 09/13/17 10/20/17 Pantoprazole Sodium [Protonix] 40 mg PO DAILY@0800 09/13/17 10/20/17 Previous Rx's Medication Instructions Recorded Cephalexin [Keflex] 500 mg PO Q6HR #40 cap 09/24/17 Allergies Allergy/AdvReac Type Severity Reaction Status Date / Time haloperidol [From Haldol] Allergy Unknown Verified 12/17/17 12:01 Iodinated Contrast- Oral and Allergy Unknown Verified 12/17/17 12:01 IV Dye [Iodinated Contrast Media - IV Dye] Iodine and Iodide Containing Allergy Unknown Verified 12/17/17 12:01 Produc piperacillin sodium Allergy Unknown Verified 12/17/17 12:01 [From Zosyn] tazobactam sodium Allergy Unknown Verified 12/17/17 12:01 [From Zosyn] venom-honey bee Allergy Unknown Verified 12/17/17 12:01 Review of Systems ROS Other: All systems not noted in ROS Statement are negative. <Oniel Penn - Last Filed: 12/17/17 14:30> ROS Other: All systems not noted in ROS Statement are negative. <Jemal Campbell - Last Filed: 12/21/17 01:14> ROS Statement: Those systems with pertinent positive or pertinent negative responses have been documented in the HPI. 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, neurogenic bladder, CHF, cardiomyopathy, lower GI bleed, diverticular disease, IBS, hiatal hernia, esophageal ulcer, poor circulation, venous stasis, bilateral lower leg cellulitis in past, sinus problems, UTIs, back pain, anemia History of Any Multi-Drug Resistant Organisms: MRSA Date of last positivie culture/infection: 01/01/17 MDRO Source:: finger Past Surgical History: Joint Replacement, Orthopedic Surgery Additional Past Surgical History / Comment(s): L foot toe with screw, L foot bunionectomy, liver bx, EGD/colonoscopy and benign polypectomy, R inguinal hernia repair, D&C, laparoscopic surgery (?). abdominal surgery, surgery to repain prolapsed vagina, repair of perforation in small intestine. Past Anesthesia/Blood Transfusion Reactions: No Reported Reaction Past Psychological History: Anxiety, Bipolar, Depression, Panic Disorder, Schizophrenia Smoking Status: Never smoker Past Alcohol Use History: None Reported Past Drug Use History: None Reported - Past Family History Sister(s) Family Medical History: Diabetes Mellitus Mother Family Medical History: Diabetes Mellitus Additional Family Medical History / Comment(s): Pt states her mother was healthy. Father Family Medical History: No Reported History Additional Family Medical History / Comment(s): Pt states her father was healthy <Oniel Penn - Last Filed: 12/17/17 14:30> General Exam Limitations: no limitations <Oniel Penn - Last Filed: 12/17/17 14:30> <Jemal Campbell - Last Filed: 12/21/17 01:14> - General Exam Comments Initial Comments: General: The patient is awake and alert, in no distress, and does not appear acutely ill. Eye: Pupils are equal, round and reactive to light, extra-ocular movements are intact. No nystagmus. There is normal conjunctiva bilaterally. No signs of icterus. Ears, nose, mouth and throat: There are moist mucous membranes and no oral lesions. Neck: The neck is supple, there is no tenderness or JVD. Cardiovascular: There is a regular rate and rhythm. No murmur, rub or gallop is appreciated. Respiratory: Lungs are clear to auscultation, respirations are non-labored, breath sounds are equal. No wheezes, stridor, rales, or rhonchi. Musculoskeletal: Normal ROM, no tenderness. Strength 5/5. Sensation intact. Pulses equal bilaterally 2+. 1+ pitting to the lower extremities Neurological: A&O x 3. CN II-XII intact, There are no obvious motor or sensory deficits. Coordination appears grossly intact. Speech is normal. Skin: Skin is warm and dry and no rashes or lesions are noted. Psychiatric: Cooperative, appropriate mood & affect, normal judgment. (Oniel Penn) Course <Oniel Penn - Last Filed: 12/17/17 14:30> <Jemal Campbell - Last Filed: 12/21/17 01:14> Vital Signs 12/17/17 12/17/17 11:57 15:34 Temperature 98.1 F 98.1 F Pulse Rate 92 76 Respiratory 18 18 Rate Blood Pressure 186/74 157/91 O2 Sat by Pulse 99 95 Oximetry - Reevaluation(s) Reevaluation #1: 12/17/17 14:57 PA supervision: I did personally do a [id number] evaluation the patient did discuss findings with her and did review the imaging and the lab reports. I do agree with the assessment and plan. The patient is in agreement with this. ( Jemal Campbell) Medical Decision Making - Lab Data Result diagrams: 12/17/17 13:10 12/17/17 13:10 <Oniel Penn - Last Filed: 12/17/17 14:30> - Lab Data Result diagrams: 12/17/17 13:10 12/17/17 13:10 <Jemal Campbell - Last Filed: 12/21/17 01:14> - Medical Decision Making Patient's labs have been reviewed and are unremarkable. BNP 31. Chest x-ray show no evidence for CHF at this time. Patient resting comfortable. Vitals are stable. Advised to take extra dose of Lasix. She states she does have 20 mg tabs. Advised follow-up the family doctor next 2 days return if symptoms increase or worsen. (Oniel Penn) - Lab Data Lab Results 12/17/17 12/17/17 12/17/17 Range/Units 13:10 13:10 13:10 WBC 9.9 (3.8-10.6) k/uL RBC 4.07 (3.80-5.40) m/uL Hgb 11.9 (11.4-16.0) gm/dL Hct 35.5 (34.0-46.0) % MCV 87.1 (80.0-100.0) fL MCH 29.2 (25.0-35.0) pg MCHC 33.5 (31.0-37.0) g/dL RDW 13.4 (11.5-15.5) % Plt Count 326 (150-450) k/uL Neutrophils % 61 % Lymphocytes % 24 % Monocytes % 6 % Eosinophils % 7 % Basophils % 1 % Neutrophils # 6.1 (1.3-7.7) k/uL Lymphocytes # 2.3 (1.0-4.8) k/uL Monocytes # 0.6 (0-1.0) k/uL Eosinophils # 0.7 (0-0.7) k/uL Basophils # 0.1 (0-0.2) k/uL PT (9.0-12.0) sec INR (<1.2) APTT (22.0-30.0) sec Sodium 138 (137-145) mmol/L Potassium 5.1 (3.5-5.1) mmol/L Chloride 101 (98-107) mmol/L Carbon Dioxide 25 (22-30) mmol/L Anion Gap 12 mmol/L BUN 34 H (7-17) mg/dL Creatinine 1.05 H (0.52-1.04) mg/dL Est GFR (CKD-EPI)AfAm 64 (>60 ml/min/1.73 sqM) Est GFR (CKD-EPI)NonAf 55 (>60 ml/min/1.73 sqM) Glucose 98 (74-99) mg/dL Calcium 9.5 (8.4-10.2) mg/dL Total Bilirubin 0.5 (0.2-1.3) mg/dL AST 24 (14-36) U/L ALT 26 (9-52) U/L Alkaline Phosphatase 220 H (38-126) U/L Total Creatine Kinase 77 (30-135) U/L CK-MB (CK-2) 1.0 (0.0-2.4) ng/mL CK-MB (CK-2) Rel Index 1.3 Troponin I <0.012 (0.000-0.034) ng/mL NT-Pro-B Natriuret Pep pg/mL Total Protein 7.2 (6.3-8.2) g/dL Albumin 4.1 (3.5-5.0) g/dL 12/17/17 12/17/17 Range/Units 13:10 13:10 WBC (3.8-10.6) k/uL RBC (3.80-5.40) m/uL Hgb (11.4-16.0) gm/dL Hct (34.0-46.0) % MCV (80.0-100.0) fL MCH (25.0-35.0) pg MCHC (31.0-37.0) g/dL RDW (11.5-15.5) % Plt Count (150-450) k/uL Neutrophils % % Lymphocytes % % Monocytes % % Eosinophils % % Basophils % % Neutrophils # (1.3-7.7) k/uL Lymphocytes # (1.0-4.8) k/uL Monocytes # (0-1.0) k/uL Eosinophils # (0-0.7) k/uL Basophils # (0-0.2) k/uL PT 10.0 (9.0-12.0) sec INR 1.0 (<1.2) APTT 20.9 L (22.0-30.0) sec Sodium (137-145) mmol/L Potassium (3.5-5.1) mmol/L Chloride (98-107) mmol/L Carbon Dioxide (22-30) mmol/L Anion Gap mmol/L BUN (7-17) mg/dL Creatinine (0.52-1.04) mg/dL Est GFR (CKD-EPI)AfAm (>60 ml/min/1.73 sqM) Est GFR (CKD-EPI)NonAf (>60 ml/min/1.73 sqM) Glucose (74-99) mg/dL Calcium (8.4-10.2) mg/dL Total Bilirubin (0.2-1.3) mg/dL AST (14-36) U/L ALT (9-52) U/L Alkaline Phosphatase (38-126) U/L Total Creatine Kinase (30-135) U/L CK-MB (CK-2) (0.0-2.4) ng/mL CK-MB (CK-2) Rel Index Troponin I (0.000-0.034) ng/mL NT-Pro-B Natriuret Pep 31 pg/mL Total Protein (6.3-8.2) g/dL Albumin (3.5-5.0) g/dL Disposition Is patient prescribed a controlled substance at d/c from ED?: No Time of Disposition: 14:32 <Oniel Penn - Last Filed: 12/17/17 14:30> Is patient prescribed a controlled substance at d/c from ED?: No <Jemal Campbell - Last Filed: 12/21/17 01:14> Clinical Impression: Leg edema Disposition: HOME SELF-CARE Condition: Good Instructions: Leg Edema (ED) Additional Instructions: Please take extra 20 mg Of Lasix for the next 2 days and follow-up the family doctor. Please return to emergency room for any other concerns. Referrals: Mike Luke NPC [Primary Care Provider] - 1-2 days Addendum entered and electronically signed by Oniel Penn PA-C 12/17/17 14: 45: EKG performed at 1314: Shows sinus rhythm at 92 beats per minute. NE interval 168. QRS 78. QT/QTC 354/437. No acute ST changes.
[2017-12-17 13:27] LABS: Basophils # (A) 0.1 k/uL (0-0.2); Basophils % (A) 1 %; Eosinophils # (A) 0.7 k/uL (0-0.7); Eosinophils % (A) 7 %; HCT 35.5 % (34.0-46.0); HGB 11.9 gm/dL (11.4-16.0); Lymphocytes # (A) 2.3 k/uL (1.0-4.8); Lymphocytes % (A) 24 %; MCH 29.2 pg (25.0-35.0); MCHC 33.5 g/dL (31.0-37.0); MCV 87.1 fL (80.0-100.0); Mean Platelet Volume 6.4; Monocytes # (A) 0.6 k/uL (0-1.0); Monocytes % (A) 6 %; Neutrophils # (A) 6.1 k/uL (1.3-7.7); Neutrophils % (A) 61 %; Platelet Count 326 k/uL (150-450); RBC 4.07 m/uL (3.80-5.40); RDW 13.4 % (11.5-15.5); WBC 9.9 k/uL (3.8-10.6)
[2017-12-17 13:38] LABS: Albumin 4.1 g/dL (3.5-5.0); Calcium 9.5 mg/dL (8.4-10.2); Total Bilirubin 0.5 mg/dL (0.2-1.3); Total Protein 7.2 g/dL (6.3-8.2)
[2017-12-17 13:40] LABS: Potassium 5.1 mmol/L (3.5-5.1)
[2017-12-17 13:41] LABS: Partial Thromboplastin Time 20.9 sec (22.0-30.0)
[2017-12-17 13:49] LABS: Creatine Kinase 77 U/L (30-135)
--- NOTE | 2017-12-17 14:00 | XR ---
EXAMINATION TYPE: XR chest 2V DATE OF EXAM: 12/17/2017 COMPARISON: 10/08/2017 HISTORY: Lower extremity swelling and shortness of breath. History of CHF TECHNIQUE: Frontal and lateral views of the chest are obtained. FINDINGS: There is no focal air space opacity, pleural effusion, or pneumothorax seen. Minimal plate like left basilar subsegmental atelectasis is present. The cardiac silhouette size is within normal limits. Extensive degenerative changes of the thoracic spine are noted. Mild acromio clavicular arthr opathy is seen bilaterally. IMPRESSION: No radiographic sequela of congestive heart failure. Minimal left basilar subsegmental a telectasis with no other acute cardiopulmonary process.
[2017-12-17 14:02] LABS: Troponin I <0.012 ng/mL (0.000-0.034)
[2017-12-17 15:36] VITALS: BP 157/91; PULSE 76
== END 2017-12-17 15:36 | disposition home or self-care (01) ==
LOC: EC 11:07
DX: R60.0 Localized edema (principal); R06.02 Shortness of breath; I11.0 Hypertensive heart disease with heart failure; I50.9 Heart failure, unspecified; F41.9 Anxiety disorder, unspecified; Z86.73 Personal history of transient ischemic attack (TIA), and cerebral infarction without residual deficits; Z86.14 Personal history of Methicillin resistant Staphylococcus aureus infection; Z79.899 Other long term (current) drug therapy; Z88.8 Allergy status to other drugs, medicaments and biological substances; Z91.041 Radiographic dye allergy status; Z91.048 Other nonmedicinal substance allergy status; Z88.1 Allergy status to other antibiotic agents; Z91.030 Bee allergy status
CPT/HCPCS: 36415; 71046; 80053; 82550; 82553; 83880; 84484; 85025; 85610; 85730; 93005; 99285

== ENCOUNTER 2017-12-30 16:44 | Emergency (ER) | payer MEDICARE, OTHER ==
[2017-12-30] MEDS ORDERED: SODIUM CHLORIDE 0.9% 1,000 ML IV STA (17:38)
--- NOTE | 2017-12-30 17:55 | ED ---
SOB HPI - General Chief Complaint: Shortness of Breath Stated Complaint: SOB Time Seen by Provider: 12/30/17 17:31 Source: patient Mode of arrival: ambulatory Limitations: no limitations - History of Present Illness Initial Comments: Extremities 7 years O female presents with a shortness of breath shortness of breath is ongoing for about a week now she's also stating her feet and hand have retained some fluid or there is some swelling she denies any pleuritic component to the chest pain or does not hurt when she takes a deep breaths no trauma to the chest denies any fever no chills she is not coughing up any phlegm and she is not spiking any temperature, denies any weakness of upper or lower extremity no symptoms of TIA or CVA - Related Data Home Medications Medication Instructions Recorded Confirmed LORazepam [Ativan] 0.5 mg PO TID@08,12,16 12/04/16 12/30/17 Furosemide [Lasix] 40 mg PO DAILY@0800 01/04/17 12/30/17 Potassium Chloride [Klor-Con 10] 10 meq PO DAILY@0800 01/04/17 12/30/17 Loratadine-Pseudoeph 10-240 mg 1 tab PO DAILY@0800 09/13/17 12/30/17 [Claritin-D 24 Hr] Methocarbamol [Robaxin] 750 mg PO TID 09/13/17 12/30/17 Pantoprazole Sodium [Protonix] 40 mg PO DAILY@0800 09/13/17 12/30/17 Furosemide [Lasix] 20 mg PO HS@1600 12/30/17 12/30/17 LORazepam [Ativan] 1 mg PO HS 12/30/17 12/30/17 Lisinopril [Prinivil] 20 mg PO DAILY@0800 12/30/17 12/30/17 Naproxen 500 mg PO BID 12/30/17 12/30/17 Previous Rx's Medication Instructions Recorded Albuterol Inhaler [Ventolin Hfa 2 puff INHALATION RT-Q6H PRN #1 12/30/17 Inhaler] inhaler Allergies Allergy/AdvReac Type Severity Reaction Status Date / Time haloperidol [From Haldol] Allergy Unknown Verified 12/30/17 17:30 Iodinated Contrast- Oral and Allergy Unknown Verified 12/30/17 17:30 IV Dye [Iodinated Contrast Media - IV Dye] Iodine and Iodide Containing Allergy Unknown Verified 12/30/17 17:30 Produc piperacillin sodium Allergy Unknown Verified 12/30/17 17:30 [From Zosyn] tazobactam sodium Allergy Unknown Verified 12/30/17 17:30 [From Zosyn] venom-honey bee Allergy Unknown Verified 12/30/17 17:30 Review of Systems ROS Statement: Those systems with pertinent positive or pertinent negative responses have been documented in the HPI. ROS Other: All systems not noted in ROS Statement are negative. 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, neurogenic bladder, CHF, cardiomyopathy, lower GI bleed, diverticular disease, IBS, hiatal hernia, esophageal ulcer, poor circulation, venous stasis, bilateral lower leg cellulitis in past, sinus problems, UTIs, back pain, anemia History of Any Multi-Drug Resistant Organisms: MRSA Date of last positivie culture/infection: 01/01/17 MDRO Source:: finger Past Surgical History: Joint Replacement, Orthopedic Surgery Additional Past Surgical History / Comment(s): L foot toe with screw, L foot bunionectomy, liver bx, EGD/colonoscopy and benign polypectomy, R inguinal hernia repair, D&C, laparoscopic surgery (?). abdominal surgery, surgery to repain prolapsed vagina, repair of perforation in small intestine. Past Anesthesia/Blood Transfusion Reactions: No Reported Reaction Past Psychological History: Anxiety, Bipolar, Depression, Panic Disorder, Schizophrenia Smoking Status: Never smoker Past Alcohol Use History: None Reported Past Drug Use History: None Reported - Past Family History Sister(s) Family Medical History: Diabetes Mellitus Mother Family Medical History: Diabetes Mellitus Additional Family Medical History / Comment(s): Pt states her mother was healthy. Father Family Medical History: No Reported History Additional Family Medical History / Comment(s): Pt states her father was healthy General Exam - General Exam Comments Initial Comments: General: The patient is awake and alert, in no distress, and does not appear acutely ill. Skin: Skin is warm and dry and no rashes or lesions are noted. Eye: Pupils are equal, round and reactive to light, extra-ocular movements are intact; there is normal conjunctiva bilaterally. Ears, nose, mouth and throat: There are moist mucous membranes and no oral lesions. Neck: The neck is supple, there is no tenderness or JVD. Cardiovascular: There is a regular rate and rhythm. No murmur, rub or gallop is appreciated. Respiratory: To auscultation bilateral, decrease air exchange with some crackles at the bases Gastrointestinal: Soft, non-distended, non-tender abdomen without masses or organomegaly noted. There is no rebound or guarding present. Bowel sounds are unremarkable. Back: There is no tenderness to palpation in the midline. There is no obvious deformity. Musculoskeletal: Normal ROM, no tenderness, there is some erythema around the ankles is mostly headache for last 1 Neurological: CN II-XII intact, Cranial nerves III through XII are intact. There are no obvious motor or sensory deficits. Coordination appears grossly intact. Speech is normal. Psychiatric: Cooperative, appropriate mood & affect, normal judgment. Limitations: no limitations Course Vital Signs 12/30/17 12/30/17 16:54 18:00 Temperature 98.2 F Pulse Rate 101 H Respiratory 20 20 Rate Blood Pressure 150/89 O2 Sat by Pulse 98 Oximetry EKG is normal sinus ventricular rate is 99 MT interval is 166 QRS duration is 82 QT/QTc is 348/446 review of this EKG does not reveal any ST elevation or ST depression Elevation revealed CBC, INR, troponin, EKG, chest x-ray are unremarkable creatinine is 1.29 I reviewed her medication she does take Naprosyn for arthritis she is also on STEVE inhibitor's and Lasix him a she will be referred to nephrology services so these medications could be adjusted and I advised her to discontinue the Naprosyn use Tylenol instead she agreed with that, she be prescribed albuterol inhaler Medical Decision Making - Lab Data Result diagrams: 12/30/17 17:50 12/30/17 17:50 Lab Results 12/30/17 12/30/17 12/30/17 Range/Units 17:50 17:50 17:50 WBC 10.1 (3.8-10.6) k/uL RBC 4.02 (3.80-5.40) m/uL Hgb 11.4 (11.4-16.0) gm/dL Hct 34.7 (34.0-46.0) % MCV 86.3 (80.0-100.0) fL MCH 28.5 (25.0-35.0) pg MCHC 33.0 (31.0-37.0) g/dL RDW 13.8 (11.5-15.5) % Plt Count 297 (150-450) k/uL Neutrophils % 59 % Lymphocytes % 26 % Monocytes % 7 % Eosinophils % 6 % Basophils % 1 % Neutrophils # 6.0 (1.3-7.7) k/uL Lymphocytes # 2.6 (1.0-4.8) k/uL Monocytes # 0.7 (0-1.0) k/uL Eosinophils # 0.6 (0-0.7) k/uL Basophils # 0.1 (0-0.2) k/uL PT (9.0-12.0) sec INR (<1.2) APTT (22.0-30.0) sec Sodium 137 (137-145) mmol/L Potassium 4.4 (3.5-5.1) mmol/L Chloride 101 (98-107) mmol/L Carbon Dioxide 23 (22-30) mmol/L Anion Gap 13 mmol/L BUN 33 H (7-17) mg/dL Creatinine 1.29 H (0.52-1.04) mg/dL Est GFR (CKD-EPI)AfAm 50 (>60 ml/min/1.73 sqM) Est GFR (CKD-EPI)NonAf 43 (>60 ml/min/1.73 sqM) Glucose 88 (74-99) mg/dL Calcium 8.9 (8.4-10.2) mg/dL Total Bilirubin 0.4 (0.2-1.3) mg/dL AST 18 (14-36) U/L ALT 22 (9-52) U/L Alkaline Phosphatase 215 H (38-126) U/L Total Creatine Kinase 80 (30-135) U/L CK-MB (CK-2) 1.1 (0.0-2.4) ng/mL CK-MB (CK-2) Rel Index 1.4 Troponin I <0.012 (0.000-0.034) ng/mL Total Protein 6.7 (6.3-8.2) g/dL Albumin 3.8 (3.5-5.0) g/dL 12/30/17 Range/Units 17:50 WBC (3.8-10.6) k/uL RBC (3.80-5.40) m/uL Hgb (11.4-16.0) gm/dL Hct (34.0-46.0) % MCV (80.0-100.0) fL MCH (25.0-35.0) pg MCHC (31.0-37.0) g/dL RDW (11.5-15.5) % Plt Count (150-450) k/uL Neutrophils % % Lymphocytes % % Monocytes % % Eosinophils % % Basophils % % Neutrophils # (1.3-7.7) k/uL Lymphocytes # (1.0-4.8) k/uL Monocytes # (0-1.0) k/uL Eosinophils # (0-0.7) k/uL Basophils # (0-0.2) k/uL PT 9.9 (9.0-12.0) sec INR 1.0 (<1.2) APTT 21.7 L (22.0-30.0) sec Sodium (137-145) mmol/L Potassium (3.5-5.1) mmol/L Chloride (98-107) mmol/L Carbon Dioxide (22-30) mmol/L Anion Gap mmol/L BUN (7-17) mg/dL Creatinine (0.52-1.04) mg/dL Est GFR (CKD-EPI)AfAm (>60 ml/min/1.73 sqM) Est GFR (CKD-EPI)NonAf (>60 ml/min/1.73 sqM) Glucose (74-99) mg/dL Calcium (8.4-10.2) mg/dL Total Bilirubin (0.2-1.3) mg/dL AST (14-36) U/L ALT (9-52) U/L Alkaline Phosphatase (38-126) U/L Total Creatine Kinase (30-135) U/L CK-MB (CK-2) (0.0-2.4) ng/mL CK-MB (CK-2) Rel Index Troponin I (0.000-0.034) ng/mL Total Protein (6.3-8.2) g/dL Albumin (3.5-5.0) g/dL Disposition Clinical Impression: Shortness of breath, Pedal edema Disposition: HOME SELF-CARE Condition: Good Instructions: Dyspnea (ED) Prescriptions: Albuterol Inhaler [Ventolin Hfa Inhaler] 2 puff INHALATION RT-Q6H PRN #1 inhaler PRN Reason: Numbness of breath Is patient prescribed a controlled substance at d/c from ED?: No Referrals: Errol Andujar MD [Primary Care Provider] - 1-2 days Che Wolfe MD [STAFF PHYSICIAN] - 1-2 days
[2017-12-30 18:19] LABS: Basophils # (A) 0.1 k/uL (0-0.2); Basophils % (A) 1 %; Eosinophils # (A) 0.6 k/uL (0-0.7); Eosinophils % (A) 6 %; HCT 34.7 % (34.0-46.0); HGB 11.4 gm/dL (11.4-16.0); Lymphocytes # (A) 2.6 k/uL (1.0-4.8); Lymphocytes % (A) 26 %; MCH 28.5 pg (25.0-35.0); MCV 86.3 fL (80.0-100.0); Mean Platelet Volume 6.5; Monocytes # (A) 0.7 k/uL (0-1.0); Monocytes % (A) 7 %; Neutrophils % (A) 59 %; Platelet Count 297 k/uL (150-450); RBC 4.02 m/uL (3.80-5.40); RDW 13.8 % (11.5-15.5); WBC 10.1 k/uL (3.8-10.6)
[2017-12-30 18:26] LABS: Albumin 3.8 g/dL (3.5-5.0); Calcium 8.9 mg/dL (8.4-10.2); Potassium 4.4 mmol/L (3.5-5.1); Total Bilirubin 0.4 mg/dL (0.2-1.3); Total Protein 6.7 g/dL (6.3-8.2)
--- NOTE | 2017-12-30 18:26 | XR ---
EXAMINATION TYPE: XR chest 2V DATE OF EXAM: 12/30/2017 COMPARISON: 12/17/2017 HISTORY: Chest pain TECHNIQUE: Frontal and lateral views of the chest are obtained. FINDINGS: There is no heart failure nor confluent pneumonic infiltrate. Costophrenic angles are dario r. There are chest leads. Bony thorax is intact. There is spurring in the thoracic spine. IMPRESSION: No active cardiopulmonary disease. Normal heart. No change.
[2017-12-30 18:38] LABS: Creatine Kinase 80 U/L (30-135)
[2017-12-30 18:50] LABS: Creatine Kinase MB 1.1 ng/mL (0.0-2.4); Troponin I <0.012 ng/mL (0.000-0.034)
[2017-12-30 18:57] LABS: Prothrombin Time 9.9 sec (9.0-12.0)
[2017-12-30 19:04] LABS: Partial Thromboplastin Time 21.7 sec (22.0-30.0)
[2017-12-30 20:02] VITALS: BP 160/70; PULSE 86; RESP 18; TEMP 98
== END 2017-12-30 19:50 | disposition home or self-care (01) ==
LOC: EC 16:44
DX: R06.02 Shortness of breath (principal); R60.0 Localized edema; I11.0 Hypertensive heart disease with heart failure; I50.9 Heart failure, unspecified; K58.9 Irritable bowel syndrome, unspecified; F31.9 Bipolar disorder, unspecified; F41.0 Panic disorder [episodic paroxysmal anxiety]; F20.9 Schizophrenia, unspecified; Z86.73 Personal history of transient ischemic attack (TIA), and cerebral infarction without residual deficits; Z86.14 Personal history of Methicillin resistant Staphylococcus aureus infection; Z79.899 Other long term (current) drug therapy; Z79.1 Long term (current) use of non-steroidal anti-inflammatories (NSAID); Z91.030 Bee allergy status; Z91.041 Radiographic dye allergy status; Z88.1 Allergy status to other antibiotic agents; Z88.8 Allergy status to other drugs, medicaments and biological substances; Z53.29 Procedure and treatment not carried out because of patient's decision for other reasons
CPT/HCPCS: 36415; 71046; 80053; 82550; 82553; 83880; 84484; 85025; 85610; 85730; 93005; 99285

== ENCOUNTER → 2018-01-30 | Outpatient (CLI) | payer MEDICARE, OTHER ==
--- NOTE | 2018-01-31 08:58 | US ---
EXAMINATION TYPE: US kidneys/renal and bladder DATE OF EXAM: 01/30/2018 COMPARISON: CT dated 08/26/2017 CLINICAL HISTORY: N18.9 Chronic kidney disease. EXAM MEASUREMENTS: Right Kidney: 10.2 x 4.6 x 5.8 cm Left Kidney: 9.1 x 4.2 x 4.1 cm Exam limited by body habitus and overlying bowel gas. Right Kidney: limited vis of lower pole due to bowel gas, prominent column of Shaun versus dromedar y hump. Lobular contour. There is diminished cortical medullary differentiation. Left Kidney: No hydronephrosis or masses seen, lobular contour Bladder: wnl Bilateral Jets seen: only left jet seen, patient unable to tolerate probe pressure and needed to us e the restroom. There is no evidence for hydronephrosis at this point in time. No nephrolithiasis is seen. No donny s are identified. The urinary bladder is anechoic. Bilateral ureteral jets are seen. IMPRESSION: 1. No hydronephrosis or nephrolithiasis. 2. Sequela of medical renal disease. No focal renal masses identified.
== END | disposition home or self-care (01) ==
LOC: RADUSWWP 15:40
PROVIDERS: ATTEND Internal Medicine
DX: N18.9 Chronic kidney disease, unspecified (principal)
CPT/HCPCS: 76770

== ENCOUNTER 2018-02-20 04:55 | Emergency (ER) | payer MEDICARE, OTHER ==
[2018-02-20 05:12] VITALS: TEMP 98.4
--- NOTE | 2018-02-20 05:18 | ED ---
General Adult HPI - General Chief complaint: Abdominal Pain Stated complaint: Constipation Time Seen by Provider: 02/20/18 05:17 Source: patient Mode of arrival: ambulatory Limitations: no limitations - History of Present Illness Initial comments: 77-year-old female with a history of chronic constipation presents the emergency department today for evaluation of constipation. Patient reports that she is on multiple medications which cause constipation, she states that at home she usually takes milk of magnesia with resolution of her constipation however she took some and did not have bowel movement. Patient reports her last bowel movement was approximately 4 days ago, she feels that her abdomen is distended. She reports only mild abdominal discomfort no significant pain. No nausea, no vomiting, no change in bladder habits. She reports she still been able to eat and drink her usual diet. She states in the past this is happened and she is come to the ER for an enema with complete resolution of her symptoms. - Related Data Home Medications Medication Instructions Recorded Confirmed LORazepam [Ativan] 0.5 mg PO TID@08,12,16 12/04/16 12/30/17 Furosemide [Lasix] 40 mg PO DAILY@79901/04/17 12/30/17 Potassium Chloride [Klor-Con 10] 10 meq PO DAILY@79901/04/17 12/30/17 Loratadine-Pseudoeph 10-240 mg 1 tab PO DAILY@0809/13/17 12/30/17 [Claritin-D 24 Hr] Methocarbamol [Robaxin] 750 mg PO TID 09/13/17 12/30/17 Pantoprazole Sodium [Protonix] 40 mg PO DAILY@0800 09/13/17 12/30/17 Furosemide [Lasix] 20 mg PO HS@1600 12/30/17 12/30/17 LORazepam [Ativan] 1 mg PO HS 12/30/17 12/30/17 Lisinopril [Prinivil] 20 mg PO DAILY@0800 12/30/17 12/30/17 Naproxen 500 mg PO BID 12/30/17 12/30/17 Previous Rx's Medication Instructions Recorded Albuterol Inhaler [Ventolin Hfa 2 puff INHALATION RT-Q6H PRN #1 12/30/17 Inhaler] inhaler Allergies Allergy/AdvReac Type Severity Reaction Status Date / Time haloperidol [From Haldol] Allergy Unknown Verified 02/20/18 05:12 Iodinated Contrast- Oral and Allergy Unknown Verified 02/20/18 05:12 IV Dye [Iodinated Contrast Media - IV Dye] Iodine and Iodide Containing Allergy Unknown Verified 02/20/18 05:12 Produc piperacillin sodium Allergy Unknown Verified 02/20/18 05:12 [From Zosyn] tazobactam sodium Allergy Unknown Verified 02/20/18 05:12 [From Zosyn] venom-honey bee Allergy Unknown Verified 02/20/18 05:12 Review of Systems ROS Statement: Those systems with pertinent positive or pertinent negative responses have been documented in the HPI. ROS Other: All systems not noted in ROS Statement are negative. 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, neurogenic bladder, CHF, cardiomyopathy, lower GI bleed, diverticular disease, IBS, hiatal hernia, esophageal ulcer, poor circulation, venous stasis, bilateral lower leg cellulitis in past, sinus problems, UTIs, back pain, anemia History of Any Multi-Drug Resistant Organisms: MRSA Date of last positivie culture/infection: 01/01/17 MDRO Source:: finger Past Surgical History: Joint Replacement, Orthopedic Surgery Additional Past Surgical History / Comment(s): L foot toe with screw, L foot bunionectomy, liver bx, EGD/colonoscopy and benign polypectomy, R inguinal hernia repair, D&C, laparoscopic surgery (?). abdominal surgery, surgery to repain prolapsed vagina, repair of perforation in small intestine; vaginal reconstuctive surgery Past Anesthesia/Blood Transfusion Reactions: No Reported Reaction Past Psychological History: Anxiety, Bipolar, Depression, Panic Disorder, Schizophrenia Smoking Status: Never smoker Past Alcohol Use History: None Reported Past Drug Use History: None Reported - Past Family History Sister(s) Family Medical History: Diabetes Mellitus Mother Family Medical History: Diabetes Mellitus Additional Family Medical History / Comment(s): Pt states her mother was healthy. Father Family Medical History: No Reported History Additional Family Medical History / Comment(s): Pt states her father was healthy General Exam Limitations: no limitations General appearance: alert, in no apparent distress Head exam: Present: atraumatic, normocephalic Eye exam: Present: normal appearance, PERRL ENT exam: Present: normal exam Neck exam: Present: full ROM Respiratory exam: Absent: respiratory distress Cardiovascular Exam: Present: regular rate, normal rhythm GI/Abdominal exam: Present: soft, normal bowel sounds. Absent: tenderness, guarding, rebound, rigid Rectal exam: Present: deferred Extremities exam: Present: full ROM Neurological exam: Present: alert, oriented X3, normal gait Psychiatric exam: Present: other (Childlike affect) Skin exam: Present: warm, dry, intact Course Vital Signs 02/20/18 05:08 Temperature 98.4 F Pulse Rate 88 Respiratory 17 Rate Blood Pressure 167/81 O2 Sat by Pulse 100 Oximetry Medical Decision Making - Medical Decision Making She was seen and evaluated, patient with history of constipation as well as significant history of esophageal ulcers and small bowel perforation the past. Presenting with no bowel movement for 4 days. Only mild abdominal pain. Normal appetite, and very well-appearing. I will obtain an x-ray to evaluate for stool burden. X-ray reveals moderate stool throughout the colon, no evidence of obstruction By mouth lactulose, magnesium citrate were ordered. A Dulcolax suppository was placed. Patient requesting a masses enema as she has had these in the past, I advised the patient that it is better to optimize oral medications and a suppository prior to doing an enema. Patient is agreeable. Patient tolerated the by mouth lactulose without difficulty. I placed the clock suppository myself. At this time patient is stable with minimal abdominal discomfort and significant stool burden, I feel the patient is stable for discharge home Disposition Clinical Impression: Abdominal pain Disposition: HOME SELF-CARE Condition: Good Instructions: Constipation (ED), High Fiber Diet (ED), Fleet Enema (ED) Is patient prescribed a controlled substance at d/c from ED?: No Referrals: Errol Andujar MD [Primary Care Provider] - 1-2 days Time of Disposition: 06:37
[2018-02-20] MEDS ORDERED: MAGNESIUM CITRATE 296 ML BOTTLE PO ONE (05:28)
[2018-02-20] MEDS ORDERED: LACTULOSE 20 GM/30 ML CUP PO ONE (05:28)
[2018-02-20] MEDS ORDERED: BISACODYL 10 MG SUPP RECTAL STA (05:28)
--- NOTE | 2018-02-20 06:02 | XR ---
EXAM: XR Abdomen, 2 Views CLINICAL HISTORY: Constipation TECHNIQUE: Frontal view of the abdomen/pelvis with upright view of the abdomen. COMPARISON: No relevant prior studies available. FINDINGS: Intraperitoneal space: No free air. Gastrointestinal tract: Moderate amount of stool throughout the colon and rectum suggesting constipation. No dilation. Organs: Evidence of prior cholecystectomy. Bones/joints: Degenerative changes of the osseous structures. IMPRESSION: Moderate amount of stool throughout the colon and rectum suggesting constipation.
[2018-02-20 06:55] VITALS: BP 148/88; PULSE 99; RESP 18
== END 2018-02-20 06:55 | disposition home or self-care (01) ==
LOC: EC 04:55
DX: R10.9 Unspecified abdominal pain (principal); K59.00 Constipation, unspecified; I11.0 Hypertensive heart disease with heart failure; I50.9 Heart failure, unspecified; F41.9 Anxiety disorder, unspecified; Z96.698 Presence of other orthopedic joint implants; Z86.73 Personal history of transient ischemic attack (TIA), and cerebral infarction without residual deficits; Z86.14 Personal history of Methicillin resistant Staphylococcus aureus infection; Z87.19 Personal history of other diseases of the digestive system; Z79.1 Long term (current) use of non-steroidal anti-inflammatories (NSAID); Z79.899 Other long term (current) drug therapy; Z88.8 Allergy status to other drugs, medicaments and biological substances; Z91.041 Radiographic dye allergy status; Z91.048 Other nonmedicinal substance allergy status; Z88.1 Allergy status to other antibiotic agents; Z91.030 Bee allergy status
CPT/HCPCS: 74018; 99284

== ENCOUNTER 2018-04-08 18:32 | Emergency (ER) | payer MEDICARE, OTHER ==
[2018-04-08 18:43] VITALS: RESP 18; TEMP 98
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
[2018-04-08] MEDS ORDERED: ACETAMINOPHEN TAB 500 MG TAB PO STA (20:27)
[2018-04-08] MEDS ORDERED: IBUPROFEN 600 MG TAB PO STA (20:27)
[2018-04-08 20:48] VITALS: PULSE 78
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
--- NOTE | 2018-04-08 21:46 | XR ---
EXAMINATION TYPE: XR chest 1V DATE OF EXAM: 04/08/2018 COMPARISON: 12/30/2017 INDICATION: Generalized pain following fall TECHNIQUE: Single frontal view of the chest is obtained. FINDINGS: The heart size is normal. The pulmonary vasculature is normal. The lungs are clear. IMPRESSION: 1. No acute pulmonary process.
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
[2018-04-08 22:16] VITALS: BP 133/75
== END 2018-04-08 22:16 | disposition home or self-care (01) ==
LOC: EC 18:32
DX: S16.1XXA Strain of muscle, fascia and tendon at neck level, initial encounter (principal); G89.29 Other chronic pain; M25.521 Pain in right elbow; M25.511 Pain in right shoulder; R51 Headache; M47.892 Other spondylosis, cervical region; I11.0 Hypertensive heart disease with heart failure; I50.9 Heart failure, unspecified; I43 Cardiomyopathy in diseases classified elsewhere; F41.9 Anxiety disorder, unspecified; Z86.73 Personal history of transient ischemic attack (TIA), and cerebral infarction without residual deficits; Z86.14 Personal history of Methicillin resistant Staphylococcus aureus infection; Z79.1 Long term (current) use of non-steroidal anti-inflammatories (NSAID); Z79.899 Other long term (current) drug therapy; Z88.8 Allergy status to other drugs, medicaments and biological substances; Z91.041 Radiographic dye allergy status; Z91.048 Other nonmedicinal substance allergy status; Z88.1 Allergy status to other antibiotic agents; Z91.030 Bee allergy status; Y04.2XXA Assault by strike against or bumped into by another person, initial encounter; Y92.009 Unspecified place in unspecified non-institutional (private) residence as the place of occurrence of the external cause
CPT/HCPCS: 73030; 73080; 71045; 72125; 70450; 99284; L0120

== ENCOUNTER → 2018-05-11 | Outpatient (CLI) | payer MEDICARE, OTHER ==
--- NOTE | 2018-05-12 11:44 | MM ---
Reason for exam: screening (asymptomatic). Last mammogram was performed 1 year ago. History: Patient is postmenopausal. Family history of breast cancer in aunt at age 70. Physical Findings: A clinical breast exam by your physician is recommended on an annual basis and results should be correlated with mammographic findings. MG Screening Mammo w CAD Bilateral CC and MLO view(s) were taken. XCCL view(s) were taken of the right breast. Prior study comparison: May 05, 2017, bilateral MG screening mammo w CAD. December 08, 2012, bilateral digital screening mammo w/CAD. There are scattered fibroglandular densities. No suspicious abnormality. No significant changes when compared with prior studies. ASSESSMENT: Negative, BI-RAD 1 RECOMMENDATION: Routine screening mammogram of both breasts in 1 year.
== END | disposition home or self-care (01) ==
LOC: RADMAMWWP 13:27
PROVIDERS: ATTEND Nurse Practitioner Family
DX: Z12.31 Encounter for screening mammogram for malignant neoplasm of breast (principal)
CPT/HCPCS: 77067